=== PATIENT | male | born 1935 | race Caucasian/White ===

== ENCOUNTER 2016-08-24 17:07 | Inpatient (IN) | payer MEDICARE ==
[2016-08-24] MEDS ORDERED: ASPIRIN 81 MG CHEW PO STA (17:14)
[2016-08-24] MEDS ORDERED: DILTIAZEM 5 MG/ML 5 ML VIAL IVP STA (17:18)
[2016-08-24] MEDS ORDERED: RX INFO: IV CONTRAST WAS GIVEN 1 EACH MISC MISCELLANE PRN (17:20)
--- NOTE | 2016-08-24 17:23 | ED ---
General Adult HPI - General Chief complaint: Chest Pain Stated complaint: Chest Pain Time Seen by Provider: 08/24/16 17:10 Source: EMS, RN notes reviewed Mode of arrival: EMS Limitations: no limitations - History of Present Illness Initial comments: This is a 80-year-old male who presents to the emergency department complaining of some chest discomfort starting at 9:00 last night per patient states she was just sitting around when all of a sudden his heart started to go fast and he had discomfort. Patient states is gotten worse at times and then improved at times but is never completely gone away per patient state he is mildly short of breath with it but nothing significant. Patient states he continues felt the day today so decided to come to the emergency department. Patient states she does have a thoracic aortic aneurysm that he supposed to have CAT scan tomorrow. Patient denies any diaphoresis with these episodes patient denies any nausea with these episodes. Patient denies any recent fever chills or cough. Patient denies any headache patient denies numbness weakness. Patient denies any lightheadedness dizziness or near syncopal episode. Patient denies any abdominal pain. Patient denies any back pain. - Related Data Home Medications Medication Instructions Recorded Confirmed Ezetimibe [Zetia] 10 mg PO HS 01/20/15 08/24/16 Levothyroxine Sodium [Synthroid] 137 mcg PO DAILY 01/20/15 08/24/16 Olmesartan [Benicar] 20 mg PO DAILY 01/20/15 08/24/16 amLODIPine BESYLATE [Norvasc] 10 mg PO DAILY 01/20/15 08/24/16 Metoprolol Tartrate [Lopressor] 25 mg PO BID 08/24/16 08/24/16 Allergies Allergy/AdvReac Type Severity Reaction Status Date / Time No Known Allergies Allergy Verified 08/24/16 17:32 Review of Systems ROS Statement: Those systems with pertinent positive or pertinent negative responses have been documented in the HPI. ROS Other: All systems not noted in ROS Statement are negative. Past Medical History Past Medical History: CVA/TIA, Hyperlipidemia, Hypertension, Pneumonia, Thyroid Disorder Additional Past Medical History / Comment(s): AAA History of Any Multi-Drug Resistant Organisms: None Reported Past Surgical History: Appendectomy, Cholecystectomy, Joint Replacement, Orthopedic Surgery Additional Past Surgical History / Comment(s): bilateral shoulder and hips replaced Past Psychological History: No Psychological Hx Reported Smoking Status: Former smoker Past Alcohol Use History: Occasional Past Drug Use History: None Reported General Exam - General Exam Comments Initial Comments: GENERAL: Patient is well-developed and well-nourished. Patient is nontoxic and well- hydrated and is in mild distress. ENT: Neck is soft and supple. No significant lymphadenopathy is noted. Oropharynx is clear. Moist mucous membranes. Neck has full range of motion without eliciting any pain. EYES: The sclera were anicteric and conjunctiva were pink and moist. Extraocular movements were intact and pupils were equal round and reactive to light. Eyelids were unremarkable. PULMONARY: Unlabored respirations. Good breath sounds bilaterally. No audible rales rhonchi or wheezing was noted. CARDIOVASCULAR: Patient is tachycardic at about 150 beats a minute ABDOMEN: Soft and nontender with normal bowel sounds. No palpable organomegaly was noted. There is no palpable pulsatile mass. SKIN: Skin is clear with no lesions or rashes and otherwise unremarkable. NEUROLOGIC: Patient is alert and oriented x3. Cranial nerves II through XII are grossly intact. Motor and sensory are also intact. Normal speech, volume and content. Symmetrical smile. MUSCULOSKELETAL: Normal extremities with adequate strength and full range of motion. No lower extremity swelling or edema. No calf tenderness. LYMPHATICS: No significant lymphadenopathy is noted PSYCHIATRIC: Normal psychiatric evaluation. Normal interpersonal interactions appears functionally intact in deals appropriately with others. No signs of depression. No signs of anxiety. Limitations: no limitations Course Vital Signs 08/24/16 08/24/16 17:09 18:15 Temperature 99.2 F Pulse Rate 144 H 146 H Respiratory 20 20 Rate Blood Pressure 153/89 126/80 O2 Sat by Pulse 96 97 Oximetry Medical Decision Making - Medical Decision Making EKG shows atrial flutter with a 2-1 AV block at a rate of 150 beats a minute QRS is 84 Q-T intervals 312 QTC is 489 Chest x-ray showed no acute abnormality. Started the patient on Cardizem to slow the heart rate down. Patient was given a bolus and put on a drip - Lab Data Result diagrams: 08/24/16 17:10 08/24/16 17:10 Lab Results 08/24/16 08/24/16 08/24/16 Range/Units 17:10 17:10 17:10 WBC 11.9 H (3.8-10.6) k/uL RBC 4.64 (4.30-5.90) m/uL Hgb 13.9 (13.0-17.5) gm/dL Hct 41.9 (39.0-53.0) % MCV 90.3 (80.0-100.0) fL MCH 29.9 (25.0-35.0) pg MCHC 33.1 (31.0-37.0) g/dL RDW 13.6 (11.5-15.5) % Plt Count 253 (150-450) k/uL Neutrophils % 78 % Lymphocytes % 12 % Monocytes % 7 % Eosinophils % 1 % Basophils % 1 % Neutrophils # 9.3 H (1.3-7.7) k/uL Lymphocytes # 1.4 (1.0-4.8) k/uL Monocytes # 0.8 (0-1.0) k/uL Eosinophils # 0.1 (0-0.7) k/uL Basophils # 0.1 (0-0.2) k/uL PT (9.0-12.0) sec INR (<1.1) APTT (22.0-30.0) sec Sodium 142 (137-145) mmol/L Potassium 4.6 (3.5-5.1) mmol/L Chloride 107 (98-107) mmol/L Carbon Dioxide 21 L (22-30) mmol/L Anion Gap 14 mmol/L BUN 15 (9-20) mg/dL Creatinine 0.94 (0.66-1.25) mg/dL Est GFR (MDRD) Af Amer >60 (>60 ml/min/1.73 sqM) Est GFR (MDRD) Non-Af >60 (>60 ml/min/1.73 sqM) Glucose 108 H (74-99) mg/dL Calcium 9.4 (8.4-10.2) mg/dL Magnesium 1.7 (1.6-2.3) mg/dL Total Bilirubin 1.8 H (0.2-1.3) mg/dL AST 31 (17-59) U/L ALT 29 (21-72) U/L Alkaline Phosphatase 76 (38-126) U/L Total Creatine Kinase 218 H (55-170) U/L NT-Pro-B Natriuret Pep pg/mL Total Protein 7.4 (6.3-8.2) g/dL Albumin 4.3 (3.5-5.0) g/dL 08/24/16 08/24/16 Range/Units 17:10 17:10 WBC (3.8-10.6) k/uL RBC (4.30-5.90) m/uL Hgb (13.0-17.5) gm/dL Hct (39.0-53.0) % MCV (80.0-100.0) fL MCH (25.0-35.0) pg MCHC (31.0-37.0) g/dL RDW (11.5-15.5) % Plt Count (150-450) k/uL Neutrophils % % Lymphocytes % % Monocytes % % Eosinophils % % Basophils % % Neutrophils # (1.3-7.7) k/uL Lymphocytes # (1.0-4.8) k/uL Monocytes # (0-1.0) k/uL Eosinophils # (0-0.7) k/uL Basophils # (0-0.2) k/uL PT 11.0 (9.0-12.0) sec INR 1.1 (<1.1) APTT 23.8 (22.0-30.0) sec Sodium (137-145) mmol/L Potassium (3.5-5.1) mmol/L Chloride (98-107) mmol/L Carbon Dioxide (22-30) mmol/L Anion Gap mmol/L BUN (9-20) mg/dL Creatinine (0.66-1.25) mg/dL Est GFR (MDRD) Af Amer (>60 ml/min/1.73 sqM) Est GFR (MDRD) Non-Af (>60 ml/min/1.73 sqM) Glucose (74-99) mg/dL Calcium (8.4-10.2) mg/dL Magnesium (1.6-2.3) mg/dL Total Bilirubin (0.2-1.3) mg/dL AST (17-59) U/L ALT (21-72) U/L Alkaline Phosphatase (38-126) U/L Total Creatine Kinase (55-170) U/L NT-Pro-B Natriuret Pep 2220 pg/mL Total Protein (6.3-8.2) g/dL Albumin (3.5-5.0) g/dL Disposition Clinical Impression: Atrial flutter with rapid ventricular response Disposition: ADMITTED IP TO THIS HOSP Time of Disposition: 18:46
[2016-08-24 17:32] LABS: Basophils # (A) 0.1 k/uL (0-0.2); Basophils % (A) 1 %; CH 30.4; CHCM 33.8; Eosinophils # (A) 0.1 k/uL (0-0.7); Eosinophils % (A) 1 %; HCT 41.9 % (39.0-53.0); HDW 2.82; HGB 13.9 gm/dL (13.0-17.5); Luc # (Auto) 0.22; Luc % (Auto) 2; Lymphocytes # (A) 1.4 k/uL (1.0-4.8); Lymphocytes % (A) 12 %; MCH 29.9 pg (25.0-35.0); MCHC 33.1 g/dL (31.0-37.0); MCV 90.3 fL (80.0-100.0); Mean Platelet Volume 7.9; Monocytes # (A) 0.8 k/uL (0-1.0); Monocytes % (A) 7 %; Neutrophils # (A) 9.3 k/uL (1.3-7.7); Neutrophils % (A) 78 %; RBC 4.64 m/uL (4.30-5.90); RDW 13.6 % (11.5-15.5); WBC 11.9 k/uL (3.8-10.6); WBC (Perox) 12.06
[2016-08-24 17:43] LABS: INR 1.1 (<1.1); Partial Thromboplastin Time 23.8 sec (22.0-30.0)
[2016-08-24 17:44] LABS: ALT 29 U/L (21-72); AST 31 U/L (17-59); Alkaline Phosphatase 76 U/L (38-126); Anion Gap 14 mmol/L; Blood Urea Nitrogen 15 mg/dL (9-20); Calcium 9.4 mg/dL (8.4-10.2); Carbon Dioxide 21 mmol/L (22-30); Chloride 107 mmol/L (98-107); Glucose 108 mg/dL (74-99); Magnesium 1.7 mg/dL (1.6-2.3); Non-African American GFR(MDRD) >60 (>60 ml/min/1.73 sqM); Potassium 4.6 mmol/L (3.5-5.1); Sodium 142 mmol/L (137-145); Total Bilirubin 1.8 mg/dL (0.2-1.3); Total Protein 7.4 g/dL (6.3-8.2)
--- NOTE | 2016-08-24 18:13 | XR ---
EXAMINATION TYPE: XR chest 2V DATE OF EXAM: 08/24/2016 5:44 PM HISTORY: Chest pain TECHNIQUE: Frontal and lateral views of the chest are obtained. FINDINGS: The thoracic aorta is prominently tortuous. There is no focal air space opacity, pleural effusion, or pneumothorax seen. The cardiac silhouette size is within normal limits. The osseous structures are intact. IMPRESSION: No acute pleural-parenchymal process.
[2016-08-24 18:17] LABS: Troponin I 0.023 ng/mL (0.000-0.034)
[2016-08-24] MEDS: DILTIAZEM 125 MG in SODIUM CHLORIDE 0.9% 100 ML IV SCH (18:21)
[2016-08-24 18:50] LABS: Creatine Kinase MB 4.4 ng/mL (0.0-2.4)
[2016-08-24] MEDS ORDERED: HEPARIN SODIUM,PORCINE 5,000 UNIT/ML 1 ML VIAL IV ONE (18:55)
--- NOTE | 2016-08-24 18:56 | CT ---
EXAMINATION TYPE: CT angio thoracic/abd aorta DATE OF EXAM: 08/24/2016 6:26 PM COMPARISON: CTA chest 03/24/[address] abdomen pelvis January 09, 2013 HISTORY: Pt states of chest pain and pressure. Hx of AAA. CT DLP: 798.2 mGycm. Automated exposure control for dose reduction was used. TECHNIQUE: Performed with IV Contrast, patient injected with 100 mL of Omnipaque 350. THORACIC FINDINGS: Imaging was obtained from the thoracic inlet contiguously through the level of the sacroiliac joints. The thoracic aorta is markedly ectatic and it is aneurysmal, with the ascending aorta measuring 5 cm caliber (top normal is 4 cm caliber), and the descending thoracic aorta at the same axial level is 4c m caliber. However, the thoracic aortic caliber and overall CT appearance (on both the noncontrast an d contrast sequences) is unaltered when compared to the prior CTA of March 2016. The mediastinal fat has normal appearance. There is no aortic dissection. The great arterial vessels have unremarkabl e appearance. There are prominent air-filled bowel plane calcifications and prominent coronary calcifications. No c ardiomegaly. Pericardial spaces negative. The pulmonary arteries are negative for embolism. The pulmonary arterial anatomy is mild moderately d ilated, suggesting chronic pulmonary hypertension if clinically supported. This too is unchanged. The lungs are clear. The pleural spaces are negative. No focal skeletal findings. ABDOMINAL FINDINGS: Generalized nonaneurysmal atherosclerotic calcifications are noted throughout th e arterial anatomy. The aortoiliac inflow is widely patent. There is no dissection. Solid and hollow viscera of the abdomen are unremarkable. No focal skeletal findings. IMPRESSION: NO ACUTE PROCESS; STABLE APPEARANCE WHEN COMPARED TO THE PRIOR CTA OF 2015.
[2016-08-24] MEDS ORDERED: NITROGLYCERIN SL TABS 0.4 MG TAB SUBLINGUAL PRN (18:58)
[2016-08-24] MEDS ORDERED: HEPARIN SODIUM,PORCINE/D5W PMX 25,000 UNIT in DEXTROSE/WATER 1 500ML.BAG IV SCH (19:00)
[2016-08-24] MEDS ORDERED: ACETAMINOPHEN TAB 325 MG TAB PO STA (19:15)
[2016-08-24 19:25] LABS: Appearance,Urine Clear (Clear); Bilirubin,Urine Negative (Negative); Glucose,Urine (UA) Negative (Negative); Ketones,Urine Negative (Negative); Leukocyte Esterase,Urine Negative (Negative); Nitrite,Urine Negative (Negative); Protein,Urine Negative (Negative); Specific Gravity,Urine 1.023 (1.001-1.035); UA Billing (MACRO vs. MICRO) CHEM; Urobilinogen,Urine <2.0 mg/dL (<2.0)
[2016-08-24 21:22] LABS: Glucose,Whole Blood 113 mg/dL (75-99)
[2016-08-24 21:34] VITALS: BMI 26.6
[2016-08-25] MEDS ORDERED: NITROGLYCERIN OINT 1 INCH/GM PACKET TOPICAL SCH (00:15)
[2016-08-25] MEDS: EZETIMIBE 10 MG TAB PO SCH ×2 (00:24→21:03)
[2016-08-25 00:39] LABS: Creatine Kinase MB 2.5 ng/mL (0.0-2.4); Troponin I 0.044 ng/mL (0.000-0.034)
[2016-08-25] MEDS: NITROGLYCERIN OINT 1 INCH/GM PACKET TOPICAL SCH ×3 (00:43→15:56)
[2016-08-25] MEDS: ACETAMINOPHEN TAB 325 MG TAB PO PRN (04:14)
[2016-08-25] MEDS: DILTIAZEM 125 MG in SODIUM CHLORIDE 0.9% 100 ML IV SCH (04:52)
[2016-08-25] MEDS: LEVOTHYROXINE 137 MCG TAB PO SCH (06:14)
[2016-08-25 06:17] LABS: Cholesterol 168 mg/dL (<200); HDL Cholesterol 48 mg/dL (40-60); Triglycerides 74 mg/dL (<150)
[2016-08-25 06:43] LABS: Creatine Kinase MB 1.5 ng/mL (0.0-2.4)
[2016-08-25 06:44] LABS: Troponin I 0.042 ng/mL (0.000-0.034)
[2016-08-25] MEDS: ASPIRIN 325 MG TAB PO SCH (08:17)
--- NOTE | 2016-08-25 11:51 | CONS ---
DATE OF CONSULTATION: CHIEF COMPLAINT: Atrial flutter. This is an 80-year-old gentleman with history of shortness of breath, moderate aortic stenosis, nonobstructive CAD, who sees my associate, Dr. Odom on a regular basis, presented to the hospital complaining of palpitations and shortness of breath. He was found to be in atrial flutter. He also had some chest discomfort. He was found to be in atrial flutter with rapid ventricular rate. He is treated with intravenous Cardizem with significant improvement in his heart rate. He is also on IV heparin. The patient has history of aortic aneurysm and was to undergo a CAT scan tomorrow, but it was done on this admission. CAT showed stable ascending aortic aneurysm compared to April 2016. At the time of my evaluation, patient is comfortable at rest and is free of symptoms. Past medical history is significant for aortic stenosis, mild nonobstructive coronary artery disease, hypertension. Current medications include Lopressor 25 b.i.d., Norvasc 10 q. daily, Benicar 20 q. daily, levothyroxine and Zetia. ALLERGIES: There are no known drug allergies. Family history is negative for premature coronary artery disease. Social history is negative for current smoking, EtOH abuse, or drug abuse. REVIEW OF SYSTEMS: HEENT: Unremarkable. CARDIAC: As described above. RESPIRATORY: Negative. GI: Negative. GENITOURINARY: Negative. ALLERGY/IMMUNOLOGY: Negative. MUSCULOSKELETAL: Significant for arthritis. PSYCHOSOCIAL: Negative. DERMATOLOGICAL; Negative. CONSTITUTIONAL: Negative. The rest of the system review is not relevant. On exam, comfortable at rest. Vital signs are stable. There is no jugular venous distention. Carotid upstroke is normal. There is no bruit. Chest exam reveals diminished air entry at the bases. Heart exam reveals first and second heart sounds and ejection systolic murmur in the aortic area. Abdomen is soft. Exam of extremities did not reveal edema. Peripheral pulses are felt. Labs show that the troponin is elevated at 0.04. LDL cholesterol is 105. Hemoglobin is 13.9. ASSESSMENT: 1. Atrial flutter with poorly controlled ventricular rate, new onset, typical. 2. Mild nonobstructive coronary artery disease. 3. Moderate aortic stenosis. 4. Elevated troponin probably related to supply demand mismatch. PLAN: I am going to stop the intravenous Cardizem, start him on amiodarone and Eliquis. If he converts to sinus rhythm well and good. If not, he will need cardioversion once adequately anticoagulated.
[2016-08-25] MEDS: ATENOLOL 25 MG TAB PO SCH (12:30)
[2016-08-25] MEDS: APIXABAN 2.5 MG TABLET PO SCH ×2 (12:30→21:03)
--- NOTE | 2016-08-25 14:46 | P.CNPUL ---
History of Present Illness Consult date: 08/25/16 Reason for consult: chest pain Chief complaint: Chest pain History of present illness: This is an 80-year-old male who presented to the emergency department complaining of some chest discomfort. The patient states in addition to chest pain, he also had a rapid heartbeat. Palpitations and fluttering. The patient also some mild shortness of breath. His primary doctor is my partner. He came to the emergency department because his heart rate was not still slowly down nor was his chest pressure getting any better. No sweating. No nausea. No vomiting. No fever no chills. No phlegm production. No back pain. The patient was essentially admitted for some hypertension and atrial fibrillation with RVR. He has a history of hyperlipidemia hypothyroidism hypertension. Has no history of chronic lung disease per se. Review of Systems A 12 point review of system is positive for chest pain rapid heartbeat palpitations and mild shortness of breath. The rest of the 12 point review of system is unremarkable. Past Medical History Past Medical History: CVA/TIA, Hyperlipidemia, Hypertension, Pneumonia, Thyroid Disorder Additional Past Medical History / Comment(s): AAA History of Any Multi-Drug Resistant Organisms: None Reported Past Surgical History: Appendectomy, Cholecystectomy, Heart Catheterization, Joint Replacement, Orthopedic Surgery Additional Past Surgical History / Comment(s): bilateral shoulder and hips replaced Past Anesthesia/Blood Transfusion Reactions: No Reported Reaction Past Psychological History: No Psychological Hx Reported Smoking Status: Former smoker Past Alcohol Use History: Occasional Additional Past Alcohol Use History / Comment(s): Pt states he quit in the Past Drug Use History: None Reported - Past Family History Mother Family Medical History: CVA/TIA Medications and Allergies Home Medications Medication Instructions Recorded Confirmed Type Ezetimibe [Zetia] 10 mg PO HS 01/20/15 08/24/16 History Levothyroxine Sodium [Synthroid] 137 mcg PO DAILY 01/20/15 08/24/16 History Olmesartan [Benicar] 20 mg PO DAILY 01/20/15 08/24/16 History amLODIPine BESYLATE [Norvasc] 10 mg PO DAILY 01/20/15 08/24/16 History Metoprolol Tartrate [Lopressor] 25 mg PO BID 08/24/16 08/24/16 History Allergies Allergy/AdvReac Type Severity Reaction Status Date / Time No Known Allergies Allergy Verified 08/24/16 17:32 Physical Exam Osteopathic Statement: *. No significant issues noted on an osteopathic structural exam other than those noted in the History and Physical/Consult. Vitals: Vital Signs Temp Pulse Pulse Resp BP BP Pulse Ox 08/25/16 12:00 96.5 F L 83 18 123/62 97 08/25/16 08:00 96.4 F L 84 18 126/66 94 L 08/25/16 04:00 101 F H 82 18 114/56 96 08/25/16 00:00 90 18 127/60 96 08/24/16 21:00 98.1 F 121 H 18 108/68 95 08/24/16 20:34 99.9 F H 150 H 16 106/59 97 08/24/16 20:13 155 H 16 98/58 08/24/16 20:00 101.0 F H 152 H 16 113/74 08/24/16 19:10 100.5 F H 150 H 20 112/67 96 Intake and Output 08/24/16 08/25/16 08/25/16 22:59 06:59 14:59 Intake Total 10.333 186.695 755.067 Output Total 400 Balance 10.333 -213.305 755.067 Intake: IV 20 .9 20 Intake, IV Titration 10.333 186.695 155.067 Amount Diltiazem 125 mg In 10.333 84.5 Sodium Chloride 0.9% 100 ml @ 5 MG/HR 5 mls/hr IV .Q24H [facility] Rx#:[id number] Heparin Sodium,Porcine/ 102.195 155.067 D5w Pmx 25,000 unit In Dextrose/Water 1 500ml. bag @ 12 UNITS/KG/HR 19. 59 mls/hr IV .Q24H [facility] Rx #:[id number] Oral 580 Output: Urine 400 Other: # Voids 1 1 # Bowel Movements 1 Weight 81.647 kg 78.1 kg No acute distress, oriented 3. Sitting beside the bed. No respiratory difficulty. HEENT examination is grossly unremarkable. Mucous membranes are moist. No oral lesions. Neck supple. Full range of motion. No adenopathy. Cardiovascular examination reveals regular rhythm rate. S1-S2 normal. He is not tachycardic. No murmur. No S3-S4. Lungs are clear breath sounds are equal. No wheezes rhonchi or crackles. Abdomen soft bowel sounds are heard. No masses or tenderness. Extremities are intact. His no edema. Pulses are intact. Results - Laboratory Findings CBC and BMP: 08/24/16 17:10 08/24/16 17:10 PT/INR, D-dimer PT 11.0 sec (9.0-12.0) 08/24/16 17:10 INR 1.1 (<1.1) 08/24/16 17:10 Abnormal lab findings: Abnormal Labs 08/24/16 08/24/16 08/24/16 21:20 23:39 23:39 APTT 41.4 H POC Glucose (mg/dL) 113 H Total Creatine Kinase 190 H CK-MB (CK-2) 2.5 H* Troponin I 0.044 H* LDL Cholesterol, Calc 08/25/16 08/25/16 08/25/16 05:17 05:17 05:17 APTT 43.9 H POC Glucose (mg/dL) Total Creatine Kinase 221 H CK-MB (CK-2) Troponin I 0.042 H* LDL Cholesterol, Calc 105 H - Diagnostic Findings Chest x-ray: image reviewed CT scan - chest: image reviewed (X-rays labs and medications are all reviewed.) Assessment and Plan (1) Hypertensive urgency Status: Acute (2) Atrial flutter with rapid ventricular response Status: Acute Plan: Plan dated 08/25/2016 The patient's medications labs and x-rays are all reviewed. We spent time at the bedside with the patient. He has no history of any lung issues. We'll continue to follow along. Cardiology is taken a main goal in the care of this patient given his heart history. Additional recommendations and suggestions are forthcoming. Time with Patient: Greater than 30
--- NOTE | 2016-08-25 16:09 | HP ---
DATE OF ADMISSION: 08/24/2016 PRESENTING COMPLAINT: Heart racing. HISTORY OF PRESENTING COMPLAINT: This is a pleasant 80-year-old patient of Dr. Pimentel whose chronic stable medical conditions include hypertension, hyperlipidemia and hypothyroid. Patient has abdominal aortic aneurysm. The patient was watching television and suddenly his heart started beating rapidly. It went all through all night. There is some chest discomfort, down to the shoulder. No shortness of breath. No dizziness. No perspiration. The patient came in and was found to be in atrial flutter with a rapid ventricular rate. Patient is put on IV Cardizem and IV heparin. Admitted for the same. Denies any prior cardiac history. REVIEW OF SYSTEMS: CONSTITUTIONAL: Tired. HEENT: None. RESPIRATORY: As above. CARDIOVASCULAR: As above. GASTROINTESTINAL: None. GENITOURINARY: None. MUSCULOSKELETAL: None. DERMATOLOGICAL: None. HEMATOLOGICAL: None. LYMPHATICS: None. PSYCHIATRY: None. NEUROLOGICAL: None. 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 PAST SURGICAL HISTORY: Appendectomy, cholecystectomy, cardiac catheterization, bilateral shoulder and hips replaced. SOCIAL HISTORY: The patient stopped smoking in the 70s. Lives by himself, retired. FAMILY HISTORY: Stroke. HOME MEDICATIONS: 1. Lopressor 25 b.i.d. 2. Norvasc 10 mg p.o. daily. 3. Benicar 20 mg p.o. daily. 4. Synthroid 137 mcg p.o. daily. 5. Zetia 10 mg p.o. q.h.s. ALLERGIES: None. On examination vital signs on presentation: Temperature 101, pulse 152, respirations 16, blood pressure 103/74, pulse ox 96% on 2 liters. GENERAL APPEARANCE: Average built, sitting up, tired -appearing. EYES: Pupils equal. Conjunctivae normal. HEENT: Oral cavity normal. NECK: JVD not raised. Mass not palpable. RESPIRATORY: Effort normal. LUNGS: Slightly decreased breath sounds. CARDIOVASCULAR: Heart sounds irregular. No edema. ABDOMEN: Soft, nontender. Liver and spleen not palpable. LYMPHATIC: No lymph nodes palpable in neck or axillae. PSYCHIATRY: Alert and oriented x3. Mood and affect normal. NEUROLOGICAL: Pupils equal. Cranial nerves grossly intact. Power and sensation grossly intact. MUSCULOSKELETAL: Evidence of osteoarthritis especially in the hands. INVESTIGATIONS: White count 11.9, hemoglobin 13.9. Potassium 4.6. Troponin 0.023, 0.044, 0.042. UA negative. Chest x-ray nil acute. CT scan of the chest was unremarkable. EKG shows atrial flutter with 2:1 conduction ASSESSMENT: 1. New onset of atrial flutter with a rapid ventricular rate, present on admission. 2. Troponin leak, probably rate related. We need to rule out underlying coronary ischemia in this elderly gentleman who has multiple coronary risk factors. 3. Hyperlipidemia. 4. Essential hypertension. 5. Hypothyroidism. PLAN: Patient did have a sepsis-like picture on the presentation, though no source is present. Patient has no respiratory symptoms and no urinary symptoms at this point. We will hold off any antibiotics. The patient actually feels better since he has come in. Follow closely. Will send down a set of blood cultures also. Care was discussed with patent in detail.
[2016-08-25] MEDS: AMIODARONE 200 MG TAB PO SCH (21:03)
[2016-08-26] MEDS: NITROGLYCERIN OINT 1 INCH/GM PACKET TOPICAL SCH ×3 (00:14→16:36)
[2016-08-26] MEDS: ACETAMINOPHEN TAB 325 MG TAB PO PRN (00:19)
[2016-08-26] MEDS: LEVOTHYROXINE 137 MCG TAB PO SCH (06:42)
[2016-08-26 07:00] LABS: Anion Gap 10 mmol/L; Basophils # (A) 0.1 k/uL (0-0.2); Basophils % (A) 1 %; Blood Urea Nitrogen 16 mg/dL (9-20); CH 29.6; Calcium 8.8 mg/dL (8.4-10.2); Carbon Dioxide 23 mmol/L (22-30); Chloride 107 mmol/L (98-107); Eosinophils # (A) 0.1 k/uL (0-0.7); Eosinophils % (A) 1 %; Glucose 93 mg/dL (74-99); HCT 41.2 % (39.0-53.0); HDW 2.71; HGB 13.3 gm/dL (13.0-17.5); Luc # (Auto) 0.26; Luc % (Auto) 4; Lymphocytes # (A) 2.1 k/uL (1.0-4.8); Lymphocytes % (A) 33 %; MCH 29.1 pg (25.0-35.0); MCHC 32.2 g/dL (31.0-37.0); MCV 90.3 fL (80.0-100.0); Mean Platelet Volume 7.2; Monocytes # (A) 0.9 k/uL (0-1.0); Monocytes % (A) 14 %; Neutrophils # (A) 2.9 k/uL (1.3-7.7); Neutrophils % (A) 47 %; Non-African American GFR(MDRD) >60 (>60 ml/min/1.73 sqM); Potassium 4.4 mmol/L (3.5-5.1); RBC 4.56 m/uL (4.30-5.90); RDW 13.4 % (11.5-15.5); Sodium 140 mmol/L (137-145); WBC 6.2 k/uL (3.8-10.6); WBC (Perox) 6.19
[2016-08-26] MEDS: ASPIRIN 325 MG TAB PO SCH (09:18)
[2016-08-26] MEDS: ATENOLOL 25 MG TAB PO SCH (09:18)
[2016-08-26] MEDS: AMIODARONE 200 MG TAB PO SCH ×2 (09:19→20:34)
[2016-08-26] MEDS: APIXABAN 2.5 MG TABLET PO SCH ×2 (09:19→20:34)
--- NOTE | 2016-08-26 10:32 | ECHOF ---
Referral Reason:aflutter MEASUREMENTS -------- HEIGHT: 175.3 cm WEIGHT: 78.0 kg BP: 126/66 RVIDd: 3.8 cm (< 3.3) IVSd: 0.8 cm (0.6 - 1.1) LVIDd: 4.5 cm (3.9 - 5.3) LVPWd: 0.8 cm (0.6 - 1.1) IVSs: 1.5 cm LVIDs: 3.0 cm LVPWs: 1.4 cm LA Diam: 2.8 cm (2.7 - 3.8) LAESV Index (A-L): 32.01 ml/m Ao Diam: 3.2 cm (2.0 - 3.7) AV Cusp: 1.6 cm (1.5 - 2.6) LA Diam: 3.0 cm (2.7 - 3.8) MV EXCURSION: 15.965 mm (> 18.000) MV EF SLOPE: 116 mm/s (70 - 150) EPSS: 0.6 cm MV E Piter: 1.32 m/s MV DecT: 172 ms MV A Piter: 0.59 m/s MV E/A Ratio: 2.24 AV maxP.02 mmHg AV meanP.19 mmHg AR PHT: 540 ms FINDINGS -------- Sinus rhythm. This was a technically good study. Left ventricular wall thickness is normal. Overall left ventricular systolic function is normal with, an EF between 55 - 60 %. The right ventricle is mildly enlarged. LA is midly dilated 29-33ml/m2. The right atrium is normal in size. There is mild aortic regurgitation. There is mild aortic stenosis present. Peak/mean gradient across the Aortic Valve is 27.02mmHg / 16.19mmHg. The mitral valve leaflets are mildly thickened. Mild mitral annular calcification present. Mild mitral regurgitation is present. Mild tricuspid regurgitation present. Right ventricular systolic pressure is normal at < 35 mmHg. Pulmonic valve appears structurally normal. The aortic root size is normal. Normal inferior vena cava with normal inspiratory collapse consistent with estimated right atrial pressure of 5 mmHg. There is no pericardial effusion. CONCLUSIONS -------- 1. Sinus rhythm. 2. Peak/mean gradient across the Aortic Valve is 27.02mmHg / 16.19mmHg. 3. The mitral valve leaflets are mildly thickened. 4. Mild mitral annular calcification present. 5. Mild mitral regurgitation is present. 6. Mild tricuspid regurgitation present. 7. Right ventricular systolic pressure is normal at < 35 mmHg. 8. Pulmonic valve appears structurally normal. 9. The aortic root size is normal. 10. There is no pericardial effusion. 11. This was a technically good study. 12. Left ventricular wall thickness is normal. 13. Overall left ventricular systolic function is normal with, an EF between 55 - 60 %. 14. The right ventricle is mildly enlarged. 15. LA is midly dilated 29-33ml/m2. 16. The right atrium is normal in size. 17. There is mild aortic regurgitation. 18. There is mild aortic stenosis present. ENVIRONMENTAL [employer] PLANNER: Juan R Grover RDCS
[2016-08-26] MEDS: METOPROLOL TARTRATE 50 MG TAB PO SCH ×3 (12:21→20:35)
--- NOTE | 2016-08-26 13:15 | P.PN ---
Subjective This is an 80-year-old male who presented to the emergency department complaining of some chest discomfort. The patient states in addition to chest pain, he also had a rapid heartbeat. Palpitations and fluttering. The patient also some mild shortness of breath. His primary doctor is my partner. He came to the emergency department because his heart rate was not still slowly down nor was his chest pressure getting any better. No sweating. No nausea. No vomiting. No fever no chills. No phlegm production. No back pain. The patient was essentially admitted for some hypertension and atrial fibrillation with RVR. He is seen again today 08/26/2016 in follow-up on the selective care unit. He is awake and alert in no acute distress. He states his breathing is easier today as compared to yesterday. He has increased activity with less dyspnea on exertion. He is maintaining O2 saturations in the mid 90s on room air. His heart rate is better controlled currently in the 70s. He's been initiated on amiodarone 400 mg twice a day. He is also on Lopressor 50 mg 3 times a day. Anticoagulated with Eliquis. He denies any chest pain, palpitations, lightheadedness or dizziness. Objective - Vital Signs Vital signs: Vital Signs Temp 98.7 F 08/26/16 12:00 Pulse 75 08/26/16 12:00 Resp 18 08/26/16 12:00 BP 146/82 08/26/16 12:00 Pulse Ox 94 L 08/26/16 12:00 Intake & Output 08/25/16 08/26/16 08/26/16 18:59 06:59 18:59 Intake Total 935.067 480 Output Total 1500 1000 Balance 935.067 -1020 -1000 Weight 77.9 kg 77.9 kg Intake: IV 20 .9 20 Intake, IV Titration 155.067 Amount Heparin Sodium,Porcine/ 155.067 D5w Pmx 25,000 unit In Dextrose/Water 1 500ml. bag @ 12 UNITS/KG/HR 19. 59 mls/hr IV .Q24H KATARINA Rx #:[id number] Oral 760 480 Output: Urine 1500 1000 Other: Voiding Method Toilet # Voids 1 1 1 # Bowel Movements 1 1 - Exam GENERAL EXAM: Alert, active, comfortable in no apparent distress. HEAD: Normocephalic. EYES: Normal reaction of pupils, equal size. NOSE: Clear with pink turbinates. THROAT: No erythema or exudates. NECK: No masses, no JVD. CHEST: No chest wall deformity. LUNGS: Equal air entry with no crackles, wheeze, rhonchi or dullness. CVS: S1 and S2 normal with no audible mumurs, irregular rhythm. ABDOMEN: No hepatosplenomegaly, normal bowel sounds, no guarding or rigidity. SPINE: No scoliosis or deformity SKIN: No rashes CENTRAL NERVOUS SYSTEM: No focal deficits, tone is normal in all 4 extremities. Extremities: There is no significant peripheral edema. No clubbing, no cyanosis. Peripheral pulses are intact. - Labs CBC & Chem 7: 08/26/16 05:37 08/26/16 05:37 Assessment and Plan Plan: Impression: #1 Chest pain with palpitations found to be in atrial fibrillation with a rapid ventricular response. Better controlled today on amiodarone and beta blockers. Anticoagulated with Eliquis. #2 Hypertension. #3 Hyperlipidemia. #4 Hypothyroidism. Plan: The patient was seen and evaluated by Dr. Cooper. His heart rate is better controlled today. He denies any chest pain, palpitations lightheadedness or dizziness. No pulmonary complaints. We'll continue with his current medications. He remains anticoagulated. We will increase his activity as tolerated. We'll continue to follow make further recommendations based on his clinical status.
--- NOTE | 2016-08-26 13:55 | PN ---
Mr. Ware is comfortable, resting. He is in atrial flutter, rate is well controlled at rest but with activity his rates seems to go up. His vital signs are stable. I am recommending that we continue the amiodarone for now, we will increase the metoprolol to 50 mg t.i.d. and will continue apixaban 2.5 mg b.i.d. and based on clinical course, will make further recommendation. Hopefully his rate control will be optimized with increased dose of beta saud, and if so he can possibly be discharged tomorrow. Physical exam revealed blood pressure of 140/80, pulse rate is about 80 per minute, irregular. No JVD. S1 and S2 heard normally. Short systolic murmur is audible. Lungs are clear. Abdomen and lower extremity exam is unchanged.
[2016-08-26] MEDS: ISOSORBIDE MONONITRATE ER 30 MG TAB.ER.24H PO SCH (18:20)
[2016-08-26] MEDS: EZETIMIBE 10 MG TAB PO SCH (20:34)
--- NOTE | 2016-08-26 22:08 | PN ---
DATE OF SERVICE: 08/26/2016 PRESENTING COMPLAINT: Heart racing. INTERVAL HISTORY: This is a patient who presented with atrial fibrillation with rapid ventricular rate, did have a couple of episodes of heart racing up to 150s. A beta saud was earlier increased by Cardiology. Overall the patient feeling better, but a bit tired. Review of systems done for constitutional, cardiovascular, GI, pulmonary; relevant findings as above. Current medications are reviewed that include: 1. Amiodarone and 2. Lopressor 50 mg t.i.d. On examination, temperature 98.7, pulse 75 with a heart rate up to 150, respirations 18, blood pressure 142/82, pulse ox 94% on room air. GENERAL APPEARANCE: Sitting up, not in distress. EYES: Pupils equal. Conjunctivae normal. NECK: JVD not raised. Mass not palpable. RESPIRATORY: Effort normal. LUNGS: Slight decreased breath sounds. CARDIOVASCULAR: First and second sounds normal. No edema. ABDOMEN: Soft, nontender. Liver and spleen not palpable. PSYCHIATRY: Alert and oriented x3. Mood and affect were normal. INVESTIGATIONS: White count 6.2. Potassium 4.4. ASSESSMENT: 1. Atrial flutter with rapid ventricular rate on presentation. Rate getting better controlled. 2. Troponin leak, likely related. Patient will need ischemic workup later because of multiple coronary risk factors. 3. Hyperlipidemia. 4. Essential hypertension. 5. Hypothyroidism. PLAN: Patient overall doing better. He interestingly has had no further fevers, even though did not receive any antibiotics, antipyretics. Will change the nitro paste to Imdur.
[2016-08-27] MEDS: LEVOTHYROXINE 137 MCG TAB PO SCH (06:27)
[2016-08-27 07:54] VITALS: RESP 18; TEMP 97.6
[2016-08-27] MEDS: APIXABAN 2.5 MG TABLET PO SCH (08:47)
[2016-08-27] MEDS: AMIODARONE 200 MG TAB PO SCH (08:47)
[2016-08-27] MEDS: METOPROLOL TARTRATE 50 MG TAB PO SCH ×2 (08:47→14:29)
[2016-08-27] MEDS: ISOSORBIDE MONONITRATE ER 30 MG TAB.ER.24H PO SCH (08:47)
--- NOTE | 2016-08-27 12:23 | P.PN ---
Subjective Progress note dated 08/27/2016 This is an 80-year-old gentleman who sees one of my partners as his primary doctor. Was admitted with a diagnosis of atrial fibrillation with RVR. They much better now. Much less short of breath. In fact he said feeling that he is ready to go home. He is on a blood thinner currently. He was started on Cordarone 400 mg twice a day. Also on Lopressor 50 mg 3 times a day. No chest pain or chest discomfort. Shortness of breath is dramatically improved. No wheezes. No fever no chills. No nausea vomiting or diarrhea. Objective - Vital Signs Vital signs: Vital Signs Temp 97.6 F 08/27/16 07:53 Pulse 69 08/27/16 08:00 Resp 18 08/27/16 08:00 BP 123/70 08/27/16 07:53 Pulse Ox 97 08/27/16 07:53 Intake & Output 08/26/16 08/27/16 08/27/16 18:59 06:59 18:59 Intake Total 480 1080 Output Total 1500 860 500 Balance -1020 220 -500 Weight 77.9 kg 77.1 kg 77.1 kg Intake: Oral 480 1080 Output: Urine 1500 860 500 Other: Voiding Method Toilet Toilet Toilet # Voids 1 2 2 # Bowel Movements 1 - Labs CBC & Chem 7: 08/26/16 05:37 08/26/16 05:37 Labs: Microbiology - Last 24 Hours (Table) 08/25/16 14:04 Blood Culture - Preliminary Blood No Growth after 24 hours Assessment and Plan (1) Hypertensive urgency Status: Acute (2) Atrial flutter with rapid ventricular response Status: Acute Plan: Plan dated 08/25/2016 The patient's medications labs and x-rays are all reviewed. We spent time at the bedside with the patient. He has no history of any lung issues. We'll continue to follow along. Cardiology is taken a main goal in the care of this patient given his heart history. Additional recommendations and suggestions are forthcoming. Plan dated 08/27/2016 The patient's medications x-rays labs are all reviewed. He is improved. Hopefully we'll be ready for discharge soon. No additional recommendations are made. Pulmonary status is stable. On room air saturations between 95 and 99%. Time with Patient: Less than 30
[2016-08-27 14:12] VITALS: BP 115/67; PULSE 72
--- NOTE | 2016-08-27 16:15 | PN ---
Mr. Ware is comfortable, resting. He sees Dr. Odom in the outpatient setting. He remains in atrial flutter, but the rate control has improved at rest. The rate is in the mid 70s. Yesterday I increased his beta saud and added apixaban. He seems to be doing better but the activity rate is in the low 100s. I am recommending that he can be discharged on amiodarone, apixaban and metoprolol 50 mg b.i.d. and see Dr. Odom in one week. This gentleman has mild aortic stenosis, nonobstructive CAD and has now developed atrial flutter. The rate is better controlled and will be discharged on current medications. Vital signs are stable. S1, S2 heard normally, short systolic murmur at the base with preserved second heart sound is audible. Heart rate is not fast. Lungs are clear. Abdomen is soft, nontender. Lower extremities reveal diminished pulses. Central nervous system is grossly within normal limits. Plan is to discharge patient on current medical regimen.
--- NOTE | 2016-08-28 22:37 | DS ---
DATE OF ADMISSION: 08/24/2016 DATE OF DISCHARGE: 08/27/2016 FINAL DIAGNOSES: 1. Atrial flutter with rapid ventricular rate on presentation. Rate controlled later on. 2. Troponin leak. Will probably need an ischemic workup as an outpatient because of multiple coronary risk factors. 3. Hyperlipidemia. 4. Essential hypertension. 5. Hypothyroidism. CONSULTATIONS: 1. Dr. Lee Ann Watt, Cardiology. 2. Dr. Cooper, Pulmonary. HOSPITAL COURSE: This patient presented with atrial flutter with rapid ventricular rate and some chest pressure, some troponin leak. Two-D echocardiogram showed EF of 55% to 60%. Patient's rate was controlled by the time of discharge. Care was discussed with the patient. DISCHARGE MEDICATIONS: 1. Zetia 10 mg at bedtime. 2. Synthroid 137 mcg a day. 3. Cordarone 400 mg p.o. b.i.d. 4. Eliquis 2.5 mg p.o. b.i.d. 5. Imdur ER 30 mg p.o. daily. 6. Lopressor 50 mg p.o. t.i.d. Follow up with Dr. Odom in one week. Follow up with Dr. Pimentel in one week. ADDITIONAL NOTE: Cardiology may consider changing the Cordarone to some other medication in view of patient being on Synthroid. Patient to have his TSH checked on followup.
== END 2016-08-27 15:26 | disposition home or self-care (01) | DRG 310 ==
LOC: EC 17:07 → 6SEL 18:58
PROVIDERS: ADMIT Hospitalist; ATTEND Hospitalist
DX: I48.92 Unspecified atrial flutter (principal); I71.2 Thoracic aortic aneurysm, without rupture; I35.0 Nonrheumatic aortic (valve) stenosis; I16.0 Hypertensive urgency; E78.5 Hyperlipidemia, unspecified; I10 Essential (primary) hypertension; R74.8 Abnormal levels of other serum enzymes; E03.9 Hypothyroidism, unspecified; I25.10 Atherosclerotic heart disease of native coronary artery without angina pectoris; M19.041 Primary osteoarthritis, right hand; M19.042 Primary osteoarthritis, left hand; R07.9 Chest pain, unspecified; R06.02 Shortness of breath; H54.7 Unspecified visual loss; Z87.891 Personal history of nicotine dependence; Z90.49 Acquired absence of other specified parts of digestive tract; Z96.643 Presence of artificial hip joint, bilateral; Z79.899 Other long term (current) drug therapy; Z82.3 Family history of stroke; Z96.612 Presence of left artificial shoulder joint; Z96.611 Presence of right artificial shoulder joint; Z87.01 Personal history of pneumonia (recurrent); Z86.73 Personal history of transient ischemic attack (TIA), and cerebral infarction without residual deficits
CPT/HCPCS: 36415; 71020; 71275; 75635; 80048; 80053; 80061; 81003; 82550; 82553; 83735; 83880; 84484; 85025; 85610; 85730; 87040; 93005; 93306; 96365; 96366; 96368; 96376; 99285

== ENCOUNTER 2016-11-09 20:45 | Emergency (ER) | payer MEDICARE ==
[~2016-11-09 20:45] MED LIST: LIDOCAINE/EPINEPHR/TETRACAINE 5 ML BOTTLE TOPICAL ONE
[2016-11-09 21:00] VITALS: BP 168/74; PULSE 102; RESP 16; TEMP 97.9
--- NOTE | 2016-11-09 21:16 | ED ---
Wound/Laceration HPI - General Chief Complaint: Wound/Laceration Stated Complaint: Fell down/Head Lac Time Seen by Provider: 11/09/16 21:03 Source: patient, RN notes reviewed Mode of arrival: wheelchair Limitations: no limitations - History of Present Illness Initial Comments: Patient is a 81-year-old male presents to the emergency room for evaluation of head trauma. Patient states around 3 PM this afternoon he was bringing in this groceries in to his house and tripped and fell landing on his face. Patient denies loss of consciousness. Patient states he sustained a laceration above his right eyebrow. Patient states the area began to bleed. Patient states he tried to get the bleeding to stop Band-Aid and was unsuccessful. Patient denies headache or dizziness. Patient does state that he has been on blood thinners. Patient denies neck pain, numbness or tingling in extremities. Patient denies dizziness. Patient denies any other injuries during incident. Patient just states he needs someone to help him stop the bleeding. Patient states he is not up-to-date on his tetanus vaccine. - Related Data Home Medications Medication Instructions Recorded Confirmed Ezetimibe [Zetia] 10 mg PO HS 01/20/15 08/24/16 Levothyroxine Sodium [Synthroid] 137 mcg PO DAILY 01/20/15 08/24/16 Previous Rx's Medication Instructions Recorded Amiodarone [Cordarone] 400 mg PO BID #30 tab 08/27/16 Apixaban [Eliquis] 2.5 mg PO BID #60 tablet 08/27/16 Isosorbide Mononitrate ER [Imdur] 30 mg PO DAILY #30 tab.er.24h 08/27/16 Metoprolol Tartrate [Lopressor] 50 mg PO TID #90 tab 08/27/16 Allergies Allergy/AdvReac Type Severity Reaction Status Date / Time No Known Allergies Allergy Verified 08/24/16 17:32 Review of Systems ROS Statement: Those systems with pertinent positive or pertinent negative responses have been documented in the HPI. ROS Other: All systems not noted in ROS Statement are negative. Past Medical History Past Medical History: CVA/TIA, Hyperlipidemia, Hypertension, Pneumonia, Thyroid Disorder Additional Past Medical History / Comment(s): AAA History of Any Multi-Drug Resistant Organisms: None Reported Past Surgical History: Appendectomy, Cholecystectomy, Heart Catheterization, Joint Replacement, Orthopedic Surgery Additional Past Surgical History / Comment(s): bilateral shoulder and hips replaced Past Anesthesia/Blood Transfusion Reactions: No Reported Reaction Past Psychological History: No Psychological Hx Reported Smoking Status: Former smoker Past Alcohol Use History: Occasional Additional Past Alcohol Use History / Comment(s): Pt states he quit in the 1969' Past Drug Use History: None Reported - Past Family History Mother Family Medical History: CVA/TIA General Exam - General Exam Comments Initial Comments: Sitting in exam room, no acute distress. Limitations: no limitations General appearance: alert, in no apparent distress Expanded Head exam: Present: laceration (1 cm laceration over the medial right eyebrow) 1 - 1cm laceration Eye exam: Present: normal appearance, PERRL, EOMI Pupils: Present: normal accommodation ENT exam: Present: normal exam Neck exam: Present: normal inspection Respiratory exam: Present: normal lung sounds bilaterally. Absent: respiratory distress Cardiovascular Exam: Present: regular rate, normal rhythm, normal heart sounds Extremities exam: Present: normal inspection Back exam: Present: normal inspection Neurological exam: Present: alert, oriented X3, CN II-XII intact, normal gait Expanded Patient oriented to: Present: person, place, time Speech: Present: fluid speech Cranial nerves: EOM's Intact: Normal, Facial Sensation: Normal Sensory exam: Upper Extremity Light Touch: Normal, Lower Extremity Light Touch: Normal Motor strength exam: RUE: 5, LUE: 5, RLE: 5, LLE: 5 Eye Response: (4) open spontaneously Motor Response: (6) obeys commands Verbal Response: (5) oriented Psychiatric exam: Present: normal affect, normal mood Skin exam: Present: warm, dry. Absent: rash Course Vital Signs 11/09/16 20:55 Temperature 97.9 F Pulse Rate 102 H Respiratory 16 Rate Blood Pressure 168/74 O2 Sat by Pulse 98 Oximetry Procedures - Laceration Laceration #1 Consent Obtained: verbal consent Indication: laceration Site: other (above right eyebrow) Size (cm): 1 Description: linear Depth: simple, single layer Anesthetic Used: lidocaine 1% Anesthesia Technique: local infiltration Pre-repair: wound explored Type of Sutures: nylon Size of Sutures: 6-0 Number of Sutures: 2 Technique: simple, interrupted Patient Tolerated Procedure: well, no complications Medical Decision Making - Medical Decision Making Patient is 81-year-old male presents emergency room for evaluation of fall injury. Patient has a small laceration over right eyebrow. Laceration repaired with sutures. Patient was updated on his tetanus vaccine. Brain and C -spine CT shows no acute findings. Results discussed with patient. Patient states he understands everything that was discussed with him. Return parameters discussed. Case discussed with Dr. Arreola. - Radiology Data Radiology results: report reviewed, image reviewed Disposition Clinical Impression: Fall, Facial laceration Disposition: HOME SELF-CARE Condition: Good Instructions: Facial Laceration (ED), Fall Prevention for Older Adults (ED), Head Injury (ED) Additional Instructions: Please follow up with primary care provider in 1-2 days. Please return in 3-5 days for suture removal. If any new symptom arises or symptoms worsen, return to ER as soon as possible. Referrals: Virginia Pimentel MD [Primary Care Provider] - 1-2 days Time of Disposition: 22:14
[2016-11-09] MEDS ORDERED: LIDOCAINE/EPINEPHR/TETRACAINE 5 ML BOTTLE TOPICAL ONE (21:25)
[2016-11-09] MEDS ORDERED: DIPH,PERTUS(ACELL)TETVAC-LF 0.5 ML VIAL IM ONE (21:32)
--- NOTE | 2016-11-09 21:38 | CT ---
EXAMINATION TYPE: CT brain isidro wo con DATE OF EXAM: 11/09/2016 9:32 PM COMPARISON: 05/24/2009 HISTORY: Fall injury today. Laceration to right superior obrital area. CT DLP: 1340.[address] of the brain was performed. The ventricles, basal cisterns and sulci overlying the cerebral convexities demonstrate enlargement. There is no evidence for intracranial hemorrhage or sulcal effacement. There is decreased attenuatio n about the periventricular white matter and deep white matter of both cerebral hemispheres, compatib le with chronic small vessel ischemia. No mass effects are seen. If symptoms persist consider MRI. Osseous calvarium is intact. Right frontal scalp hematoma. Incidental scleral buckle procedure bilate rally. IMPRESSION: 1. Age related atrophic and chronic small vessel ischemic change without acute intracranial process seen at this time. CT Cervical Spine: Unenhanced CT of the cervical spine was performed with bone and soft tissue window settings submitted . Coronal and sagittal reconstruction is obtained. There is normal alignment and prevertebral soft tissues. No evidence for acute cervical fracture . Scattered degenerative disc disease and spondylosis. Biapical scarring. IMPRESSION: 1. No evidence for acute fracture or subluxation of the cervical spine.
== END 2016-11-09 22:26 | disposition home or self-care (01) ==
LOC: EC 20:45
DX: S01.111A Laceration without foreign body of right eyelid and periocular area, initial encounter (principal); E78.5 Hyperlipidemia, unspecified; E07.9 Disorder of thyroid, unspecified; Z87.891 Personal history of nicotine dependence; Z79.899 Other long term (current) drug therapy; Z23 Encounter for immunization; W01.198A Fall on same level from slipping, tripping and stumbling with subsequent striking against other object, initial encounter; Y92.009 Unspecified place in unspecified non-institutional (private) residence as the place of occurrence of the external cause; Y93.89 Activity, other specified
CPT/HCPCS: 12011; 70450; 72125; 90471; 90715; 99283

== ENCOUNTER → 2017-08-10 | Outpatient (CLI) | payer MEDICARE ==
[2017-08-10 17:55] LABS: Basophils # (A) 0.1 k/uL (0-0.2); Basophils % (A) 1 %; Eosinophils # (A) 0.2 k/uL (0-0.7); Eosinophils % (A) 2 %; HCT 44.2 % (39.0-53.0); HGB 14.5 gm/dL (13.0-17.5); Lymphocytes # (A) 3.5 k/uL (1.0-4.8); Lymphocytes % (A) 35 %; MCH 29.1 pg (25.0-35.0); MCHC 32.8 g/dL (31.0-37.0); MCV 88.8 fL (80.0-100.0); Monocytes # (A) 0.8 k/uL (0-1.0); Monocytes % (A) 8 %; Neutrophils # (A) 5.2 k/uL (1.3-7.7); Neutrophils % (A) 52 %; Platelet Count 387 k/uL (150-450); RBC 4.98 m/uL (4.30-5.90); RDW 14.9 % (11.5-15.5)
[2017-08-10 18:08] LABS: ALT 28 U/L (21-72); AST 34 U/L (17-59); Albumin 5.3 g/dL (3.5-5.0); Alkaline Phosphatase 74 U/L (38-126); Anion Gap 16 mmol/L; Blood Urea Nitrogen 22 mg/dL (9-20); Calcium 10.3 mg/dL (8.4-10.2); Carbon Dioxide 25 mmol/L (22-30); Chloride 99 mmol/L (98-107); Cholesterol 222 mg/dL (<200); Glucose 107 mg/dL (74-99); HDL Cholesterol 73 mg/dL (40-60); LDL Cholesterol,Calculated 101 mg/dL (0-99); Potassium 4.8 mmol/L (3.5-5.1); Sodium 140 mmol/L (137-145); Total Bilirubin 0.9 mg/dL (0.2-1.3); Total Protein 8.6 g/dL (6.3-8.2); Triglycerides 238 mg/dL (<150)
--- NOTE | 2017-08-11 00:58 | CT ---
EXAMINATION TYPE: CT angio chest DATE OF EXAM: 08/10/2017 7:06 PM COMPARISON: 08/24/2016 HISTORY: Follow up Aortic Aneurysm CT DLP: 376.9 mGycm Automated exposure control for dose reduction was used. CONTRAST: CTA scan of the thorax is performed with IV Contrast, patient injected with 80 mL of Visipaque 320, p ulmonary embolism protocol. There are 3-D post processed images.. FINDINGS: The lungs are clear of consolidation. There is no evidence of a pulmonary mass. There is no pleural e ffusion. There is aneurysmal change and tortuous thoracic aorta. The descending proximal aorta measures up to 4.3 cm in diameter. This appears unchanged compared to old exam. There is no evidence of dissection. There is atherosclerotic calcification in the thoracic aorta. There is normal branching pattern of th e great vessels on the aortic arch. I see no filling defects in the pulmonary arteries. The ascending aorta measures up to 5.1 cm. There is no pleural effusion. There are no hilar masses. There is no mediastinal adenopathy. 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 NO DISSECTION. 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
== END | disposition home or self-care (01) ==
LOC: RADCTMAIN 17:24
PROVIDERS: ATTEND Internal Medicine Interventional Cardiology
DX: I71.2 Thoracic aortic aneurysm, without rupture (principal); E78.5 Hyperlipidemia, unspecified; I10 Essential (primary) hypertension
CPT/HCPCS: 80061; 80053; 84436; 84443; 85025; 71275; 36415; Q9967

== ENCOUNTER → 2017-09-26 | Outpatient (CLI) | payer MEDICARE ==
[2017-09-26 13:00] LABS: T4, Free (Free Thyroxine) 2.25 ng/dL (0.78-2.19)
== END | disposition home or self-care (01) ==
LOC: LABWHC1 11:01
PROVIDERS: ATTEND Internal Medicine
DX: E03.9 Hypothyroidism, unspecified (principal); R68.89 Other general symptoms and signs
CPT/HCPCS: 36415; 84439; 84443

== ENCOUNTER 2018-06-29 12:22 | Observation (INO) | payer MEDICARE ==
[2018-06-29] MEDS ORDERED: MECLIZINE 25 MG TAB PO STA (12:35)
[2018-06-29] MEDS ORDERED: DIAZEPAM 5 MG/ML 2 ML INJ IVP STA (12:36)
--- NOTE | 2018-06-29 12:39 | ED ---
General Adult HPI - General Chief complaint: Dizziness Stated complaint: DIZZINESS Time Seen by Provider: 06/29/18 12:25 Source: patient, EMS, RN notes reviewed Mode of arrival: EMS Limitations: no limitations - History of Present Illness Initial comments: This is an 82-year-old male with past medical history significant for atrial flutter. Patient is on Xarelto for this as well. Patient presents today complaining of dizziness. Patient states yesterday when he rolled out of bed the whole room was spinning and it has continued to spend all day yesterday and again today. Patient states anytime he moves his head the spinning is worse per patient felt uncomfortable driving here so he called an ambulance patient denies any chest pain. Patient denies any palpitations. Patient states his heart rate is normally in the 40s so I mention to him that it was 50 stated that was slightly harder than it normally was. Patient denies any lightheadedness or near syncopal episode. Patient denies any recent fever chills. Patient denies any abdominal pain patient denies nausea vomiting diarrhea. Patient denies any back pain. Patient denies any leg swelling or calf tenderness. - Related Data Home Medications Medication Instructions Recorded Confirmed Ezetimibe [Zetia] 10 mg PO HS 01/20/15 06/29/18 Levothyroxine Sodium [Synthroid] 137 mcg PO DAILY 01/20/15 06/29/18 Hydrochlorothiazide [Hydrodiuril] 25 mg PO DAILY 06/29/18 06/29/18 Losartan Potassium [Cozaar] 100 mg PO DAILY 06/29/18 06/29/18 Metoprolol Tartrate [Lopressor] 25 mg PO DAILY 06/29/18 06/29/18 Rivaroxaban [Xarelto] 15 mg PO DAILY 06/29/18 06/29/18 hydrALAZINE HCL 25 mg PO BID 06/29/18 06/29/18 Previous Rx's Medication Instructions Recorded Isosorbide Mononitrate ER [Imdur] 30 mg PO DAILY #30 tab.er.24h 08/27/16 Allergies Allergy/AdvReac Type Severity Reaction Status Date / Time No Known Allergies Allergy Verified 06/29/18 13:40 Review of Systems ROS Statement: Those systems with pertinent positive or pertinent negative responses have been documented in the HPI. ROS Other: All systems not noted in ROS Statement are negative. Past Medical History Past Medical History: CVA/TIA, Hyperlipidemia, Hypertension, Pneumonia, Thyroid Disorder Additional Past Medical History / Comment(s): AAA History of Any Multi-Drug Resistant Organisms: None Reported Past Surgical History: Appendectomy, Cholecystectomy, Heart Catheterization, Joint Replacement, Orthopedic Surgery Additional Past Surgical History / Comment(s): bilateral shoulder and hips replaced Past Anesthesia/Blood Transfusion Reactions: No Reported Reaction Past Psychological History: No Psychological Hx Reported Smoking Status: Former smoker Past Alcohol Use History: Occasional Past Drug Use History: None Reported - Past Family History Mother Family Medical History: CVA/TIA General Exam - General Exam Comments Initial Comments: GENERAL: Patient is well-developed and well-nourished. Patient is nontoxic and well- hydrated and is in mild distress. ENT: Neck is soft and supple. No significant lymphadenopathy is noted. Oropharynx is clear. Moist mucous membranes. Neck has full range of motion without eliciting any pain. EYES: The sclera were anicteric and conjunctiva were pink and moist. Extraocular movements were intact and pupils were equal round and reactive to light. Eyelids were unremarkable. PULMONARY: Unlabored respirations. Good breath sounds bilaterally. No audible rales rhonchi or wheezing was noted. CARDIOVASCULAR: Patient is bradycardic with an occasional extrasystole. Rate is 50 ABDOMEN: Soft and nontender with normal bowel sounds. No palpable organomegaly was noted. There is no palpable pulsatile mass. SKIN: Skin is clear with no lesions or rashes and otherwise unremarkable. NEUROLOGIC: Patient is alert and oriented x3. Cranial nerves II through XII are grossly intact. Motor and sensory are also intact. Normal speech, volume and content. Symmetrical smile. MUSCULOSKELETAL: Normal extremities with adequate strength and full range of motion. No lower extremity swelling or edema. No calf tenderness. LYMPHATICS: No significant lymphadenopathy is noted PSYCHIATRIC: Normal psychiatric evaluation. Normal interpersonal interactions appears functionally intact in deals appropriately with others. No signs of depression. No signs of anxiety. Limitations: no limitations Course Vital Signs 06/29/18 06/29/18 06/29/18 12:24 12:26 12:30 Temperature 97.6 F Pulse Rate 49 L 42 L Respiratory 20 18 16 Rate Blood Pressure 179/79 145/71 O2 Sat by Pulse 97 98 97 Oximetry 12/22/18 12/22/18 12/22/18 12:40 12:50 13:00 Temperature Pulse Rate 43 L 44 L Respiratory 20 20 Rate Blood Pressure 164/80 164/80 164/80 O2 Sat by Pulse 97 97 Oximetry 06/29/18 06/29/18 06/29/18 13:10 13:20 13:30 Temperature Pulse Rate 42 L 49 L 44 L Respiratory 16 17 15 Rate Blood Pressure 145/71 145/71 145/71 O2 Sat by Pulse 96 98 96 Oximetry 06/29/18 06/29/18 13:40 13:50 Temperature Pulse Rate 42 L 45 L Respiratory 14 15 Rate Blood Pressure 107/62 107/62 O2 Sat by Pulse 98 97 Oximetry Medical Decision Making - Medical Decision Making EKG shows sinus bradycardia with an occasional PAC at 50 bpm QRS is 110 QT interval is 472 QTC is 4:30. Patient's EKG shows no ST segment elevation or depression. 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 Patient indicated to me later that he did fall twice at home. Patient had a CT here showed no acute normalities. Patient's chest x-ray showed no acute normalities. Patient was unable to ambulate without almost falling over in the emergency department. I spoke with adequate as a he agreed to admit the patient admitted the patient I wrote admitting orders. - Lab Data Result diagrams: 06/29/18 12:27 06/29/18 12:27 Lab Results 06/29/18 06/29/18 06/29/18 Range/Units 12:27 12:27 12:27 WBC 9.2 (3.8-10.6) k/uL RBC 4.55 (4.30-5.90) m/uL Hgb 13.1 (13.0-17.5) gm/dL Hct 39.8 (39.0-53.0) % MCV 87.4 (80.0-100.0) fL MCH 28.7 (25.0-35.0) pg MCHC 32.9 (31.0-37.0) g/dL RDW 13.8 (11.5-15.5) % Plt Count 321 (150-450) k/uL Neutrophils % 68 % Lymphocytes % 22 % Monocytes % 7 % Eosinophils % 1 % Basophils % 1 % Neutrophils # 6.3 (1.3-7.7) k/uL Lymphocytes # 2.0 (1.0-4.8) k/uL Monocytes # 0.7 (0-1.0) k/uL Eosinophils # 0.1 (0-0.7) k/uL Basophils # 0.0 (0-0.2) k/uL PT (9.0-12.0) sec INR (<1.2) APTT (22.0-30.0) sec Sodium 134 L (137-145) mmol/L Potassium 4.4 (3.5-5.1) mmol/L Chloride 100 (98-107) mmol/L Carbon Dioxide 23 (22-30) mmol/L Anion Gap 11 mmol/L BUN 15 (9-20) mg/dL Creatinine 1.00 (0.66-1.25) mg/dL Est GFR (CKD-EPI)AfAm 81 (>60 ml/min/1.73 sqM) Est GFR (CKD-EPI)NonAf 70 (>60 ml/min/1.73 sqM) Glucose 115 H (74-99) mg/dL Calcium 9.6 (8.4-10.2) mg/dL Magnesium 2.0 (1.6-2.3) mg/dL Total Bilirubin 1.4 H (0.2-1.3) mg/dL AST 33 (17-59) U/L ALT 23 (21-72) U/L Alkaline Phosphatase 51 (38-126) U/L Total Creatine Kinase 230 H (55-170) U/L CK-MB (CK-2) 4.4 H (0.0-2.4) ng/mL CK-MB (CK-2) Rel Index 1.9 Troponin I <0.012 (0.000-0.034) ng/mL Total Protein 7.3 (6.3-8.2) g/dL Albumin 4.5 (3.5-5.0) g/dL 06/29/18 Range/Units 12:27 WBC (3.8-10.6) k/uL RBC (4.30-5.90) m/uL Hgb (13.0-17.5) gm/dL Hct (39.0-53.0) % MCV (80.0-100.0) fL MCH (25.0-35.0) pg MCHC (31.0-37.0) g/dL RDW (11.5-15.5) % Plt Count (150-450) k/uL Neutrophils % % Lymphocytes % % Monocytes % % Eosinophils % % Basophils % % Neutrophils # (1.3-7.7) k/uL Lymphocytes # (1.0-4.8) k/uL Monocytes # (0-1.0) k/uL Eosinophils # (0-0.7) k/uL Basophils # (0-0.2) k/uL PT 13.4 H (9.0-12.0) sec INR 1.3 H (<1.2) APTT 32.9 H (22.0-30.0) sec Sodium (137-145) mmol/L Potassium (3.5-5.1) mmol/L Chloride (98-107) mmol/L Carbon Dioxide (22-30) mmol/L Anion Gap mmol/L BUN (9-20) mg/dL Creatinine (0.66-1.25) mg/dL Est GFR (CKD-EPI)AfAm (>60 ml/min/1.73 sqM) Est GFR (CKD-EPI)NonAf (>60 ml/min/1.73 sqM) Glucose (74-99) mg/dL Calcium (8.4-10.2) mg/dL Magnesium (1.6-2.3) mg/dL Total Bilirubin (0.2-1.3) mg/dL AST (17-59) U/L ALT (21-72) U/L Alkaline Phosphatase (38-126) U/L Total Creatine Kinase (55-170) U/L CK-MB (CK-2) (0.0-2.4) ng/mL CK-MB (CK-2) Rel Index Troponin I (0.000-0.034) ng/mL Total Protein (6.3-8.2) g/dL Albumin (3.5-5.0) g/dL Disposition Clinical Impression: Vertigo, Ataxia Disposition: ADMITTED IP TO THIS [facility] Referrals: Virginia Pimentel MD [Primary Care Provider] - 1-2 days Time of Disposition: 15:26
[2018-06-29 12:59] LABS: Basophils % (A) 1 %; Eosinophils # (A) 0.1 k/uL (0-0.7); Eosinophils % (A) 1 %; HCT 39.8 % (39.0-53.0); HGB 13.1 gm/dL (13.0-17.5); Lymphocytes % (A) 22 %; MCH 28.7 pg (25.0-35.0); MCHC 32.9 g/dL (31.0-37.0); MCV 87.4 fL (80.0-100.0); Mean Platelet Volume 7.2; Monocytes # (A) 0.7 k/uL (0-1.0); Monocytes % (A) 7 %; Neutrophils # (A) 6.3 k/uL (1.3-7.7); Neutrophils % (A) 68 %; Platelet Count 321 k/uL (150-450); RBC 4.55 m/uL (4.30-5.90); RDW 13.8 % (11.5-15.5); WBC 9.2 k/uL (3.8-10.6)
[2018-06-29 13:10] LABS: Albumin 4.5 g/dL (3.5-5.0); Calcium 9.6 mg/dL (8.4-10.2); Potassium 4.4 mmol/L (3.5-5.1); Total Bilirubin 1.4 mg/dL (0.2-1.3); Total Protein 7.3 g/dL (6.3-8.2)
[2018-06-29 13:12] LABS: INR 1.3 (<1.2); Partial Thromboplastin Time 32.9 sec (22.0-30.0); Prothrombin Time 13.4 sec (9.0-12.0)
[2018-06-29 13:23] LABS: Creatine Kinase 230 U/L (55-170)
--- NOTE | 2018-06-29 13:36 | CT ---
EXAMINATION TYPE: CT brain wo con DATE OF EXAM: 06/29/2018 COMPARISON: 11/09/2016 HISTORY: 82-year-old male Dizziness TECHNIQUE: Examination was done in axial plane without intravenous contrast. Coronal and sagittal r econstructions performed. CT DLP: 1169.4 mGycm Automated exposure control for dose reduction was used. FINDINGS: There is no evidence of acute intracranial hemorrhage, acute ischemic changes, mass, mass-effect, or extra-axial fluid collection. There is no effacement of cerebral sulci or basal subarachnoid cister ns. There is no hydrocephalus. There is no midline shift. Scott-white matter distinction is preserv ed. Mild patchy white matter hypodensities in both cerebral hemispheres. Paranasal sinuses and mastoid air cells are well pneumatized. Orbits and globes are intact. IMPRESSION: Mild patchy changes of chronic small vessel ischemic disease. No acute intracranial abnormality seen.
[2018-06-29 13:37] LABS: Creatine Kinase MB 4.4 ng/mL (0.0-2.4); Troponin I <0.012 ng/mL (0.000-0.034)
--- NOTE | 2018-06-29 13:43 | XR ---
EXAMINATION TYPE: XR chest 2V DATE OF EXAM: 06/29/2018 COMPARISON: 08/24/2016 HISTORY: 82-year-old male with chest pain TECHNIQUE: AP and lateral views FINDINGS: Heart mildly enlarged. Elongation/ectasia of the thoracic aorta and mild interstitial prominence appe ars largely chronic. Mild hyperinflation. Possible underlying emphysema. No consolidation or pleural effusion seen. Reversed left shoulder plasty and conventional right shoulder arthroplasty. IMPRESSION: Cardiomegaly and similar elongation/ectasia of the thoracic aorta. There are chronic changes without acute process seen.
[2018-06-29] MEDS ORDERED: SODIUM CHLORIDE 0.9% 1,000 ML IV ONE (15:26)
[2018-06-29] MEDS ORDERED: MECLIZINE 25 MG TAB PO PRN (15:27)
--- NOTE | 2018-06-29 16:06 | P.HPIM ---
History of Present Illness 80-year-old pleasant gentleman came in with complaints of vertigo. Patient will also comparing of lightheadedness along with vertigo. Patient vertigo started up yesterday constant worsens with head movement denied any hearing problems denied any fullness in the ears. Denied any URI like symptoms. Patient did complain of hearing his own heartbeat and ringing in ears. Patient is quite a bit unstable and did fall twice today. I did perform [place] Haspike maneuver which she is positive and patient had horizontal nystagmus with the and over and partial resolution of symptoms. She had a CAT scan of the head which did not show any significant abnormality. Patient does have first-degree AV block I'll obtain a TSH patient has hypothyroidism history. Patient also has chronic atrial fibrillation for which patient is on anti-correlation metoprolol cut down the dose of metoprolol. Denied any fever chills dysuria cough Review of Systems REVIEW OF SYSTEMS: CONSTITUTIONAL: No fever, no malaise, no fatigue. HEENT: No recent visual problems or hearing problems. Denied any sore throat. CARDIOVASCULAR: No chest pain, orthopnea, PND, no palpitations, no syncope. PULMONARY: No shortness of breath, no cough, no hemoptysis. GASTROINTESTINAL: No diarrhea, no nausea, no vomiting, no abdominal pain. NEUROLOGICAL: No headaches, no weakness, no numbness. HEMATOLOGICAL: Denies any bleeding or petechiae. GENITOURINARY: Denies any burning micturition, frequency, or urgency. MUSCULOSKELETAL/RHEUMATOLOGICAL: Denies any joint pain, swelling, or any muscle pain. ENDOCRINE: Denies any polyuria or polydipsia. The rest of the 14-point review of systems is negative. Past Medical History Past Medical History: CVA/TIA, Hyperlipidemia, Hypertension, Pneumonia, Thyroid Disorder Additional Past Medical History / Comment(s): AAA History of Any Multi-Drug Resistant Organisms: None Reported Past Surgical History: Appendectomy, Cholecystectomy, Heart Catheterization, Joint Replacement, Orthopedic Surgery Additional Past Surgical History / Comment(s): bilateral shoulder and hips replaced Past Anesthesia/Blood Transfusion Reactions: No Reported Reaction Past Psychological History: No Psychological Hx Reported Smoking Status: Former smoker Past Alcohol Use History: Occasional Past Drug Use History: None Reported - Past Family History Mother Family Medical History: CVA/TIA Medications and Allergies Home Medications Medication Instructions Recorded Confirmed Type Ezetimibe [Zetia] 10 mg PO HS 01/20/15 06/29/18 History Levothyroxine Sodium [Synthroid] 137 mcg PO DAILY 01/20/15 06/29/18 History Isosorbide Mononitrate ER [Imdur] 30 mg PO DAILY #30 tab.er.24h 08/27/16 Rx Hydrochlorothiazide [Hydrodiuril] 25 mg PO DAILY 06/29/18 06/29/18 History Losartan Potassium [Cozaar] 100 mg PO DAILY 06/29/18 06/29/18 History Metoprolol Tartrate [Lopressor] 25 mg PO DAILY 06/29/18 06/29/18 History Rivaroxaban [Xarelto] 15 mg PO DAILY 06/29/18 06/29/18 History hydrALAZINE HCL 25 mg PO BID 06/29/18 06/29/18 History Allergies Allergy/AdvReac Type Severity Reaction Status Date / Time No Known Allergies Allergy Verified 06/29/18 13:40 Physical Exam Vitals: Vital Signs Temp Pulse Resp BP Pulse Ox 06/29/18 13:50 45 L 15 107/62 97 06/29/18 13:40 42 L 14 107/62 98 06/29/18 13:30 44 L 15 145/71 96 06/29/18 13:20 49 L 17 145/71 98 06/29/18 13:10 42 L 16 145/71 96 06/29/18 13:00 44 L 20 164/80 97 06/29/18 12:50 164/80 06/29/18 12:40 43 L 20 164/80 97 06/29/18 12:30 16 97 06/29/18 12:26 42 L 18 145/71 98 06/29/18 12:24 97.6 F 49 L 20 179/79 97 Intake and Output 06/29/18 06/29/18 06/29/18 06:59 14:59 22:59 Other: Weight 79.379 kg PHYSICAL EXAMINATION: GENERAL: The patient is alert and oriented x3, not in any acute distress. Well developed, well nourished. HEENT: Pupils are round and equally reacting to light. EOMI. No scleral icterus. No conjunctival pallor. Normocephalic, atraumatic. No pharyngeal erythema. No thyromegaly. CARDIOVASCULAR: S1 and S2 present. No murmurs, rubs, or gallops. PULMONARY: Chest is clear to auscultation, no wheezing or crackles. ABDOMEN: Soft, nontender, nondistended, normoactive bowel sounds. No palpable organomegaly. MUSCULOSKELETAL: No joint swelling or deformity. EXTREMITIES: No cyanosis, clubbing, or pedal edema. NEUROLOGICAL: Gross neurological examination did not reveal any focal deficits. Gait is quite unstable doesn't have any truncal ataxia unable to perform Romberg sign as patient is unstable SKIN: No rashes. Results CBC & Chem 7: 06/29/18 12:06/29/18 12: Labs: Abnormal Lab Results - Last 24 Hours (Table) 06/29/18 06/29/18 06/29/18 Range/Units 12: 12: 12: PT 13.4 H (9.0-12.0) sec INR 1.3 H (<1.2) APTT 32.9 H (22.0-30.0) sec Sodium 134 L (137-145) mmol/L Glucose 115 H (74-99) mg/dL Total Bilirubin 1.4 H (0.2-1.3) mg/dL Total Creatine Kinase 230 H (55-170) U/L CK-MB (CK-2) 4.4 H (0.0-2.4) ng/mL Assessment and Plan Plan: -Vertigo appears to be peripheral vertigo from benign positional vertigo. Patient will be continued on meclizine hopefully with the maneuver that was performed earlier his symptoms as a little resolved patient probably can be discharged tomorrow. -First-degree AV block from metoprolol will cut down the dose of metoprolol patient does have history of atrial fibrillation patient heart rate is an FOBT is probably contributing to his lightheadedness -Atrial fibrillation chronic A. fib with bradycardia continue with anticoagulation and management of rate control medications as mentioned above -Hypothyroidism will obtain TSH testing his bradycardia -Hypertension -Hyperlipidemia
[2018-06-29 17:21] VITALS: BMI 25.1
[2018-06-29] MEDS ORDERED: EZETIMIBE 10 MG TAB PO SCH (21:00)
[2018-06-30 00:42] VITALS: RESP 16; TEMP 98.4
[2018-06-30] MEDS ORDERED: LEVOTHYROXINE 137 MCG TAB PO SCH (06:30)
[2018-06-30 07:54] VITALS: BP 166/65; PULSE 60
[2018-06-30] MEDS ORDERED: METOPROLOL TARTRATE 12.5 MG TAB PO SCH (09:00)
[2018-06-30] MEDS ORDERED: ISOSORBIDE MONONITRATE ER 30 MG TAB.ER.24H PO SCH (09:00)
[2018-06-30] MEDS ORDERED: LOSARTAN 50 MG TAB PO SCH (09:00)
[2018-06-30] MEDS ORDERED: RIVAROXABAN 15 MG TAB PO SCH (09:00)
--- NOTE | 2018-06-30 13:22 | P.DS ---
Providers Date of admission: 06/29/18 15:26 Attending physician: Christiano Burnett Primary care physician: Virginia [facility] Hospital Course: 80-year-old pleasant gentleman came in with complaints of vertigo. Patient will also comparing of lightheadedness along with vertigo. Patient vertigo started up yesterday constant worsens with head movement denied any hearing problems denied any fullness in the ears. Denied any URI like symptoms. Patient did complain of hearing his own heartbeat and ringing in ears. Patient is quite a bit unstable and did fall twice today. I did perform [place] Haspike maneuver which she is positive and patient had horizontal nystagmus with the and over and partial resolution of symptoms. She had a CAT scan of the head which did not show any significant abnormality. Patient does have first-degree AV block I'll obtain a TSH patient has hypothyroidism history. Patient also has chronic atrial fibrillation for which patient is on anti-dilation, metoprolol cut down the dose of metoprolol. Denied any fever chills dysuria cough 06/30/2018 Patient's symptoms of vertigo significantly improved although not completely resolved still bit dizzy whenever hehad all of a sudden. We'll ambulate him in the hallway patient is stable enough , patient will be discharged today and as needed meclizine will keep him information regarding was tubular exercises. PHYSICAL EXAMINATION: GENERAL: The patient is alert and oriented x3, not in any acute distress. Well developed, well nourished. HEENT: Pupils are round and equally reacting to light. EOMI. No scleral icterus. No conjunctival pallor. Normocephalic, atraumatic. No pharyngeal erythema. No thyromegaly. CARDIOVASCULAR: S1 and S2 present. No murmurs, rubs, or gallops. PULMONARY: Chest is clear to auscultation, no wheezing or crackles. ABDOMEN: Soft, nontender, nondistended, normoactive bowel sounds. No palpable organomegaly. MUSCULOSKELETAL: No joint swelling or deformity. EXTREMITIES: No cyanosis, clubbing, or pedal edema. NEUROLOGICAL: Gross neurological examination did not reveal any focal deficits. SKIN: No rashes. Assessment and Plan Plan: -Vertigo appears to be peripheral vertigo from benign positional vertigo. Significantly improved and will be discharged on meclizine -First-degree AV block from metoprolol, better after decreasing metoprolol dose -Atrial fibrillation chronic A. fib with bradycardia, bradycardia improved -Hypothyroidism her TSH within normal limits -Hypertension -Hyperlipidemia Plan - Discharge Summary Discharge Rx Participant: Yes New Discharge Prescriptions: New Meclizine [Antivert] 25 mg PO TID PRN #20 tab PRN Reason: Vertigo Metoprolol Tartrate [Lopressor] 12.5 mg PO DAILY tab Continue Levothyroxine Sodium [Synthroid] 137 mcg PO DAILY Ezetimibe [Zetia] 10 mg PO HS Isosorbide Mononitrate ER [Imdur] 30 mg PO DAILY #30 tab.er.24h hydrALAZINE HCL 25 mg PO BID Rivaroxaban [Xarelto] 15 mg PO DAILY Losartan Potassium [Cozaar] 100 mg PO DAILY Hydrochlorothiazide [Hydrodiuril] 25 mg PO DAILY Discontinued Metoprolol Tartrate [Lopressor] 25 mg PO DAILY Discharge Medication List Ezetimibe [Zetia] 10 mg PO HS 01/20/15 [History] Levothyroxine Sodium [Synthroid] 137 mcg PO DAILY 01/20/15 [History] Isosorbide Mononitrate ER [Imdur] 30 mg PO DAILY #30 tab.er.24h 08/27/16 [Rx] Hydrochlorothiazide [Hydrodiuril] 25 mg PO DAILY 06/29/18 [History] Losartan Potassium [Cozaar] 100 mg PO DAILY 06/29/18 [History] Rivaroxaban [Xarelto] 15 mg PO DAILY 06/29/18 [History] hydrALAZINE HCL 25 mg PO BID 06/29/18 [History] Meclizine [Antivert] 25 mg PO TID PRN #20 tab 06/30/18 [Rx] Metoprolol Tartrate [Lopressor] 12.5 mg PO DAILY tab 06/30/18 [Rx] Follow up Appointment(s)/Referral(s): Virginia Pimentel MD [Primary Care Provider] - 3 Days Discharge Disposition: HOME SELF-CARE
== END 2018-06-30 16:10 | disposition home or self-care (01) ==
LOC: EC 12:22 → 4SSUR 15:26
PROVIDERS: ADMIT Internal Medicine; ATTEND Internal Medicine
DX: R42 Dizziness and giddiness (principal); I48.2 Chronic atrial fibrillation; I44.0 Atrioventricular block, first degree; I10 Essential (primary) hypertension; E78.5 Hyperlipidemia, unspecified; R27.0 Ataxia, unspecified; I71.4 Abdominal aortic aneurysm, without rupture; E03.9 Hypothyroidism, unspecified; H93.19 Tinnitus, unspecified ear; H55.09 Other forms of nystagmus; R00.1 Bradycardia, unspecified; Z91.81 History of falling; Z79.890 Hormone replacement therapy; Z79.01 Long term (current) use of anticoagulants; Z79.899 Other long term (current) drug therapy; Z86.73 Personal history of transient ischemic attack (TIA), and cerebral infarction without residual deficits; Z87.01 Personal history of pneumonia (recurrent); Z90.49 Acquired absence of other specified parts of digestive tract; Z96.612 Presence of left artificial shoulder joint; Z96.611 Presence of right artificial shoulder joint; Z96.643 Presence of artificial hip joint, bilateral; Z87.891 Personal history of nicotine dependence; Z82.3 Family history of stroke
CPT/HCPCS: 96374; 99285; 36415; 93005; 80053; 84443; 82550; 82553; 83735; 84484; 85025; 85610; 85730; 71046; 70450; G0378 ×2; J3360

== ENCOUNTER 2019-07-19 21:15 | Inpatient (IN) | payer MEDICARE ==
--- NOTE | 2019-07-19 21:34 | ED ---
Chest Pain HPI - General Stated Complaint: Chest Pain Time Seen by Provider: 07/19/19 21:17 - History of Present Illness Initial Comments: Jatinder a pleasant 83-year-old gentleman who presents the ER today via ambulance for evaluation of chest pain. Patient reports that on he had approximately 5 minute episode of severe stabbing left-sided chest pain some of the worst pain in his life but it resolved within 5 minutes we didn't seek any care. Patient reports that he does have intermittent chest pain that he believes to be musculoskeletal because he does still perform a lot of physical activity. Patient states that this evening he was resting a began having pain in his left chest, after the episode of severe pain he had experienced on he became somewhat concerned about this and decided to come to the emergency department. EMS reported that patient was hypertensive upon initial evaluation, history with aspirin and nitro in route with complete resolution of his pain and improvement in his blood pressure. - Related Data Home Medications Medication Instructions Recorded Confirmed Ezetimibe [Zetia] 10 mg PO HS 01/20/15 06/29/18 Levothyroxine Sodium [Synthroid] 137 mcg PO DAILY 01/20/15 06/29/18 Hydrochlorothiazide [Hydrodiuril] 25 mg PO DAILY 06/29/18 06/29/18 Losartan Potassium [Cozaar] 100 mg PO DAILY 06/29/18 06/29/18 Rivaroxaban [Xarelto] 15 mg PO DAILY 06/29/18 06/29/18 hydrALAZINE HCL 25 mg PO BID 06/29/18 06/29/18 Previous Rx's Medication Instructions Recorded Isosorbide Mononitrate ER [Imdur] 30 mg PO DAILY #30 tab.er.24h 08/27/16 Meclizine [Antivert] 25 mg PO TID PRN #20 tab 06/30/18 Metoprolol Tartrate [Lopressor] 12.5 mg PO DAILY tab 06/30/18 Allergies Allergy/AdvReac Type Severity Reaction Status Date / Time No Known Allergies Allergy Verified 07/19/19 21:36 Review of Systems ROS Statement: Those systems with pertinent positive or pertinent negative responses have been documented in the HPI. ROS Other: All systems not noted in ROS Statement are negative. EKG Findings - EKG Comments: EKG Findings:: EKG was obtained due to complaining of chest pain EKG was obtained at 2128, rate is 54 rhythm is sinus bradycardia there is normal axis, first degree heart block WA 220, QRS 22, QTc 105. No acute ST elevations or depressions no evidence of acute ischemia or infarction. Past Medical History Past Medical History: Atrial Fibrillation, CVA/TIA, Hyperlipidemia, Hypertension, Pneumonia, Thyroid Disorder Additional Past Medical History / Comment(s): AAA History of Any Multi-Drug Resistant Organisms: None Reported Past Surgical History: Appendectomy, Cholecystectomy, Heart Catheterization, Joint Replacement, Orthopedic Surgery Additional Past Surgical History / Comment(s): bilateral shoulder and hips replaced Past Anesthesia/Blood Transfusion Reactions: No Reported Reaction Past Psychological History: No Psychological Hx Reported Smoking Status: Former smoker Past Alcohol Use History: Occasional Additional Past Alcohol Use History / Comment(s): Pt states he quit in the Past Drug Use History: None Reported - Past Family History Mother Family Medical History: CVA/TIA General Exam - General Exam Comments Initial Comments: Physical Exam GENERAL: Patient is well-developed and well-nourished. Patient is nontoxic and well- hydrated and is in no distress. HENT: Normocephalic, Atraumatic. EYES: PERRL, EOMI PULMONARY: Unlabored respirations. No audible rales rhonchi or wheezing was noted. CARDIOVASCULAR: There is a regular rate and rhythm Systolic murmur ABDOMEN: Soft and nontender with normal bowel sounds. SKIN: Skin is clear with no lesions or rashes and otherwise unremarkable. : Deferred NEUROLOGIC: Patient is alert and oriented x3. Moving all extremities spontaneously MUSCULOSKELETAL: Normal extremities with adequate strength and full range of motion. No lower extremity swelling or edema. No calf tenderness. PSYCHIATRIC: Normal psychiatric evaluation. Course Vital Signs 07/19/19 21:34 Temperature 98.2 F Pulse Rate 58 L Respiratory 18 Rate Blood Pressure 186/79 O2 Sat by Pulse 97 Oximetry Chest Pain MDM - MDM The patient was seen and evaluated history is obtained from the patient this is a 83-year-old gentleman with history of hypertension, hyperlipidemia and former cigarette smoker though no cardiac history or stents in the past. Patient presents for evaluation of sharp left-sided chest pain resolved with nitro prior to arrival. Patient asymptomatic upon evaluation. Cardiac workup was initiated EKG was nonischemic chest x-ray was unremarkable patient was treated with Nitropaste and remained chest pain-free. Patient is on Zarontin. Patient will be admitted to the hospital for serial troponins and evaluation by cardiology. Disposition Clinical Impression: Chest pain, Hypertensive urgency Disposition: ADMITTED IP TO THIS HOSP Condition: Stable Referrals: Virginia Pimentel MD [Primary Care Provider] - 1-2 days
[2019-07-19] MEDS ORDERED: NITROGLYCERIN OINT 1 INCH/GM PACKET TOPICAL STA (21:41)
[2019-07-19 21:50] LABS: Basophils # (A) 0.1 k/uL (0-0.2); Basophils % (A) 1 %; Eosinophils # (A) 0.2 k/uL (0-0.7); Eosinophils % (A) 2 %; HCT 39.3 % (39.0-53.0); HGB 12.8 gm/dL (13.0-17.5); Lymphocytes # (A) 3.5 k/uL (1.0-4.8); Lymphocytes % (A) 38 %; MCH 27.8 pg (25.0-35.0); MCHC 32.7 g/dL (31.0-37.0); MCV 85.1 fL (80.0-100.0); Mean Platelet Volume 7.2; Monocytes # (A) 0.8 k/uL (0-1.0); Monocytes % (A) 8 %; Neutrophils # (A) 4.5 k/uL (1.3-7.7); Neutrophils % (A) 48 %; Platelet Count 348 k/uL (150-450); RBC 4.62 m/uL (4.30-5.90); RDW 13.4 % (11.5-15.5); WBC 9.4 k/uL (3.8-10.6)
[2019-07-19 21:59] LABS: Albumin 4.7 g/dL (3.5-5.0); Calcium 9.6 mg/dL (8.4-10.2); Magnesium 2.1 mg/dL (1.6-2.3); Potassium 4.5 mmol/L (3.5-5.1); Total Bilirubin 1.1 mg/dL (0.2-1.3); Total Protein 7.9 g/dL (6.3-8.2)
--- NOTE | 2019-07-19 22:04 | XR ---
EXAMINATION TYPE: XR chest 2V DATE OF EXAM: 07/19/2019 COMPARISON: 06/29/2018 HISTORY: Dizziness. Chest pain TECHNIQUE: FINDINGS: There is no heart failure nor confluent pneumonic infiltrate. Costophrenic angles are clear . There is bilateral shoulder prosthesis. Thoracic aorta is atheromatous. There are chest leads. Bony thorax is intact. IMPRESSION: Atheromatous aorta. No active cardiopulmonary disease. Normal heart. No change.
[2019-07-19 22:13] LABS: Partial Thromboplastin Time 26.8 sec (22.0-30.0); Prothrombin Time 10.5 sec (9.0-12.0)
[2019-07-20] MEDS ORDERED: NITROGLYCERIN SL TABS 0.4 MG TAB SUBLINGUAL PRN (00:03)
[2019-07-20] MEDS: hydrALAZINE HCL 25 MG TAB PO SCH ×3 (01:08→20:20)
[2019-07-20] MEDS: EZETIMIBE 10 MG TAB PO SCH ×2 (01:08→20:19)
[2019-07-20] MEDS: NITROGLYCERIN OINT 1 INCH/GM PACKET TOPICAL SCH ×4 (05:17→23:29)
[2019-07-20] MEDS: LEVOTHYROXINE 137 MCG TAB PO SCH (05:17)
[2019-07-20] MEDS ORDERED: MECLIZINE 25 MG TAB PO PRN (08:15)
[2019-07-20] MEDS ORDERED: SODIUM CHLORIDE 0.9% 1,000 ML IV SCH ×2 (08:30→15:45)
[2019-07-20] MEDS: LOSARTAN 50 MG TAB PO SCH (08:52)
[2019-07-20] MEDS: METOPROLOL TARTRATE 12.5 MG TAB PO SCH (08:52)
[2019-07-20] MEDS: HYDROCHLOROTHIAZIDE 25 MG TAB PO SCH (08:52)
[2019-07-20] MEDS: ISOSORBIDE MONONITRATE ER 30 MG TAB.ER.24H PO SCH (08:52)
[2019-07-20] MEDS ORDERED: RIVAROXABAN 15 MG TAB PO SCH (09:00)
--- NOTE | 2019-07-20 10:31 | CONS ---
CONSULTATION This is an 83-year-old gentleman with a diagnosis of moderate aortic stenosis. No obstructive CAD by catheterization in 2015, and ectatic aorta with ascending aorta that measures about 5 cm. This gentleman came into the hospital with complaints of having some discomfort in the chest. The quality of pain seems atypical. He is apparently scheduled to have a cardiac cath and transesophageal echo by Dr. Odom sometime in late July, but he is having difficulty with transportation and because he had chest pain, he called 911 and came into the hospital. He is resting comfortably at the time of my evaluation. His 2 sets of troponins are normal. He has no discomfort in the chest. He is resting comfortably without symptoms. PAST MEDICAL HISTORY: Remarkable for: 1. Ascending aortic dilatation of nearly 5 cm. 2. Hypertension. 3. Hypercholesterolemia. 4. Probable paroxysmal atrial fibrillation, although this is not substantiated. He is on Xarelto. He also has hypothyroidism on replacement therapy. He has moderate aortic stenosis. No obstructive CAD by catheterization in 2015. MEDICATIONS: At home include: Losartan 100 mg daily, metoprolol tartrate 12.5 mg daily, Imdur 30 mg daily, hydrochlorothiazide 25 mg daily. Zetia 10 mg daily, hydralazine 25 mg b.i.d., Xarelto 15 mg daily, levothyroxine 137 mcg daily. ALLERGIES: None. REVIEW OF SYSTEMS: Unremarkable other than above-mentioned facts. PHYSICAL EXAMINATION: Blood pressure is 150/70, pulse rate is about 60 per minute. HEENT unremarkable. Fundus was not examined by me. Neck is supple. There is a soft bruit in the left carotid. There is no JVD. Heart exam reveals S1, S2 with ejection systolic murmur at the base of the heart. Second heart sound is preserved. Lungs revealed decent air entry. Abdomen is soft, nontender. Lower extremities reveal diminished pulses. Central nervous system is grossly within normal limits. EKG revealed a sinus mechanism with LVH by voltage criteria and IVCD. IMPRESSION: 1. Chest pain syndrome seems atypical with negative troponins in a patient with no obstructive CAD of significance by cath in 2015. 2. Moderate aortic stenosis. 3. History of ascending aortic dilatation. 4. Hypertension. 5. Hyperlipidemia. 6. Probable paroxysmal atrial fibrillation. Patient is on the Xarelto. However, he is in sinus rhythm at this time. He has had previous episodes of atrial flutter or fibrillation on reviewing the chart. RECOMMENDATIONS: I explained to the patient that given his difficulty with transportation, I will speak to Dr. Odom to see if he can do a transesophageal echo and cardiac cath tomorrow. In the meantime, I will start him on 0.9 saline 50 mL/hour. Discontinue aspirin. Hold Xarelto in preparation for cardiac cath. The rationale, risks, benefits, options related to cardiac cath were explained to the patient. He understands all details and wishes to proceed. I will speak to Dr. Odom. MMMASONL / IJN: [id number] /
--- NOTE | 2019-07-20 13:39 | CT ---
EXAMINATION TYPE: CT angio chest DATE OF EXAM: 07/20/2019 1:23 PM COMPARISON: Previous study dated 08/10/2017. HISTORY: Dissection CT DLP: 1027.1 mGycm Automated exposure control for dose reduction was used. CONTRAST: CTA scan of the thorax is performed without and with IV Contrast, patient injected with 100 mL of Iso corbin 370, pulmonary embolism protocol. . FINDINGS:There is minimal dependent atelectasis in the dependent portions of the lungs. Lungs are oth erwise clear. There is some shotty adenopathy in the aortopulmonary window. There is no evidence of pulmonary embolus. The aortic root is dilated measuring 5.5 cm. The arch is tortuous. The proximal arch measures 4 cm. T he distal arch measures 3.3 cm. In the mid descending thoracic aorta the aorta measures 4.8 cm. At th e level of the aortic hiatus, the aorta measures 3.8 cm. Visualized portions of the abdominal aorta a re normal in caliber. There is no evidence of dissection. There is no pleural or pericardial fluid. Heart size upper limits of normal. Visualized upper abdominal structures are unremarkable. There is minor hypertrophic spondylosis within the spine. IMPRESSION: 1. 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 THERE IS INCREASED SLIGHTLY IN SIZE FROM THE PREVI OUS EXAMINATION. 2. NO EVIDENCE OF PULMONARY EMBOLUS.
--- NOTE | 2019-07-20 14:27 | P.HPIM ---
History of Present Illness H&P Date: 07/20/19 83-year-old gentleman who presents the ER today via ambulance for evaluation of chest pain. Patient reports that on he had approximately 5 minute episode of severe stabbing left-sided chest pain some of the worst pain in his life but it resolved within 5 minutes we didn't seek any care. Patient reports that he does have intermittent chest pain that he believes to be musculoskeletal because he does still perform a lot of physical activity. Patient states that this evening he was resting a began having pain in his left chest, after the episode of severe pain he had experienced on he became somewhat concerned about this and decided to come to the emergency department. EMS r eported that patient was hypertensive upon initial evaluation, history with aspirin and nitro in route with complete resolution of his pain and improvement in his blood pressure. workup in ED including an EKG showed sinus bradycardia with normal axis and first-degree heart block; no acute ST or T-wave changes;blood work was unremarkable; chest x-ray. Negative for any acute changes; she was started on Nitropaste and is admitted to the hospital for cardiology evaluation Review of Systems REVIEW OF SYSTEMS: CONSTITUTIONAL: No fever, no malaise, no fatigue. HEENT: No recent visual problems or hearing problems. Denied any sore throat. CARDIOVASCULAR: chest pain. PULMONARY: No shortness of breath, no cough, no hemoptysis. GASTROINTESTINAL: No diarrhea, no nausea, no vomiting, no abdominal pain. NEUROLOGICAL: No headaches, no weakness, no numbness. HEMATOLOGICAL: Denies any bleeding or petechiae. GENITOURINARY: Denies any burning micturition, frequency, or urgency. MUSCULOSKELETAL/RHEUMATOLOGICAL: Denies any joint pain, swelling, or any muscle pain. ENDOCRINE: Denies any polyuria or polydipsia. The rest of the 14-point review of systems is negative. Past Medical History Past Medical History: Atrial Fibrillation, CVA/TIA, Hyperlipidemia, Hypertension, Thyroid Disorder Additional Past Medical History / Comment(s): AAA History of Any Multi-Drug Resistant Organisms: None Reported Past Surgical History: Appendectomy, Cholecystectomy, Heart Catheterization, Joint Replacement, Orthopedic Surgery Additional Past Surgical History / Comment(s): bilateral shoulder and hips rep laced Past Anesthesia/Blood Transfusion Reactions: No Reported Reaction Past Psychological History: No Psychological Hx Reported Smoking Status: Former smoker Past Alcohol Use History: Occasional Additional Past Alcohol Use History / Comment(s): Pt states he quit in the 1969 Past Drug Use History: None Reported - Past Family History Mother Family Medical History: CVA/TIA Medications and Allergies Home Medications Medication Instructions Recorded Confirmed Type Ezetimibe [Zetia] 10 mg PO HS 01/20/15 07/20/19 History Levothyroxine Sodium [Synthroid] 137 mcg PO DAILY 01/20/15 07/20/19 History Isosorbide Mononitrate ER [Imdur] 30 mg PO DAILY #30 tab.er.24h 08/27/16 07/20/19 Rx Hydrochlorothiazide [Hydrodiuril] 25 mg PO DAILY 06/29/18 07/20/19 History Losartan Potassium [Cozaar] 100 mg PO DAILY 06/29/18 07/20/19 History Rivaroxaban [Xarelto] 15 mg PO DAILY 06/29/18 07/20/19 History hydrALAZINE HCL 25 mg PO BID 06/29/18 07/20/19 History Meclizine [Antivert] 25 mg PO TID PRN #20 tab 06/30/18 07/20/19 Rx Metoprolol Tartrate [Lopressor] 12.5 mg PO DAILY tab 06/30/18 07/20/19 Rx Allergies Allergy/AdvReac Type Severity Reaction Status Date / Time No Known Allergies Allergy Verified 07/20/19 08:57 Physical Exam Vitals: Vital Signs Temp Pulse Pulse Resp BP BP BP 07/20/19 12:00 98.2 F 54 L 18 127/44 07/20/19 08:00 18 07/20/19 07:50 97.8 F 59 L 18 166/69 07/20/19 04:00 98.1 F 54 L 18 142/59 07/20/19 00:45 97.4 F L 59 L 18 198/82 07/20/19 00:17 74 18 189/77 07/19/19 21:34 98.2 F 58 L 18 186/79 Pulse Ox 07/20/19 12:00 97 07/20/19 08:00 07/20/19 07:50 98 07/20/19 04:00 96 07/20/19 00:45 96 07/20/19 00:17 98 07/19/19 21:34 97 Intake and Output 07/19/19 07/20/19 07/20/19 22:59 06:59 14:59 Other: Voiding Method Toilet # Voids 1 Weight 77.111 kg 77.111 kg - Constitutional General appearance: Present: average body habitus, cooperative, no acute distress - EENT Eyes: Present: anicteric sclerae, EOMI, PERRLA, normal appearance ENT: Present: hearing grossly normal, normal oropharynx Ears: bilateral: normal - Neck Neck: Present: normal ROM. Absent: lymphadenopathy, rigidity, thyromegaly Carotids: negative: bruit present Thyroid: bilateral: normal size, negative: enlarged, nodule - Respiratory Respiratory: bilateral: CTA, negative: rales, rhonchi, wheezing - Cardiovascular Rhythm: regular Heart sounds: normal: S1, S2 Abnormal Heart Sounds: Absent: systolic murmur, diastolic murmur - Gastrointestinal General gastrointestinal: Present: normal bowel sounds, soft. Absent: distended, organomegaly, tenderness - Genitourinary Genitourinary Comment(s): deferred - Integumentary Integumentary: Present: normal turgor. Absent: jaundiced, rash, ulcer - Neurologic Neurologic: Present: CNII-XII intact. Absent: focal deficits - Musculoskeletal Musculoskeletal: Present: gait normal, strength equal bilaterally - Psychiatric Psychiatric: Present: A&O x's 3, appropriate affect, intact judgment & insight Results CBC & Chem 7: 07/19/19 21:27 07/19/19 21:27 Labs: Abnormal Lab Results - Last 24 Hours (Table) 07/19/19 07/19/19 Range/Units 21:27 21:27 Hgb 12.8 L (13.0-17.5) gm/dL Glucose 106 H (74-99) mg/dL Thrombosis Risk Factor Assmnt - Choose All That Apply Each Risk Factor Represents 3 Points: Age 75 years or older Thrombosis Risk Factor Assessment Total Risk Factor Score: 3 Thrombosis Risk Factor Assessment Level: Moderate Risk Assessment and Plan Assessment: 1. Chest pain rule out acute coronary syndrome; patient has been evaluated by cardiology and is restarted on Imdur 30 mg daily along with beta blockers; aspirin and Xarelto is put on hold for possible cardiac catheterization tomorrow 2. Hypertensive urgency; Patient is restarted on home medications including losartan 100 mg daily, metoprolol 12.5 mg daily, hydrochlorothiazide 25 milligrams daily along with Imdur 30 mg daily; patient is restarted on all home medications; monitor blood pressure closely and make adjustments as needed 3. Thoracic aortic aneurysm; Seems to have increased in size compared to last imaging study; blood pressure remained stable at this time; vascular surgery consult for further evaluation 4. Hyperlipidemia; Continue with some idea 10 mg daily 5. Hypothyroidism; levothyroxine 137 MCG daily 6. Paroxysmal atrial fibrillation; Remains rate controlled on metoprolol 12.5 mg daily with Xarelto 15 mg daily for anti-coagulation; Aspirin and Xarelto is held for possible cardiac catheterization/ALVIN tomorrow DVT prophylaxis CODE STATUS; full code Time with Patient: Greater than 30
[2019-07-20] MEDS ORDERED: MORPHINE SULFATE 2 MG/ML SYRINGE IVP PRN (14:29)
[2019-07-20] MEDS: SODIUM CHLORIDE 0.9% 1,000 ML IV SCH (20:21)
[2019-07-21] MEDS: NITROGLYCERIN OINT 1 INCH/GM PACKET TOPICAL SCH ×3 (05:19→18:12)
[2019-07-21] MEDS: LEVOTHYROXINE 137 MCG TAB PO SCH (05:26)
[2019-07-21 05:40] LABS: Basophils # (A) 0.1 k/uL (0-0.2); Basophils % (A) 1 %; Eosinophils # (A) 0.2 k/uL (0-0.7); Eosinophils % (A) 2 %; HCT 35.2 % (39.0-53.0); HGB 11.3 gm/dL (13.0-17.5); Lymphocytes # (A) 4.4 k/uL (1.0-4.8); Lymphocytes % (A) 45 %; MCH 27.7 pg (25.0-35.0); MCHC 32.2 g/dL (31.0-37.0); Mean Platelet Volume 7.3; Monocytes # (A) 0.7 k/uL (0-1.0); Monocytes % (A) 7 %; Neutrophils # (A) 4.2 k/uL (1.3-7.7); Neutrophils % (A) 42 %; Platelet Count 258 k/uL (150-450); RDW 13.8 % (11.5-15.5); WBC 9.8 k/uL (3.8-10.6)
[2019-07-21 06:03] LABS: African American GFR (CKD) >90 (>60 ml/min/1.73 sqM); Anion Gap 4 mmol/L; Blood Urea Nitrogen 12 mg/dL (9-20); Calcium 8.7 mg/dL (8.4-10.2); Carbon Dioxide 25 mmol/L (22-30); Chloride 106 mmol/L (98-107); Cholesterol 156 mg/dL (<200); Glucose 101 mg/dL (74-99); HDL Cholesterol 46 mg/dL (40-60); LDL Cholesterol,Calculated 83 mg/dL (0-99); Non-African American GFR(CKD) 81 (>60 ml/min/1.73 sqM); Potassium 4.3 mmol/L (3.5-5.1); Sodium 135 mmol/L (137-145); Triglycerides 133 mg/dL (<150)
[2019-07-21 07:21] VITALS: RESP 18
[2019-07-21] MEDS: ISOSORBIDE MONONITRATE ER 30 MG TAB.ER.24H PO SCH (07:26)
[2019-07-21] MEDS: hydrALAZINE HCL 25 MG TAB PO SCH ×2 (07:26→20:14)
[2019-07-21] MEDS: LOSARTAN 50 MG TAB PO SCH (07:26)
[2019-07-21] MEDS: HYDROCHLOROTHIAZIDE 25 MG TAB PO SCH (07:27)
[2019-07-21] MEDS: METOPROLOL TARTRATE 12.5 MG TAB PO SCH (07:27)
[2019-07-21] MEDS ORDERED: SODIUM CHLORIDE 0.9% 1,000 ML in EMPTY BAG 1 BAG IV ONE (08:03)
[2019-07-21] MEDS ORDERED: ASPIRIN 325 MG TAB PO STA (08:03)
[2019-07-21] MEDS ORDERED: ALPRAZolam 0.5 MG TAB PO PRN (08:03)
[2019-07-21] MEDS ORDERED: ALPRAZolam 0.25 MG TAB PO PRN (08:03)
[2019-07-21] MEDS ORDERED: fentaNYL (PF) 50 MCG/ML 2 ML AMP ONE (08:49)
[2019-07-21] MEDS ORDERED: IV FLUID CONTINUATION 1,000 ML IV ONE (08:53)
[2019-07-21] MEDS ORDERED: ASPIRIN 325 MG TAB PO SCH (09:00)
[2019-07-21] MEDS: fentaNYL (PF) 50 MCG/ML 2 ML AMP IV ONE ×2 (09:03→09:43)
[2019-07-21] MEDS: BENZOCAINE SPRAY 1 CAN TOPICAL ONE ×2 (09:03→09:05)
[2019-07-21] MEDS ORDERED: MIDAZOLAM 2 MG/2 ML VIAL IV ONE (09:07)
[2019-07-21] MEDS: MIDAZOLAM 2 MG/2 ML VIAL IV ONE ×2 (09:11→09:43)
[2019-07-21] MEDS ORDERED: VERAPAMIL 2.5 MG/ML 2 ML AMP ONE (09:31)
[2019-07-21] MEDS ORDERED: HEPARIN SODIUM 1,000 UN/ML (10ML VL) ONE (09:31)
[2019-07-21] MEDS ORDERED: IV FLUID CONTINUATION 900 ML IV ONE (09:42)
[2019-07-21] MEDS ORDERED: LIDOCAINE 1% INJ 10MG/ML (20 ML MDV) SQ ONE (09:43)
[2019-07-21] MEDS ORDERED: RX INFO: IV CONTRAST WAS GIVEN 1 EACH MISC MISCELLANE PRN (09:58)
[2019-07-21] MEDS ORDERED: IOPAMIDOL-370 125ML BTL INJ ONE (10:00)
[2019-07-21] MEDS ORDERED: SODIUM CHLORIDE 0.9% 1,000 ML IV SCH (10:00)
[2019-07-21] MEDS: SODIUM CHLORIDE 0.9% 1,000 ML IV SCH (10:33)
--- NOTE | 2019-07-21 10:41 | ECHOT ---
TRANSESOPHAGEAL ECHOCARDIOGRAM DATE OF SERVICE: 07/21/2019 PERFORMING PHYSICIAN: Waqas Odom MD. PROCEDURE PERFORMED: Transesophageal echocardiogram. INDICATION: This is an 83-year-old gentleman with history of aortic stenosis who presented to the hospital with chest discomfort and shortness of breath. He is known to have moderate to severe aortic stenosis. The symptoms of shortness of breath have gotten worse and because of that, a ALVIN was advised. COMPLICATION: None. LEVEL OF SEDATION: Moderate with sedation length of 15 minutes. PROCEDURE DESCRIPTION: After obtaining an informed consent, the patient was brought to the transesophageal echocardiogram suite. A pulse oximetry and heart rate monitors were attached to the patient. The patient's throat was sprayed using lidocaine. Subsequently, the patient was turned into left lateral position. Conscious sedation was performed using a total of 2 mg of Versed and 25 of fentanyl in divided doses. Subsequently, the transesophageal echocardiogram was advanced through the bite guard into the mid esophagus where a 2D echocardiogram images, color Doppler images, continuous-wave Doppler images, were obtained from multiple windows. The procedure was completed without any complication. FINDINGS: The left ventricular dimension and systolic function appeared to be normal. The ejection fraction appeared to be in the range of 55% to 60%. The right ventricle appeared to be dilated with normal function. The left atrium and right atrium are dilated. The left atrial appendage appeared to be free from any thrombus. The interatrial septum appeared to be intact by color-flow Doppler. The aortic valve is trileaflet valve with evidence of moderate to severe aortic stenosis with a peak gradient of 80 and mean of 38 mmHg. The mitral valve seems to be thickened with moderate MR. There was moderate tricuspid regurgitation and mild pulmonic insufficiency. The aortic root appeared to be dilated. CONCLUSION: 1. Normal left ventricular dimension and systolic function. 2. Normal dilated right ventricle with normal function. 3. Severe biatrial enlargement. 4. Intact interatrial septum. 5. Normal left atrial appendage. 6. Trileaflet aortic valve with evidence of moderate to severe aortic stenosis and mild aortic insufficiency. The aortic valve peak gradient was 18 mmHg and mean of 38 mmHg. 7. Thickened mitral valve leaflets with moderate mitral regurgitation. 8. Thickened tricuspid valve leaflets with moderate tricuspid regurgitation. 9. Dilated aortic root. 10.No evidence of pericardial effusion. MMODL / IJN: [id number] /
--- NOTE | 2019-07-21 11:43 | CC ---
CARDIAC CATHETERIZATION REPORT DATE OF SERVICE: 07/21/2019 PERFORMING PHYSICIAN: Waqas Odom MD. PROCEDURE PERFORMED: Selective right and left coronary angiogram. INDICATION: This is an 83-year-old gentleman with known history of moderate aortic stenosis, who presented to the hospital with chest discomfort concerning for coronary artery disease. He was seen by Dr. Watt who recommended proceeding with coronary angiogram. APPROACH: Right common femoral artery. COMPLICATION: None. LEVEL OF SEDATION: Moderate with sedation length of 17 minutes. PROCEDURE DESCRIPTION: After obtaining an informed consent, the patient was brought to the cardiac bottle label inspector. The right common femoral artery was cannulated using micropuncture technique, the micropuncture wire passed easily then I placed a 6-[place] sheath. After that I did selective right and left coronary angiogram using JR4 3 JR4 and JL3.5 JR4 and JL 4.5. The procedure was completed without any complication. The coronary angiogram. 1. The right coronary artery is a moderate caliber vessel and it is a nondominant vessel and appeared to be angiographically normal. 2. The left main is angiographically normal, it bifurcates into LCX and LAD. 3. The LCX is a large caliber vessel, it is a dominant vessel. The proximal circumflex is normal and gives rise into OM1 which appeared to be normal. The mid circumflex is normal as well and the circumflex distally appeared to be normal and bifurcates into PDA and PLV branches. The PDA branch appeared to have mild disease only and the PLV branch appeared to be normal. 4. The LAD, the proximal LAD appeared to be normal. It gives rise into first diagonal branch which seems to be normal. The mid LAD and distal LAD are normal as well. The LAD distally gives rise into second diagonal branch which seems to be normal as well. HEMODYNAMICS: The aortic valve was not crossed. CONCLUSION: 1. 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 2. Dominant left circumflex coronary system. 3. Dilated aortic root. 4. Postprocedure management #1 medical treatment. 5. Evaluate for aortic valve replacement. MMODL / IJN: [id number] /
--- NOTE | 2019-07-21 15:53 | P.GSCN ---
History of Present Illness Consult date: 07/21/19 Reason for Consult: Aortic root dilatation with aortic valve stenosis Requesting physician: Reinaldo Guerrero History of present illness: This is a 89-year-old gentleman who follows in an outpatient basis with Dr. Donato govea. He has a previous medical history of known aortic stenosis and dilated ascending aorta, hypertension, hyperlipidemia, paroxysmal atrial fibrillation currently on Xarelto for anticoagulation, hypothyroidism, skin cancer with removal approximate one year ago, previous tobacco dependence, and family history of stroke. This patient has been followed by Dr. Odom from [facility] on an outpatient basis for quite some time for his known aortic stenosis and dilated ascending aorta. He reports that he has had intermittent chest discomfort with activity over the last 2 years which he attributed to musculoskeletal pain due to his level of activity. In addition he reports increasing shortness of breath with exertion and increased fatigue over the last few months. Last he had an episode of severe left-sided chest pain which abated without treatment after approximately 5-10 minutes. He does not remember having any other aggravating or alleviating symptoms at that time. On Sunday the chest pain began again and he reported to [facility] emergency room for evaluation and treatment. Chest x-ray was completed demonstrating no acute cardiopulmonary process. He had no elevation in his troponins and BNP was 108. EKG demonstrated sinus bradycardia with first-degree AV block and no ischemic changes. He was admitted for evaluation and treatment with consultation placed to cardiology. Chest CTA was completed yesterday demonstrating dilated aortic root measuring 5.5 cm, tortuous arch with no evidence of dissection. Initially consultation was placed for vascular surgeon, which was then changed to cardiothoracic surgery. Patient underwent heart catheterization today which demonstrated nonobstructive coronary artery disease in the left circumflex artery, and transesophageal echocardiogram was completed demonstrating normal left ventricular function, dilated aortic root, biatrial enlargement, dilated right ventricle, moderate to severe aortic stenosis with mild aortic insufficiency, peak/mean gradient 80/38 mmHg, moderate mitral regurgitation, and moderate tricuspid regurgitation. Review of Systems Review of systems was completed and was negative except as noted. - Constitutional Reports fatigue - Cardiovascular Reports as per HPI, Reports chest pain, Reports dyspnea on exertion, Reports shortness of breath Past Medical History Past Medical History: Atrial Fibrillation, Cancer, CVA/TIA, Hyperlipidemia, Hypertension, Pneumonia, Thyroid Disorder Additional Past Medical History / Comment(s): Skin cancer with removal; atrial fibrillation is paroxysmal, currently on Xarelto for anticoagulation History of Any Multi-Drug Resistant Organisms: None Reported Past Surgical History: Appendectomy, Cholecystectomy, Heart Catheterization, Joint Replacement, Orthopedic Surgery Additional Past Surgical History / Comment(s): bilateral shoulder and hips replaced Past Anesthesia/Blood Transfusion Reactions: No Reported Reaction Past Psychological History: No Psychological Hx Reported Smoking Status: Former smoker Past Alcohol Use History: Occasional Additional Past Alcohol Use History / Comment(s): Pt states he quit smoking in the s, prior to that smoked approximately a pack a day since in his 20s Past Drug Use History: None Reported - Past Family History Mother Family Medical History: CVA/TIA Medications and Allergies Home Medications Medication Instructions Recorded Confirmed Type Ezetimibe [Zetia] 10 mg PO HS 01/20/15 07/20/19 History Levothyroxine Sodium [Synthroid] 137 mcg PO DAILY 01/20/15 07/20/19 History Isosorbide Mononitrate ER [Imdur] 30 mg PO DAILY #30 tab.er.24h 08/27/16 07/20/19 Rx Hydrochlorothiazide [Hydrodiuril] 25 mg PO DAILY 06/29/18 07/20/19 History Losartan Potassium [Cozaar] 100 mg PO DAILY 06/29/18 07/20/19 History Rivaroxaban [Xarelto] 15 mg PO DAILY 06/29/18 07/20/19 History hydrALAZINE HCL 25 mg PO BID 06/29/18 07/20/19 History Meclizine [Antivert] 25 mg PO TID PRN #20 tab 06/30/18 07/20/19 Rx Metoprolol Tartrate [Lopressor] 12.5 mg PO DAILY tab 06/30/18 07/20/19 Rx Allergies Allergy/AdvReac Type Severity Reaction Status Date / Time No Known Allergies Allergy Verified 07/20/19 08:57 Surgical - Exam Vital Signs Temp Pulse Resp BP Pulse Ox 98.2 F 58 L 18 186/79 97 07/19/19 21:34 07/19/19 21:34 07/19/19 21:34 07/19/19 21:34 07/19/19 21:34 - General well developed, well nourished, no distress, no pain - Eyes PERRL, normal ocular movement - ENT no hearing loss - Neck no masses, no bruits, trachea midline - Respiratory Lungs sounds clear bilaterally. Respirations even, nonlabored. Currently on room air with oxygen saturation 96%. No chest wall deformities. No clubbing or cyanosis present. - Cardiovascular S1 present, S2 present but diminished. Loud systolic murmur present. Regular rate and rhythm, sinus rhythm on telemetry with frequent PACs, heart rate 64 bpm. Palpable peripheral pulses bilaterally. No edema present. No calf pain or tenderness noted. No varicosities noted. - Abdomen Abdomen: soft, non tender, bowel sounds - Genitourinary Deferred - Rectum Deferred - Integumentary no rash, no growths - Neurologic normal coordination, normal sensation - Musculoskeletal normal gait, normal posture - Psychiatric oriented to time, oriented to person, oriented to place, speech is normal, memory intact Results - Labs 07/21/19 05:17 07/21/19 05:17 Abnormal Lab Results - Last 24 Hours (Table) 07/21/19 07/21/19 Range/Units 05:17 05:17 RBC 4.10 L (4.30-5.90) m/uL Hgb 11.3 L (13.0-17.5) gm/dL Hct 35.2 L (39.0-53.0) % Sodium 135 L (137-145) mmol/L Glucose 101 H (74-99) mg/dL Diabetes panel 07/21/19 Range/Units 05:17 Sodium 135 L (137-145) mmol/L Potassium 4.3 (3.5-5.1) mmol/L Chloride 106 (98-107) mmol/L Carbon Dioxide 25 (22-30) mmol/L BUN 12 (9-20) mg/dL Creatinine 0.85 (0.66-1.25) mg/dL Glucose 101 H (74-99) mg/dL Calcium 8.7 (8.4-10.2) mg/dL Triglycerides 133 (<150) mg/dL HDL Cholesterol 46 (40-60) mg/dL Calcium panel 07/21/19 Range/Units 05:17 Calcium 8.7 (8.4-10.2) mg/dL Pituitary panel 07/21/19 Range/Units 05:17 Sodium 135 L (137-145) mmol/L Potassium 4.3 (3.5-5.1) mmol/L Chloride 106 (98-107) mmol/L Carbon Dioxide 25 (22-30) mmol/L BUN 12 (9-20) mg/dL Creatinine 0.85 (0.66-1.25) mg/dL Glucose 101 H (74-99) mg/dL Calcium 8.7 (8.4-10.2) mg/dL Adrenal panel 07/21/19 Range/Units 05:17 Sodium 135 L (137-145) mmol/L Potassium 4.3 (3.5-5.1) mmol/L Chloride 106 (98-107) mmol/L Carbon Dioxide 25 (22-30) mmol/L BUN 12 (9-20) mg/dL Creatinine 0.85 (0.66-1.25) mg/dL Glucose 101 H (74-99) mg/dL Calcium 8.7 (8.4-10.2) mg/dL - Imaging Chest x-ray: report reviewed, image reviewed CT scan - chest: report reviewed, image reviewed EKG: image reviewed Additional studies: Results of heart catheterization and echocardiogram reviewed Assessment and Plan Assessment: 1. Aortic root dilatation with known history of dilated ascending aorta 2. Known aortic stenosis, peak/mean gradient on transesophageal echocardiogram 80/38 mmHg 3. Moderate mitral regurgitation 4. Moderate tricuspid regurgitation 5. Hypertension 6. Hyperlipidemia 7. Paroxysmal atrial fibrillation currently on Xarelto for anticoagulation, last dosed 07/19/2019 8. Hypothyroidism 9. History of skin cancer with removal approximately a echo 10. Previous tobacco dependence 11. Family history of stroke Plan: The patient was seen and examined at the bedside in the extended stay unit. Chart/diagnostics were reviewed, including previous CT scans and echocardiograms. The case was discussed in detail with Dr. Ramirez. At this time the patient is in no acute distress, denies any pain or shortness of breath. We recommend good blood pressure control. If the patient wishes to be discharged to home and primary care and cardiology are okay with discharge, the patient may follow-up with Dr. Ramirez in the office to discuss surgical versus transcatheter options. Otherwise, the patient may stay overnight and once the patient's films have been reviewed by one of our surgeons tomorrow, further surgical recommendations will be made. There is no urgency to surgery versus transcatheter approaches. Continue medical management of other comorbidities per primary care service. Thank you for this consult. We look forward to working with you in the care of your patient Time with Patient: Greater than 30
--- NOTE | 2019-07-21 17:29 | P.PN ---
Subjective 83-year-old gentleman who presents the ER today via ambulance for evaluation of chest pain. Patient reports that on he had approximately 5 minute episode of severe stabbing left-sided chest pain some of the worst pain in his life but it resolved within 5 minutes we didn't seek any care. Patient reports that he does have intermittent chest pain that he believes to be musculoskeletal because he does still perform a lot of physical activity. Patient states that this evening he was resting a began having pain in his left chest, after the episode of severe pain he had experienced on he became somewhat concerned about this and decided to come to the emergency department. EMS reported that patient was hypertensive upon initial evaluation, history with aspirin and nitro in route with complete resolution of his pain and improvement in his blood pressure. workup in ED including an EKG showed sinus bradycardia with normal axis and first-degree heart block; no acute ST or T-wave changes;blood work was unremarkable; chest x-ray. Negative for any acute changes; she was started on Nitropaste and is admitted to the hospital for cardiology evaluation 07/21/19 pt today feel better , he has negative cardiac cath and he is been cleared for discharge to day , however pt wants till he speaks with the surgeon tomorrow as he is frustrated about his aortic aneurysm. Objective - Vital Signs Vital signs: Vital Signs Temp 97.6 F 07/21/19 15:29 Pulse 59 L 07/21/19 15:29 Resp 18 07/21/19 10:25 BP 136/63 07/21/19 15:29 Pulse Ox 96 07/21/19 15:29 Intake & Output 07/20/19 07/21/19 07/21/19 18:59 06:59 18:59 Intake Total 480 540 Output Total 300 Balance 180 540 Intake: IV 100 Oral 480 240 Other 200 Output: Urine 300 Other: Voiding Method Toilet Toilet Toilet # Voids 1 1 - Exam GENERAL: The patient is alert and oriented x3, not in any acute distress. Well developed, well nourished. HEENT: Pupils are round and equally reacting to light. EOMI. No scleral icterus. No conjunctival pallor. Normocephalic, atraumatic. No pharyngeal erythema. No thyromegaly. CARDIOVASCULAR: S1 and S2 present. No murmurs, rubs, or gallops. PULMONARY: Chest is clear to auscultation, no wheezing or crackles. ABDOMEN: Soft, nontender, nondistended, normoactive bowel sounds. No palpable organomegaly. MUSCULOSKELETAL: No joint swelling or deformity. EXTREMITIES: No cyanosis, clubbing, or pedal edema. NEUROLOGICAL: Gross neurological examination did not reveal any focal deficits. SKIN: No rashes. - Labs CBC & Chem 7: 07/21/19 05:17 07/21/19 05:17 Labs: Abnormal Lab Results - Last 24 Hours (Table) 07/21/19 07/21/19 Range/Units 05:17 05:17 RBC 4.10 L (4.30-5.90) m/uL Hgb 11.3 L (13.0-17.5) gm/dL Hct 35.2 L (39.0-53.0) % Sodium 135 L (137-145) mmol/L Glucose 101 H (74-99) mg/dL Assessment and Plan Assessment: 1. Chest pain rule out acute coronary syndrome; patient has been evaluated by cardiology and is restarted on Imdur 30 mg daily along with beta blockers; cardiac cath was unremarkable and pt is cleared for discharge 2. Hypertensive urgency; Patient is restarted on home medications including losartan 100 mg daily, metoprolol 12.5 mg daily, hydrochlorothiazide 25 milligrams daily along with Imdur 30 mg daily; patient is restarted on all home medications; monitor blood pressure closely and make adjustments as needed 3. Thoracic aortic aneurysm; Seems to have increased in size compared to last imaging study; blood pressure remained stable at this time; vascular surgery con sult for further evaluation is pending final recommendation and pt wants to talk to the surgeon 4. Hyperlipidemia; Continue with some idea 10 mg daily 5. Hypothyroidism; levothyroxine 137 MCG daily 6. Paroxysmal atrial fibrillation; Remains rate controlled on metoprolol 12.5 mg daily with Xarelto 15 mg daily for anti-coagulation; resume Aspirin and Xarelto
[2019-07-21] MEDS: EZETIMIBE 10 MG TAB PO SCH (20:14)
[2019-07-22] MEDS: NITROGLYCERIN OINT 1 INCH/GM PACKET TOPICAL SCH ×2 (00:56→05:30)
[2019-07-22] MEDS: LEVOTHYROXINE 137 MCG TAB PO SCH (05:56)
[2019-07-22 07:42] VITALS: PULSE 61
[2019-07-22] MEDS: hydrALAZINE HCL 25 MG TAB PO SCH (07:58)
[2019-07-22] MEDS: ISOSORBIDE MONONITRATE ER 30 MG TAB.ER.24H PO SCH (07:58)
[2019-07-22] MEDS: HYDROCHLOROTHIAZIDE 25 MG TAB PO SCH (07:58)
[2019-07-22] MEDS: LOSARTAN 50 MG TAB PO SCH (07:58)
[2019-07-22] MEDS: METOPROLOL TARTRATE 12.5 MG TAB PO SCH (07:58)
[2019-07-22] MEDS ORDERED: RIVAROXABAN 15 MG TAB PO SCH (09:00)
[2019-07-22] MEDS ORDERED: amLODIPine 5 MG TAB PO SCH ×2 (09:45→21:00)
[2019-07-22] MEDS ORDERED: ASPIRIN 81 MG PO SCH (10:30)
--- NOTE | 2019-07-22 10:31 | P.PN ---
Subjective This is a pleasant 83-year-old male past medical history significant for aortic stenosis, thoracic aortic aneurysm, paroxysmal atrial fibrillation on ocean transportation intermediary anti-coagulation, hypertension, dyslipidemia and TIA in the past. He follows in the office with Dr. Odom. He underwent cardiac catheterization and ALVIN yesterday revealing RCA no disease, left main no disease, circumflex no disease, PDA with mild non-obstructive disease, LAD no disease, dilated aortic root, normal LV function, dilated right ventricle, severe biatrial enlargement, trileaflet aortic valve with moderate to severe aortic stenosis and mild aortic insufficiency with a mean gradient of 38 mmHg, thickened mitral valve with moderate MR and thickened tricuspid valve with moderate TR. He also underwent CTA of the chest revealing a tortuous aneurysm of the entire thoracic aorta increased in size from previous exam. The aortic root is dilated at 5.5 cm the arch is tortuous, the proximal arch measures 4 cm, the distal arch measures 3.3 cm, the mid descending thoracic aorta measures 4.8 cm. Blood pressure this morning 177/73 heart rate 61 afebrile maintaining oxygen saturation on room air. He was seen and evaluation by cardiovascular surgery yesterday and recommended outpatient evaluation of possible TAVR repair. He denies chest pain, dizziness, palpitations or shortness of breath. Currently maintained on hydralazine 25 mg BID, zetia 10 mg daily, hydrochlorothiazide 25 mg daily, imdur 30 mg daily, losartan 100 mg daily , lopressor 12.5 mg daily and xarelto 15 mg daily. GENERAL: Well-appearing, well-nourished and in no acute distress. NECK: Supple without JVD or thyromegaly. LUNGS: Breath sounds clear to auscultation bilaterally. Respiration equal and unlabored. No wheezes, rales or rhonchi. HEART: Regular rate and rhythm with systolic ejection murmur at the base, no rubs or gallops. S1 and S2 heard. EXTREMITIES: Normal range of motion, no edema. No clubbing or cyanosis. Peripheral pulses intact. ASSESSMENT Chest pain, atypical. An acute coronary event has been ruled out. Cardiac catheterization reveals no significant obstructive disease Aortic stenosis, moderate Thoracic aortic aneurysm Paroxysmal atrial fibrillation on long-term anticoagulation Hypertension Dyslipidemia PLAN Initiate aspirin 81 mg daily and amlodipine 5 mg BID for optimal blood pressure control. Discontinue imdur. Stable for discharge from a cardiac perspective. Follow up with Dr. Ramirez and Dr. Odom upon discharge. Nurse Practitioner note has been reviewed, I agree with a documented findings and plan of care. Patient was seen and examined. Objective - Vital Signs Vital signs: Vital Signs Temp 98.6 F 07/22/19 07:41 Pulse 61 07/22/19 07:41 Resp 18 07/22/19 07:41 BP 177/73 07/22/19 07:41 Pulse Ox 95 07/22/19 07:41 Intake & Output 07/21/19 07/22/19 07/22/19 18:59 06:59 18:59 Intake Total 540 480 Balance 540 480 Intake: IV 100 Oral 240 480 Other 200 Other: Voiding Method Toilet Toilet Toilet # Voids 1 - Labs CBC & Chem 7: 07/21/19 05:17 07/21/19 05:17
[2019-07-22 11:32] VITALS: BP 159/79; TEMP 98.2
--- NOTE | 2019-07-22 12:01 | ECHOF ---
Referral Reason:cp MEASUREMENTS -------- HEIGHT: 182.9 cm WEIGHT: 77.1 kg BP: RVIDd: 3.1 cm (< 3.3) IVSd: 1.2 cm (0.6 - 1.1) LVIDd: 4.3 cm (3.9 - 5.3) LVPWd: 1.4 cm (0.6 - 1.1) IVSs: 2.0 cm LVIDs: 1.7 cm LVPWs: 1.8 cm Ao Diam: 3.8 cm (2.0 - 3.7) AV Cusp: 1.1 cm (1.5 - 2.6) LA Diam: 3.0 cm (2.7 - 3.8) MV E Piter: 0.95 m/s MV DecT: 231 ms MV A Piter: 1.06 m/s MV E/A Ratio: 0.90 AV maxP.33 mmHg AV meanP.52 mmHg AR PHT: 509 ms RAP: 5.00 mmHg RVSP: 43.33 mmHg FINDINGS -------- Sinus rhythm with extra systolic beats. This was a technically difficult study with suboptimal views. Lying flat post cath. The left ventricular size is normal. There is mild concentric left ventricular hypertrophy. Overa ll left ventricular systolic function is normal with, an EF between 55 - 60 %. The right ventricle is normal in size. The left atrial size is normal. The right atrial size is normal. Aortic valve is trileaflet and is moderately thickened. There is mild aortic regurgitation. There is pebvojso-[id number] aortic stenosis present. Peak/mean gradient across the Aortic Valve is 56.33 mmHg / 40.52mmHg. The mitral valve is normal. The mitral valve leaflets are mildly thickened. Mild mitral annular c alcification present. Mild mitral regurgitation is present. The tricuspid valve appears structurally normal. Mild tricuspid regurgitation present. There is m ild pulmonary hypertension. The right ventricular systolic pressure, as measured by Doppler, is 43. 33mmHg. There is no pulmonic regurgitation present. The aortic root size is normal. IVC Not well visulized. There is no pericardial effusion. CONCLUSIONS -------- 1. Sinus rhythm with extra systolic beats. 2. This was a technically difficult study with suboptimal views. 3. Lying flat post cath. 4. The left ventricular size is normal. 5. There is mild concentric left ventricular hypertrophy. 6. Overall left ventricular systolic function is normal with, an EF between 55 - 60 %. 7. The right ventricle is normal in size. 8. The left atrial size is normal. 9. The right atrial size is normal. 10. Aortic valve is trileaflet and is moderately thickened. 11. There is mild aortic regurgitation. 12. There is [id number] aortic stenosis present. 13. Peak/mean gradient across the Aortic Valve is 56.33mmHg / 40.52mmHg. 14. The mitral valve is normal. 15. The mitral valve leaflets are mildly thickened. 16. Mild mitral annular calcification present. 17. Mild mitral regurgitation is present. 18. The tricuspid valve appears structurally normal. 19. Mild tricuspid regurgitation present. 20. There is mild pulmonary hypertension. 21. The right ventricular systolic pressure, as measured by Doppler, is 43.33mmHg. 22. There is no pulmonic regurgitation present. 23. The aortic root size is normal. 24. IVC Not well visulized. 25. There is no pericardial effusion. IMPREGNATOR AND DRIER: Citlalli Lomeli RDCS
--- NOTE | 2019-07-22 21:54 | P.DS ---
Providers Date of admission: 07/21/19 14:21 Attending physician: Harsh Pena Consults: 07/20/19 00:03 Consult Physician Urgent Consulting Provider: [facility] Consult Reason/Comments: chest pain Do you want consulting provider notified?: Yes, Notify in am 07/21/19 13:48 Consult Physician Urgent Consulting Provider: Reinaldo Ramirez Consult Reason/Comments: Aortic root dilation, valve disease Do you want consulting provider notified?: Yes [facility] Course: Diagnoses: Left-sided chest pain, status post cardiac cath on 07/21/2019 with no concerning lesion Heart valvular disease, Moderate to severe aortic stenosis with moderate MR and TR Hypertensive urgency Thoracic aortic aneurysm Hyperlipidemia Hypothyroidism Paroxysmal atrial fibrillation on [facility] course: This is a pleasant 83 years old male with past medical history of hypertension, hyperlipidemia, hypothyroidism, aortic aneurysm and atrial fibrillation with history of CVA/TIA. Presents with left-sided chest pain which is improved now. Patient underwent cardiac cath on 07/21/2019 and ALVIN showing ejection fraction of 55-60%, with moderate to severe aortic stenosis and moderate MR, moderate TR Patient feels better. Patient symptoms feels better and improved with no chest pain. No dyspnea. No abdominal pain. No change in urine or bowel habits. No fever. Patient was cleared for discharge by cardiology and vascular surgery Problems and management plan were discussed with the patient and he verbalized understanding and acceptance Patient was found stable and can be discharged home however he needs follow-up as an outpatient. Patient was instructed to follow up with PCP within one week and patient agrees. Patient was instructed to follow up with [facility] [employer] and cardiothoracic surgeon and he agrees. Patient agrees with the appointments made for him with pulmonary/PCP, [facility] [employer] and vascular surgeon Gen: patient is a AAOx3, no distress CVS: S1-S2, RRR, no murmur Lungs: B/L CTA, no wheezing Abdomen: soft, no distention, no tenderness, positive bowel sounds Extremity: no leg edema or induration Time spent more than 35 minutes Patient Condition at Discharge: Stable Plan - Discharge Summary New Discharge Prescriptions: New amLODIPine [Norvasc] 5 mg PO DAILY #30 tab Aspirin 81 mg PO DAILY #30 chew Continue Levothyroxine Sodium [Synthroid] 137 mcg PO DAILY Ezetimibe [Zetia] 10 mg PO HS Isosorbide Mononitrate ER [Imdur] 30 mg PO DAILY #30 tab.er.24h hydrALAZINE HCL 25 mg PO BID Rivaroxaban [Xarelto] 15 mg PO DAILY Losartan Potassium [Cozaar] 100 mg PO DAILY Hydrochlorothiazide [Hydrodiuril] 25 mg PO DAILY Meclizine [Antivert] 25 mg PO TID PRN #20 tab PRN Reason: Vertigo Metoprolol Tartrate [Lopressor] 12.5 mg PO DAILY tab Discharge Medication List Ezetimibe [Zetia] 10 mg PO HS 01/20/15 [History] Levothyroxine Sodium [Synthroid] 137 mcg PO DAILY 01/20/15 [History] Isosorbide Mononitrate ER [Imdur] 30 mg PO DAILY #30 tab.er.24h 08/27/16 [Rx] Hydrochlorothiazide [Hydrodiuril] 25 mg PO DAILY 06/29/18 [History] Losartan Potassium [Cozaar] 100 mg PO DAILY 06/29/18 [History] Rivaroxaban [Xarelto] 15 mg PO DAILY 06/29/18 [History] hydrALAZINE HCL 25 mg PO BID 06/29/18 [History] Meclizine [Antivert] 25 mg PO TID PRN #20 tab 06/30/18 [Rx] Metoprolol Tartrate [Lopressor] 12.5 mg PO DAILY tab 06/30/18 [Rx] Aspirin 81 mg PO DAILY #30 chew 07/22/19 [Rx] amLODIPine [Norvasc] 5 mg PO DAILY #30 tab 07/22/19 [Rx] Follow up Appointment(s)/Referral(s): Virginia Pimentel MD [Primary Care Provider] - 07/31/19 10:15 am Waqas Odom MD [STAFF PHYSICIAN] - 07/29/19 4:00 pm ([facility] Appointment will be with Sylwia) Reinaldo Ramirez MD [STAFF PHYSICIAN] - 07/31/19 2:00 pm Patient Instructions/Handouts: Chest Pain (DC) Activity/Diet/Wound Care/Special Instructions: Cardiac diet Activity is limited till you see your doctor Discharge Disposition: HOME SELF-CARE
== END 2019-07-22 15:23 | disposition home or self-care (01) | DRG 287 ==
LOC: EC 21:15 → 1SOBS 07-20 00:03 → OBSVTOIN 07-21 14:21
PROVIDERS: ADMIT Hospitalist; ATTEND Hospitalist
PROC: B2111ZZ Fluoroscopy of Multiple Coronary Arteries using Low Osmolar Contrast (ICD-10-PCS; 2019-07-21)
PROC: B246ZZ4 Ultrasonography of Right and Left Heart, Transesophageal (ICD-10-PCS; 2019-07-21)
PROC: 4A023N7 Measurement of Cardiac Sampling and Pressure, Left Heart, Percutaneous Approach (ICD-10-PCS; principal; 2019-07-21 09:30)
DX: I25.10 Atherosclerotic heart disease of native coronary artery without angina pectoris (principal); I08.3 Combined rheumatic disorders of mitral, aortic and tricuspid valves; E03.9 Hypothyroidism, unspecified; E78.00 Pure hypercholesterolemia, unspecified; E78.5 Hyperlipidemia, unspecified; I10 Essential (primary) hypertension; I16.0 Hypertensive urgency; I44.0 Atrioventricular block, first degree; I48.0 Paroxysmal atrial fibrillation; I71.2 Thoracic aortic aneurysm, without rupture; Z79.01 Long term (current) use of anticoagulants; Z79.890 Hormone replacement therapy; Z79.899 Other long term (current) drug therapy; Z82.3 Family history of stroke; Z85.828 Personal history of other malignant neoplasm of skin; Z86.73 Personal history of transient ischemic attack (TIA), and cerebral infarction without residual deficits; Z87.891 Personal history of nicotine dependence; Z96.612 Presence of left artificial shoulder joint; Z96.611 Presence of right artificial shoulder joint; Z96.643 Presence of artificial hip joint, bilateral
CPT/HCPCS: 36415; 71046; 71275; 80048; 80053; 80061; 83735; 83880; 84484; 85025; 85610; 85730; 93005; 93306; 93312; 93320; 93325; 93454; 99285

== ENCOUNTER 2020-09-21 15:42 | Observation (INO) | payer MEDICARE ==
[2020-09-21] MEDS ORDERED: SODIUM CHLORIDE 0.9% 500 ML 500 ML IV STA (16:04)
--- NOTE | 2020-09-21 16:10 | ED ---
General Adult HPI - General Chief complaint: Dizziness Stated complaint: hypertension Time Seen by Provider: 09/21/20 15:49 Source: patient, EMS, RN notes reviewed, old records reviewed Mode of arrival: EMS Limitations: no limitations - History of Present Illness Initial comments: 85-year-old male presenting for evaluation of lightheadedness, dizziness, and left arm pain. Patient states his symptoms began as a left arm pain which progressed to the body shaking. This began several hours prior to arrival. He denied headache. Denied focal numbness or weakness. He states he did feel somewhat lightheaded and unwell. No fever. No URI symptoms. No chest pain no abdominal pain. No nausea vomiting - Related Data Home Medications Medication Instructions Recorded Confirmed Ezetimibe [Zetia] 10 mg PO HS 01/20/15 09/21/20 Levothyroxine Sodium [Synthroid] 137 mcg PO DAILY 01/20/15 09/21/20 Rivaroxaban [Xarelto] 15 mg PO DAILY 06/29/18 09/21/20 hydrALAZINE HCL 25 mg PO TID 06/29/18 09/21/20 hydroCHLOROthiazide [Hydrodiuril] 25 mg PO DAILY 06/29/18 09/21/20 Carvedilol [Coreg] 3.125 mg PO BID 09/21/20 09/21/20 Clopidogrel [Plavix] 75 mg PO DAILY 09/21/20 09/21/20 Diltiazem HCl [Cardizem LA] 240 mg PO DAILY 09/21/20 09/21/20 Metoprolol Tartrate [Lopressor] 12.5 mg PO BID 09/21/20 09/21/20 Allergies Allergy/AdvReac Type Severity Reaction Status Date / Time No Known Allergies Allergy Verified 09/21/20 16:54 Review of Systems ROS Statement: Those systems with pertinent positive or pertinent negative responses have been documented in the HPI. ROS Other: All systems not noted in ROS Statement are negative. Past Medical History Past Medical History: Atrial Fibrillation, Cancer, CVA/TIA, Hyperlipidemia, Hypertension, Pneumonia, Thyroid Disorder Additional Past Medical History / Comment(s): Skin cancer with removal; atrial fibrillation is paroxysmal, currently on Xarelto for anticoagulation History of Any Multi-Drug Resistant Organisms: None Reported Past Surgical History: Appendectomy, Cholecystectomy, Heart Catheterization, Joint Replacement, Orthopedic Surgery Additional Past Surgical History / Comment(s): bilateral shoulder and hips replaced; aortic valve replacement 2019 Past Anesthesia/Blood Transfusion Reactions: No Reported Reaction Past Psychological History: No Psychological Hx Reported Smoking Status: Never smoker Past Alcohol Use History: None Reported Past Drug Use History: None Reported - Past Family History Mother Family Medical History: CVA/TIA General Exam Limitations: no limitations General appearance: alert, in no apparent distress Head exam: Present: atraumatic, normocephalic Eye exam: Present: normal appearance, PERRL ENT exam: Present: mucous membranes moist Neck exam: Present: normal inspection. Absent: tenderness, meningismus Respiratory exam: Present: normal lung sounds bilaterally. Absent: respiratory distress, wheezes Cardiovascular Exam: Present: regular rate, irregular rhythm GI/Abdominal exam: Present: soft. Absent: distended, tenderness, guarding, rebound Extremities exam: Present: normal inspection, normal capillary refill Neurological exam: Present: alert, oriented X3, CN II-XII intact, other (No ataxia, normal finger to nose). Absent: motor sensory deficit Psychiatric exam: Present: normal affect, normal mood Skin exam: Present: warm, dry, intact. Absent: cyanosis, diaphoretic Course Vital Signs 09/21/20 09/21/20 09/21/20 15:49 16:55 18:02 Temperature 97.9 F Pulse Rate 65 73 74 Respiratory 18 16 16 Rate Blood Pressure 189/81 172/80 181/96 O2 Sat by Pulse 96 98 97 Oximetry EKG Findings - EKG Comments: EKG Findings:: EKG: Narrow complex rhythm with PVC, questionable atrial activity irregular. This does appear to be sinus with first-degree AV block, rate of 69, IL interval 228, QRS duration 106, QTC 443 Medical Decision Making - Medical Decision Making 84-year-old male presenting with lightheadedness, tremor, left arm pain. No central chest pain. Head CT unremarkable, no acute findings. Chest x-ray negative for acute cardiopulmonary disease. Patient has normal CBC, normal CMP, negative initial troponin. Given the acuity of this patient's onset of symptoms I will keep in observation for telemetry, cardiology consultation as well as neurology consultation. Case discussed with Dr. Dao who will admit. - Lab Data Result diagrams: 09/21/20 16:06 09/21/20 16:06 Lab Results 09/21/20 09/21/20 09/21/20 Range/Units 16:06 16:06 16:06 WBC 10.2 (3.8-10.6) k/uL RBC 4.81 (4.30-5.90) m/uL Hgb 13.5 (13.0-17.5) gm/dL Hct 40.0 (39.0-53.0) % MCV 83.2 (80.0-100.0) fL MCH 28.0 (25.0-35.0) pg MCHC 33.7 (31.0-37.0) g/dL RDW 14.1 (11.5-15.5) % Plt Count 332 (150-450) k/uL MPV 6.8 Neutrophils % 63 % Lymphocytes % 23 % Monocytes % 9 % Eosinophils % 3 % Basophils % 1 % Neutrophils # 6.4 (1.3-7.7) k/uL Lymphocytes # 2.3 (1.0-4.8) k/uL Monocytes # 0.9 (0-1.0) k/uL Eosinophils # 0.3 (0-0.7) k/uL Basophils # 0.1 (0-0.2) k/uL PT 11.4 (9.0-12.0) sec INR 1.1 (<1.2) APTT 27.7 (22.0-30.0) sec Sodium 131 L (137-145) mmol/L Potassium 4.4 (3.5-5.1) mmol/L Chloride 98 (98-107) mmol/L Carbon Dioxide 23 (22-30) mmol/L Anion Gap 10 mmol/L BUN 15 (9-20) mg/dL Creatinine 0.91 (0.66-1.25) mg/dL Est GFR (CKD-EPI)AfAm 89 (>60 ml/min/1.73 sqM) Est GFR (CKD-EPI)NonAf 77 (>60 ml/min/1.73 sqM) Glucose 133 H (74-99) mg/dL Plasma Lactic Acid Sudhakar (0.7-2.0) mmol/L Calcium 9.1 (8.4-10.2) mg/dL Magnesium 2.1 (1.6-2.3) mg/dL Total Bilirubin 0.9 (0.2-1.3) mg/dL AST 33 (17-59) U/L ALT 15 (4-49) U/L Alkaline Phosphatase 78 (38-126) U/L Troponin I (0.000-0.034) ng/mL Total Protein 7.5 (6.3-8.2) g/dL Albumin 4.5 (3.5-5.0) g/dL Urine Color Urine Appearance (Clear) Urine pH (5.0-8.0) Ur Specific [place] (1.001-1.035) Urine Protein (Negative) Urine Glucose (UA) (Negative) Urine Ketones (Negative) Urine Blood (Negative) Urine Nitrite (Negative) Urine Bilirubin (Negative) Urine Urobilinogen (<2.0) mg/dL Ur Leukocyte Esterase (Negative) 09/21/20 09/21/20 09/21/20 Range/Units 16:06 16:06 18:02 WBC (3.8-10.6) k/uL RBC (4.30-5.90) m/uL Hgb (13.0-17.5) gm/dL Hct (39.0-53.0) % MCV (80.0-100.0) fL MCH (25.0-35.0) pg MCHC (31.0-37.0) g/dL RDW (11.5-15.5) % Plt Count (150-450) k/uL MPV Neutrophils % % Lymphocytes % % Monocytes % % Eosinophils % % Basophils % % Neutrophils # (1.3-7.7) k/uL Lymphocytes # (1.0-4.8) k/uL Monocytes # (0-1.0) k/uL Eosinophils # (0-0.7) k/uL Basophils # (0-0.2) k/uL PT (9.0-12.0) sec INR (<1.2) APTT (22.0-30.0) sec Sodium (137-145) mmol/L Potassium (3.5-5.1) mmol/L Chloride (98-107) mmol/L Carbon Dioxide (22-30) mmol/L Anion Gap mmol/L BUN (9-20) mg/dL Creatinine (0.66-1.25) mg/dL Est GFR (CKD-EPI)AfAm (>60 ml/min/1.73 sqM) Est GFR (CKD-EPI)NonAf (>60 ml/min/1.73 sqM) Glucose (74-99) mg/dL Plasma Lactic Acid Sudhakar 1.8 (0.7-2.0) mmol/L Calcium (8.4-10.2) mg/dL Magnesium (1.6-2.3) mg/dL Total Bilirubin (0.2-1.3) mg/dL AST (17-59) U/L ALT (4-49) U/L Alkaline Phosphatase (38-126) U/L Troponin I <0.012 (0.000-0.034) ng/mL Total Protein (6.3-8.2) g/dL Albumin (3.5-5.0) g/dL Urine Color Yellow Urine Appearance Clear (Clear) Urine pH 6.5 (5.0-8.0) Ur Specific [place] 1.008 (1.001-1.035) Urine Protein Trace H (Negative) Urine Glucose (UA) Negative (Negative) Urine Ketones Negative (Negative) Urine Blood Negative (Negative) Urine Nitrite Negative (Negative) Urine Bilirubin Negative (Negative) Urine Urobilinogen <2.0 (<2.0) mg/dL Ur Leukocyte Esterase Negative (Negative) Disposition Clinical Impression: Chest pain, Tremor, Vertigo Disposition: ADMITTED IP TO THIS [facility] Condition: Stable Is patient prescribed a controlled substance at d/c from ED?: No Referrals: Virginia Pimentel MD [Primary Care Provider] - 1-2 days Decision to Admit Reason: Admit from EC Decision Date: 09/21/20 Decision Time: 18:22
[2020-09-21 16:13] LABS: Basophils # (A) 0.1 k/uL (0-0.2); Basophils % (A) 1 %; Eosinophils # (A) 0.3 k/uL (0-0.7); Eosinophils % (A) 3 %; HGB 13.5 gm/dL (13.0-17.5); Lymphocytes # (A) 2.3 k/uL (1.0-4.8); Lymphocytes % (A) 23 %; MCHC 33.7 g/dL (31.0-37.0); MCV 83.2 fL (80.0-100.0); Mean Platelet Volume 6.8; Monocytes # (A) 0.9 k/uL (0-1.0); Monocytes % (A) 9 %; Neutrophils # (A) 6.4 k/uL (1.3-7.7); Neutrophils % (A) 63 %; Platelet Count 332 k/uL (150-450); RBC 4.81 m/uL (4.30-5.90); RDW 14.1 % (11.5-15.5); WBC 10.2 k/uL (3.8-10.6)
[2020-09-21 16:20] LABS: INR 1.1 (<1.2); Partial Thromboplastin Time 27.7 sec (22.0-30.0); Prothrombin Time 11.4 sec (9.0-12.0)
[2020-09-21 16:23] LABS: Albumin 4.5 g/dL (3.5-5.0); Calcium 9.1 mg/dL (8.4-10.2); Magnesium 2.1 mg/dL (1.6-2.3); Potassium 4.4 mmol/L (3.5-5.1); Total Bilirubin 0.9 mg/dL (0.2-1.3); Total Protein 7.5 g/dL (6.3-8.2)
--- NOTE | 2020-09-21 16:51 | CT ---
EXAMINATION TYPE: CT brain wo con DATE OF EXAM: 09/21/2020 COMPARISON: 11/09/2016 HISTORY: Weakness. CT DLP: 1143.4 mGycm Automated exposure control for dose reduction was used. There is cerebral mild atrophy. There is no mass effect nor midline shift. There is no sign of intrac ranial hemorrhage. The calvarium is intact. There is no evidence of cerebral edema. Impression new mild atrophy. No acute intracranial abnormality.
--- NOTE | 2020-09-21 17:10 | XR ---
EXAMINATION TYPE: XR chest 2V DATE OF EXAM: 09/21/2020 COMPARISON: 07/19/2019 HISTORY: Chest pain TECHNIQUE: 2 views FINDINGS: There is no heart failure nor confluent pneumonic infiltrate. Costophrenic angles are clear . There is bilateral shoulder surgery. Thoracic aorta is atheromatous. There is no pleural effusion. IMPRESSION: No active cardiopulmonary disease. Normal heart. No change.
[2020-09-21 18:09] LABS: Appearance,Urine Clear (Clear); Bilirubin,Urine Negative (Negative); Blood,Urine Negative (Negative); Color,Urine Yellow; Glucose,Urine (UA) Negative (Negative); Ketones,Urine Negative (Negative); Leukocyte Esterase,Urine Negative (Negative); Nitrite,Urine Negative (Negative); PH, Urine 6.5 (5.0-8.0); Protein,Urine Trace (Negative); Specific Gravity,Urine 1.008 (1.001-1.035); Urobilinogen,Urine <2.0 mg/dL (<2.0)
[2020-09-21] MEDS ORDERED: ACETAMINOPHEN TAB 325 MG TAB PO PRN (18:18)
[2020-09-21] MEDS ORDERED: NALOXONE 0.4 MG/ML 1 ML VIAL IV PRN (18:18)
[2020-09-21] MEDS ORDERED: ASPIRIN 325 MG TAB PO STA (18:18)
[2020-09-21] MEDS: SODIUM CHLORIDE 0.9% 1,000 ML IV SCH (18:27)
[2020-09-21] MEDS: METOPROLOL TARTRATE 12.5 MG TAB PO SCH (21:44)
[2020-09-21] MEDS: hydrALAZINE HCL 25 MG TAB PO SCH (21:44)
[2020-09-22] MEDS: LEVOTHYROXINE 137 MCG TAB PO SCH (05:22)
[2020-09-22] MEDS: SODIUM CHLORIDE 0.9% 1,000 ML IV SCH ×2 (08:57→21:49)
[2020-09-22] MEDS ORDERED: FAMOTIDINE 20 MG/2 ML VIAL IV SCH (09:00)
[2020-09-22] MEDS: RIVAROXABAN 15 MG TAB PO SCH (09:03)
[2020-09-22] MEDS: hydrALAZINE HCL 25 MG TAB PO SCH ×3 (09:03→21:49)
[2020-09-22] MEDS: hydroCHLOROthiazide 25 MG TAB PO SCH (09:03)
[2020-09-22] MEDS: CLOPIDOGREL 75 MG TAB PO SCH (09:03)
[2020-09-22] MEDS: METOPROLOL TARTRATE 12.5 MG TAB PO SCH ×2 (09:04→21:48)
[2020-09-22] MEDS: DILTIAZEM CD 240 MG CAP.ER.24H PO SCH (09:04)
--- NOTE | 2020-09-22 11:26 | P.CNNES ---
History of Present Illness Consult date: 09/22/20 Requesting physician: Humberto Carver Reason for Consult: tremor History of Present Illness: This is an 85-year-old gentleman with medical history of atrial fibrillation on Xarelto, hyperlipidemia, hypertension, hypothyroidism that presented emergency department on 09/21/2020 for tremor of bilateral upper extremity. Patient stated that yesterday in the early afternoon he was having lunch and then he noticed his left arm starting the to feel 10 Hz/felt funny and then all of a sudden entire body felt funny and all of a sudden he started having the tremor of the bilateral upper hands and arms but he said he was able to suppress said but whenever you relax the tremors would come back. The episode lasted for at least 6 hours then resolved by 9 PM yesterday. He feels he is back to baseline. Also of note he denies losing consciousness with these episodes, urinary incontinence or bowel incontinence. He was aware during the entire episodes when he was having those the tremors. In the ED note mentioned the patient was having the dizzy and lightheaded upon asking him he said may be but he denies any feeling lightheadedness or dizziness at any longer and the he states that it's resolved he denies any focal weakness. Denies any focal numbness. Denies any difficulty getting his words out. Or denies any visual disturbance. He feels is back to his baseline. He said today he was walking with physical therapy and he had no issues. He does not have any history of seizures in the past and that he denies any family history of seizures. Regarding his history he doesn't recall. He resides by himself. Workup in the hospital consisted of: Initial vital signs blood pressure of 189/81, heart rate of 65, respiratory of 18, temperature of 97.9 Fahrenheit oral and pulse ox of [address] of the head is reported as new mild atrophy. No acute intracranial abnormality. I personally reviewed the CT of the head and there is no acute or subacute ischemia or there is no intraparenchymal hemorrhage. Regarding the atrophy of feel and it's the normal for the patient's age seems generalized. Also I felt bilateral frontal atrophy but not significant. EKG is reported as sinus rhythm with first-degree AV block with premature ventricular complex. Anterolateral infarct, age undetermined. Abnormal EKG. Initial serum glucose is 133. The calcium 9.1, magnesium is 2.1 which are normal. The sodium is mildly low which is 131. Review of Systems Review of system: The 12 point system was reviewed and apparent positive and negative per HPI. Past Medical History Past Medical History: Atrial Fibrillation, Cancer, CVA/TIA, Hyperlipidemia, Hypertension, Pneumonia, Thyroid Disorder Additional Past Medical History / Comment(s): Skin cancer with removal; atrial fibrillation is paroxysmal, currently on Xarelto for anticoagulation History of Any Multi-Drug Resistant Organisms: None Reported Past Surgical History: Appendectomy, Cholecystectomy, Heart Catheterization, Joint Replacement, Orthopedic Surgery Additional Past Surgical History / Comment(s): bilateral shoulder and hips replaced; aortic valve replacement 2019 Past Anesthesia/Blood Transfusion Reactions: No Reported Reaction Past Psychological History: No Psychological Hx Reported Smoking Status: Never smoker Past Alcohol Use History: None Reported Additional Past Alcohol Use History / Comment(s): Pt states he quit smoking in the s, prior to that smoked approximately a pack a day since in his 20s Past Drug Use History: None Reported - Past Family History Mother Family Medical History: CVA/TIA Medications and Allergies Home Medications Medication Instructions Recorded Confirmed Type Ezetimibe [Zetia] 10 mg PO HS 01/20/15 09/21/20 History Levothyroxine Sodium [Synthroid] 137 mcg PO DAILY 01/20/15 09/21/20 History Rivaroxaban [Xarelto] 15 mg PO DAILY 06/29/18 09/21/20 History hydrALAZINE HCL 25 mg PO TID 06/29/18 09/21/20 History hydroCHLOROthiazide [Hydrodiuril] 25 mg PO DAILY 06/29/18 09/21/20 History Carvedilol [Coreg] 3.125 mg PO BID 09/21/20 09/21/20 History Clopidogrel [Plavix] 75 mg PO DAILY 09/21/20 09/21/20 History Diltiazem HCl [Cardizem LA] 240 mg PO DAILY 09/21/20 09/21/20 History Metoprolol Tartrate [Lopressor] 12.5 mg PO BID 09/21/20 09/21/20 History Allergies Allergy/AdvReac Type Severity Reaction Status Date / Time No Known Allergies Allergy Verified 09/21/20 16:54 Physical Examination - Vital Signs Vital Signs: Vital Signs Temp Pulse Pulse Resp BP BP Pulse Ox 09/22/20 08:00 62 18 09/22/20 07:26 98.4 F 62 18 140/58 97 09/22/20 02:44 98.1 F 65 18 127/65 95 09/21/20 21:15 65 18 09/21/20 21:11 97.9 F 65 18 183/81 97 09/21/20 20:42 97.9 F 65 18 183/81 97 09/21/20 19:22 65 18 158/84 98 09/21/20 18:25 97.6 F 65 18 184/84 97 09/21/20 18:02 74 16 181/96 97 09/21/20 16:55 73 16 172/80 98 09/21/20 15:49 97.9 F 65 18 189/81 96 Intake and Output 09/21/20 09/22/20 09/22/20 22:59 06:59 14:59 Output Total 737 401 3108 Balance -800 -975 -1475 Output: Urine 250 722 2098 Other: Voiding Method Urinal Urinal Urinal # Voids 1 2 1 # Bowel Movements 0 1 Weight 76.657 kg GENERAL: The patient is lying in bed and is not in acute distress. CHEST: The heart rate is regular rate rhythm. No murmurs to auscultation. LUNG: Clear to auscultation bilaterally no wheezing noted throughout. Not labored breathing. ABDOMEN/GI: Bowel sounds present in all 4 quadrants. No tenderness to palpation throughout. NEUROLOGICAL: Higher mental function: The patient is awake, alert, oriented to self, place and time. Patient is following commands. No aphasia and no neglect. Cranial nerves: The pupils are round, equal and reactive to light and accommodation. Visual [place] are full to confrontation throughout. Extraocular movement is intact no nystagmus is noted. Facial sensation is normal to touch throughout. The facial strength is normal throughout. Hearing is normal bilaterally to hand rub. Tongue is midline and moved [id number] without any difficulty. No dysarthria is noted. Shoulder shrug is normal bilaterally. Motor: Gait is deferred. The strength is 5 over 5 throughout. Normal tone and bulk. Cerebellum: Normal finger to nose heel to [place] bilaterally. Sensation: Sensation is normal to touch throughout. Reflexes (right/left): 2+ throughout upper and 1+ in lowers Plantars are downgoing bilaterally. Results Lea virus PCR was not detected. Urinalysis is negative for urinary tract infection - Laboratory Findings CBC and BMP: 09/21/20 16:06 09/21/20 16:06 Abnormal Lab Findings: Abnormal Labs 09/21/20 09/21/20 16:06 18:02 Sodium 131 L Glucose 133 H Urine Protein Trace H Assessment and Plan Assessment: This is an 85-year-old gentleman that presented emergency department on 09/21/2020 for feeling lightheaded, dizzy and left arm pain. Transient episode of Tremor. Unsure exact etiology. Does not seem like seizure since patient was able to suppress those episodes. Uncontrolled hypertension Atrial fibrillation on Xarelto Hyperlipidemia Plan: CT of the head is reported as new mild atrophy. No acute intracranial abnormality. I personally reviewed the CT of the head and there is no acute or subacute ischemia or there is no intraparenchymal hemorrhage. Regarding the atrophy of feel and it's the normal for the patient's age seems generalized. Also I felt bilateral frontal atrophy but not significant. Patient is on Eliquis for the atrial fibrillation as well as Plavix (home medication). 2-D echo is ordered by the cardiology team and it's pending I ordered MRI of the brain. I ordered a routine EEG and will not start the patient on antiepileptic drug unless there is epileptiform discharges or seizure on the EEG. Ordered the every 4 neuro checks[address] Placed the patient on continuous cardiac monitoring. Physical therapy is consulted. I ordered a TSH level. Plan was discussed with the patient's nurse. Thank you for the consultation. Jone Cooper M.D. Neuro-hospitalist Time with Patient: Greater than 30
--- NOTE | 2020-09-22 12:27 | ECHOF ---
Referral Reason:chest pain MEASUREMENTS -------- HEIGHT: 180.3 cm WEIGHT: 76.7 kg BP: 140/58 IVSd: 1.0 cm (0.6 - 1.1) LVIDd: 3.6 cm (3.9 - 5.3) LVPWd: 1.0 cm (0.6 - 1.1) IVSs: 1.3 cm LVIDs: 1.9 cm LVPWs: 2.1 cm LAESV Index (A-L): 27.02 ml/m Ao Diam: 3.1 cm (2.0 - 3.7) AV Cusp: 1.6 cm (1.5 - 2.6) LA Diam: 3.1 cm (2.7 - 3.8) MV EXCURSION: 19.436 mm (> 18.000) MV EF SLOPE: 72 mm/s (70 - 150) EPSS: 1.1 cm MV E Piter: 1.14 m/s MV DecT: 230 ms MV A Piter: 1.02 m/s MV E/A Ratio: 1.12 AV maxP.12 mmHg AV meanP.01 mmHg RAP: 5.00 mmHg RVSP: 21.85 mmHg FINDINGS -------- This was a technically adequate study. The left ventricular size is normal. Left ventricular wall thickness is normal. Overall left vent ricular systolic function is normal with, an EF between 55 - 60 %. Normal LAP. Grade 1 Diastolic Dy sfunction. The right ventricle is normal in size. The left atrial size is normal. Normal LA size by volume 22+/-6 ml/m2. The right atrial size is normal. There is no evidence of aortic regurgitation. Peak/mean gradient across the Aortic Valve is 26.12mm Hg / 15.01mmHg. Normally functioning bioprosthetic valve. TAVR done The mitral valve is normal. There is trace mitral regurgitation. The tricuspid valve appears structurally normal. Trace tricuspid regurgitation present. Right kathi tricular systolic pressure is normal at < 35 mmHg. The pulmonic valve was not well visualized. The aortic root size is normal. IVC Not well visulized. There is no pericardial effusion. CONCLUSIONS -------- 1. The left ventricular size is normal. 2. Left ventricular wall thickness is normal. 3. Overall left ventricular systolic function is normal with, an EF between 55 - 60 %. 4. Normal LAP. Grade 1 Diastolic Dysfunction. 5. Peak/mean gradient across the Aortic Valve is 26.12mmHg / 15.01mmHg. 6. Normally functioning bioprosthetic valve. 7. TAVR done 8. There is trace mitral regurgitation. 9. Trace tricuspid regurgitation present. 10. There is no pericardial effusion. TOLL TEST WORKER: Citlalli Lomeli RDCS
--- NOTE | 2020-09-22 14:18 | P.CRDCN ---
History of Present Illness History of present illness: HISTORY OF PRESENTING ILLNESS This is a pleasant 85-year-old male past medical history significant for hypertension, hyperlipidemia, aortic stenosis status post TAVR in 09/2019, boyer ry artery disease, paroxysmal atrial fibrillation on Xarelto, thoracic aortic aneursym. . He follows in the office with Dr. Odom. We have been asked to see in consultation for chest pain. Patient is seen and examined at bedside, lying flat, no acute distress. 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 Patient told him that he had to get his vision checked., which he could not do because he didnt have an appointment. He went to his friends house for lunch and began to have some left sided arm pain that lasted less than a minute, then had "whole body shaking". He denies ever having this before. He stated it started in his bilateral hands and progressed to his entire body. He states the shaking did not stop, and called an ambulance. He denies ever having chest pain, shortness of breath, palpations, heart pounding/fluttering, lightheadedness, fatigue, syncope, or loss of consciousness. He saw Dr. Odom on 08/30/20 for a follow up, he was found to have continued elevated blood pressure and was started on hydralazine. Laboratory data reviewed, WBC 10.2, hemoglobin 13.5, platelets 332, sodium 131, potassium 4.4, creatinine 0.91, BUN 15, troponins negative 3, Covid-19 PCT negative Vital signs BP 184/84 on admission improved to 140/58 HR 60s, maintaining oxygen saturation on room air, afebrile. DIAGNOSTICS EKG reveals sinus rhythm with first degree AV block, PVCs Telemetry tracings indicate atrial fibrillation HR 60s-70s Chest xray no acute cardiopulmonary process. CT brain: new mild atrophy. No acute intracranial abnormality Echo 11/2019: EF 55%, no regional wall abnormalities, G3DD, mild to moderate MR, moderate TR Echo today: EF 55-60%, Peak/mean gradiate across the AV is 26.1mmHg/ 15.01mmHg, Normal function bioprosthetic valve, trace MR, trace TR Current cardiac medications include Xarelto 50 mg daily, Lopressor 12.5 mg twice daily, hydrochlorothiazide 25 mg daily, hydralazine 25 mg 3 times a day, Cardizem 240 mg daily, Coreg 3.125mg BID, Plavix 75mg daily . REVIEW OF SYSTEMS At the time of my exam: CONSTITUTIONAL: Denies fever or chills. CARDIOVASCULAR: Denies chest pain, shortness of breath, orthopnea, PND or palp itations. RESPIRATORY: Denies cough. GASTROINTESTINAL: Denies abdominal pain, diarrhea, constipation, nausea or vomiting. MUSCULOSKELETAL: Denies myalgias. NEUROLOGIC: +tremors Denies numbness, tingling, headacbe or weakness. ENDOCRINE: Denies fatigue, weight change, polydipsia or polyurina. GENITOURINARY: Denies burning, hematuria or urgency with micturation. HEMATOLOGIC: Denies history of anemia or bleeding. PHYSICAL EXAMINATION CONSTITUTIONAL: No apparent distress. HEENT: Head is normocephalic. Pupils are equal, round. Sclerae anicteric. Mucous membranes of the mouth are moist. No JVD. No carotid bruit. CHEST EXAMINATION: Lungs are clear to auscultation. No chest wall tenderness is noted on palpation or with deep breathing. HEART EXAMINATION: Irregular rate and rhythm. S1, S2 heard. Systolic murmur best heard at base. No gallops or rub. ABDOMEN: Soft, nontender. Positive bowel sounds. EXTREMITIES: 2+ peripheral pulses, no lower extremity edema and no calf tenderness. NEUROLOGIC EXAMINATION: Patient is awake, alert and oriented x3. ASSESSMENT -Tremors- unclear etiology -Coronary artery disease- last cardiac catheterization showed mild to moderate nonobstrucvive CAD involving the left cicumflex -Hypertension -Aortic stensosis s/p TAVR -Hyperlipidemia -Paroxysmal atrial fibrillation on Xarelto -Thoracic aortic aneurysm without rupture PLAN -Obtained 2D echo - no acute/significant change from prior Echo -No further cardiac workup at this time. Neurology has been consulted for continued workup of patient's tremor symptoms. -We will sign off at this time. Please reach out for further questions or concerns. -Patient will follow up with Dr. Odom. Nurse Practitioner note has been reviewed, I agree with a documented findings and plan of care. Patient was seen and examined. Past Medical History Past Medical History: Atrial Fibrillation, Cancer, CVA/TIA, Hyperlipidemia, Hypertension, Pneumonia, Thyroid Disorder Additional Past Medical History / Comment(s): Skin cancer with removal; atrial fibrillation is paroxysmal, currently on Xarelto for anticoagulation History of Any Multi-Drug Resistant Organisms: None Reported Past Surgical History: Appendectomy, Cholecystectomy, Heart Catheterization, Joint Replacement, Orthopedic Surgery Additional Past Surgical History / Comment(s): bilateral shoulder and hips replaced; aortic valve replacement 2019 Past Anesthesia/Blood Transfusion Reactions: No Reported Reaction Past Psychological History: No Psychological Hx Reported Smoking Status: Never smoker Past Alcohol Use History: None Reported Additional Past Alcohol Use History / Comment(s): Pt states he quit smoking in the s, prior to that smoked approximately a pack a day since in his 20s Past Drug Use History: None Reported - Past Family History Mother Family Medical History: CVA/TIA Medications and Allergies Home Medications Medication Instructions Recorded Confirmed Type Ezetimibe [Zetia] 10 mg PO HS 01/20/15 09/21/20 History Levothyroxine Sodium [Synthroid] 137 mcg PO DAILY 01/20/15 09/21/20 History Rivaroxaban [Xarelto] 15 mg PO DAILY 06/29/18 09/21/20 History hydrALAZINE HCL 25 mg PO TID 06/29/18 09/21/20 History hydroCHLOROthiazide [Hydrodiuril] 25 mg PO DAILY 06/29/18 09/21/20 History Carvedilol [Coreg] 3.125 mg PO BID 09/21/20 09/21/20 History Clopidogrel [Plavix] 75 mg PO DAILY 09/21/20 09/21/20 History Diltiazem HCl [Cardizem LA] 240 mg PO DAILY 09/21/20 09/21/20 History Metoprolol Tartrate [Lopressor] 12.5 mg PO BID 09/21/20 09/21/20 History Allergies Allergy/AdvReac Type Severity Reaction Status Date / Time No Known Allergies Allergy Verified 09/21/20 16:54 Physical Exam Vitals: Vital Signs Temp Pulse Pulse Resp BP BP Pulse Ox 09/22/20 07:26 98.4 F 62 18 140/58 97 09/22/20 02:44 98.1 F 65 18 127/65 95 09/21/20 21:15 65 18 09/21/20 21:11 97.9 F 65 18 183/81 97 09/21/20 20:42 97.9 F 65 18 183/81 97 09/21/20 19:22 65 18 158/84 98 09/21/20 18:25 97.6 F 65 18 184/84 97 09/21/20 18:02 74 16 181/96 97 09/21/20 16:55 73 16 172/80 98 09/21/20 15:49 97.9 F 65 18 189/81 96 Intake and Output 09/21/20 09/22/20 09/22/20 22:59 06:59 14:59 Output Total 800 975 Balance -800 -975 Output: Urine 800 975 Other: Voiding Method Urinal Urinal # Voids 1 2 # Bowel Movements 0 Weight 76.657 kg Results 09/21/20 16:06 09/21/20 16:06 Cardiac Enzymes 09/21/20 09/21/20 09/21/20 Range/Units 16:06 16:06 21:27 AST 33 (17-59) U/L Troponin I <0.012 <0.012 (0.000-0.034) ng/mL 09/22/20 Range/Units 00:05 AST (17-59) U/L Troponin I <0.012 (0.000-0.034) ng/mL Coagulation 09/21/20 Range/Units 16:06 PT 11.4 (9.0-12.0) sec APTT 27.7 (22.0-30.0) sec CBC 09/21/20 Range/Units 16:06 WBC 10.2 (3.8-10.6) k/uL RBC 4.81 (4.30-5.90) m/uL Hgb 13.5 (13.0-17.5) gm/dL Hct 40.0 (39.0-53.0) % Plt Count 332 (150-450) k/uL Comprehensive Metabolic Panel 09/21/20 Range/Units 16:06 Sodium 131 L (137-145) mmol/L Potassium 4.4 (3.5-5.1) mmol/L Chloride 98 (98-107) mmol/L Carbon Dioxide 23 (22-30) mmol/L BUN 15 (9-20) mg/dL Creatinine 0.91 (0.66-1.25) mg/dL Glucose 133 H (74-99) mg/dL Calcium 9.1 (8.4-10.2) mg/dL AST 33 (17-59) U/L ALT 15 (4-49) U/L Alkaline Phosphatase 78 (38-126) U/L Total Protein 7.5 (6.3-8.2) g/dL Albumin 4.5 (3.5-5.0) g/dL Current Medications Generic Name Dose Route Start Last Admin Trade Name Freq PRN Reason Stop Dose Admin Acetaminophen 650 mg 09/21/20 18:18 Acetaminophen Tab 325 Mg Tab PO Q6HR PRN Mild Pain or Fever > 100.5 Clopidogrel Bisulfate 75 mg 09/22/20 09:00 Clopidogrel 75 Mg Tab PO DAILY KATARINA Diltiazem HCl 240 mg 09/22/20 09:00 Diltiazem Cd 240 Mg Cap.Er.24h PO DAILY KATARINA Ezetimibe 10 mg 09/22/20 21:00 Ezetimibe 10 Mg Tab PO HS KATARINA Famotidine 20 mg 09/22/20 09:00 Famotidine 20 Mg/2 Ml Vial IV Q12HR KATARINA Hydralazine HCl 25 mg 09/21/20 22:00 09/21/20 21:44 Hydralazine Hcl 25 Mg Tab PO 25 mg TID KATARINA Administration Hydrochlorothiazide 25 mg 09/22/20 09:00 Hydrochlorothiazide 25 Mg Tab PO DAILY KATARINA Sodium Chloride 1,000 mls @ 75 mls/hr 09/21/20 18:30 09/21/20 18:27 Saline 0.9% IV 75 mls/hr .[id number] KATARINA Administration Levothyroxine Sodium 137 mcg 09/22/20 06:30 09/22/20 05:22 Levothyroxine 137 Mcg Tab PO 137 mcg DAILY@0630 KATARINA Administration Metoprolol Tartrate 12.5 mg 09/21/20 21:45 09/21/20 21:44 Metoprolol Tartrate 12.5 Mg Tab PO 12.5 mg BID KATARINA Administration Naloxone HCl 0.2 mg 09/21/20 18:18 Naloxone 0.4 Mg/Ml 1 Ml Vial IV Q2M PRN Opioid Reversal Rivaroxaban 15 mg 09/22/20 09:00 Rivaroxaban 15 Mg Tab PO DAILY KATARINA Intake and Output 09/21/20 09/22/20 09/22/20 22:59 06:59 14:59 Output Total 800 975 Balance -800 -975 Output: Urine 800 975 Other: Voiding Method Urinal Urinal # Voids 1 2 # Bowel Movements 0 Weight 76.657 kg 09/21/20 16:06 09/21/20 16:06
--- NOTE | 2020-09-22 15:29 | MR ---
EXAMINATION TYPE: MR brain wo con DATE OF EXAM: 09/22/2020 COMPARISON: CT brain from yesterday. HISTORY: Tremor. Concern for seizure. TECHNIQUE: Multiplanar, multisequence imaging of the brain and brainstem is performed without IV cont rast. FINDINGS: Diffusion weighted images demonstrate no evidence of a recent infarct or other diffusion abnormality. There is mild diffuse ventricular and sulcal prominence. There are more prominent focal confluent are as of T2 hyperintensity seen throughout the white matter greatest at deep and periventricular levels. T2 coronal weighted images show hippocampal gyri to appear symmetric and felt within normal limits. Midline structures demonstrate normal morphology. The craniocervical junction appears within normal limits. Normal vascular flow voids are present. The visualized sinuses are clear and the globes are i ntact. Nasal septum is slightly deviated to right of midline. IMPRESSION: There is mild diffuse cerebral atrophy and moderate to advanced chronic small vessel isch emic change. No MRI evidence for recent infarct. No suspicious masses identified on noncontrast imagi ng.
--- NOTE | 2020-09-22 16:31 | P.HPIM ---
History of Present Illness This is a pleasant 85 years old male with past medical history of moderate to severe aortic stenosis with moderate mitral regurgitation and tricuspid regurgitation, hypertension, hyperlipidemia, thoracic aortic aneurysm, hypothyroidism, paroxysmal atrial fibrillation on Xarelto. She was diagnosed previously with benign positional peripheral vertigo Presents because of shakiness in both upper extremity followed by whole body sha gabby without losing consciousness. Associated with some pain in his left arm. Her shakiness lasted for about 6 hours and ended 9 PM yesterday. Patient feels his back to his normal self including this morning Patient states that he has chronic dizziness and balance problem for many years and is not new for him Vitas looks stable. Labs are unremarkable including CBC, INR, BMP, liver enzymes. Except for low sodium of 131. Serial troponins are negative less than 0.0123. Lactic acid is normal 1.8. Magnesium 2.1. Urinalysis is suspicious for infection and boyer virus detected. EKG showing normal sinus rhythm with first-degree AV block and PVC, heart rate of 69 and QTC of [address]-T changes. CT o chest x-ray: No acute process CT of brain: No acute intracranial abnormality with mild atrophy. In the emergency room she received 1 dose of aspirin 325 mg, normal saline at 75 mL/h. Continue with Plavix and Xarelto Image team already evaluated the patient and signed off after echocardiogram Neurology input is appreciated and the recommended EEG and MRI of the brain Review of Systems CONSTITUTIONAL: No fever, no malaise, no fatigue. HEENT: No recent visual problems or hearing problems. Denied any sore throat. CARDIOVASCULAR: No orthopnea, PND, no palpitations, no syncope. PULMONARY: No shortness of breath, no cough, no hemoptysis. GASTROINTESTINAL: No diarrhea, no nausea, no vomiting, no abdominal pain. Normoactive bowel sounds. NEUROLOGICAL: No headaches, no weakness, no numbness. HEMATOLOGICAL: Denies any bleeding or petechiae. GENITOURINARY: Denies any burning micturition, frequency, or urgency. MUSCULOSKELETAL/RHEUMATOLOGICAL: Denies any joint pain, swelling, or any muscle pain. ENDOCRINE: Denies any polyuria or polydipsia. Past Medical History Past Medical History: Atrial Fibrillation, Cancer, CVA/TIA, Hyperlipidemia, Hypertension, Pneumonia, Thyroid Disorder Additional Past Medical History / Comment(s): Skin cancer with removal; atrial fibrillation is paroxysmal, currently on Xarelto for anticoagulation History of Any Multi-Drug Resistant Organisms: None Reported Past Surgical History: Appendectomy, Cholecystectomy, Heart Catheterization, Joint Replacement, Orthopedic Surgery Additional Past Surgical History / Comment(s): bilateral shoulder and hips repl aced; aortic valve replacement 2019 Past Anesthesia/Blood Transfusion Reactions: No Reported Reaction Past Psychological History: No Psychological Hx Reported Smoking Status: Never smoker Past Alcohol Use History: None Reported Additional Past Alcohol Use History / Comment(s): Pt states he quit smoking in the s, prior to that smoked approximately a pack a day since in his 20s Past Drug Use History: None Reported - Past Family History Mother Family Medical History: CVA/TIA Medications and Allergies Home Medications Medication Instructions Recorded Confirmed Type Ezetimibe [Zetia] 10 mg PO HS 01/20/15 09/21/20 History Levothyroxine Sodium [Synthroid] 137 mcg PO DAILY 01/20/15 09/21/20 History Rivaroxaban [Xarelto] 15 mg PO DAILY 06/29/18 09/21/20 History hydrALAZINE HCL 25 mg PO TID 06/29/18 09/21/20 History hydroCHLOROthiazide [Hydrodiuril] 25 mg PO DAILY 06/29/18 09/21/20 History Carvedilol [Coreg] 3.125 mg PO BID 09/21/20 09/21/20 History Clopidogrel [Plavix] 75 mg PO DAILY 09/21/20 09/21/20 History Diltiazem HCl [Cardizem LA] 240 mg PO DAILY 09/21/20 09/21/20 History Metoprolol Tartrate [Lopressor] 12.5 mg PO BID 09/21/20 09/21/20 History Allergies Allergy/AdvReac Type Severity Reaction Status Date / Time No Known Allergies Allergy Verified 09/21/20 16:54 Physical Exam Vitals: Vital Signs Temp Pulse Pulse Resp BP BP Pulse Ox 09/22/20 02:44 98.1 F 65 18 127/65 95 09/21/20 21:15 65 18 09/21/20 21:11 97.9 F 65 18 183/81 97 09/21/20 20:42 97.9 F 65 18 183/81 97 09/21/20 19:22 65 18 158/84 98 09/21/20 18:25 97.6 F 65 18 184/84 97 09/21/20 18:02 74 16 181/96 97 09/21/20 16:55 73 16 172/80 98 09/21/20 15:49 97.9 F 65 18 189/81 96 Intake and Output 09/21/20 09/22/20 09/22/20 22:59 06:59 14:59 Output Total 800 975 Balance -800 -975 Output: Urine 800 975 Other: Voiding Method Urinal Urinal # Voids 1 2 # Bowel Movements 0 Weight 76.657 kg GENERAL: The patient is alert and oriented x3, not in any acute distress. Well developed, well nourished. HEENT: Pupils are round and equally reacting to light. EOMI. No scleral icterus. No conjunctival pallor. Normocephalic, atraumatic. No pharyngeal erythema. No thyromegaly. CARDIOVASCULAR: S1 and S2 present. No murmurs, rubs, or gallops. PULMONARY: Chest is clear to auscultation, no wheezing or crackles. ABDOMEN: Soft, nontender, nondistended, normoactive bowel sounds. No palpable organomegaly. MUSCULOSKELETAL: No joint swelling or deformity. EXTREMITIES: No cyanosis, clubbing, or pedal edema. NEUROLOGICAL: Gross neurological examination did not reveal any focal deficits. SKIN: No rashes. No petechiae Results CBC & Chem 7: 09/21/20 16:06 09/21/20 16:06 Labs: Abnormal Lab Results - Last 24 Hours (Table) 09/21/20 09/21/20 Range/Units 16:06 18:02 Sodium 131 L (137-145) mmol/L Glucose 133 H (74-99) mg/dL Urine Protein Trace H (Negative) Thrombosis Risk Factor Assmnt - Choose All That Apply Each Risk Factor Represents 3 Points: Age 75 years or older Other congenital or acquired thrombophilia - If yes, enter type in comment: No Thrombosis Risk Factor Assessment Total Risk Factor Score: 3 Thrombosis Risk Factor Assessment Level: Moderate Risk Assessment and Plan Assessment: Bilateral upper extremity shakiness followed by whole body shakiness without losing consciousness. Rule out seizure Trazodone. Of left arm pain, rule out cardiac causes Heart valvular disease, status post replacement per patient about one year ago, currently on Xarelto Hypertension Thoracic aortic aneurysm Hyperlipidemia Hypothyroidism Paroxysmal atrial fibrillation on Xarelto History of benign positional peripheral vertigo Plan: This is a pleasant 85 years old male who presents with dizziness and arm pain. Continue the Plavix and Xarelto. Follow-up recommendation by cinder worker and neurologist., Follow-up EEG and MRI of the brain and echocardiogram Check orthostatic and blood pressure Labs and medication were reviewed.. Continue same treatment. Continue with symptomatic treatment. Resume home medication. Monitor lytes and vitals. DVT and GI prophylaxis. Further recommendations depends on the clinical course of the patient DVT prophylaxis: Xarelto GI Prophylaxis: Pepcid PT/OT: Pending Prognosis is guarded
[2020-09-22] MEDS ORDERED: EZETIMIBE 10 MG TAB PO SCH (21:00)
[2020-09-22] MEDS: FAMOTIDINE 20 MG TAB PO SCH (21:48)
[2020-09-23 04:17] VITALS: RESP 16
[2020-09-23] MEDS: LEVOTHYROXINE 137 MCG TAB PO SCH (07:10)
[2020-09-23] MEDS: METOPROLOL TARTRATE 12.5 MG TAB PO SCH (07:10)
[2020-09-23] MEDS: hydrALAZINE HCL 25 MG TAB PO SCH (07:10)
[2020-09-23] MEDS: DILTIAZEM CD 240 MG CAP.ER.24H PO SCH (07:10)
[2020-09-23] MEDS: FAMOTIDINE 20 MG TAB PO SCH (07:10)
[2020-09-23] MEDS: hydroCHLOROthiazide 25 MG TAB PO SCH (07:10)
[2020-09-23] MEDS: RIVAROXABAN 15 MG TAB PO SCH (07:10)
[2020-09-23] MEDS: CLOPIDOGREL 75 MG TAB PO SCH (07:11)
[2020-09-23 07:17] VITALS: BP 154/65; PULSE 66; TEMP 98
--- NOTE | 2020-09-23 09:51 | P.PN ---
Subjective Progress Note Date: 09/23/20 This was seen at bedside and he stated that he is doing much better today compared to his initial presentation. He denies of any further tremor. Denies of any urinary or bowel incontinence. Per the patient's nurse he has not had any further episode of loss of consciousness or and any tremor episode. MRI of the brain on 09/22/2020 inch reported as there is mild cerebral atrophy and moderate to advanced chronic small vessel ischemic changes. No MRI evidence of for recent infarct. No suspicion masses identified on noncontrast imaging. TSH level it's 2.610 which is normal. Objective - Vital Signs Vital signs: Vital Signs Temp 98 F 09/23/20 07:00 Pulse 66 09/23/20 07:00 Resp 16 09/23/20 07:00 BP 154/65 09/23/20 07:00 Pulse Ox 97 09/23/20 07:00 Intake & Output 09/22/20 09/23/20 09/23/20 18:59 06:59 18:59 Intake Total 240 Output Total 2150 Balance -1910 Intake: Oral 240 Output: Urine 2150 Other: Voiding Method Urinal Urinal Urinal # Voids 1 1 # Bowel Movements 1 1 - Exam GENERAL: The patient is lying in bed and is not in acute distress. NEUROLOGICAL: Higher mental function: The patient is awake, alert, oriented to self, place and time. Patient is following commands. No aphasia and no neglect. Cranial nerves: The pupils are round, equal and reactive to light and accommodation. Visual [place] are full to confrontation throughout. Extraocular movement is intact no nystagmus is noted. Facial sensation is normal to touch throughout. The facial strength is normal throughout. Hearing is normal bilaterally to hand rub. Tongue is midline and moved [id number] without any difficulty. No dysarthria is noted. Shoulder shrug is normal bilaterally. Motor: Gait is deferred. The strength is 5 over 5 throughout. Normal tone and bulk. Cerebellum: Normal finger to nose heel to [place] bilaterally. Sensation: Sensation is normal to touch throughout. Reflexes (right/left): 2+ throughout upper and 1+ in lowers Plantars are downgoing bilaterally. - Labs CBC & Chem 7: 09/21/20 16:06 09/21/20 16:06 Assessment and Plan Assessment: This is an 85-year-old gentleman that presented emergency department on 09/21/2020 for feeling lightheaded, dizzy and left arm pain. Transient episode of Tremor. Unsure exact etiology. Does not seem like seizure since patient was able to suppress those episodes. Uncontrolled hypertension Atrial fibrillation on Xarelto Hyperlipidemia Plan: CT of the head is reported as new mild atrophy. No acute intracranial abnormality. I personally reviewed the CT of the head and there is no acute or subacute ischemia or there is no intraparenchymal hemorrhage. Regarding the atrophy of feel and it's the normal for the patient's age seems generalized. Also I felt bilateral frontal atrophy but not significant. Patient is on Eliquis for the atrial fibrillation as well as Plavix (home medication). 2-D echo: Reported as left ventricle wall thickness is normal. Ejection fraction of 55-60%. Normal left atrial size. MRI of the brain on 09/22/2020 inch reported as there is mild cerebral atrophy and moderate to advanced chronic small vessel ischemic changes. No MRI evidence of for recent infarct. No suspicion masses identified on noncontrast imaging. TSH level it's 2.610 which is normal. I ordered a routine EEG and will not start the patient on antiepileptic drug unless there is epileptiform discharges or seizure on the EEG. It will be done today. Ordered the every 4 neuro checks. Placed the patient on continuous cardiac monitoring. Physical therapy is consulted. If the EEG does not show epileptiform discharges or seizure then the patient is clear from a neurological standpoint. Recommended the patient follows up with a neurologist within 2 weeks as an outpatient. Plan was discussed with the patient's nurse. Jone Cooper M.D. Neuro-hospitalist Time with Patient: Less than 30
[2020-09-23] MEDS: SODIUM CHLORIDE 0.9% 1,000 ML IV SCH (10:29)
--- NOTE | 2020-09-23 14:59 | EEG ---
ELECTROENCEPHALOGRAM REPORT DATE OF SERVICE: 09/23/2020 CLINICAL HISTORY: This is an 85-year-old gentleman with an episode of tremor. This video EEG is obtained to evaluate for seizure and epileptiform activity. RELEVANT MEDICATION: Patient is not on any antiepileptic drugs. EEG TYPE: A routine 21 channel EEG is performed with video using the 10/20 electrode placement system. DESCRIPTION: Wakefulness, drowsiness and stage II sleep was obtained. During wakefulness, there is a posterior rhythm of 8-9 hertz that is poorly modulated, poorly sustained of 8- 9 hertz activity. During drowsiness there is slowing and attenuation of the background activity. During stage II sleep, there is sleep spindles and K complexes. There is no focal slowing. Interictal and ictal are none. ACTIVATION PROCEDURE: Photic stimulation did not evoke a posterior driving response. There is no abnormality during photic drive. Hyperventilation is not performed. CLINICAL INTERPRETATION: This is a normal routine EEG. There are no focal slowing, epileptiform discharge or seizure on the EEG. Clinical correlation is recommended. MMGREG / JASN: [id number] / MTDD
--- NOTE | 2020-09-29 09:58 | P.DS ---
Providers Date of admission: 09/21/20 18:18 Attending physician: Los Dao MD Consults: 09/21/20 18:19 Consult Physician Routine Consulting Provider: Keo Watt Consult Reason/Comments: CP R/O Do you want consulting provider notified?: Yes Consult Physician Routine Consulting Provider: Jone Cooper Consult Reason/Comments: tremor Do you want consulting provider notified?: Yes Primary care physician: [facility] Course: Date of service 09/23/2020 Diagnoses: Bilateral upper extremity shakiness followed by whole body shakiness without losing consciousness. 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 Of left arm pain,cardiac causes ruled out and no more pain in his arm for more than 24 Heart valvular disease, status post replacement per patient about one year ago, currently on Xarelto Hypertension Thoracic aortic aneurysm Hyperlipidemia Hypothyroidism Paroxysmal atrial fibrillation on Xarelto History of benign positional peripheral vertigo Hospital course: This is a pleasant 85 years old male with past medical history of moderate to severe aortic stenosis with moderate mitral regurgitation and tricuspid regurgitation, hypertension, hyperlipidemia, thoracic aortic aneurysm, hypothyroidism, paroxysmal atrial fibrillation on Xarelto. She was diagnosed previously with benign positional peripheral vertigo Presents because of shakiness in both upper extremity followed by whole body shaking without losing consciousness. Associated with some pain in his left arm. Her shakiness lasted for about 6 hours and ended 9 PM yesterday. Patient feels his back to his normal self including this morning Patient states that he has chronic dizziness and balance problem for many years and is not new for him Vitas looks stable. Labs are unremarkable including CBC, INR, BMP, liver enzymes. Except for low sodium of 131. Serial troponins are negative less than 0.0123. Lactic acid is normal 1.8. Magnesium 2.1. Urinalysis is suspicious f or infection and boyer virus detected. EKG showing normal sinus rhythm with first-degree AV block and PVC, heart rate of 69 and QTC of [address]-T changes. CT o chest x-ray: No acute process CT of brain: No acute intracranial abnormality with mild atrophy. In the emergency room she received 1 dose of aspirin 325 mg, normal saline at 75 mL/h. Continued with Plavix and Xarelto Cardiology team already evaluated the patient and signed off after echocardiogram: 55-60% Neurology input is appreciated and the recommended EEG and MRI of the brain on both were unremarkable as per neurologist Patient was cleared for discharge by both neurology and cardiology service and patient is back to baseline. No more shakiness for more than 24 hours, no pain. No chest pain or pain. No dyspnea. No change in urine or bowel habits. No fever. Problems and management plan were discussed with the patient and he verbalized understanding and acceptance Patient was found stable and can be discharged home however he needs follow-up as an outpatient. Patient was instructed to follow up with PCP Dr. Ramirez within one week and patient agrees. Also patient was instructed to follow up with c ardiologist Dr. Ann neurologist Dr. Bee in 1-2 weeks and he agrees to: Make his own appointment Physical exam Gen: patient is a AAOx3, no distress CVS: S1-S2, RRR, no murmur Lungs: B/L CTA, no wheezing Abdomen: soft, no distention, no tenderness, positive bowel sounds Extremity: no leg edema or induration Time spent more than 35 minutes Patient Condition at Discharge: Stable Plan - Discharge Summary Discharge Rx Participant: No New Discharge Prescriptions: Continue Levothyroxine Sodium [Synthroid] 137 mcg PO DAILY Ezetimibe [Zetia] 10 mg PO HS hydrALAZINE HCL 25 mg PO TID Rivaroxaban [Xarelto] 15 mg PO DAILY hydroCHLOROthiazide [Hydrodiuril] 25 mg PO DAILY Metoprolol Tartrate [Lopressor] 12.5 mg PO BID Diltiazem HCl [Cardizem LA] 240 mg PO DAILY Clopidogrel [Plavix] 75 mg PO DAILY Discontinued Carvedilol [Coreg] 3.125 mg PO BID Discharge Medication List Ezetimibe [Zetia] 10 mg PO HS 01/20/15 [History] Levothyroxine Sodium [Synthroid] 137 mcg PO DAILY 01/20/15 [History] Rivaroxaban [Xarelto] 15 mg PO DAILY 06/29/18 [History] hydrALAZINE HCL 25 mg PO TID 06/29/18 [History] hydroCHLOROthiazide [Hydrodiuril] 25 mg PO DAILY 06/29/18 [History] Clopidogrel [Plavix] 75 mg PO DAILY 09/21/20 [History] Diltiazem HCl [Cardizem LA] 240 mg PO DAILY 09/21/20 [History] Metoprolol Tartrate [Lopressor] 12.5 mg PO BID 09/21/20 [History] Follow up Appointment(s)/Referral(s): Virginia Pimentel MD [Primary Care Provider] - 1-2 days Waqas Odom MD [STAFF PHYSICIAN] - [address] [facility], [NON-STAFF] - 1-2 Days Young Bee DO [STAFF PHYSICIAN] - 1 Week Patient Instructions/Handouts: Chest Pain (DC) Activity/Diet/Wound Care/Special Instructions: Heart healthy diet Activity is restricted until you see your doctor Discharge Disposition: HOME WITH HOME HEALTH SERVICES
== END 2020-09-23 15:13 | disposition home health service (06) ==
LOC: EC 15:42 → 6NMEDSUR 18:18
PROVIDERS: ADMIT Internal Medicine; ATTEND Internal Medicine
DX: H81.10 Benign paroxysmal vertigo, unspecified ear (principal); R25.1 Tremor, unspecified; R07.89 Other chest pain; M79.602 Pain in left arm; E78.5 Hyperlipidemia, unspecified; I10 Essential (primary) hypertension; I48.0 Paroxysmal atrial fibrillation; I08.3 Combined rheumatic disorders of mitral, aortic and tricuspid valves; I44.0 Atrioventricular block, first degree; I71.2 Thoracic aortic aneurysm, without rupture; E03.9 Hypothyroidism, unspecified; I25.10 Atherosclerotic heart disease of native coronary artery without angina pectoris; Z20.822 Contact with and (suspected) exposure to COVID-19; R94.31 Abnormal electrocardiogram [ECG] [EKG]; Z79.890 Hormone replacement therapy; Z79.01 Long term (current) use of anticoagulants; Z79.02 Long term (current) use of antithrombotics/antiplatelets; Z79.899 Other long term (current) drug therapy; Z86.73 Personal history of transient ischemic attack (TIA), and cerebral infarction without residual deficits; Z87.01 Personal history of pneumonia (recurrent); Z85.828 Personal history of other malignant neoplasm of skin; Z90.49 Acquired absence of other specified parts of digestive tract; Z95.2 Presence of prosthetic heart valve; Z96.612 Presence of left artificial shoulder joint; Z96.611 Presence of right artificial shoulder joint; Z96.643 Presence of artificial hip joint, bilateral; Z87.891 Personal history of nicotine dependence; Z82.3 Family history of stroke
CPT/HCPCS: 96361 ×4; 96374; 99285; 36415; 95816; 93005; 93306; 97162 ×2; 80053; 84443; 83605; 83735; 84484 ×2; 85025; 85610; 85730; 81003; 87635; 71046; 70450; 70551; G0378 ×3

== ENCOUNTER → 2022-02-07 | Outpatient (CLI) | payer MEDICARE ==
--- NOTE | 2022-02-07 18:48 | CT ---
EXAMINATION TYPE: CT angio chest CT DLP: 791.5 mGycm, Automated exposure control for dose reduction was used. DATE OF EXAM: 02/07/2022 4:36 PM COMPARISON: CT 07/20/2019 CLINICAL INDICATION:Male, 86 years old with history of I71.2 Thoracic aortic aneurysm, without ruptur e; thoracic aortic aneurysm TECHNIQUE/CONTRAST: CTA scan of the thorax is performed without and with IV Contrast, patient injected with 100mL mL of I sovue 370, aortic aneurysm protocol. 3D and MIP images are created and reviewed. FINDINGS: Lungs/Pleura: No evidence of focal consolidation, pleural effusion or pneumothorax. Airway: Large airways are patent. Heart: The heart is mildly enlarged for size. There is aortic valve replacement changes. Moderate cor onary artery atherosclerosis. Vasculature: There is performed aneurysmal dilation of the ascending thoracic aorta measuring up to 5 .3 cm, previously 5.0 cm in 2020. Additional proximal descending thoracic aorta dilation up to 4.4 cm , previously 4.3 cm in 2020. Distal descending thoracic aorta dilation up to 3.9 cm, previously 3.6 cm. There is increase in atherosclerosis of the arterial vasculature when comparing to prior. The aor ta has a tortuous path through the thorax. No evidence of central pulmonary embolism on this limited exam. Mediastinum: No gross evidence of adenopathy. Musculoskeletal: No acute osseous abnormalities, bilateral shoulder arthroplasty changes. Multilevel disc degeneration changes throughout the spine. Soft Tissues: Unremarkable. Lower neck: No significant findings. Upper Abdomen: Gallbladder surgically absent. IMPRESSION: 1. 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 2. Proximal ascending thoracic aorta dilation up 4.4 cm is not significantly changed from 2020. 3. Distal ascending thoracic aorta fusiform dilation up to 3.9 cm, mildly increased from prior in 202 0 at 3.6 cm. 4. Moderate atherosclerosis of the arterial vasculature. 5. Moderate coronary artery atherosclerosis. 6. Post aortic TAVR changes.
== END | disposition home or self-care (01) ==
LOC: RADCTMAIN 14:30
PROVIDERS: ATTEND Internal Medicine
DX: I71.2 Thoracic aortic aneurysm, without rupture (principal); I25.10 Atherosclerotic heart disease of native coronary artery without angina pectoris
CPT/HCPCS: 82565; 84520; 71275; 36415; Q9967

== ENCOUNTER 2022-04-24 11:30 | Emergency (ER) | payer MEDICARE ==
[2022-04-24 12:12] VITALS: BP 181/69; PULSE 55; RESP 20; TEMP 97.6
--- NOTE | 2022-04-24 12:57 | CT ---
EXAMINATION TYPE: CT brain wo con, CT facial bones wo con DATE OF EXAM: 04/24/2022 HISTORY: fall injury on blood thinners with facial pain and headaches. CT DLP: 1100 (accession [id number]), 410.4 (accession [id number]) mGycm. Automated Exposure Control for Dose Reduction was Utilized. TECHNIQUE: CT scan of the head and facial bones are performed without contrast. COMPARISON: CT brain September 21, 2020. FINDINGS: There is no acute intracranial hemorrhage or midline shift identified. There is mild to m oderate diffuse ventricular and sulcal prominence consistent with diffuse age-related cerebral atroph y. There is moderate low-attenuation in the periventricular white matter consistent with chronic sma ll vessel ischemic change. The calvarium is intact. The mandible is intact. The temporomandibular joints are maintained bilaterally. The acute comminuted minimally displaced fractures through the nasal bones extend into the anterior septum. Nasal septum is deviated to right of midline new finding from prior study. Zygomatic arches are intact. Orbital fl oors and grady are intact. Sclerotic pelvis dictation bilateral globes redemonstrated. Intraconal fat is preserved bilaterally. The maxilla is intact. The pterygoid plates are intact. Cerumen in the nora p right external auditory canal is redemonstrated. IMPRESSION: 1. No acute intracranial hemorrhage or midline shift. There is mild to moderate diffuse age-related cerebral atrophy and moderate chronic small vessel ischemic change redemonstrated without significant change from prior CT. 2. Mildly displaced acute nasal bone fractures extending into nasal septum with new right-sided nasal septal deviation and associated moderate overlying soft tissue swelling.
[2022-04-24] MEDS ORDERED: TOPICAL SKIN ADHESIVE 1 EACH AMP TOPICAL ONE (13:05)
--- NOTE | 2022-04-24 13:10 | ED ---
Fall HPI - General Chief Complaint: Fall Stated Complaint: Fall Time Seen by Provider: 04/24/22 12:15 Source: patient, RN notes reviewed Mode of arrival: ambulatory - History of Present Illness Initial Comments: This is an 86-year-old male who presents to the emergency department for a fall. Patient states that he was walking in a parking lot, when he tripped and fell face first. Denies any loss of consciousness. He is on blood thinners. Denies any dizziness, headaches, or chest pain prior to the fall. He did sustain a laceration to the nose. Unsure when his last Tetanus vaccine was. Patient does use a cane for ambulation. Denies any fevers, chills, sore throat, cough, dyspnea, chest pain, palpitations, abdominal pain, nausea, vomiting, diarrhea, or back pain. MD Complaint: fall Place Fall Occurred: street Loss of Consciousness: none Prolonged Down Time?: no Location: face Context: tripped/slipped - Related Data Home Medications Medication Instructions Recorded Confirmed Ezetimibe [Zetia] 10 mg PO HS 01/20/15 09/21/20 Levothyroxine Sodium [Synthroid] 137 mcg PO DAILY 01/20/15 09/21/20 Rivaroxaban [Xarelto] 15 mg PO DAILY 06/29/18 09/21/20 hydrALAZINE HCL 25 mg PO TID 06/29/18 09/21/20 hydroCHLOROthiazide [Hydrodiuril] 25 mg PO DAILY 06/29/18 09/21/20 Clopidogrel [Plavix] 75 mg PO DAILY 09/21/20 09/21/20 Metoprolol Tartrate [Lopressor] 12.5 mg PO BID 09/21/20 09/21/20 dilTIAZem HCL [Cardizem LA] 240 mg PO DAILY 09/21/20 09/21/20 Previous Rx's Medication Instructions Recorded Cephalexin [Keflex] 1,000 mg PO Q12HR 7 Days #28 cap 04/24/22 HYDROcodone/APAP 5-325MG [[place] 1 tab PO Q6HR PRN 3 Days #12 tab 04/24/22 5-325] Oxymetazoline 0.05% Nasl Lockhart 3 spray EA NOSTRIL TID PRN 3 Days 04/24/22 [Afrin 0.05% Nasal Lock[place]] #15 ml predniSONE 50 mg PO Q24H 5 Days #5 tablet 04/24/22 Allergies Allergy/AdvReac Type Severity Reaction Status Date / Time No Known Allergies Allergy Verified 09/21/20 16:54 Review of Systems ROS Statement: Those systems with pertinent positive or pertinent negative responses have been documented in the HPI. ROS Other: All systems not noted in ROS Statement are negative. Past Medical History Past Medical History: Atrial Fibrillation, Cancer, CVA/TIA, Hyperlipidemia, Hypertension, Pneumonia, Thyroid Disorder Additional Past Medical History / Comment(s): Skin cancer with removal; atrial fibrillation is paroxysmal, currently on Xarelto for anticoagulation History of Any Multi-Drug Resistant Organisms: None Reported Past Surgical History: Appendectomy, Cholecystectomy, Heart Catheterization, Joint Replacement, Orthopedic Surgery Additional Past Surgical History / Comment(s): bilateral shoulder and hips replaced; aortic valve replacement 2019 Past Anesthesia/Blood Transfusion Reactions: No Reported Reaction Past Psychological History: No Psychological Hx Reported Smoking Status: Never smoker Past Alcohol Use History: None Reported Past Drug Use History: None Reported - Past Family History Mother Family Medical History: CVA/TIA General Exam Limitations: no limitations General appearance: alert, in no apparent distress Head exam: Present: atraumatic, normocephalic, normal inspection Eye exam: Present: normal appearance, PERRL, EOMI. Absent: scleral icterus, conjunctival injection, periorbital swelling ENT exam: Present: other (3 cm laceration to the bridge of the nose. No active bleeding. Diffuse overlying swelling. No septal hematoma visualized. Dried crusting in and around the nares bilaterally.) Respiratory exam: Present: normal lung sounds bilaterally. Absent: respiratory distress, wheezes, rales, rhonchi, stridor Cardiovascular Exam: Present: regular rate, normal rhythm, normal heart sounds. Absent: systolic murmur, diastolic murmur, rubs, gallop, clicks Neurological exam: Present: alert, oriented X3, CN II-XII intact Psychiatric exam: Present: normal affect, normal mood Course Vital Signs 04/24/22 12:09 Temperature 97.6 F Pulse Rate 55 L Respiratory 20 Rate Blood Pressure 181/69 O2 Sat by Pulse 98 Oximetry Medical Decision Making - Medical Decision Making This is an 86-year-old male who presents to the emergency department for a fall. Computed tomography scan of the brain and facial bones obtained. This reveals no acute intracranial hemorrhage. He does have mildly displaced nasal bone fractures extending into the septum with right-sided septal deviation and moderate overlying soft tissue swelling. Exofin was placed across the superficial laceration. Patient's tetanus status was updated. Prescription for a 5 day course of prednisone and a 7 day course of Keflex were provided. He was also given a prescription for Afrin nasal spray to help with congestion, which he is instructed to avoid using for more than 3 days, as it can lead to dependence. Nasal precautions were reviewed, and he is instructed to avoid blowing his nose. Short course of [place] was prescribed for severe episodes of pain, advised he use this sparingly. Also advised he apply ice for 10 minutes every 2-3 hours. He was given follow-up for ear, nose, and throat, instructed him to contact them later today or first thing tomorrow morning. Return precautions reviewed in depth, the patient is instructed to return to the emergency department with any new, worsening, or concerning symptoms. Patient verbalized understanding. This case was discussed in detail with the attending ED physician. Presentation, findings, and treatment plan discussed in detail as well. - Radiology Data Radiology results: report reviewed, image reviewed Disposition Clinical Impression: Nasal bone fracture Disposition: HOME SELF-CARE Instructions (If sedation given, give patient instructions): Nasal Fracture (ED), Skin Adhesive Care (ED) Additional Instructions: Return to the emergency department with any new, worsening, or concerning symptoms. Take the prednisone daily for 5 days. Take the [place] as needed for severe episodes of pain. Take the antibiotic as prescribed for 7 days. The nasal spray can be used every 6-8 hours as needed for congestion. Do not use this for longer than 3 days, as you may become dependent on it. Try applying ice to the nose as well for 10 minutes every 2-3 hours. Contact the ear, nose, and throat provider as listed below for a follow-up appointment. Follow up with your primary care provider in 1-2 days. Prescriptions: Oxymetazoline 0.05% Nasl Lockhart [Afrin 0.05% Nasal Lockhart] 3 spray EA NOSTRIL TID PRN 3 Days #15 ml PRN Reason: Congestion Cephalexin [Keflex] 1,000 mg PO Q12HR 7 Days #28 cap HYDROcodone/APAP 5-325MG [[place] 5-325] 1 tab PO Q6HR PRN 3 Days #12 tab PRN Reason: Pain predniSONE 50 mg PO Q24H 5 Days #5 tablet Is patient prescribed a controlled substance at d/c from ED?: Yes When asked, does pt state using other controlled substances?: No If prescribed controlled substance>3 days was MAPS reviewed?: Prescribed <3 Days Referrals: None,Stated [Primary Care Provider] - 1-2 days Guido Grady DO [Doctor of Osteopathic Medicine] - 1-2 days
[2022-04-24] MEDS ORDERED: DIPH,PERTUS(ACELL)TETVAC-LF 0.5 ML VIAL IM ONE (13:45)
== END 2022-04-24 14:22 | disposition home or self-care (01) ==
LOC: EC 11:30
DX: S02.2XXA Fracture of nasal bones, initial encounter for closed fracture (principal); Z86.73 Personal history of transient ischemic attack (TIA), and cerebral infarction without residual deficits; E78.5 Hyperlipidemia, unspecified; I10 Essential (primary) hypertension; E07.9 Disorder of thyroid, unspecified; Z79.899 Other long term (current) drug therapy; W19.XXXA Unspecified fall, initial encounter; Z23 Encounter for immunization
CPT/HCPCS: 70450; 70486; 90471; 90715; 99284

== ENCOUNTER 2022-05-27 16:44 | Inpatient (IN) | payer MEDICARE ==
[2022-05-27] MEDS ORDERED: SODIUM CHLORIDE 0.9% 500 ML 500 ML IV STA (16:58)
[2022-05-27] MEDS ORDERED: IPRATROPIUM-ALBUTEROL 3 ML NEB INHALATION STA (17:01)
--- NOTE | 2022-05-27 17:04 | ED ---
General Adult HPI - General Chief complaint: Dizziness Stated complaint: lightheadedness Time Seen by Provider: 05/27/22 16:47 Source: patient, EMS, RN notes reviewed Mode of arrival: EMS Limitations: no limitations - History of Present Illness Initial comments: This is a pleasant 86-year-old male with a history of valvular heart disease, status post aortic valve replacement, as well as atrial fibrillation. Patient does take anticoagulation medication. Patient states he started getting lightheaded today on Sunday. Patient states he feels generally weak. He is denying any pain. Patient has had a minimally productive cough and runny nose. No known fever. Patient not immunized against influenza or COVID-19. No ill contacts. Lives alone. NO focal neurologic deficits. GENERAL weakness, No headache, no fever or chills, no changes in vision or hearing, no sore throat or difficulty with speech, no neck pain, no chest pain or shortness of breath, no abdominal pain, no nausea or vomiting, no changes in urination or bowel movements, no numbness or tingling, no extremity pain, no skin rashes or lesions. Past medical, surgical, social, and family history reviewed. - Related Data Home Medications Medication Instructions Recorded Confirmed Ezetimibe [Zetia] 10 mg PO HS 01/20/15 09/21/20 Levothyroxine Sodium [Synthroid] 137 mcg PO DAILY 01/20/15 09/21/20 Rivaroxaban [Xarelto] 15 mg PO DAILY 06/29/18 09/21/20 hydrALAZINE HCL 25 mg PO TID 06/29/18 09/21/20 hydroCHLOROthiazide [Hydrodiuril] 25 mg PO DAILY 06/29/18 09/21/20 Clopidogrel [Plavix] 75 mg PO DAILY 09/21/20 09/21/20 Metoprolol Tartrate [Lopressor] 12.5 mg PO BID 09/21/20 09/21/20 dilTIAZem HCL [Cardizem LA] 240 mg PO DAILY 09/21/20 09/21/20 Previous Rx's Medication Instructions Recorded Cephalexin [Keflex] 1,000 mg PO Q12HR 7 Days #28 cap 04/24/22 HYDROcodone/APAP 5-325MG [Lilly 1 tab PO Q6HR PRN 3 Days #12 tab 04/24/22 5-325] Oxymetazoline 0.05% Nasl Daniel 3 spray EA NOSTRIL TID PRN 3 Days 04/24/22 [Afrin 0.05% Nasal Daniel] #15 ml predniSONE 50 mg PO Q24H 5 Days #5 tablet 04/24/22 Allergies Allergy/AdvReac Type Severity Reaction Status Date / Time No Known Allergies Allergy Verified 09/21/20 16:54 Review of Systems ROS Statement: Those systems with pertinent positive or pertinent negative responses have been documented in the HPI. ROS Other: All systems not noted in ROS Statement are negative. Past Medical History Past Medical History: Atrial Fibrillation, Cancer, CVA/TIA, Hyperlipidemia, Hypertension, Pneumonia, Thyroid Disorder Additional Past Medical History / Comment(s): Skin cancer with removal; atrial fibrillation is paroxysmal, currently on Xarelto for anticoagulation History of Any Multi-Drug Resistant Organisms: None Reported Past Surgical History: Appendectomy, Cholecystectomy, Heart Catheterization, Joint Replacement, Orthopedic Surgery Additional Past Surgical History / Comment(s): bilateral shoulder and hips replaced; aortic valve replacement 2020 Past Anesthesia/Blood Transfusion Reactions: No Reported Reaction Past Psychological History: No Psychological Hx Reported Smoking Status: Never smoker Past Alcohol Use History: None Reported Past Drug Use History: None Reported - Past Family History Mother Family Medical History: CVA/TIA General Exam - General Exam Comments Initial Comments: Capillary refill less than 2 seconds. No mottling. Cranial nerves II through XII are intact. Patient is not acutely ill or toxic. Limitations: no limitations General appearance: alert, in no apparent distress Head exam: Present: atraumatic, normocephalic, normal inspection Eye exam: Present: normal appearance, PERRL, EOMI. Absent: scleral icterus, conjunctival injection, periorbital swelling ENT exam: Present: normal exam, normal oropharynx, mucous membranes moist, TM's normal bilaterally, normal external ear exam, other (Clear runny nose). Absent: mucous membranes dry Neck exam: Present: normal inspection, full ROM. Absent: tenderness, meningismus, lymphadenopathy Respiratory exam: Present: wheezes (Expiratory, worse on right). Absent: chest wall tenderness, accessory muscle use, decreased breath sounds, prolonged expiratory Cardiovascular Exam: Present: bradycardia, irregular rhythm GI/Abdominal exam: Present: soft, normal bowel sounds. Absent: distended, tenderness, guarding, rebound, rigid Extremities exam: Present: normal inspection, full ROM, normal capillary refill. Absent: tenderness, pedal edema, joint swelling, calf tenderness Back exam: Present: normal inspection Neurological exam: Present: alert, oriented X3, CN II-XII intact Psychiatric exam: Present: normal affect, normal mood Skin exam: Present: warm, dry, intact, normal color. Absent: rash Course Vital Signs 05/27/22 05/27/22 05/27/22 16:49 16:52 17:31 Temperature 98.0 F Pulse Rate 56 L 56 L Respiratory 18 Rate Blood Pressure 179/70 O2 Sat by Pulse 97 Oximetry 05/27/22 05/27/22 17:42 18:12 Temperature Pulse Rate 53 L 69 Respiratory 18 Rate Blood Pressure 169/60 O2 Sat by Pulse 97 Oximetry - Reevaluation(s) Reevaluation #1: 05/27/22 20:38 Medical record is reviewed Symptoms are improved here in the emergency department Patient is informed of results and questions answered Patient in no distress Reevaluation #2: 05/27/22 21:14 Medical record is reviewed Symptoms are improved here in the emergency department Patient is informed of results and questions answered Patient in no distress - Consultations Consultation #1: Case was discussed in detail with Dr. Cooper who is on-call for the patient's primary care doctor, Dr. Ramirez. He suggested that the patient be admitted to [facility]. States that he does not need to be on consult as the patient is being admitted for hyponatremia. The case was discussed in detail with ED attending physician. Presentation, findings, treatment plan discussed in detail. Supervising physicians Dr. Talley Consultation #2: Case discussed in detail with the hospitalist from [facility], Dr. Georges EKG Findings - EKG Comments: EKG Findings:: EKG done at 1724 and review by the ED attending physician reveals sinus rhythm with a first-degree AV block. HI interval 248 ms. Left axis deviation. Frequent supraventricular complexes. No evidence of acute ST or T- wave changes. Other intervals are normal. Medical Decision Making - Medical Decision Making Symptomology most indicative of viral syndrome with viral upper respiratory infection. However the patient does have expiratory wheezing noted. No history of lung pathology. Patient has no significant cigarette smoking history. Patient states he smoked some 30 years ago but quit. Infectious process such as COVID-19 or influenza is possible. Other viral etiologies possible low. We'll order testing. There is no evidence of focal neurologic deficits. At this point I do not think imaging in addition to chest x-ray is warranted. - Lab Data Result diagrams: 05/27/22 17:17 05/27/22 17:17 Lab Results 05/27/22 05/27/22 05/27/22 Range/Units 17:17 17:17 17:17 WBC 4.2 (3.8-10.6) k/uL RBC 4.30 (4.30-5.90) m/uL Hgb 10.4 L (13.0-17.5) gm/dL Hct 32.9 L (39.0-53.0) % MCV 76.5 L (80.0-100.0) fL MCH 24.1 L (25.0-35.0) pg MCHC 31.5 (31.0-37.0) g/dL RDW 13.9 (11.5-15.5) % Plt Count 264 (150-450) k/uL MPV 7.6 Neutrophils % (Manual) 24 % Lymphocytes % (Manual) 57 % Monocytes % (Manual) 17 % Eosinophils % (Manual) 2 % Neutrophils # (Manual) 1.01 L (1.3-7.7) k/uL Lymphocytes # (Manual) 2.39 (1.0-4.8) k/uL Monocytes # (Manual) 0.71 (0-1.0) k/uL Eosinophils # (Manual) 0.08 (0-0.7) k/uL Nucleated RBCs 0 (0-0) /100 WBC Manual Slide Review Performed Hypochromasia Marked PT 11.3 (9.0-12.0) sec INR 1.1 (<1.2) Sodium 125 L (137-145) mmol/L Potassium 4.7 (3.5-5.1) mmol/L Chloride 95 L (98-107) mmol/L Carbon Dioxide 24 (22-30) mmol/L Anion Gap 6 mmol/L BUN 20 (9-20) mg/dL Creatinine 0.90 (0.66-1.25) mg/dL Est GFR (CKD-EPI)AfAm 89 (>60 ml/min/1.73 sqM) Est GFR (CKD-EPI)NonAf 77 (>60 ml/min/1.73 sqM) Glucose 99 (74-99) mg/dL Plasma Lactic Acid Sudhakar (0.7-2.0) mmol/L Calcium 8.1 L (8.4-10.2) mg/dL Phosphorus 3.8 (2.5-4.5) mg/dL Magnesium 1.8 (1.6-2.3) mg/dL Total Bilirubin 0.9 (0.2-1.3) mg/dL AST 71 H (17-59) U/L ALT 28 (4-49) U/L Alkaline Phosphatase 50 (38-126) U/L Troponin I (0.000-0.034) ng/mL NT-Pro-B Natriuret Pep pg/mL Total Protein 7.0 (6.3-8.2) g/dL Albumin 4.4 (3.5-5.0) g/dL Urine Color Urine Appearance (Clear) Urine pH (5.0-8.0) Ur Specific Farwell (1.001-1.035) Urine Protein (Negative) Urine Glucose (UA) (Negative) Urine Ketones (Negative) Urine Blood (Negative) Urine Nitrite (Negative) Urine Bilirubin (Negative) Urine Urobilinogen (<2.0) mg/dL Ur Leukocyte Esterase (Negative) Influenza Type A (PCR) (Not Detectd) Influenza Type B (PCR) (Not Detectd) RSV (PCR) (Not Detectd) SARS-CoV-2 (PCR) (Not Detectd) 05/27/22 05/27/22 05/27/22 Range/Units 17:17 17:17 17:17 WBC (3.8-10.6) k/uL RBC (4.30-5.90) m/uL Hgb (13.0-17.5) gm/dL Hct (39.0-53.0) % MCV (80.0-100.0) fL MCH (25.0-35.0) pg MCHC (31.0-37.0) g/dL RDW (11.5-15.5) % Plt Count (150-450) k/uL MPV Neutrophils % (Manual) % Lymphocytes % (Manual) % Monocytes % (Manual) % Eosinophils % (Manual) % Neutrophils # (Manual) (1.3-7.7) k/uL Lymphocytes # (Manual) (1.0-4.8) k/uL Monocytes # (Manual) (0-1.0) k/uL Eosinophils # (Manual) (0-0.7) k/uL Nucleated RBCs (0-0) /100 WBC Manual Slide Review Hypochromasia PT (9.0-12.0) sec INR (<1.2) Sodium (137-145) mmol/L Potassium (3.5-5.1) mmol/L Chloride (98-107) mmol/L Carbon Dioxide (22-30) mmol/L Anion Gap mmol/L BUN (9-20) mg/dL Creatinine (0.66-1.25) mg/dL Est GFR (CKD-EPI)AfAm (>60 ml/min/1.73 sqM) Est GFR (CKD-EPI)NonAf (>60 ml/min/1.73 sqM) Glucose (74-99) mg/dL Plasma Lactic Acid Sudhakar 0.9 (0.7-2.0) mmol/L Calcium (8.4-10.2) mg/dL Phosphorus (2.5-4.5) mg/dL Magnesium (1.6-2.3) mg/dL Total Bilirubin (0.2-1.3) mg/dL AST (17-59) U/L ALT (4-49) U/L Alkaline Phosphatase (38-126) U/L Troponin I 0.019 (0.000-0.034) ng/mL NT-Pro-B Natriuret Pep 148 pg/mL Total Protein (6.3-8.2) g/dL Albumin (3.5-5.0) g/dL Urine Color Urine Appearance (Clear) Urine pH (5.0-8.0) Ur Specific Farwell (1.001-1.035) Urine Protein (Negative) Urine Glucose (UA) (Negative) Urine Ketones (Negative) Urine Blood (Negative) Urine Nitrite (Negative) Urine Bilirubin (Negative) Urine Urobilinogen (<2.0) mg/dL Ur Leukocyte Esterase (Negative) Influenza Type A (PCR) (Not Detectd) Influenza Type B (PCR) (Not Detectd) RSV (PCR) (Not Detectd) SARS-CoV-2 (PCR) (Not Detectd) 05/27/22 05/27/22 Range/Units 17:17 19:32 WBC (3.8-10.6) k/uL RBC (4.30-5.90) m/uL Hgb (13.0-17.5) gm/dL Hct (39.0-53.0) % MCV (80.0-100.0) fL MCH (25.0-35.0) pg MCHC (31.0-37.0) g/dL RDW (11.5-15.5) % Plt Count (150-450) k/uL MPV Neutrophils % (Manual) % Lymphocytes % (Manual) % Monocytes % (Manual) % Eosinophils % (Manual) % Neutrophils # (Manual) (1.3-7.7) k/uL Lymphocytes # (Manual) (1.0-4.8) k/uL Monocytes # (Manual) (0-1.0) k/uL Eosinophils # (Manual) (0-0.7) k/uL Nucleated RBCs (0-0) /100 WBC Manual Slide Review Hypochromasia PT (9.0-12.0) sec INR (<1.2) Sodium (137-145) mmol/L Potassium (3.5-5.1) mmol/L Chloride (98-107) mmol/L Carbon Dioxide (22-30) mmol/L Anion Gap mmol/L BUN (9-20) mg/dL Creatinine (0.66-1.25) mg/dL Est GFR (CKD-EPI)AfAm (>60 ml/min/1.73 sqM) Est GFR (CKD-EPI)NonAf (>60 ml/min/1.73 sqM) Glucose (74-99) mg/dL Plasma Lactic Acid Sudhakar (0.7-2.0) mmol/L Calcium (8.4-10.2) mg/dL Phosphorus (2.5-4.5) mg/dL Magnesium (1.6-2.3) mg/dL Total Bilirubin (0.2-1.3) mg/dL AST (17-59) U/L ALT (4-49) U/L Alkaline Phosphatase (38-126) U/L Troponin I (0.000-0.034) ng/mL NT-Pro-B Natriuret Pep pg/mL Total Protein (6.3-8.2) g/dL Albumin (3.5-5.0) g/dL Urine Color Light Yellow Urine Appearance Clear (Clear) Urine pH 6.0 (5.0-8.0) Ur Specific Farwell 1.006 (1.001-1.035) Urine Protein Trace H (Negative) Urine Glucose (UA) Negative (Negative) Urine Ketones Negative (Negative) Urine Blood Negative (Negative) Urine Nitrite Negative (Negative) Urine Bilirubin Negative (Negative) Urine Urobilinogen <2.0 (<2.0) mg/dL Ur Leukocyte Esterase Negative (Negative) Influenza Type A (PCR) Not Detected (Not Detectd) Influenza Type B (PCR) Not Detected (Not Detectd) RSV (PCR) Not Detected (Not Detectd) SARS-CoV-2 (PCR) Detected A (Not Detectd) - Radiology Data Radiology results: report reviewed, image reviewed I did interpret the plain film x-ray myself. Patient has no evidence of acute pathology. No infiltrate. No osseous lesion. No cardiomegaly. No pneumothorax. Concurrent with radiology interpretation Disposition Clinical Impression: Hyponatremia, COVID-19, Lightheadedness, Generalized weakness Disposition: ADMITTED IP TO THIS HOSP Condition: Fair Is patient prescribed a controlled substance at d/c from ED?: No Referrals: Virginia Pimentel MD [Primary Care Provider] - 1-2 days Time of Disposition: 20:38 Decision to Admit Reason: Admit from EC Decision Time: 20:38
--- NOTE | 2022-05-27 17:23 | XR ---
EXAMINATION TYPE: XR chest 1V portable DATE OF EXAM: 05/27/2022 COMPARISON: 01/23/2022 HISTORY: Cough TECHNIQUE: FINDINGS: Heart is normal. Thoracic aorta is atheromatous. Lungs are clear of consolidation. There is bilateral shoulder prosthesis. No pleural effusion. IMPRESSION: Atheromatous aorta. No active cardiopulmonary disease. No change.
[2022-05-27 17:32] LABS: HCT 32.9 % (39.0-53.0); HGB 10.4 gm/dL (13.0-17.5); Hypochromasia Marked; MCH 24.1 pg (25.0-35.0); MCHC 31.5 g/dL (31.0-37.0); MCV 76.5 fL (80.0-100.0); Mean Platelet Volume 7.6; Platelet Count 264 k/uL (150-450); RDW 13.9 % (11.5-15.5); WBC 4.2 k/uL (3.8-10.6)
[2022-05-27 17:48] LABS: Albumin 4.4 g/dL (3.5-5.0); Calcium 8.1 mg/dL (8.4-10.2); INR 1.1 (<1.2); Magnesium 1.8 mg/dL (1.6-2.3); Phosphorus 3.8 mg/dL (2.5-4.5); Prothrombin Time 11.3 sec (9.0-12.0); Total Bilirubin 0.9 mg/dL (0.2-1.3)
[2022-05-27 17:59] LABS: Potassium 4.7 mmol/L (3.5-5.1)
[2022-05-27 18:14] LABS: Eosinophils # (M) 0.08 k/uL (0-0.7); Nucleated Red Blood Cells 0 /100 WBC (0-0); Total Cells Counted 100
[2022-05-27 19:42] LABS: Appearance,Urine Clear (Clear); Bilirubin,Urine Negative (Negative); Blood,Urine Negative (Negative); Color,Urine Light Yellow; Glucose,Urine (UA) Negative (Negative); Ketones,Urine Negative (Negative); Leukocyte Esterase,Urine Negative (Negative); Nitrite,Urine Negative (Negative); Protein,Urine Trace (Negative); Specific Gravity,Urine 1.006 (1.001-1.035); Urobilinogen,Urine <2.0 mg/dL (<2.0)
[2022-05-27 20:37] LABS: Lymphocytes # (M) 2.39 k/uL (1.0-4.8); Monocytes # (M) 0.71 k/uL (0-1.0); Neutrophils # (M) 1.01 k/uL (1.3-7.7); Neutrophils % (M) 24 %
[2022-05-27] MEDS ORDERED: ONDANSETRON 4 MG/2 ML VIAL IVP PRN (21:31)
[2022-05-27] MEDS ORDERED: ACETAMINOPHEN TAB 325 MG TAB PO PRN (21:31)
[2022-05-27] MEDS ORDERED: NALOXONE 0.4 MG/ML 1 ML VIAL IV PRN (21:31)
[2022-05-27] MEDS: SODIUM CHLORIDE 0.9% 1,000 ML IV SCH (21:56)
[2022-05-27] MEDS: hydrALAZINE HCL 25 MG TAB PO SCH (23:37)
--- NOTE | 2022-05-28 02:07 | P.HPIM ---
History of Present Illness H&P Date: 05/28/22 The patient is an 86-year-old male with a PMH of A. lanie on Xarelto, status post TAVR, hypothyroidism, and hyperlipidemia who presents to the emergency room with complaints of lightheadedness and cough. The patient reports that over the past 3-4 days, he has been feeling more tired than usual and has also had a productive cough. He reports that earlier today, he felt lightheaded with mi nimal ambulation, which prompted him to come to the emergency room. The patient denied focal weakness, chest discomfort, shortness of breath, nausea, or diaphoresis. He also denied falls, visual disturbances, numbness, tingling. Chest x-ray in the emergency room was unremarkable. The patient did test positive for coronavirus PCR with sodium 125, chloride 95, and an unremarkable UA. EKG revealed sinus rhythm with first-degree AV block with PACs at 65 bpm with left axis deviation. The patient denied decreased oral intake or change in his appetite over the past few days. Review of systems: Pertinent positives and negatives as discussed in HPI, a complete review of systems was performed and all other systems are negative. Physical examination: General: non toxic, no distress, appears at stated age, normal weight Derm: no unusual rashes/lesions, warm Head: atraumatic, normocephalic, symmetric Eyes: EOMI, no lid lag, anicteric sclera, pupils equal round reactive to light ENT: Nose and ears atraumatic Neck: No cervical lymphadenopathy, trachea midline, supple Mouth: no lip lesion, mucus membranes moist Cardiovascular: S1S2 reg, no murmur, positive dorsalis pedis pulse bilateral, no edema Lungs: CTA bilateral, no rhonchi, no rales, no accessory muscle use Abdominal: soft, nontender to palpation, no guarding Ext: muscle strength 5 out of 5 in all 4 extremities grossly, no gross muscle atrophy, no contractures, Neuro: CN II-XI grossly intact, no gross focal neuro deficits Psych: Alert, oriented, appropriate affect Assessment/plan Hyponatremia, hypochloremic, suspect secondary to poor oral intake -IV fluids -Monitor BMP -Hold patient's home diuretic HCTZ COVID-19 infection -Patient currently minimally symptomatic with no evidence of pneumonia on chest x-ray and SpO2 97% on room air -Continue to monitor for now -Zinc, Vit C, Vit D Lightheadedness, unclear etiology -Suspect secondary to ongoing COVID-19 infection Microcytosis -Check iron panel Chronic conditions: Hypothyroidism, A. fib, hyperlipidemia -Continue with home meds DVT prophylaxis -Xarelto The patient is admitted with an anticipated greater than 2 midnight stay for evaluation of hyponatremia CODE STATUS: Full Code Discussed with: Patient Anticipated discharge date: 2-[address]: Home Past Medical History Past Medical History: Atrial Fibrillation, Cancer, CVA/TIA, Hyperlipidemia, Hypertension, Pneumonia, Thyroid Disorder Additional Past Medical History / Comment(s): Skin cancer with removal; atrial fibrillation is paroxysmal, currently on Xarelto for anticoagulation History of Any Multi-Drug Resistant Organisms: None Reported Past Surgical History: Appendectomy, Cholecystectomy, Heart Catheterization, Joint Replacement, Orthopedic Surgery Additional Past Surgical History / Comment(s): bilateral shoulder and hips replaced; aortic valve replacement 2019, left foot drop Past Anesthesia/Blood Transfusion Reactions: No Reported Reaction Past Psychological History: No Psychological Hx Reported Smoking Status: Former smoker Past Alcohol Use History: None Reported Additional Past Alcohol Use History / Comment(s): Pt states he quit smoking in the s, prior to that smoked approximately a pack a day since in his 20s Past Drug Use History: None Reported - Past Family History Mother Family Medical History: CVA/TIA Medications and Allergies Home Medications Medication Instructions Recorded Confirmed Type Ezetimibe [Zetia] 10 mg PO HS 01/20/15 05/27/22 History Levothyroxine Sodium [Synthroid] 137 mcg PO DAILY@0800 01/20/15 05/27/22 History Rivaroxaban [Xarelto] 15 mg PO HS 06/29/18 05/27/22 History hydrALAZINE HCL 25 mg PO BID 06/29/18 05/27/22 History hydroCHLOROthiazide [Hydrodiuril] 25 mg PO DAILY 06/29/18 05/27/22 History dilTIAZem HCL [Cardizem LA] 240 mg PO DAILY 09/21/20 05/27/22 History Aspirin EC [Ecotrin Low Dose] 81 mg PO DAILY 05/27/22 05/27/22 History Multivitamins, Thera [Multivitamin 1 tab PO DAILY 05/27/22 05/27/22 History (formulary)] carvediloL [Coreg] 3.125 mg PO BID 05/27/22 05/27/22 History Allergies Allergy/AdvReac Type Severity Reaction Status Date / Time No Known Allergies Allergy Verified 05/27/22 22:04 Physical Exam Vitals: Vital Signs Temp Pulse Pulse Resp BP BP Pulse Ox 05/27/22 23:23 97.5 F L 64 17 210/69 97 05/27/22 21:55 98.2 F 61 18 135/95 97 05/27/22 18:12 69 18 169/60 97 05/27/22 17:42 53 L 05/27/22 17:31 56 L 05/27/22 16:52 179/70 05/27/22 16:49 98.0 F 56 L 18 97 Intake and Output 05/27/22 05/27/22 05/28/22 14:59 22:59 06:59 Other: Voiding Method Urinal Weight 77.111 kg 77.111 kg Results CBC & Chem 7: 05/27/22 17:17 05/27/22 17:17 Labs: Abnormal Lab Results - Last 24 Hours (Table) 05/27/22 05/27/22 05/27/22 Range/Units 17:17 17:17 17:17 Hgb 10.4 L (13.0-17.5) gm/dL Hct 32.9 L (39.0-53.0) % MCV 76.5 L (80.0-100.0) fL MCH 24.1 L (25.0-35.0) pg Neutrophils # (Manual) 1.01 L (1.3-7.7) k/uL Sodium 125 L (137-145) mmol/L Chloride 95 L (98-107) mmol/L Calcium 8.1 L (8.4-10.2) mg/dL AST 71 H (17-59) U/L Urine Protein (Negative) SARS-CoV-2 (PCR) Detected A (Not Detectd) 05/27/22 Range/Units 19:32 Hgb (13.0-17.5) gm/dL Hct (39.0-53.0) % MCV (80.0-100.0) fL MCH (25.0-35.0) pg Neutrophils # (Manual) (1.3-7.7) k/uL Sodium (137-145) mmol/L Chloride (98-107) mmol/L Calcium (8.4-10.2) mg/dL AST (17-59) U/L Urine Protein Trace H (Negative) SARS-CoV-2 (PCR) (Not Detectd) Thrombosis Risk Factor Assmnt - Choose All That Apply Each Risk Factor Represents 3 Points: Age 75 years or older Thrombosis Risk Factor Assessment Total Risk Factor Score: 3 Thrombosis Risk Factor Assessment Level: Moderate Risk
[2022-05-28] MEDS: LEVOTHYROXINE 137 MCG TAB PO SCH (06:37)
[2022-05-28 07:18] LABS: African American GFR (CKD) >90 (>60 ml/min/1.73 sqM); Anion Gap 7 mmol/L; Blood Urea Nitrogen 13 mg/dL (9-20); Calcium 7.8 mg/dL (8.4-10.2); Carbon Dioxide 23 mmol/L (22-30); Chloride 101 mmol/L (98-107); Glucose 91 mg/dL (74-99); Magnesium 1.8 mg/dL (1.6-2.3); Non-African American GFR(CKD) 84 (>60 ml/min/1.73 sqM); Sodium 131 mmol/L (137-145)
[2022-05-28] MEDS: RIVAROXABAN 15 MG TAB PO SCH (08:34)
[2022-05-28] MEDS: DILTIAZEM CD 240 MG CAP.ER.24H PO SCH (08:34)
[2022-05-28] MEDS: carvediloL 3.125 MG TAB PO SCH ×2 (08:34→19:59)
[2022-05-28] MEDS: ZINC SULFATE 220 MG CAP PO SCH (08:34)
[2022-05-28] MEDS: ASCORBIC ACID 500 MG TAB PO SCH (08:34)
[2022-05-28] MEDS: hydrALAZINE HCL 25 MG TAB PO SCH ×2 (08:34→19:59)
[2022-05-28] MEDS: CHOLECALCIFEROL 125 MCG (5000 IU) TABLET PO SCH (08:34)
[2022-05-28] MEDS: ASPIRIN 81 MG PO SCH (08:34)
[2022-05-28] MEDS: SODIUM CHLORIDE 0.9% 1,000 ML IV SCH ×2 (08:35→19:59)
[2022-05-28 09:52] LABS: HCT 30.9 % (39.6-50.0); HGB 9.4 g/dL (13.0-17.0); MCH 23.3 pg (27.0-32.0); MCHC 30.4 g/dL (32.0-37.0); MCV 76.5 fL (80.0-97.0); Mean Platelet Volume 9.7 fL (9.5-12.2); NRBC Per 100 WBC 0 /100 WBCS (0.0-0.0); Platelet Count 245 X 10*3/uL (140-440); RBC 4.04 X 10*6/uL (4.40-5.60); RDW 14.6 % (11.5-14.5); WBC 3.95 X 10*3/uL (4.50-10.00)
[2022-05-28 10:26] LABS: % Iron Saturation 5.62 (15.00-50.00); Ferritin 56.4 ng/mL (22.0-322.0); Iron 21 ug/dL (65-175); Total Iron Binding Capacity 374 ug/dL (228-460)
[2022-05-29] MEDS: LEVOTHYROXINE 137 MCG TAB PO SCH (06:25)
[2022-05-29 08:08] VITALS: BP 151/70; PULSE 60; RESP 17; TEMP 97.9
[2022-05-29] MEDS: ASPIRIN 81 MG PO SCH (08:09)
[2022-05-29] MEDS: carvediloL 3.125 MG TAB PO SCH (08:09)
[2022-05-29] MEDS: RIVAROXABAN 15 MG TAB PO SCH (08:09)
[2022-05-29] MEDS: ZINC SULFATE 220 MG CAP PO SCH (08:09)
[2022-05-29] MEDS: ASCORBIC ACID 500 MG TAB PO SCH (08:09)
[2022-05-29] MEDS: hydrALAZINE HCL 25 MG TAB PO SCH (08:09)
[2022-05-29] MEDS: CHOLECALCIFEROL 125 MCG (5000 IU) TABLET PO SCH (08:09)
[2022-05-29] MEDS: SODIUM CHLORIDE 0.9% 1,000 ML IV SCH (08:10)
[2022-05-29] MEDS: DILTIAZEM CD 240 MG CAP.ER.24H PO SCH (08:10)
--- NOTE | 2022-05-29 13:09 | P.DS ---
Providers Date of admission: 05/27/22 21:33 Expected date of discharge: 05/29/22 Attending physician: Jan Georges MD Primary care physician: Virginia Loren [facility] Course: Hyponatremia, hypochloremic, suspect secondary to poor oral intake COVID-19 infection Lightheadedness Microcytosis Hypothyroidism Paroxysmal A. fib Hyperlipidemia The patient is an 86-year-old male with a PMH of A. fib on Xarelto, status post TAVR, hypothyroidism, and hyperlipidemia who presented to the emergency room with complaints of lightheadedness and cough. In the ER, patient was afebrile, 179/90, 97% on room air. Chest x-ray in the emergency room was unremarkable. The patient did test positive for coronavirus PCR with sodium 125, chloride 95, and an unremarkable UA. EKG revealed sinus rhythm with first-degree AV block with PACs at 65 bpm with left axis deviation. He was admitted and given IVF as well as multi-vitamins for COVID. He also had his HCTZ discontinued. Patient reported feeling back to baseline by following day, and was discharged with instructions to discontinue his HCTZ. His Na showed improvement on discharge labs. He will f/u with PCP. I spent 32 minutes coordinating this discharge, discharge date 05/29 Gen: awake, alert HEENT: normocephalic, atraumatic, good hearing acuity, moist mucous membranes Resp: good air exchange, breathing comfortably with no accessory muscle use CVS: good distal perfusion x 4, GI: soft, NTTP, ND : no SPT, no CVAT, zamora catheter not present MSK: no pitting edema, no clubbing Neuro: non-focal, moving all extremities Psych: cooperative, euthymic mood Patient Condition at Discharge: Good Plan - Discharge Summary New Discharge Prescriptions: New Ascorbic Acid [Vitamin C] 1,000 mg PO DAILY #28 tab Cholecalciferol [Vitamin D3 (125 Mcg = 5000 Iu)] 125 mcg PO DAILY #14 tab Zinc Sulfate [Orazinc] 220 mg PO DAILY #14 cap Acetaminophen Tab [Tylenol] 650 mg PO Q6HR PRN tab PRN Reason: Mild Pain Or Fever > 100.5 Continue Levothyroxine Sodium [Synthroid] 137 mcg PO DAILY@0800 Ezetimibe [Zetia] 10 mg PO HS hydrALAZINE HCL 25 mg PO BID Rivaroxaban [Xarelto] 15 mg PO HS dilTIAZem HCL [Cardizem LA] 240 mg PO DAILY carvediloL [Coreg] 3.125 mg PO BID Multivitamins, Thera [Multivitamin (formulary)] 1 tab PO DAILY Aspirin EC [Ecotrin Low Dose] 81 mg PO DAILY Discontinued hydroCHLOROthiazide [Hydrodiuril] 25 mg PO DAILY Discharge Medication List Ezetimibe [Zetia] 10 mg PO HS 01/20/15 [History] Levothyroxine Sodium [Synthroid] 137 mcg PO DAILY@0800 01/20/15 [History] Rivaroxaban [Xarelto] 15 mg PO HS 06/29/18 [History] hydrALAZINE HCL 25 mg PO BID 06/29/18 [History] dilTIAZem HCL [Cardizem LA] 240 mg PO DAILY 09/21/20 [History] Aspirin EC [Ecotrin Low Dose] 81 mg PO DAILY 05/27/22 [History] Multivitamins, Thera [Multivitamin (formulary)] 1 tab PO DAILY 05/27/22 [History] carvediloL [Coreg] 3.125 mg PO BID 05/27/22 [History] Acetaminophen Tab [Tylenol] 650 mg PO Q6HR PRN tab 05/29/22 [Rx] Ascorbic Acid [Vitamin C] 1,000 mg PO DAILY #28 tab 05/29/22 [Rx] Cholecalciferol [Vitamin D3 (125 Mcg = 5000 Iu)] 125 mcg PO DAILY #14 tab 05/29/22 [Rx] Zinc Sulfate [Orazinc] 220 mg PO DAILY #14 cap 05/29/22 [Rx] Follow up Appointment(s)/Referral(s): Virginia Pimentel MD [Primary Care Provider] - 06/15/22 2:00 pm [facility], [NON-STAFF] - 1-2 Days Patient Instructions/Handouts: COVID-19 (Coronavirus Disease 2019) (DC) Discharge Disposition: HOME WITH HOME HEALTH SERVICES
== END 2022-05-29 14:48 | disposition home health service (06) | DRG 640 ==
LOC: EC 16:44 → 4SSUR 21:33
PROVIDERS: ADMIT Internal Medicine; ATTEND Internal Medicine
DX: E87.1 Hypo-osmolality and hyponatremia (principal); U07.1 COVID-19; E03.9 Hypothyroidism, unspecified; E78.5 Hyperlipidemia, unspecified; E87.8 Other disorders of electrolyte and fluid balance, not elsewhere classified; I10 Essential (primary) hypertension; I49.3 Ventricular premature depolarization; Z28.310 Unvaccinated for COVID-19; I44.0 Atrioventricular block, first degree; I48.0 Paroxysmal atrial fibrillation; Z79.01 Long term (current) use of anticoagulants; Z79.02 Long term (current) use of antithrombotics/antiplatelets; Z79.82 Long term (current) use of aspirin; Z79.890 Hormone replacement therapy; Z79.899 Other long term (current) drug therapy; Z86.73 Personal history of transient ischemic attack (TIA), and cerebral infarction without residual deficits; Z85.828 Personal history of other malignant neoplasm of skin; Z87.891 Personal history of nicotine dependence; Z95.2 Presence of prosthetic heart valve; Z96.612 Presence of left artificial shoulder joint; Z96.611 Presence of right artificial shoulder joint; Z96.643 Presence of artificial hip joint, bilateral; Z90.49 Acquired absence of other specified parts of digestive tract
CPT/HCPCS: 36415; 71045; 80048; 80053; 81003; 82728; 83540; 83550; 83605; 83735; 83880; 84100; 84484; 85025; 85027; 85610; 87040; 87636; 93005; 94640; 94760; 96360; 96361; 99285

== ENCOUNTER 2022-05-31 16:26 | Emergency (ER) | payer MEDICARE ==
[2022-05-31 16:41] VITALS: TEMP 97.8
[2022-05-31] MEDS ORDERED: SODIUM CHLORIDE 0.9% 1,000 ML IV STA (17:40)
--- NOTE | 2022-05-31 18:10 | XR ---
EXAMINATION TYPE: XR chest 2V DATE OF EXAM: 05/31/2022 COMPARISON: NONE HISTORY: Weakness TECHNIQUE: 2 views FINDINGS: There is bilateral shoulder prosthesis. Heart size is normal. No heart failure. No pleural effusion. Thoracic aorta is atheromatous. There is aortic valve surgery. IMPRESSION: No active cardiopulmonary disease. No change
[2022-05-31 18:51] LABS: HCT 37.3 % (39.0-53.0); HGB 11.6 gm/dL (13.0-17.5); Hypochromasia Marked; MCH 23.9 pg (25.0-35.0); MCV 76.9 fL (80.0-100.0); Mean Platelet Volume 7.7; Microcytosis Slight; Platelet Count 294 k/uL (150-450); RBC 4.84 m/uL (4.30-5.90); WBC 4.9 k/uL (3.8-10.6)
[2022-05-31 19:25] LABS: Partial Thromboplastin Time 27.9 sec (22.0-30.0); Prothrombin Time 11.1 sec (9.0-12.0)
[2022-05-31 19:27] LABS: ALT 25 U/L (4-49); AST 48 U/L (17-59); African American GFR (CKD) >90 (>60 ml/min/1.73 sqM); Albumin 4.4 g/dL (3.5-5.0); Alkaline Phosphatase 73 U/L (38-126); Anion Gap 9 mmol/L; Blood Urea Nitrogen 11 mg/dL (9-20); Calcium 8.7 mg/dL (8.4-10.2); Carbon Dioxide 23 mmol/L (22-30); Chloride 100 mmol/L (98-107); Glucose 116 mg/dL (74-99); Non-African American GFR(CKD) 81 (>60 ml/min/1.73 sqM); Potassium 4.6 mmol/L (3.5-5.1); Sodium 132 mmol/L (137-145); Total Protein 6.9 g/dL (6.3-8.2)
[2022-05-31 19:48] LABS: Lymphocytes # (M) 1.96 k/uL (1.0-4.8); Monocytes # (M) 0.34 k/uL (0-1.0); Neutrophils % (M) 51 %; Nucleated Red Blood Cells 0 /100 WBC (0-0); Reactive Lymphocytes Present; Total Cells Counted 100
[2022-05-31 20:24] LABS: Appearance,Urine Clear (Clear); Bilirubin,Urine Negative (Negative); Blood,Urine Negative (Negative); Color,Urine Yellow; Glucose,Urine (UA) Negative (Negative); Hyaline Casts,Urine 1 /lpf (0-2); Ketones,Urine 1+ (Negative); Leukocyte Esterase,Urine Negative (Negative); Mucus,Urine Rare /hpf; Nitrite,Urine Negative (Negative); PH, Urine 6.5 (5.0-8.0); Protein,Urine 2+ (Negative); RBC,Urine <1 /hpf (0-5); Specific Gravity,Urine 1.008 (1.001-1.035); Urobilinogen,Urine <2.0 mg/dL (<2.0); WBC,Urine 1 /hpf (0-5)
--- NOTE | 2022-05-31 20:45 | ED ---
General Adult HPI - General Chief complaint: Weakness Stated complaint: dizziness Time Seen by Provider: 05/31/22 16:38 Source: patient, EMS, RN notes reviewed, old records reviewed Mode of arrival: EMS - History of Present Illness Initial comments: Patient is an 86-year-old male with past medical history remarkable for atrial fibrillation, recent COVID-19 infection, recent hospitalization for hyponatremia, who presents emergency department after being discharged home for 1-2 days with mild increased weakness as well as lightheadedness earlier today. States he has not been eating or drinking much. Wants to be reevaluated. Denies any chest pain, shortness of breath, abdominal pain, nausea, vomiting. Denies any diarrhea. Denies any fevers, chills, cough. Has no other acute complaints at this time. He presents for further evaluation at this time. Endorses just realized weakness with no joint pain. No known palliative or provocative factors. - Related Data Home Medications Medication Instructions Recorded Confirmed Ezetimibe [Zetia] 10 mg PO HS 01/20/15 05/31/22 Levothyroxine Sodium [Synthroid] 137 mcg PO DAILY@0800 01/20/15 05/31/22 Rivaroxaban [Xarelto] 15 mg PO HS 06/29/18 05/31/22 hydrALAZINE HCL 25 mg PO BID 06/29/18 05/31/22 dilTIAZem HCL [Cardizem LA] 240 mg PO DAILY 09/21/20 05/31/22 Aspirin EC [Ecotrin Low Dose] 81 mg PO DAILY 05/27/22 05/31/22 Multivitamins, Thera [Multivitamin 1 tab PO DAILY 05/27/22 05/31/22 (formulary)] carvediloL [Coreg] 3.125 mg PO BID 05/27/22 05/31/22 Previous Rx's Medication Instructions Recorded Acetaminophen Tab [Tylenol] 650 mg PO Q6HR PRN tab 05/29/22 Ascorbic Acid [Vitamin C] 1,000 mg PO DAILY #28 tab 05/29/22 Cholecalciferol [Vitamin D3 (125 125 mcg PO DAILY #14 tab 05/29/22 Mcg = 5000 Iu)] Zinc Sulfate [Orazinc] 220 mg PO DAILY #14 cap 05/29/22 Allergies Allergy/AdvReac Type Severity Reaction Status Date / Time No Known Allergies Allergy Verified 05/31/22 18:46 Review of Systems ROS Statement: Those systems with pertinent positive or pertinent negative responses have been documented in the HPI. Review of Systems: CONST: Denies fever EYES: Denies blurry vision ENT: Denies nasal congestion C/V: Denies Chest pain RESP: Denies shortness of breath GI: Denies abdominal pain : Denies dysuria SKIN: Denies rash. MSK: Denies joint pain. NEURO: Denies headache ROS Other: All systems not noted in ROS Statement are negative. Past Medical History Past Medical History: Atrial Fibrillation, Cancer, CVA/TIA, Hyperlipidemia, Hypertension, Pneumonia, Thyroid Disorder Additional Past Medical History / Comment(s): Skin cancer with removal; atrial fibrillation is paroxysmal, currently on Xarelto for anticoagulation History of Any Multi-Drug Resistant Organisms: None Reported Past Surgical History: Appendectomy, Cholecystectomy, Heart Catheterization, Joint Replacement, Orthopedic Surgery Additional Past Surgical History / Comment(s): bilateral shoulder and hips replaced; aortic valve replacement 2019, left foot drop Past Anesthesia/Blood Transfusion Reactions: No Reported Reaction Past Psychological History: No Psychological Hx Reported Smoking Status: Former smoker Past Alcohol Use History: None Reported Past Drug Use History: None Reported - Past Family History Mother Family Medical History: CVA/TIA General Exam - General Exam Comments Initial Comments: General: Appears in no acute distress. HEAD: Normal with no signs of head trauma. EYES: PERRLA, EOMI, conjunctiva normal, no discharge. ENT: Hearing grossly intact, normal oropharynx. RESPIRATORY: Clear breath sounds bilaterally. No wheezes, rales, or rhonchi. C/V: Irregular rate and rhythm. S1 and S2 auscultated, no edema, peripheral pulses 2+ and intact throughout ABD: Abd is soft, nontender, nondistended EXT: Normal range of motion, no obvious deformity SKIN: No rashes or lesions observed on exposed skin. NEURO: Alert and oriented 4. No focal deficits. Course Vital Signs 05/31/22 05/31/22 05/31/22 16:28 18:21 21:00 Temperature 97.8 F Pulse Rate 82 92 89 Respiratory 20 20 18 Rate Blood Pressure 165/107 172/90 169/94 O2 Sat by Pulse 97 98 98 Oximetry Medical Decision Making - Medical Decision Making Based on patient's presentation and physical exam, we will obtain a workup to look for dehydration as a cause of his weakness. Likely related to his recently diagnosed COVID-19 infection. He has no other acute complaints at this time. He was in agreement this plan. Vital signs within except for limits. He will be given IV fluids. EKG showed no signs of acute ischemia. Chest x-ray as interpreted by myself reveals no acute cardio primary process. No pneumothorax, infiltrate, acute bony traumatic injury. Patient's laboratory studies are remarkable for a chronic anemia which is within normal limits. A slight hyponatremia of 132. Troponin is indeterminate which is chronic for the patient. Lactic acid is within normal limits. Urinalysis is unremarkable. It does show 1+ ketones. On reevaluation, patient is feeling improved. I did discuss his workup with him. I did offer him admission for placement, as the patient does live at home alone but he refuses at this time and would like to go home. He states he still feels like he can take care of himself. I believe this is reasonable. Tricked return precautions were discussed. He was in agreement this plan. - Lab Data Result diagrams: 05/31/22 18:08 05/31/22 18:08 Lab Results 05/31/22 05/31/22 05/31/22 Range/Units 18:08 18:08 18:08 WBC 4.9 (3.8-10.6) k/uL RBC 4.84 (4.30-5.90) m/uL Hgb 11.6 L (13.0-17.5) gm/dL Hct 37.3 L (39.0-53.0) % MCV 76.9 L (80.0-100.0) fL MCH 23.9 L (25.0-35.0) pg MCHC 31.0 (31.0-37.0) g/dL RDW 15.0 (11.5-15.5) % Plt Count 294 (150-450) k/uL MPV 7.7 Neutrophils % (Manual) 51 % Lymphocytes % (Manual) 40 % Monocytes % (Manual) 7 % Eosinophils % (Manual) 2 % Neutrophils # (Manual) 2.50 (1.3-7.7) k/uL Lymphocytes # (Manual) 1.96 (1.0-4.8) k/uL Monocytes # (Manual) 0.34 (0-1.0) k/uL Eosinophils # (Manual) 0.10 (0-0.7) k/uL Nucleated RBCs 0 (0-0) /100 WBC Manual Slide Review Performed Reactive Lymphocytes Present Hypochromasia Marked Microcytosis Slight PT 11.1 (9.0-12.0) sec INR 1.0 (<1.2) APTT 27.9 (22.0-30.0) sec Sodium 132 L (137-145) mmol/L Potassium 4.6 (3.5-5.1) mmol/L Chloride 100 (98-107) mmol/L Carbon Dioxide 23 (22-30) mmol/L Anion Gap 9 mmol/L BUN 11 (9-20) mg/dL Creatinine 0.80 (0.66-1.25) mg/dL Est GFR (CKD-EPI)AfAm >90 (>60 ml/min/1.73 sqM) Est GFR (CKD-EPI)NonAf 81 (>60 ml/min/1.73 sqM) Glucose 116 H (74-99) mg/dL Plasma Lactic Acid Sudhakar (0.7-2.0) mmol/L Calcium 8.7 (8.4-10.2) mg/dL Total Bilirubin 1.0 (0.2-1.3) mg/dL AST 48 (17-59) U/L ALT 25 (4-49) U/L Alkaline Phosphatase 73 (38-126) U/L Troponin I (0.000-0.034) ng/mL Total Protein 6.9 (6.3-8.2) g/dL Albumin 4.4 (3.5-5.0) g/dL Urine Color Urine Appearance (Clear) Urine pH (5.0-8.0) Ur Specific [place] (1.001-1.035) Urine Protein (Negative) Urine Glucose (UA) (Negative) Urine Ketones (Negative) Urine Blood (Negative) Urine Nitrite (Negative) Urine Bilirubin (Negative) Urine Urobilinogen (<2.0) mg/dL Ur Leukocyte Esterase (Negative) Urine RBC (0-5) /hpf Urine WBC (0-5) /hpf Hyaline Casts (0-2) /lpf Urine Mucus (None) /hpf 05/31/22 05/31/22 05/31/22 Range/Units 18:08 18:08 19:00 WBC (3.8-10.6) k/uL RBC (4.30-5.90) m/uL Hgb (13.0-17.5) gm/dL Hct (39.0-53.0) % MCV (80.0-100.0) fL MCH (25.0-35.0) pg MCHC (31.0-37.0) g/dL RDW (11.5-15.5) % Plt Count (150-450) k/uL MPV Neutrophils % (Manual) % Lymphocytes % (Manual) % Monocytes % (Manual) % Eosinophils % (Manual) % Neutrophils # (Manual) (1.3-7.7) k/uL Lymphocytes # (Manual) (1.0-4.8) k/uL Monocytes # (Manual) (0-1.0) k/uL Eosinophils # (Manual) (0-0.7) k/uL Nucleated RBCs (0-0) /100 WBC Manual Slide Review Reactive Lymphocytes Hypochromasia Microcytosis PT (9.0-12.0) sec INR (<1.2) APTT (22.0-30.0) sec Sodium (137-145) mmol/L Potassium (3.5-5.1) mmol/L Chloride (98-107) mmol/L Carbon Dioxide (22-30) mmol/L Anion Gap mmol/L BUN (9-20) mg/dL Creatinine (0.66-1.25) mg/dL Est GFR (CKD-EPI)AfAm (>60 ml/min/1.73 sqM) Est GFR (CKD-EPI)NonAf (>60 ml/min/1.73 sqM) Glucose (74-99) mg/dL Plasma Lactic Acid Sudhakar 1.1 (0.7-2.0) mmol/L Calcium (8.4-10.2) mg/dL Total Bilirubin (0.2-1.3) mg/dL AST (17-59) U/L ALT (4-49) U/L Alkaline Phosphatase (38-126) U/L Troponin I 0.014 (0.000-0.034) ng/mL Total Protein (6.3-8.2) g/dL Albumin (3.5-5.0) g/dL Urine Color Yellow Urine Appearance Clear (Clear) Urine pH 6.5 (5.0-8.0) Ur Specific [place] 1.008 (1.001-1.035) Urine Protein 2+ H (Negative) Urine Glucose (UA) Negative (Negative) Urine Ketones 1+ H (Negative) Urine Blood Negative (Negative) Urine Nitrite Negative (Negative) Urine Bilirubin Negative (Negative) Urine Urobilinogen <2.0 (<2.0) mg/dL Ur Leukocyte Esterase Negative (Negative) Urine RBC <1 (0-5) /hpf Urine WBC 1 (0-5) /hpf Hyaline Casts 1 (0-2) /lpf Urine Mucus Rare H (None) /hpf - EKG Data -: EKG Interpreted by Me EKG Comments: 12-lead Electrocardiogram Interpretation Note EKG was reviewed and interpreted by myself. 12-lead ECG performed at 1844 is interpreted by me as revealing atrial fibrillation at a rate of 83 beats per minute. Mcintosh is normal. QRS duration is 110 ms. QTC is 425 ms.. There were no ST or T wave abnormalities to suggest myocardial ischemia or injury. R wave progression across the precordium was satisfactory. By my interpretation this EKG is non-diagnostic for acute ischemia. When compared with prior EKG from May 2022, no significant change. Disposition Clinical Impression: Weakness, COVID-19 virus infection Disposition: HOME SELF-CARE Condition: Good Instructions (If sedation given, give patient instructions): Weakness (ED), C OVID-19 (Coronavirus Disease 2019) (ED) Is patient prescribed a controlled substance at d/c from ED?: No Referrals: Virginia Pimentel MD [Primary Care Provider] - 1-2 days Time of Disposition: 20:40
[2022-05-31 21:03] VITALS: BP 169/94; PULSE 89; RESP 18
== END 2022-05-31 21:20 | disposition home or self-care (01) ==
LOC: EC 16:26
DX: U07.1 COVID-19 (principal); I48.91 Unspecified atrial fibrillation; I10 Essential (primary) hypertension; E78.5 Hyperlipidemia, unspecified; Z79.82 Long term (current) use of aspirin; Z79.01 Long term (current) use of anticoagulants; Z87.891 Personal history of nicotine dependence; Z86.73 Personal history of transient ischemic attack (TIA), and cerebral infarction without residual deficits
CPT/HCPCS: 36415; 71046; 80053; 81001; 83605; 84484; 85025; 85610; 85730; 93005; 96360; 96361; 99285

== ENCOUNTER → 2022-09-22 | Outpatient (CLI) | payer MEDICARE ==
--- NOTE | 2022-09-22 15:30 | CT ---
EXAMINATION TYPE: CT angio chest DATE OF EXAM: 09/22/2022 2:47 PM COMPARISON: 02/07/2022 HISTORY: thoracic aneurysm. This is a follow-up/comparison study. CT DLP: 651.8 mGycm Automated exposure control for dose reduction was used. CONTRAST: CTA scan of the thorax is performed with IV Contrast, patient injected with 100 mL of Isovue 370, pul monary embolism protocol. 3-D postprocessing was performed.. FINDINGS: The patient is status post TAVR. There is a fusiform aneurysm involving the thoracic aorta including the ascending aorta, aortic arch and descending thoracic aorta. Maximum diameter thoracic aorta is 5.2 cm. The maximum diameter of the aortic arch is 4.15 cm and the distal descending thoracic aorta is 3.75 cm. Compared to the prior st udy, there has been no significant interval change. The lungs are clear of consolidative or interstitial density. There is no suspicious lung mass or nod ule. There is no mediastinal, hilar or axillary adenopathy. There is no pleural thickening or pneumothorax. The osseous structures are intact. 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 There is been no sig nificant interval change compared to the prior study.
== END | disposition home or self-care (01) ==
LOC: RADCTMAIN 13:31
PROVIDERS: ATTEND Internal Medicine
DX: I71.20 Thoracic aortic aneurysm, without rupture, unspecified (principal)
CPT/HCPCS: 82565; 84520; 71275; 36415; Q9967

== ENCOUNTER 2022-11-28 07:04 | Day surgery (SDC) | payer MEDICARE ==
[~2022-11-28 07:04] MED LIST changes: +ALPRAZolam 0.25 MG TAB PO PRN; +ALPRAZolam 0.5 MG TAB PO PRN; +ASPIRIN 325 MG TAB PO ONE; -LIDOCAINE/EPINEPHR/TETRACAINE 5 ML BOTTLE TOPICAL ONE; +NITROGLYCERIN SL TABS 0.4 MG TAB SUBLINGUAL PRN
[2022-11-28] MEDS ORDERED: ASPIRIN 81 MG ONE (07:31)
[2022-11-28] MEDS ORDERED: SODIUM CHLORIDE 0.9% 1,000 ML IV ONE ×2 (07:35)
[2022-11-28] MEDS ORDERED: DILTIAZEM CD 240 MG CAP.ER.24H PO STA (07:53)
[2022-11-28] MEDS ORDERED: hydrALAZINE HCL 25 MG TAB PO STA (07:55)
[2022-11-28] MEDS ORDERED: carvediloL 3.125 MG TAB PO STA (07:55)
[2022-11-28 08:09] LABS: Anisocytosis Slight; Basophils # (A) 0.1 k/uL (0-0.2); Basophils % (A) 1 %; Eosinophils # (A) 0.2 k/uL (0-0.7); Eosinophils % (A) 2 %; HCT 32.4 % (39.0-53.0); HGB 9.1 gm/dL (13.0-17.5); Hypochromasia Marked; Lymphocytes # (A) 2.3 k/uL (1.0-4.8); Lymphocytes % (A) 25 %; MCH 19.3 pg (25.0-35.0); MCHC 28.1 g/dL (31.0-37.0); MCV 68.5 fL (80.0-100.0); Microcytosis Marked; Monocytes # (A) 0.7 k/uL (0-1.0); Monocytes % (A) 8 %; Neutrophils # (A) 5.4 k/uL (1.3-7.7); Neutrophils % (A) 60 %; Platelet Count 346 k/uL (150-450); RBC 4.73 m/uL (4.30-5.90); RDW 16.1 % (11.5-15.5)
[2022-11-28 08:26] LABS: Calcium 9.2 mg/dL (8.4-10.2); Potassium 4.1 mmol/L (3.5-5.1)
[2022-11-28] MEDS ORDERED: VERAPAMIL 2.5 MG/ML 2 ML AMP ONE (08:47)
[2022-11-28] MEDS ORDERED: fentaNYL (PF) 50 MCG/ML 2 ML AMP ONE (09:54)
[2022-11-28] MEDS ORDERED: HEPARIN SODIUM 1,000 UN/ML (10ML VL) ONE (10:01)
[2022-11-28] MEDS: BENZOCAINE SPRAY 1 CAN MUCOUS MEM ONE ×2 (10:04→10:13)
[2022-11-28] MEDS ORDERED: fentaNYL (PF) 50 MCG/ML 2 ML AMP IV ONE (10:13)
[2022-11-28] MEDS ORDERED: MIDAZOLAM 2 MG/2 ML VIAL IV ONE (10:13)
--- NOTE | 2022-11-28 10:24 | P.PCN ---
Date of Procedure: 11/28/22 Operative Findings: TRANSESOPHAGEAL ECHOCARDIOGRAM AVIONICS INSTALLER: CHEN WHYTE MD, RPVI INDICATION: Valvular heart disease SEDATION: Conscious sedation COMPLICATION: None LEVEL OF SEDATION Moderate to sedation length of 10 minutes PROCEDURE DESCRIPTION: After obtaining an informed consent, the patient was brought to transesophageal echocardiogram room. Pulse oximetry and heart monitors were attached to the patient. The patient throat was sprayed using lidocaine. The patient was turned into left lateral position. After that a bite guard was placed. After an appropriate conscious sedation was initiated, the transesophageal echocardiogram was advanced through a bite guard into the mid esophagus. A 2-D echocardiogram images, color Doppler images, continuous wave images, pulse-wave images, of various cardiac structure were performed. After that the transesophageal echocardiogram probe was advanced into the stomach and fixed to obtain transgastric view was. The probe was brought into the mid esophagus. Inter-atrial septum was interrogated using 2D images, color Doppler images, and then contrast study. After that transesophageal echocardiogram was withdrawn out and upon withdrawing the descending thoracic aorta all the way up to the ar ch was evaluated. FINDING: The LV systolic function is impaired with EF around 40%. There is global hypokinesia. The aortic valve appeared to be transcatheter valve with moderate perivalvular leak. The mitral valve appeared to be slightly thickened was moderate MR. There is also moderate tricuspid regurgitation seen. The left atrial appendage appeared to be free from any thrombus. The interatrial septum appeared to be intact. CONCLUSION: 1. Impaired LV function was EF around 40% with global hypokinesia 2. Transcatheter aortic valve was moderate perivalvular leak 3. Moderate mitral regurgitation. The mitral valve is mildly thickened 4. Moderate tricuspid regurgitation 5. Intact interatrial septum 6. No evidence of pericardial effusion
[2022-11-28] MEDS ORDERED: LIDOCAINE 1% INJ 10MG/ML (5 ML VIAL-PF) SQ ONE (10:28)
[2022-11-28] MEDS ORDERED: VERAPAMIL SYRINGE (5 MG/10 ML) INTRAARTER ONE (10:29)
[2022-11-28] MEDS: HEPARIN SODIUM 1,000 UN/ML (10ML VL) IV ONE ×3 (10:44→11:19)
[2022-11-28] MEDS ORDERED: IOPAMIDOL-370 100ML BTL INJ ONE ×2 (10:51→11:16)
[2022-11-28] MEDS ORDERED: CLOPIDOGREL 75 MG TAB ONE (10:56)
[2022-11-28] MEDS ORDERED: CLOPIDOGREL 75 MG TAB PO ONE (10:58)
[2022-11-28] MEDS ORDERED: NITROGLYCERIN 1000MCG/10ML SYRINGE INTRACORON ONE (11:07)
[2022-11-28] MEDS ORDERED: ACETAMINOPHEN TAB 325 MG TAB PO PRN (11:17)
[2022-11-28] MEDS ORDERED: ATROPINE SULFATE 0.1 MG/ML 10ML SYRINGE IV PRN (11:18)
[2022-11-28] MEDS ORDERED: NITROGLYCERIN SL TABS 0.4 MG TAB SUBLINGUAL PRN (11:18)
[2022-11-28] MEDS ORDERED: RX INFO: IV CONTRAST WAS GIVEN 1 EACH MISC MISCELLANE PRN (11:18)
[2022-11-28] MEDS ORDERED: ZOLPIDEM 5 MG TAB PO PRN (11:18)
[2022-11-28] MEDS ORDERED: MAG HYDROX/AL HYDROX/SIMETH 30 ML CUP PO PRN (11:18)
--- NOTE | 2022-11-28 11:24 | P.PCN ---
Date of Procedure: 11/28/22 Operative Findings: CARDIAC CATHETERIZATION AND PERCUTANEOUS CORONARY INTERVENTION PERFORMING PHYSICIAN: Waqas dOom MD, [facility] PROCEDURE PERFORMED: 1. Selective right and left coronary angiogram 2. Successful stenting of OM1 using 3.5 x 15 mm Xience WAYLON with an excellent angiographic results with adjunctive use of intravascular ultrasound INDICATION: Shortness of breath concerning for unstable angina COMPLICATION: None APPROACH: Right radial artery LEVEL OF SEDATION: Moderate with the sedation time off 47 minutes PROCEDURE DESCRIPTION: After obtaining an informed consent the patient was brought to the cardiac airport maintenance laborer. The right radial artery was cannulated using micropuncture technique, the micropuncture wire passed easily then I placed a 6-Yi sheath. I gave the patient 2 mg of verapamil intra-arterial and a total of 5000 units of heparin IV. Selective right and left coronary angiogram performed using JR4 and JL 4.5 catheters. After that I did intervene on the OM1 of the left circumflex. The procedure was completed was no complication SELECTIVE CORONARY ANGIOGRAM: The right coronary artery: Large caliber vessel and nondominant vessel. The RCA appeared to be angiographically normal Left main: Is angiographically normal but short left main bifurcates into an LCx and LAD The left circumflex: Large-caliber vessel and a dominant vessel. The LCx proximally gives rises into an OM1 which has severe lesion appeared to be in the range of 70% The left anterior descending artery: The LAD in the midportion has a tubular lesion appeared to be in the range of 50% PCI OF THE OM: Anticoagulation was initiated using heparin with continuous ACT monitoring. Subsequently I did engage the left main using JL4 0.5 guiding catheter. I did w lauren OM1 using a run-through wire. Intravascular ultrasound was performed and showed diameter of OM1 around 3.5 L. I predilated using 3 mm balloon before I deployed 3.5 x 15 mm stent where the stent was positioned under fluoroscopy guidance and deployed under 12 natalie for 20 seconds. 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 I did perform successful stenting of OM1 Intermediate disease involving the mid LAD was a tubular lesion appeared to be in the range of 50% POSTPROCEDURE MANAGEMENT: 1. Dual antiplatelet therapy using aspirin and Plavix for 12 month 2. Aggressive cholesterol control 3. Follow-up with the patient
[2022-11-28] MEDS ORDERED: SODIUM CHLORIDE 0.9% 1,000 ML in EMPTY BAG 1 BAG IV SCH (11:30)
[2022-11-28 13:52] VITALS: BMI 24.6
[2022-11-28] MEDS: SODIUM CHLORIDE 0.9% 1,000 ML in EMPTY BAG 1 BAG IV SCH ×2 (17:02→20:55)
[2022-11-28] MEDS: carvediloL 3.125 MG TAB PO SCH (18:03)
[2022-11-28] MEDS: hydrALAZINE HCL 25 MG TAB PO SCH (20:07)
[2022-11-28] MEDS ORDERED: EZETIMIBE 10 MG TAB PO SCH (21:00)
[2022-11-29 02:51] VITALS: RESP 16
[2022-11-29] MEDS: carvediloL 3.125 MG TAB PO SCH (05:33)
[2022-11-29] MEDS ORDERED: LEVOTHYROXINE 137 MCG TAB PO SCH (08:00)
[2022-11-29] MEDS: hydrALAZINE HCL 25 MG TAB PO SCH (08:10)
[2022-11-29] MEDS ORDERED: DILTIAZEM CD 240 MG CAP.ER.24H PO SCH (09:00)
[2022-11-29] MEDS ORDERED: ASPIRIN 81 MG PO SCH (09:00)
[2022-11-29] MEDS ORDERED: CLOPIDOGREL 75 MG TAB PO SCH (09:00)
[2022-11-29 09:16] VITALS: BP 133/70; PULSE 123; TEMP 97.4
--- NOTE | 2022-11-29 10:35 | P.DS ---
Providers Attending physician: Waqas Odom Consults: 11/28/22 11:18 Consult Physician Routine Consulting Provider: [facility] Consult Reason/Comments: Post Interventional Patient Do you want consulting provider notified?: Already Contacted Primary care physician: Virginia Pimentel [facility] Course: The patient is a pleasant 87-year-old gentleman who remains symptomatic in terms of shortness of breath with exertion. He is known to have valvular heart disease. He underwent transesophageal echocardiogram yesterday which did not show any significant valvular abnormalities and subsequently a heart catheterization and that showed severe disease involving the large first obtuse marginal branch which was stented. He was seen this morning. He is asymptomatic at this point and he is hemodynamically stable. He is going to be discharged on triple therapy temporally and subsequently will be on oral anticoagulation for atrial fibrillation along with Lasix only. He will be seen in the office in a week Plan - Discharge Summary Discharge Rx Participant: No New Discharge Prescriptions: New Clopidogrel [Plavix] 75 mg PO DAILY #90 tablet Continue Levothyroxine Sodium [Synthroid] 137 mcg PO DAILY@0800 Ezetimibe [Zetia] 10 mg PO HS hydrALAZINE HCL 25 mg PO BID Rivaroxaban [Xarelto] 15 mg PO HS dilTIAZem HCL [Cardizem LA] 240 mg PO DAILY carvediloL [Coreg] 3.125 mg PO BID Aspirin EC [Ecotrin Low Dose] 81 mg PO DAILY Acetaminophen Tab [Tylenol] 650 mg PO Q6HR PRN tab PRN Reason: Mild Pain Or Fever > 100.5 Discharge Medication List Ezetimibe [Zetia] 10 mg PO HS 01/20/15 [History] Levothyroxine Sodium [Synthroid] 137 mcg PO DAILY@0800 01/20/15 [History] Rivaroxaban [Xarelto] 15 mg PO HS 06/29/18 [History] hydrALAZINE HCL 25 mg PO BID 06/29/18 [History] dilTIAZem HCL [Cardizem LA] 240 mg PO DAILY 09/21/20 [History] Aspirin EC [Ecotrin Low Dose] 81 mg PO DAILY 05/27/22 [History] carvediloL [Coreg] 3.125 mg PO BID 05/27/22 [History] Acetaminophen Tab [Tylenol] 650 mg PO Q6HR PRN tab 05/29/22 [Rx] Clopidogrel [Plavix] 75 mg PO DAILY #90 tablet 11/29/22 [Rx] Follow up Appointment(s)/Referral(s): Waqas Odom MD [STAFF PHYSICIAN] - 12/06/22 3:00 pm Patient Instructions/Handouts: Moderate Sedation (ED), After Radial Heart Catheterization (GEN), Transesophageal Echocardiogram (DC) Activity/Diet/Wound Care/Special Instructions: *NO LIFTING, PUSHING, OR PULLING ANYTHING OVER 5 POUNDS FOR 5 DAYS *NO DRIVING FOR 3 DAYS *YOU CAN REMOVE YOUR DRESSING AND SHOWER TOMORROW BUT DO NOT SUBMERSE YOUR PUNCTURE SITE IN WATER FOR AT LEAST A FEW DAYS TO PREVENT INFECTION - SO NO TUB BATHS, POOLS, HOT TUBS, DISHES....ETC *ANY SIGNS OF BLEEDING (HARDNESS, SWELLING, OR EXCESSIVE BRUISING) HOLD DIRECT PRESSURE ON YOUR PUNCTURE SITE AND COME TO THE NEAREST EMERGENCY ROOM TO GET YOUR PUNCTURE SITE LOOKED AT - DO NOT DRIVE YOURSELF! EITHER CALL EMS OR HAVE SOMEONE DRIVE YOU!
== END 2022-11-29 13:42 | disposition home or self-care (01) ==
LOC: CATHCVL 07:04 → 6NMEDSUR 11:14 → CATHCVL 11-29 13:42
PROVIDERS: ATTEND Internal Medicine Interventional Cardiology
DX: I08.1 Rheumatic disorders of both mitral and tricuspid valves (principal); Z79.02 Long term (current) use of antithrombotics/antiplatelets
CPT/HCPCS: 94760; 93312; 93320; 93325; 93454; 80048; 82565; 85025; C1769 ×3; C9600; C1887 ×2; C1894; C1725 ×2; C1753; C1874; J2250; J2001; J3010; J1644; Q9967

== ENCOUNTER 2023-02-07 11:31 | Inpatient (IN) | payer MEDICARE ==
[2023-02-07] MEDS ORDERED: DILTIAZEM 125 MG in SODIUM CHLORIDE 0.9% 100 ML IV SCH (12:00)
--- NOTE | 2023-02-07 12:07 | ED ---
General Adult HPI - General Chief complaint: Weakness Stated complaint: Weakness Time Seen by Provider: 02/07/23 11:35 Source: patient, EMS, RN notes reviewed Mode of arrival: EMS Limitations: no limitations - History of Present Illness Initial comments: Patient is a pleasant 87-year-old male presenting to the emergency Department with concerns for confusion. Patient states he felt confused last night in the middle the night. Patient does not remember falling however knows that he was on the floor. Patient had difficulty getting off the floor this morning. Patient had to call for ambulance. Patient states he does not feel confused at this time. Patient may be slightly short of breath. Patient admits to history of atrial fibrillation. Patient is overall a poor historian. - Related Data Home Medications Medication Instructions Recorded Confirmed Ezetimibe [Zetia] 10 mg PO HS 01/20/15 02/07/23 Levothyroxine Sodium [Synthroid] 137 mcg PO DAILY 01/20/15 02/07/23 Rivaroxaban [Xarelto] 15 mg PO HS 06/29/18 02/07/23 hydrALAZINE HCL 25 mg PO BID 06/29/18 02/07/23 Aspirin EC [Ecotrin Low Dose] 81 mg PO DAILY 05/27/22 02/07/23 carvediloL [Coreg] 3.125 mg PO BID 05/27/22 02/07/23 dilTIAZem HCL [Cardizem LA] 300 mg PO DAILY 02/07/23 02/07/23 Previous Rx's Medication Instructions Recorded Clopidogrel [Plavix] 75 mg PO DAILY #90 tablet 11/29/22 Allergies Allergy/AdvReac Type Severity Reaction Status Date / Time No Known Allergies Allergy Verified 02/07/23 13:03 Review of Systems ROS Statement: Those systems with pertinent positive or pertinent negative responses have been documented in the HPI. ROS Other: All systems not noted in ROS Statement are negative. Constitutional: Denies: fever Eyes: Denies: eye pain ENT: Denies: ear pain Respiratory: Reports: as per HPI Cardiovascular: Denies: chest pain Endocrine: Denies: fatigue Gastrointestinal: Denies: abdominal pain, vomiting Genitourinary: Denies: dysuria Musculoskeletal: Denies: back pain Skin: Denies: rash Neurological: Reports: as per HPI, weakness Past Medical History Past Medical History: Atrial Fibrillation, Cancer, CVA/TIA, Hyperlipidemia, Hypertension, Pneumonia, Thyroid Disorder Additional Past Medical History / Comment(s): Skin cancer with removal; atrial fibrillation is paroxysmal, currently on Xarelto for anticoagulation History of Any Multi-Drug Resistant Organisms: None Reported Past Surgical History: Appendectomy, Cholecystectomy, Heart Catheterization, Joint Replacement, Orthopedic Surgery Additional Past Surgical History / Comment(s): bilateral shoulder and hips replaced; aortic valve replacement 2019, left foot drop Past Anesthesia/Blood Transfusion Reactions: No Reported Reaction Past Psychological History: No Psychological Hx Reported Smoking Status: Former smoker - Past Family History Mother Family Medical History: CVA/TIA General Exam Limitations: no limitations General appearance: alert, in no apparent distress Head exam: Present: atraumatic Eye exam: Present: normal appearance Neck exam: Present: normal inspection Respiratory exam: Present: normal lung sounds bilaterally Cardiovascular Exam: Present: tachycardia, irregular rhythm GI/Abdominal exam: Present: soft. Absent: tenderness Extremities exam: Present: normal inspection. Absent: pedal edema, calf tenderness Neurological exam: Present: alert, oriented X3, CN II-XII intact Expanded Neurological exam: Present: protecting the airway Speech: Present: fluid speech Cranial nerves: EOM's Intact: Normal Motor strength exam: RUE: 5, LUE: 5, RLE: 3, LLE: 3 Eye Response: (4) open spontaneously Motor Response: (6) obeys commands Verbal Response: (5) oriented Psychiatric exam: Present: normal affect, normal mood Skin exam: Present: normal color Course Vital Signs 02/07/23 11:36 Temperature 97.6 F Pulse Rate 76 Respiratory 16 Rate O2 Sat by Pulse 95 Oximetry EKG Findings - EKG Results: EKG: interpreted by ERMD (Septal Q waves. Lateral T wave inversion.), normal axis EKG shows: tachycardia, atrial fibrillation Medical Decision Making - Medical Decision Making Was pt. sent in by a medical professional or institution (, PA, ASSISTANT PASTRY CHEF, urgent care, hospital, or detention...) When possible be specific @ -No Did you speak to anyone other than the patient for history (EMS, parent, family, police, friend...)? What history was obtained from this source @ -EMS also provided history this patient is a poor historian Did you review nursing and triage notes (agree or disagree)? Why? @ -I reviewed and agree with nursing and triage notes Were old charts reviewed (outside hosp., previous admission, EMS record, old EKG, old radiological studies, urgent care reports/EKG's, detention records)? Report findings @ -No old charts were reviewed Differential Diagnosis (chest pain, altered mental status, abdominal pain women, abdominal pain men, vaginal bleeding, weakness, fever, dyspnea, syncope, headache, dizziness, GI bleed, back pain, seizure, CVA, palpatations, mental health, musculoskeletal)? @ -Differential Altered Mental Status: Hypoglycemia, DKA, hypercapnia, ETOH, overdose, CO poisoning, trauma, myxedema coma, HTN encephalopathy, infection, encephalitis, psychosis, intercranial hemorrhage, hepatic encephalopathy, meningitis, CVA, this is not meant to be an all-inclusive list EKG interpreted by me (3pts min.). @ -As above X-rays interpreted by me (1pt min.). @ -Chest x-ray does show some chronic changes with small effusions CT interpreted by me (1pt min.). @ -CT brain shows no large mass or hemorrhage U/S interpreted by me (1pt. min.). @ -None done What testing was considered but not performed or refused? (CT, X-rays, U/S, labs)? Why? @ -None What meds were considered but not given or refused? Why? @ -None Did you discuss the management of the patient with other professionals (professionals i.e. , PA, ASSISTANT PASTRY CHEF, lab, RT, psych nurse, social media designer, channel machine operator, teacher, workers' compensation hearings officer, geriatric case manager)? Give summary @ -Case was discussed with . she will admit covering Dr. Rg Was smoking cessation discussed for >3mins.? @ -No Was critical care preformed (if so, how long)? @ -31 minutes critical care time Were there social determinants of health that impacted care today? How? (Homelessness, low income, unemployed, alcoholism, drug addiction, transportation, low edu. Level, literacy, decrease access to med. care, [facility], rehab)? @ -No Was there de-escalation of care discussed even if they declined (Discuss DNR or withdrawal of care, Hospice)? DNR status @ -No What co-morbidities impacted this encounter? (DM, HTN, Smoking, COPD, CAD, Cancer, CVA, ARF, Chemo, Hep., AIDS, mental health diagnosis, sleep apnea, morbid obesity)? @ -None Was patient admitted / discharged? Hospital course, mention meds given and route, prescriptions, significant lab abnormalities, going to OR and other pertinent info. @ -Patient reevaluated. Patient and family updated. Patient will be admitted for A. fib with RVR as well as neurology consult for transient confusion Undiagnosed new problem with uncertain prognosis? @ -No Drug Therapy requiring intensive monitoring for toxicity (Heparin, Nitro, Insulin, Cardizem)? @ -Patient will need monitoring for Cardizem drip Were any procedures done? @ -No Diagnosis/symptom? @ -A. fib with RVR, confusion Acute, or Chronic, or Acute on Chronic? @ -, Acute, acute Uncomplicated (without systemic symptoms) or Complicated (systemic symptoms)? @ -default Side effects of treatment? @ -No Exacerbation, Progression, or Severe Exacerbation? @ -No Poses a threat to life or bodily function? How? (Chest pain, [place], [place], pneumonia, PE, COPD, DKA, ARF, appy, cholecystitis, CVA, Diverticulitis, Homicidal, Suicidal, threat to staff... and all critical care pts) @ -No - Lab Data Result diagrams: 02/07/23 12:20 02/07/23 12:20 Lab Results 02/07/23 02/07/23 02/07/23 Range/Units 12:20 12:20 12:20 WBC 12.7 H (3.8-10.6) k/uL RBC 4.79 (4.30-5.90) m/uL Hgb 8.5 L (13.0-17.5) gm/dL Hct 32.9 L (39.0-53.0) % MCV 68.7 L (80.0-100.0) fL MCH 17.7 L (25.0-35.0) pg MCHC 25.7 L (31.0-37.0) g/dL RDW 18.2 H (11.5-15.5) % Plt Count 292 (150-450) k/uL MPV 8.1 Neutrophils % 77 % Lymphocytes % 13 % Monocytes % 7 % Eosinophils % 1 % Basophils % 0 % Neutrophils # 9.8 H (1.3-7.7) k/uL Lymphocytes # 1.7 (1.0-4.8) k/uL Monocytes # 0.9 (0-1.0) k/uL Eosinophils # 0.1 (0-0.7) k/uL Basophils # 0.0 (0-0.2) k/uL Hypochromasia Marked Poikilocytosis Slight Anisocytosis Slight Microcytosis Marked PT 16.7 H (9.0-12.0) sec INR 1.7 H (<1.2) APTT 27.9 (22.0-30.0) sec Sodium 139 (137-145) mmol/L Potassium 5.1 (3.5-5.1) mmol/L Chloride 109 H (98-107) mmol/L Carbon Dioxide 17 L (22-30) mmol/L Anion Gap 13 mmol/L BUN 45 H (9-20) mg/dL Creatinine 1.31 H (0.66-1.25) mg/dL Est GFR (CKD-EPI)AfAm 56 (>60 ml/min/1.73 sqM) Est GFR (CKD-EPI)NonAf 49 (>60 ml/min/1.73 sqM) Glucose 114 H (74-99) mg/dL Calcium 9.3 (8.4-10.2) mg/dL Magnesium 2.2 (1.6-2.3) mg/dL Total Bilirubin 1.8 H (0.2-1.3) mg/dL AST 106 H (17-59) U/L ALT 69 H (4-49) U/L Alkaline Phosphatase 71 (38-126) U/L Creatine Kinase 570 H (55-170) U/L Troponin I (0.000-0.034) ng/mL NT-Pro-B Natriuret Pep 7950 pg/mL Total Protein 6.9 (6.3-8.2) g/dL Albumin 4.4 (3.5-5.0) g/dL TSH 11.300 H (0.465-4.680) mIU/L Free T4 1.32 (0.78-2.19) ng/dL Free T3 pg/mL 2.0 L (2.8-5.3) pg/ml 02/07/23 Range/Units 12:20 WBC (3.8-10.6) k/uL RBC (4.30-5.90) m/uL Hgb (13.0-17.5) gm/dL Hct (39.0-53.0) % MCV (80.0-100.0) fL MCH (25.0-35.0) pg MCHC (31.0-37.0) g/dL RDW (11.5-15.5) % Plt Count (150-450) k/uL MPV Neutrophils % % Lymphocytes % % Monocytes % % Eosinophils % % Basophils % % Neutrophils # (1.3-7.7) k/uL Lymphocytes # (1.0-4.8) k/uL Monocytes # (0-1.0) k/uL Eosinophils # (0-0.7) k/uL Basophils # (0-0.2) k/uL Hypochromasia Poikilocytosis Anisocytosis Microcytosis PT (9.0-12.0) sec INR (<1.2) APTT (22.0-30.0) sec Sodium (137-145) mmol/L Potassium (3.5-5.1) mmol/L Chloride (98-107) mmol/L Carbon Dioxide (22-30) mmol/L Anion Gap mmol/L BUN (9-20) mg/dL Creatinine (0.66-1.25) mg/dL Est GFR (CKD-EPI)AfAm (>60 ml/min/1.73 sqM) Est GFR (CKD-EPI)NonAf (>60 ml/min/1.73 sqM) Glucose (74-99) mg/dL Calcium (8.4-10.2) mg/dL Magnesium (1.6-2.3) mg/dL Total Bilirubin (0.2-1.3) mg/dL AST (17-59) U/L ALT (4-49) U/L Alkaline Phosphatase (38-126) U/L Creatine Kinase (55-170) U/L Troponin I 0.026 (0.000-0.034) ng/mL NT-Pro-B Natriuret Pep pg/mL Total Protein (6.3-8.2) g/dL Albumin (3.5-5.0) g/dL TSH (0.465-4.680) mIU/L Free T4 (0.78-2.19) ng/dL Free T3 pg/mL (2.8-5.3) pg/ml Critical Care Time Critical Care Time: Yes Total Critical Care Time: 31 Disposition Clinical Impression: Atrial fibrillation with RVR, Confusion Disposition: ADMITTED IP TO THIS HOSP Condition: Serious Is patient prescribed a controlled substance at d/c from ED?: No Referrals: Virginia Pimentel MD [Primary Care Provider] - 1-2 days Time of Disposition: 14:13
[2023-02-07 12:37] LABS: Anisocytosis Slight; Basophils % (A) 0 %; Eosinophils # (A) 0.1 k/uL (0-0.7); Eosinophils % (A) 1 %; HCT 32.9 % (39.0-53.0); HGB 8.5 gm/dL (13.0-17.5); Hypochromasia Marked; Lymphocytes # (A) 1.7 k/uL (1.0-4.8); Lymphocytes % (A) 13 %; MCH 17.7 pg (25.0-35.0); MCHC 25.7 g/dL (31.0-37.0); MCV 68.7 fL (80.0-100.0); Mean Platelet Volume 8.1; Microcytosis Marked; Monocytes # (A) 0.9 k/uL (0-1.0); Monocytes % (A) 7 %; Neutrophils # (A) 9.8 k/uL (1.3-7.7); Neutrophils % (A) 77 %; Platelet Count 292 k/uL (150-450); Poikilocytosis Slight; RBC 4.79 m/uL (4.30-5.90); RDW 18.2 % (11.5-15.5); WBC 12.7 k/uL (3.8-10.6)
--- NOTE | 2023-02-07 12:43 | XR ---
EXAMINATION TYPE: XR chest 2V DATE OF EXAM: 02/07/2023 COMPARISON: 05/31/2022 TECHNIQUE: PA and lateral views submitted. HISTORY: Dizziness FINDINGS: There is bilateral consolidation and small effusion. Hyperinflation compatible COPD. No pneumothorax. Osseous structures demonstrate hypertrophic and degenerative changes of the spine. Postsurgical kent ge about bilateral shoulder. IMPRESSION: 1. COPD with cardiomegaly and bilateral small effusion with suspected basilar atelectasis favored ove r ammonia. 2. Findings are suggestive of thoracic aortic aneurysm which is been reported on recent CT of the [facility] st 09/22/2022.
[2023-02-07 12:47] LABS: ALT 69 U/L (4-49); AST 106 U/L (17-59); African American GFR (CKD) 56 (>60 ml/min/1.73 sqM); Albumin 4.4 g/dL (3.5-5.0); Alkaline Phosphatase 71 U/L (38-126); Anion Gap 13 mmol/L; Blood Urea Nitrogen 45 mg/dL (9-20); Calcium 9.3 mg/dL (8.4-10.2); Carbon Dioxide 17 mmol/L (22-30); Chloride 109 mmol/L (98-107); Creatine Kinase 570 U/L (55-170); Glucose 114 mg/dL (74-99); INR 1.7 (<1.2); Magnesium 2.2 mg/dL (1.6-2.3); Non-African American GFR(CKD) 49 (>60 ml/min/1.73 sqM); Partial Thromboplastin Time 27.9 sec (22.0-30.0); Potassium 5.1 mmol/L (3.5-5.1); Prothrombin Time 16.7 sec (9.0-12.0); Sodium 139 mmol/L (137-145); Total Bilirubin 1.8 mg/dL (0.2-1.3); Total Protein 6.9 g/dL (6.3-8.2)
[2023-02-07 12:56] LABS: NT-Pro-B-Type Natriuretic Pept 7950 pg/mL
[2023-02-07 13:04] LABS: T4, Free (Free Thyroxine) 1.32 ng/dL (0.78-2.19)
--- NOTE | 2023-02-07 13:32 | CT ---
EXAMINATION TYPE: CT brain wo con DATE OF EXAM: 02/07/2023 COMPARISON: 04/24/2022 INDICATION: weakness DLP: 1100.4 mGycm, Automated exposure control for dose reduction was used. CONTRAST: None CT of the brain is performed utilizing 3 mm thick sections through the posterior fossa and 3 mm thick sections through the remaining calvarium. Study is performed within 24 hours of arrival to the hosp ital. No abnormal hyperdensity is present to suggest an acute intracranial hemorrhage. No mass lesion is evident. Physiologic basal ganglion calcifications likely present bilaterally. No acute infarcts are evident. There is periventricular white matter hypodensity present, likely on t he basis of chronic white matter ischemic changes. Ventricles and sulci are slightly prominent for the patient age. Paranasal sinuses and mastoid air cells within the [id number] are clear. IMPRESSIONS: 1. Chronic appearing periventricular white matter ischemic-type changes with age related atrophy.
[2023-02-07] MEDS ORDERED: NALOXONE 0.4 MG/ML 1 ML VIAL IV PRN (14:13)
--- NOTE | 2023-02-07 15:09 | P.HPIM ---
History of Present Illness This is a pleasant 87 years old male with multiple medical problems aortic valve replacement 2019, left foot drop atrial, fibrillation, hypertension, hyperlipidemia, hypothyroidism, CVA/TIA Patient presents because of fall at home. PCP is Dr. 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 Patient is alert awake oriented to time place and person and he has insight and follow commands. Patient is been complaining of from diarrhea for the last 3 days about once per day of watery loose bowel movement all over the place. No abdominal pain. No vomiting. He declines dysuria but he could not go today. He denies headache or dizziness, no specific weakness or numbness in arms or legs but he feels weak all over. He denies chest pain dyspnea or coughing. He has a bruise below his right eye He denies smoking alcohol or illicit drugs Vitals are stable showing mild leukocytosis of 12.7, hemoglobin 8.5, platelet 292. INR 1.7. Creatinine 1.3. Restoril BMP is unremarkable. ProBNP is elevated 7950. Liver enzymes mildly elevated with AST 106 and ALT 69 and total bili 1.8 TSH is elevated 11.3, free T4 is normal at 1.3 free T3 is 2.0. Echocardiogram from last year showing ejection fraction 55-60% grade 1 diastolic dysfunction, status post TAVR CT of brain: Chronic appearing periventricular white matter ischemic changes EKG: Atrial fibrillation with RVR at 138 Review of Systems Review of systems CONSTITUTIONAL: No fever, no malaise, no fatigue. HEENT: No recent visual problems or hearing problems. Denied any sore throat. CARDIOVASCULAR: No orthopnea, PND, no palpitations, no syncope. PULMONARY: No shortness of breath, no cough, no hemoptysis. GASTROINTESTINAL: No diarrhea, no nausea, no vomiting, no abdominal pain. Normoactive bowel sounds. NEUROLOGICAL: No headaches, no weakness, no numbness. HEMATOLOGICAL: Denies any bleeding or petechiae. GENITOURINARY: Denies any burning micturition, frequency, or urgency. MUSCULOSKELETAL/RHEUMATOLOGICAL: Denies any joint pain, swelling, or any muscle pain. ENDOCRINE: Denies any polyuria or polydipsia. Past Medical History Past Medical History: Atrial Fibrillation, Cancer, CVA/TIA, Hyperlipidemia, Hypertension, Pneumonia, Thyroid Disorder Additional Past Medical History / Comment(s): Skin cancer with removal; atrial fibrillation is paroxysmal, currently on Xarelto for anticoagulation History of Any Multi-Drug Resistant Organisms: None Reported Past Surgical History: Appendectomy, Cholecystectomy, Heart Catheterization, Joint Replacement, Orthopedic Surgery Additional Past Surgical History / Comment(s): bilateral shoulder and hips replaced; aortic valve replacement 2019, left foot drop Past Anesthesia/Blood Transfusion Reactions: No Reported Reaction Past Psychological History: No Psychological Hx Reported Smoking Status: Former smoker - Past Family History Mother Family Medical History: CVA/TIA Medications and Allergies Home Medications Medication Instructions Recorded Confirmed Type Ezetimibe [Zetia] 10 mg PO HS 01/20/15 02/07/23 History Levothyroxine Sodium [Synthroid] 137 mcg PO DAILY 01/20/15 02/07/23 History Rivaroxaban [Xarelto] 15 mg PO HS 06/29/18 02/07/23 History hydrALAZINE HCL 25 mg PO BID 06/29/18 02/07/23 History Aspirin EC [Ecotrin Low Dose] 81 mg PO DAILY 05/27/22 02/07/23 History carvediloL [Coreg] 3.125 mg PO BID 05/27/22 02/07/23 History Clopidogrel [Plavix] 75 mg PO DAILY #90 tablet 11/29/22 02/07/23 Rx dilTIAZem HCL [Cardizem LA] 300 mg PO DAILY 02/07/23 02/07/23 History Allergies Allergy/AdvReac Type Severity Reaction Status Date / Time No Known Allergies Allergy Verified 02/07/23 13:03 Physical Exam Vitals: Vital Signs Temp Pulse Resp BP Pulse Ox 02/07/23 14:31 113 H 18 128/96 97 02/07/23 11:36 97.6 F 76 16 95 Intake and Output 02/06/23 02/07/23 02/07/23 22:59 06:59 14:59 Other: Weight 83.915 kg -GENERAL: The patient is alert and oriented x3, not in any acute distress. Well developed, well nourished. Generally weak HEENT: Pupils are round and equally reacting to light. EOMI. No scleral icterus. No conjunctival pallor. Normocephalic, atraumatic. No pharyngeal erythema. No thyromegaly. CARDIOVASCULAR: S1 and S2 present. No murmurs, rubs, or gallops. -PULMONARY: Chest is clear to auscultation, no wheezing , mild bilateral basal crackles. ABDOMEN: Soft, nontender, nondistended, normoactive bowel sounds. No palpable organomegaly. MUSCULOSKELETAL: No joint swelling or deformity. -EXTREMITIES: No cyanosis, clubbing, , bilateral pitting leg edema. NEUROLOGICAL: Gross neurological examination did not reveal any focal deficits. SKIN: No rashes. no petechiae. Results CBC & Chem 7: 02/07/23 12:20 02/07/23 12:20 Labs: Abnormal Lab Results - Last 24 Hours (Table) 02/07/23 02/07/23 02/07/23 Range/Units 12:20 12:20 12:20 WBC 12.7 H (3.8-10.6) k/uL Hgb 8.5 L (13.0-17.5) gm/dL Hct 32.9 L (39.0-53.0) % MCV 68.7 L (80.0-100.0) fL MCH 17.7 L (25.0-35.0) pg MCHC 25.7 L (31.0-37.0) g/dL RDW 18.2 H (11.5-15.5) % Neutrophils # 9.8 H (1.3-7.7) k/uL PT 16.7 H (9.0-12.0) sec INR 1.7 H (<1.2) Chloride 109 H (98-107) mmol/L Carbon Dioxide 17 L (22-30) mmol/L BUN 45 H (9-20) mg/dL Creatinine 1.31 H (0.66-1.25) mg/dL Glucose 114 H (74-99) mg/dL Total Bilirubin 1.8 H (0.2-1.3) mg/dL AST 106 H (17-59) U/L ALT 69 H (4-49) U/L Creatine Kinase 570 H (55-170) U/L TSH 11.300 H (0.465-4.680) mIU/L Free T3 pg/mL 2.0 L (2.8-5.3) pg/ml Assessment and Plan Assessment: Fluid overload, mostly acute on chronic diastolic CHF with EF 55-60% Atrial Fibrillation, with RVR on a blood thinner at home Fall without syncope Generalized weakness Acute kidney injury, could be cardiorenal syndrome. Rule out urinary retention Difficulty urinating, rule out recurrent tract infection Mild area could be reactive versus viral or infectious gastroenteritis, mild History of thoracic aortic aneurysm History of CVA/TIA Hyperlipidemia Hypertension Hypothyroidism History of her toe replacement 2019, status post TAVR Plan: Start IV Lasix Cardiology consult Neuro check Check bladder scan and send urine analysis Check liver ultrasound. Resume his third medication and monitor TSH Labs and medication were reviewed.. Continue same treatment. Continue with symptomatic treatment. Resume home medication. Monitor labs and vitals. DVT and GI prophylaxis. Further recommendations as per clinical course of the patient DVT prophylaxis: XARELTO GI Prophylaxis: Pepcid PT/OT: Pending Prognosis is guarded
[2023-02-07 19:35] LABS: Lactic Acid, Venous 1.4 mmol/L (0.7-2.0)
--- NOTE | 2023-02-07 21:31 | US ---
EXAMINATION TYPE: US abd limited kidneys/bladder DATE OF EXAM: 02/07/2023 COMPARISON: NONE CLINICAL INDICATION: Male, 87 years old with history of liver and renal us is requested; TECHNIQUE: Multiple sonographic images of the right upper quadrant, bilateral kidneys, and bladder ar e obtained. FINDINGS: EXAM MEASUREMENTS: Liver Length: 14.5 cm Gallbladder Wall: Surgically absent CBD: 0.63 cm Right Kidney: 10.2 x 4.3 x 4.6 cm Left Kidney: 10.1 x 5.1 x 5.4 cm Pancreas: Obscured by bowel gas Liver: Limited due to bowel gas. No mass seen Gallbladder: Surgically absent CBD: wnl Right Kidney: wnl Left Kidney: wnl Bladder: wnl Bilateral Jets Seen No RN BUILDING NOTES: Free fluid seen in RUQ and RLQ IMPRESSION: 1. Trace free fluid throughout the right abdomen 2. No evidence for acute process. 3. No hepatic mass visualized. 4. Cortical medullary differentiation of the kidneys is maintained. No evidence for hydronephrosis.
[2023-02-07] MEDS: EZETIMIBE 10 MG TAB PO SCH (21:59)
[2023-02-07] MEDS: hydrALAZINE HCL 25 MG TAB PO SCH (22:00)
[2023-02-07] MEDS: FUROSEMIDE 10 MG/ML 4 ML VIAL IV SCH (22:00)
[2023-02-07] MEDS: RIVAROXABAN 15 MG TAB PO SCH (22:00)
[2023-02-07] MEDS: FAMOTIDINE 20 MG/2 ML VIAL IV SCH (22:00)
[2023-02-07] MEDS: carvediloL 3.125 MG TAB PO SCH (22:00)
[2023-02-07 23:12] LABS: Appearance,Urine Clear (Clear); Bacteria,Urine Rare /hpf; Bilirubin,Urine Negative (Negative); Blood,Urine Trace (Negative); Color,Urine Light Red; Glucose,Urine (UA) Negative (Negative); Hyaline Casts,Urine 21 /lpf (0-2); Ketones,Urine Trace (Negative); Leukocyte Esterase,Urine Negative (Negative); Mucus,Urine Occasional /hpf; Nitrite,Urine Negative (Negative); PH, Urine 5.5 (5.0-8.0); Protein,Urine 2+ (Negative); RBC,Urine 6 /hpf (0-5); Specific Gravity,Urine 1.022 (1.001-1.035); Squamous Epithelial Cell,Urine <1 /hpf (0-4); WBC,Urine 7 /hpf (0-5)
--- NOTE | 2023-02-08 04:19 | P.CNPUL ---
History of Present Illness Consult date: 02/08/23 Requesting physician: [place] E Sylwia Reason for consult: other (Altered mental status and fall) Chief complaint: Confusion and fall History of present illness: I am seeing this patient in new consultation today 01/08/2023 after the patient was reportedly confused and fell at home. Patient is a 87-year-old white male with past medical history significant for atrial fibrillation, aortic stenosis status post TAVR, thoracic aortic aneurysm, hypertension, hyperlipidemia, hypothyroidism, ataxia. Patient does follow Dr. Pimentel in the office for the above-mentioned comorbidities. Patient presented emergency department yesterday morning. He is a poor historian. Apparently, he felt confused in the middle of the night. He remembers waking up on the floor, does not remember falling. He reportedly had difficulty getting up off the floor and had to call EMS. On arrival to the emergency room, the patient was found to be in atrial fibrillation with rapid ventricular rate. He was started on Cardizem, which is currently infusing at 5 mg per hour. Heart rate is more controlled around 90 bpm. Blood pressure is normotensive. He is known to have history of atrial fibrillation and is anticoagulated on Xarelto. Patient is currently sitting up in bed, on room air, in no acute distress. He was reportedly mildly short of breath on arrival. Chest x-ray on arrival shows cardiomegaly with small bilateral pleural effusions and suspected atelectasis favored over pneumonia. NT proBNP was elevated at 7950. He does report some heart palpitations and increased lower extremity swelling. Denies any chest pain, orthopnea, PND. He has been started on Lasix 40 mg twice a day. He is oriented but has some inconsistencies in his story. Brain CT on arrival did not show any acute intracranial process. Denies any infectious symptoms such as fevers, chills, myalgias, cough. CBC on arrival showed some mild leukocytosis with a WBC count of 12.7, hemoglobin 8.5, hematocrit 32.9, platelets 292. BMP shows a sodium 139, potassium 5.1, chloride 109, serum bicarb 17, BUN 45, creatinine 1.31, glucose 114. LFTs are mildly elevated. Troponin level 0.026, 0.017, and 0.022 respectively. Lactic acid level was 1.4. CK was only mildly elevated at 570. There is a component of acute kidney injury. Urinalysis not particularly concerning for UTI. No IV maintenance fluids infusing. Patient appears hemo dynamic was stable. Review of Systems REVIEW OF SYSTEMS: CONSTITUTIONAL: Denies any recent significant weight loss or weight gain. EYES: Denies change in vision. EARS, NOSE, MOUTH, THROAT: Denies headaches, denies sore throat. CARDIOVASCULAR: See HPI RESPIRATORY: See HPI GASTROINTESTINAL: Denies change in appetite, abdominal pain, nausea and vomitin g, or diarrhea GENITOURINARY: Denies hematuria, denies infections. MUSKULOSKELETAL: Denies pain, denies swelling. INTEGUMENTARY: Denies rash, denies eczema. NEUROLOGICAL: Denies recent memory loss, no recent seizure activity. Admits possible syncopal event as described in HPI PSYCHIATRIC: Denies anxiety, denies depression. HEMATOLOGIC/LYMPHATIC: Denies anemia, denies enlarged lymph node Past Medical History Past Medical History: Atrial Fibrillation, Cancer, CVA/TIA, Hyperlipidemia, Hypertension, Pneumonia, Thyroid Disorder Additional Past Medical History / Comment(s): Skin cancer with removal; atrial fibrillation is paroxysmal, currently on Xarelto for anticoagulation History of Any Multi-Drug Resistant Organisms: None Reported Past Surgical History: Appendectomy, Cholecystectomy, Heart Catheterization, Joint Replacement, Orthopedic Surgery Additional Past Surgical History / Comment(s): bilateral shoulder and hips replaced; aortic valve replacement 2019, left foot drop Past Anesthesia/Blood Transfusion Reactions: No Reported Reaction Past Psychological History: No Psychological Hx Reported Smoking Status: Former smoker - Past Family History Mother Family Medical History: CVA/TIA Medications and Allergies Home Medications Medication Instructions Recorded Confirmed Type Ezetimibe [Zetia] 10 mg PO HS 01/20/15 02/07/23 History Levothyroxine Sodium [Synthroid] 137 mcg PO DAILY 01/20/15 02/07/23 History Rivaroxaban [Xarelto] 15 mg PO HS 06/29/18 02/07/23 History hydrALAZINE HCL 25 mg PO BID 06/29/18 02/07/23 History Aspirin EC [Ecotrin Low Dose] 81 mg PO DAILY 05/27/22 02/07/23 History carvediloL [Coreg] 3.125 mg PO BID 05/27/22 02/07/23 History Clopidogrel [Plavix] 75 mg PO DAILY #90 tablet 11/29/22 02/07/23 Rx dilTIAZem HCL [Cardizem LA] 300 mg PO DAILY 02/07/23 02/07/23 History Allergies Allergy/AdvReac Type Severity Reaction Status Date / Time No Known Allergies Allergy Verified 02/07/23 13:03 Physical Exam Vitals: Vital Signs Temp Pulse Resp BP Pulse Ox 02/08/23 01:00 89 20 121/74 97 02/08/23 00:30 93 114/63 97 02/08/23 00:23 104 H 114/63 97 02/08/23 00:00 96 133/74 97 02/07/23 23:30 87 20 129/69 97 02/07/23 23:00 97 20 132/80 97 02/07/23 22:30 115 H 126/85 97 02/07/23 22:10 101 H 20 123/71 98 02/07/23 22:00 101 H 20 123/71 98 02/07/23 20:54 93 18 122/76 97 02/07/23 14:31 113 H 18 128/96 97 02/07/23 11:36 97.6 F 76 16 95 Intake and Output 02/07/23 02/07/23 02/08/23 14:59 22:59 06:59 Output Total 429 Balance -429 Output: Post Void Residual 429 Other: Weight 83.915 kg GENERAL EXAM: Alert and oriented, 87-year-old white male, comfortable in no apparent distress. HEAD: Normocephalic and atraumatic EYES: Normal reaction of pupils, equal size. NOSE: Clear with pink turbinates. THROAT: No erythema or exudates. NECK: No masses, no JVD. No carotid artery bruits, carotid artery pulses palpable bilaterally CHEST: No chest wall deformity. LUNGS: Equal air entry with bibasilar inspiratory crackles. On room air. No conversational dyspnea or accessory muscle use.. CVS: S1 and S2 normal with no audible murmur, irregular rhythm. No extra heart sounds ABDOMEN: No hepatosplenomegaly, active bowel sounds, no guarding or rigidity. SPINE: No scoliosis or deformity SKIN: No rashes CENTRAL NERVOUS SYSTEM: No focal deficits, tone is normal in all 4 extremities. EXTREMITIES: There is bilateral pedal edema 2+. No clubbing, or cyanosis. Peripheral pulses are intact. Results - Laboratory Findings CBC and BMP: 02/08/23 07:14 02/08/23 07:14 PT/INR, D-dimer PT 16.7 sec (9.0-12.0) H 02/07/23 12:20 INR 1.7 (<1.2) H 02/07/23 12:20 Abnormal lab findings: Abnormal Labs 02/07/23 02/07/23 02/07/23 12:20 12:20 12:20 WBC 12.7 H Hgb 8.5 L Hct 32.9 L MCV 68.7 L MCH 17.7 L MCHC 25.7 L RDW 18.2 H Neutrophils # 9.8 H PT 16.7 H INR 1.7 H Chloride 109 H Carbon Dioxide 17 L BUN 45 H Creatinine 1.31 H Glucose 114 H Total Bilirubin 1.8 H AST 106 H ALT 69 H Creatine Kinase 570 H Folate TSH 11.300 H Free T3 pg/mL 2.0 L Urine Protein Urine Ketones Urine Blood Urine RBC Urine WBC Urine Bacteria Hyaline Casts Urine Mucus 02/07/23 02/07/23 12:20 22:53 WBC Hgb Hct MCV MCH MCHC RDW Neutrophils # PT INR Chloride Carbon Dioxide BUN Creatinine Glucose Total Bilirubin AST ALT Creatine Kinase Folate 40.00 H TSH Free T3 pg/mL Urine Protein 2+ H Urine Ketones Trace H Urine Blood Trace H Urine RBC 6 H Urine WBC 7 H Urine Bacteria Rare H Hyaline Casts 21 H Urine Mucus Occasional H - Diagnostic Findings Chest x-ray: image reviewed Assessment and Plan Assessment: Suspected syncopal event and fall, under investigation. Brain CT on arrival showed no acute intracranial abnormalities, no hemorrhage or mass effect. Atrial fibrillation with rapid ventricular rate, currently on Cardizem infusion at 5 mg per hour. Patient has a history of atrial fibrillation. Anticoagulated on Xarelto. Dyspnea, related to mild exacerbation of diastolic congestive heart failure, chest x-ray on arrival showed cardiomegaly with small bilateral pleural effusions and suspected bibasilar atelectasis. NT proBNP was elevated at 7950. Not requiring any supplemental oxygen. His most recent echocardiogram on file was done back in 2020, LV function was preserved with an EF of 55-60% at that time. There was grade 1 diastolic dysfunction. There was a normally functioning aortic valve. Acute kidney injury, creatinine 1.31 Anemia, microcytic and hypochromic. Mild leukocytosis, patient denies infectious symptoms Mildly elevated LFTs, undetermined significance Generalized weakness History of aortic stenosis, status post TAVR Thoracic aortic aneurysm, most recently measured at 5.2 cm on chest CTA done on 09/22/2022. Following outpatient Hyperlipidemia Essential hypertension Hypothyroidism Left foot drop Ataxia Plan: Patient's medications, labs, chest x-ray reviewed On room air Agree with Lasix for diuresis Continue with Cardizem infusion for RVR Anticoagulated on Xarelto Cardiology and neurology consults have been obtained. Unable to perform orthostatics due to weakness Check carotid duplex Synthroid has been restarted, TSH was 11.3, free T4 1.32, free T3 2 Check iron profile Liver ultrasound pending We will continue to follow I have personally seen and examined the patient, performed the documentation and the assessment and plan as written. Number of minutes spent on the visit:20 This is a joint evaluation that was seen along with the nurse practitioner. The patient was restless for a suspected syncopal event and the patient was ex pressing shortness of breath and the patient had some CHF with cardiomegaly and small bilateral pleural effusions. The patient responded well to diuretics and the patient has produced excellent amount of urine output. Currently is on room air oxygen. He remains on Lasix 40 mg IV every 12 hours. He is on long-term and coagulation with Xarelto. Creatinine is being monitored as the patient is an acute kidney injury with a creatinine of 1.3. Awake and alert and hemodynamically stable at this point in time. We'll continue to follow. The carotid Dopplers are negative. This evaluation was done in more than 30 minutes. Time with Patient: Greater than 30
[2023-02-08] MEDS: LEVOTHYROXINE 137 MCG TAB PO SCH (06:14)
[2023-02-08] MEDS: carvediloL 3.125 MG TAB PO SCH (06:14)
[2023-02-08 08:03] LABS: Anisocytosis Slight; Basophils % (A) 0 %; Eosinophils # (A) 0.1 k/uL (0-0.7); Eosinophils % (A) 1 %; HCT 29.1 % (39.0-53.0); HGB 7.7 gm/dL (13.0-17.5); Hypochromasia Marked; Lymphocytes # (A) 2.1 k/uL (1.0-4.8); Lymphocytes % (A) 23 %; MCH 18.3 pg (25.0-35.0); MCHC 26.3 g/dL (31.0-37.0); MCV 69.6 fL (80.0-100.0); Microcytosis Marked; Monocytes # (A) 0.8 k/uL (0-1.0); Monocytes % (A) 9 %; Neutrophils # (A) 5.9 k/uL (1.3-7.7); Neutrophils % (A) 65 %; Platelet Count 243 k/uL (150-450); RBC 4.19 m/uL (4.30-5.90); RDW 17.9 % (11.5-15.5); WBC 9.1 k/uL (3.8-10.6)
[2023-02-08 08:25] LABS: ALT 64 U/L (4-49); AST 69 U/L (17-59); African American GFR (CKD) 64 (>60 ml/min/1.73 sqM); Albumin 3.4 g/dL (3.5-5.0); Alkaline Phosphatase 54 U/L (38-126); Anion Gap 12 mmol/L; Bilirubin, Delta 0.4 mg/dL (0.0-0.2); Blood Urea Nitrogen 42 mg/dL (9-20); Calcium 8.5 mg/dL (8.4-10.2); Carbon Dioxide 19 mmol/L (22-30); Chloride 109 mmol/L (98-107); Glucose 78 mg/dL (74-99); Non-African American GFR(CKD) 55 (>60 ml/min/1.73 sqM); Potassium 3.8 mmol/L (3.5-5.1); Sodium 140 mmol/L (137-145); Total Bilirubin 1.4 mg/dL (0.2-1.3); Total Protein 5.6 g/dL (6.3-8.2)
--- NOTE | 2023-02-08 08:52 | P.CRDCN ---
History of Present Illness Consult date: 02/08/23 Consult reason: atrial fibrillation (w rvr) History of present illness: HISTORY OF PRESENTING ILLNESS This is an 87-year-old male patient of Dr. Odom with past medical history significant for hypertension, hyperlipidemia, aortic stenosis status post TAVR in 09/2019, coronary artery disease, paroxysmal atrial fibrillation on Xarelto, thoracic aortic aneursym. We have been asked to see in consultation for A. fib RVR. Patient presented to the hospital due to a syncopal episode. Patient states that he had woken up on the floor by his bed and could not remember falling. Patient denies having any chest pain, shortness of breath, no palpitations, no lightheadedness or dizziness. Patient noted to have lower extremity edema which she's not sure when this started but gradually worsening. DIAGNOSTICS EKG reveals atrial fibrillation with ventricular rate of 138 Chest x-ray COPD with cardiomegaly and bilateral small effusion suspected basil ar atelectasis favored over pneumonia. Findings suggestive of thoracic aortic aneurysm CAT scan of the brain revealed chronic appearing periventricular white matter ischemic type changes and age-related atrophy. Renal ultrasound no hydronephrosis WBC 9.1, hemoglobin 7.7, platelet count 243. INR 1.7. Potassium 3.8, sodium 140, BUN 42 and creatinine 1.18. Troponin negative 3. CK 570. ProBNP 7950. TSH 11.3, free T4 1 0.32. Current cardiac medications include aspirin 81 mg daily, Coreg 3.125 mg twice daily, Plavix 75 mg daily, Cardizem 300 mg daily, Leigh 10 mg at bedtime, hydralazine 25 mg twice daily, levothyroxine 137 g daily, Xarelto 15 mg at bedtime Cardiac catheterization 11/28/2022 revealed severe disease involving OM one of the LCx with stenting of the OM1. Intermediate disease of the LAD at range of 50%. ALVIN 11/28/2022 revealed impaired LV function with EF 40% with global hypokinesia, trans-catheter aortic valve has moderate. Valvular leak, moderate mitral regurgitation, moderate tricuspid regurgitation, intact intra-atrial septum. No evidence of pericardial effusion. REVIEW OF SYSTEMS At the time of my exam: CONSTITUTIONAL: Denies fever or chills. CARDIOVASCULAR: Denies chest pain, shortness of breath, orthopnea, PND or palpitations. + Lower extremity edema RESPIRATORY: Denies cough. GASTROINTESTINAL: Denies abdominal pain, diarrhea, constipation, nausea or vomiting. MUSCULOSKELETAL: Denies myalgias. NEUROLOGIC: Denies numbness, tingling, headacbe or weakness. ENDOCRINE: Denies fatigue, weight change, polydipsia or polyurina. GENITOURINARY: Denies burning, hematuria or urgency with micturation. HEMATOLOGIC: Denies history of anemia or bleeding. PHYSICAL EXAMINATION CONSTITUTIONAL: No apparent distress. Blood pressure 125/85, heart rate 90s to low 100s. HEENT: Head is normocephalic. Pupils are equal, round. Sclerae anicteric. Mucous membranes of the mouth are moist. No JVD. No carotid bruit. CHEST EXAMINATION: Lungs are clear to auscultation. No chest wall tenderness is noted on palpation or with deep breathing. HEART EXAMINATION: Irregular rate and rhythm. S1, S2 heard. Systolic murmur best heard at base. No gallops or rub. ABDOMEN: Soft, nontender. Positive bowel sounds. EXTREMITIES: 2+ peripheral pulses, 2+ lower extremity edema and no calf tenderness. NEUROLOGIC EXAMINATION: Patient is awake, alert and oriented x3. ASSESSMENT Permanent atrial fibrillation presenting with RVR Acute systolic heart failure Syncopal episode of unclear etiology Anemia with hemoglobin 7.7 History of Coronary artery disease status post most recent stent 11/28/2022 Hypertension Aortic stensosis s/p TAVR Hyperlipidemia Thoracic aortic aneurysm without rupture PLAN Resume Cardizem oral 300 mg daily, increase Coreg to 6.25 mg twice daily, disc ontinue Cardizem drip Resume patient's other home cardiac medications No need to repeat echocardiogram as he had a ALVIN in November Continue telemetry monitoring to rule out cardiac cause for syncope Further recommendations as patient progresses Nurse Practitioner note has been reviewed, I agree with a documented findings and plan of care. Patient was seen and examined. Past Medical History Past Medical History: Atrial Fibrillation, Cancer, CVA/TIA, Hyperlipidemia, Hypertension, Pneumonia, Thyroid Disorder Additional Past Medical History / Comment(s): Skin cancer with removal; atrial fibrillation is paroxysmal, currently on Xarelto for anticoagulation History of Any Multi-Drug Resistant Organisms: None Reported Past Surgical History: Appendectomy, Cholecystectomy, Heart Catheterization, Joint Replacement, Orthopedic Surgery Additional Past Surgical History / Comment(s): bilateral shoulder and hips replaced; aortic valve replacement 2019, left foot drop Past Anesthesia/Blood Transfusion Reactions: No Reported Reaction Past Psychological History: No Psychological Hx Reported Smoking Status: Former smoker - Past Family History Mother Family Medical History: CVA/TIA Medications and Allergies Home Medications Medication Instructions Recorded Confirmed Type Ezetimibe [Zetia] 10 mg PO HS 01/20/15 02/07/23 History Levothyroxine Sodium [Synthroid] 137 mcg PO DAILY 01/20/15 02/07/23 History Rivaroxaban [Xarelto] 15 mg PO HS 06/29/18 02/07/23 History hydrALAZINE HCL 25 mg PO BID 06/29/18 02/07/23 History Aspirin EC [Ecotrin Low Dose] 81 mg PO DAILY 05/27/22 02/07/23 History carvediloL [Coreg] 3.125 mg PO BID 05/27/22 02/07/23 History Clopidogrel [Plavix] 75 mg PO DAILY #90 tablet 11/29/22 02/07/23 Rx dilTIAZem HCL [Cardizem LA] 300 mg PO DAILY 02/07/23 02/07/23 History Allergies Allergy/AdvReac Type Severity Reaction Status Date / Time No Known Allergies Allergy Verified 02/07/23 13:03 Physical Exam Vitals: Vital Signs Temp Pulse Pulse Resp BP BP Pulse Ox 02/08/23 04:00 97.6 F 90 18 125/85 96 02/08/23 01:50 98.2 F 100 18 123/69 100 02/08/23 01:00 89 20 121/74 97 02/08/23 00:30 93 114/63 97 02/08/23 00:23 104 H 114/63 97 02/08/23 00:00 96 133/74 97 02/07/23 23:30 87 20 129/69 97 02/07/23 23:00 97 20 132/80 97 02/07/23 22:30 115 H 126/85 97 02/07/23 22:10 101 H 20 123/71 98 02/07/23 22:00 101 H 20 123/71 98 02/07/23 20:54 93 18 122/76 97 02/07/23 14:31 113 H 18 128/96 97 02/07/23 11:36 97.6 F 76 16 95 Intake and Output 02/07/23 02/08/23 02/08/23 22:59 06:59 14:59 Output Total 429 Balance -429 Output: Post Void Residual 429 Other: Weight 83.915 kg Results 02/08/23 07:14 02/08/23 07:14 Cardiac Enzymes 02/07/23 02/07/23 02/07/23 Range/Units 12:20 12:20 15:28 AST 106 H (17-59) U/L Troponin I 0.026 0.017 (0.000-0.034) ng/mL 02/07/23 Range/Units 18:46 AST (17-59) U/L Troponin I 0.022 (0.000-0.034) ng/mL Coagulation 02/07/23 Range/Units 12:20 PT 16.7 H (9.0-12.0) sec APTT 27.9 (22.0-30.0) sec CBC 02/07/23 Range/Units 12:20 WBC 12.7 H (3.8-10.6) k/uL RBC 4.79 (4.30-5.90) m/uL Hgb 8.5 L (13.0-17.5) gm/dL Hct 32.9 L (39.0-53.0) % Plt Count 292 (150-450) k/uL Comprehensive Metabolic Panel 02/07/23 Range/Units 12:20 Sodium 139 (137-145) mmol/L Potassium 5.1 (3.5-5.1) mmol/L Chloride 109 H (98-107) mmol/L Carbon Dioxide 17 L (22-30) mmol/L BUN 45 H (9-20) mg/dL Creatinine 1.31 H (0.66-1.25) mg/dL Glucose 114 H (74-99) mg/dL Calcium 9.3 (8.4-10.2) mg/dL AST 106 H (17-59) U/L ALT 69 H (4-49) U/L Alkaline Phosphatase 71 (38-126) U/L Total Protein 6.9 (6.3-8.2) g/dL Albumin 4.4 (3.5-5.0) g/dL Current Medications Generic Name Dose Route Start Last Admin Trade Name Freq PRN Reason Stop Dose Admin Aspirin 81 mg 02/08/23 09:00 Aspirin 81 Mg PO DAILY [facility] Carvedilol 3.125 mg 02/07/23 17:30 02/08/23 06:14 Carvedilol 3.125 Mg Tab PO 3.125 mg BID-W/MEALS KATARINA Administration Clopidogrel Bisulfate 75 mg 02/08/23 09:00 Clopidogrel 75 Mg Tab PO DAILY KATARINA Ezetimibe 10 mg 02/07/23 21:00 02/07/23 21:59 Ezetimibe 10 Mg Tab PO 10 mg HS KATARINA Administration Famotidine 10 mg 02/07/23 21:00 02/07/23 22:00 Famotidine 20 Mg/2 Ml Vial IV 10 mg Q12HR KATARINA Administration Furosemide 40 mg 02/07/23 21:00 02/07/23 22:00 Furosemide 10 Mg/Ml 4 Ml Vial IV 40 mg Q12HR KATARINA Administration Hydralazine HCl 25 mg 02/07/23 21:00 02/07/23 22:00 Hydralazine Hcl 25 Mg Tab PO 25 mg BID KATARINA Administration Diltiazem HCl 125 mg/ Sodium 125 mls @ 5 mls/hr 02/07/23 12:00 02/07/23 12:24 Chloride IV 5 mg/hr .Q24H KATARINA 5 mls/hr Administration 5 MG/HR Levothyroxine Sodium 137 mcg 02/08/23 06:30 02/08/23 06:14 Levothyroxine 137 Mcg Tab PO 137 mcg DAILY@0630 KATARINA Administration Naloxone HCl 0.2 mg 02/07/23 14:13 Naloxone 0.4 Mg/Ml 1 Ml Vial IV Q2M PRN Opioid Reversal Rivaroxaban 15 mg 02/07/23 21:00 02/07/23 22:00 Rivaroxaban 15 Mg Tab PO 15 mg HS KATARINA Administration Protocol Intake and Output 02/07/23 02/08/23 02/08/23 22:59 06:59 14:59 Output Total 429 Balance -429 Output: Post Void Residual 429 Other: Weight 83.915 kg 02/07/23 12:20 02/07/23 12:20
--- NOTE | 2023-02-08 08:52 | US ---
EXAMINATION TYPE: US carotid duplex BILAT DATE OF EXAM: 02/08/2023 Exam done portable COMPARISON: NONE CLINICAL INDICATION: Male, 87 years old with history of syncope; TECHNIQUE: Carotid duplex ultrasound examination. Indirect Doppler criteria was utilized. FINDINGS: EXAM MEASUREMENTS: RIGHT: Peak Systolic Velocity (PSV) cm/sec ----- Right CCA: 49.1 ----- Right ICA: 71.4 ----- Right ECA: 37.3 ICA/CCA ratio: 1.5 RIGHT: End Diastole cm/sec ----- Right CCA: 14.3 ----- Right ICA: 20.1 ----- Right ECA: 6.2 LEFT: Peak Systolic Velocity (PSV) cm/sec ----- Left CCA: 46.4 ----- Left ICA: 53.2 ----- Left ECA: 60.8 ICA/CCA ratio: 1.2 LEFT: End Diastole cm/sec ----- Left CCA: 7.2 ----- Left ICA: 18.2 ----- Left ECA: 0.0 VERTEBRALS (direction of flow): Right Vertebral: Antegrade Left Vertebral: Antegrade Rhythm: Arrhythmia No significant stenosis IMPRESSION: Less than 50% stenosis of the bilateral carotid bifurcations. Criteria for Assigning % of Stenosis / Diameter reduction (Estimation based on the indirect measurements of the internal carotid artery velocities (ICA PSV). 1. Normal (no stenosis)=ICA PSV < 125 cm/s: ratio < 2.0: ICA EDV<40 cm/s. 2. Less than 50% stenosis=ICA PSV < 125 cm/s: ratio < 2.0: ICA EDV<40 cm/s. 3. 50 to 69% stenosis=ICA PSV of 125 to 230 cm/s: ration 2.0 ? 4.0: ICA EDV 40-100 cm/s. 4. Greater than 70% stenosis to near occlusion= ICA PSV > 230 cm/s: ratio > 4.0: ICA EDV > 100 cm/s. 5. Near occlusion= ICA PSV velocities may be low or undetectable: variable ratio and ICA EDV. 6. Total occlusion=unable to detect flow.
[2023-02-08] MEDS: ASPIRIN 81 MG PO SCH (08:53)
[2023-02-08] MEDS: hydrALAZINE HCL 25 MG TAB PO SCH ×2 (08:53→20:09)
[2023-02-08] MEDS: CYANOCOBALAMIN 500 MCG TAB PO SCH (08:53)
[2023-02-08] MEDS: CLOPIDOGREL 75 MG TAB PO SCH (08:53)
[2023-02-08] MEDS: carvediloL 6.25 MG TAB PO SCH ×2 (08:54→17:01)
[2023-02-08] MEDS: FAMOTIDINE 20 MG/2 ML VIAL IV SCH ×2 (08:54→20:10)
[2023-02-08] MEDS: FUROSEMIDE 10 MG/ML 4 ML VIAL IV SCH ×2 (08:54→20:10)
[2023-02-08] MEDS: DILTIAZEM CD 300 MG CAP.ER.24H PO SCH (10:10)
[2023-02-08 14:06] LABS: % Iron Saturation 2.84 (15.00-50.00)
--- NOTE | 2023-02-08 14:09 | P.PN ---
Subjective Progress Note Date: 02/08/23 87 years old male with multiple medical problems aortic valve replacement 2019, left foot drop atrial, fibrillation, hypertension, hyperlipidemia, hypothyroidism, CVA/TIA Patient presents because of fall at home. PCP is Dr. Ramirez ProBNP is elevated 7950. Liver enzymes mildly elevated with AST 106 and ALT 69 and total bili 1.8 TSH is elevated 11.3, free T4 is normal at 1.3 free T3 is 2.0. Echocardiogram from last year showing ejection fraction 55-60% grade 1 diastolic dysfunction, status post TAVR CT of brain: Chronic appearing periventricular white matter ischemic changes EKG: Atrial fibrillation with RVR at 138 02/08 : Patient noted to have A. fib with rapid monitor response. Patient on rate control medications including Cardizem, Coreg, noted to have pulmonary congestion treated with Lasix. Patient states his breathing has improved Objective - Vital Signs Vital signs: Vital Signs Temp 98.0 F 02/08/23 11:28 Pulse 90 02/08/23 11:28 Resp 18 02/08/23 11:29 BP 116/61 02/08/23 11:28 Pulse Ox 98 02/08/23 11:28 FiO2 Intake & Output 02/07/23 02/08/23 02/08/23 18:59 06:59 18:59 Intake Total 118 Output Total 429 Balance -429 118 Weight 83.915 kg 83.915 kg Intake: Oral 118 Output: Post Void Residual 429 - Exam PHYSICAL EXAMINATION: GENERAL: The patient is alert and oriented x3, ill appearance HEENT: Pupils are round and equally reacting to light. EOMI. No scleral icterus. No conjunctival pallor. Normocephalic, atraumatic. No pharyngeal erythema. No thyromegaly. CARDIOVASCULAR: S1 and S2 present. Irregular, lower extremity edema PULMONARY: Decreased breath sounds bilaterally ABDOMEN: Soft, nontender, nondistended, normoactive bowel sounds. No palpable organomegaly. MUSCULOSKELETAL: No joint swelling or deformity. EXTREMITIES: No cyanosis, clubbing, or pedal edema. NEUROLOGICAL: Gross neurological examination did not reveal any focal deficits. - Labs CBC & Chem 7: 02/08/23 07:14 02/08/23 07:14 Labs: Abnormal Lab Results - Last 24 Hours (Table) 02/07/23 02/07/23 02/08/23 Range/Units 12:20 22:53 07:14 RBC 4.19 L (4.30-5.90) m/uL Hgb 7.7 L (13.0-17.5) gm/dL Hct 29.1 L (39.0-53.0) % MCV 69.6 L (80.0-100.0) fL MCH 18.3 L (25.0-35.0) pg MCHC 26.3 L (31.0-37.0) g/dL RDW 17.9 H (11.5-15.5) % Chloride (98-107) mmol/L Carbon Dioxide (22-30) mmol/L BUN (9-20) mg/dL Total Bilirubin (0.2-1.3) mg/dL Delta Bilirubin (0.0-0.2) mg/dL AST (17-59) U/L ALT (4-49) U/L Total Protein (6.3-8.2) g/dL Albumin (3.5-5.0) g/dL Folate 40.00 H (4.40-31.00) ng/mL Urine Protein 2+ H (Negative) Urine Ketones Trace H (Negative) Urine Blood Trace H (Negative) Urine RBC 6 H (0-5) /hpf Urine WBC 7 H (0-5) /hpf Urine Bacteria Rare H (None) /hpf Hyaline Casts 21 H (0-2) /lpf Urine Mucus Occasional H (None) /hpf 02/08/23 Range/Units 07:14 RBC (4.30-5.90) m/uL Hgb (13.0-17.5) gm/dL Hct (39.0-53.0) % MCV (80.0-100.0) fL MCH (25.0-35.0) pg MCHC (31.0-37.0) g/dL RDW (11.5-15.5) % Chloride 109 H (98-107) mmol/L Carbon Dioxide 19 L (22-30) mmol/L BUN 42 H (9-20) mg/dL Total Bilirubin 1.4 H (0.2-1.3) mg/dL Delta Bilirubin 0.4 H (0.0-0.2) mg/dL AST 69 H (17-59) U/L ALT 64 H (4-49) U/L Total Protein 5.6 L (6.3-8.2) g/dL Albumin 3.4 L (3.5-5.0) g/dL Folate (4.40-31.00) ng/mL Urine Protein (Negative) Urine Ketones (Negative) Urine Blood (Negative) Urine RBC (0-5) /hpf Urine WBC (0-5) /hpf Urine Bacteria (None) /hpf Hyaline Casts (0-2) /lpf Urine Mucus (None) /hpf Assessment and Plan Assessment: Assessment and plan Chronic atrial fibrillation with rapid ventricular response Acute exacerbation of congestive heart failure diastolic dysfunction Syncopal episode rule out cardiac etiology Anemia History of Coronary artery disease status post most recent stent 11/28/2022 Hypertension Aortic stensosis s/p TAVR Hyperlipidemia Thoracic aortic aneurysm without rupture * In regards to atrial fibrillation continue patient on rate control medication. Anticoagulated with Xarelto Continue Coreg and Cardizem * In regards to CHF exacerbation N-terminal proBNP 7950. Continue patient on Lasix for diuresis * Neurology consultation canceled after discussion * Consult obtained from pulmonary medicine and cardiology * In regards to anemia and follow-up on iron panel. Follow up on CBC and renal profile
--- NOTE | 2023-02-08 16:47 | P.GSCN ---
History of Present Illness Consult date: 02/08/23 Reason for Consult: History of thoracic aortic aneurysm Requesting physician: [place] E Sheet History of present illness: This is an 87-year-old gentleman who follows on an outpatient basis with Dr. Pimentel for his primary care. He has a past medical history significant for aortic valve stenosis and dilated ascending aorta, status post TAVR procedure in 2019, hypertension, hyperlipidemia, paroxysmal atrial fibrillation on Xarelto for anticoagulation, hypothyroidism, skin cancer with removal, previous tobacco dependence, quit smoking in the and family history of stroke. On 02/07/2023 the patient presented to the emergency department here at [facility] via EMS with concerns of confusion and a fall from standing. According to the patient he does not remember having a fall. The patient also admits to having recent episodes of shortness of breath even at rest. He denies any recent fever, chills, nausea, vomiting, headache, palpitations, chest pain/pressure, hemoptysis, hematemesis, or cough. In the emergency department the patient underwent a 12-lead EKG which showed atrial fibrillation with rapid ventricular rate, heart rate 138. According to his chart he was started on a Cardizem drip at 5 mg per hour. The patient reports he is compliant with his medication and has continued to take his Xarelto on an outpatient. Chest x-ray was completed on arrival which was treated cardiomegaly with small bilateral pleural effusions and suspected atelectasis. Laboratory results were completed which showed a mild leukocytosis with a WBC count of 12.7, hemoglobin 8.5, hematocrit 32.9, platelets 292, sodium 139, potassium 5.1, chloride 109, sodium bicarb 17, BUN 45, creatinine 1.31, glucose 114, serial troponins showed 0.026, 0.17 and 0.2 to, lactic acid level was 1.4, proBNP was elevated at 7950 and CK was mildly elevated at 570. For further evaluation a computed tomography scan of his brain was completed which showed chronic appearing periventricular white matter ischemic type changes with age-related atrophy. The patient also underwent a carotid duplex study which showed less than 50% stenosis of his bilateral carotid bifurcations. In September 2022 the patient underwent a CT angio of his chest which demonstrated diffuse fusiform aneurysmal dilatation of the thoracic aorta with a maximum diameter of his thoracic aorta to be 5.2 cm, the maximum diameter of the aortic arch 4.15 cm and the distal descending thoracic aorta is 3.[address] angio of the chest demonstrated that there has been no significant interval change compared to his prior study. Due to the history of aneurysmal dilatation of the thoracic aorta a consult was placed to Dr. Jaz Stiles from cardiothoracic surgery for further evaluation and treatment recommendations. Review of Systems A 14 point review systems was completed and was negative except as mentioned in the HPI. Past Medical History Past Medical History: Atrial Fibrillation, Cancer, CVA/TIA, Hyperlipidemia, Hypertension, Pneumonia, Thyroid Disorder Additional Past Medical History / Comment(s): Skin cancer with removal; atrial fibrillation is paroxysmal, currently on Xarelto for anticoagulation History of Any Multi-Drug Resistant Organisms: None Reported Past Surgical History: Appendectomy, Cholecystectomy, Heart Catheterization, Joint Replacement, Orthopedic Surgery Additional Past Surgical History / Comment(s): bilateral shoulder and hips r eplaced; aortic valve replacement 2019, left foot drop Past Anesthesia/Blood Transfusion Reactions: No Reported Reaction Past Psychological History: No Psychological Hx Reported Smoking Status: Former smoker - Past Family History Mother Family Medical History: CVA/TIA Medications and Allergies Home Medications Medication Instructions Recorded Confirmed Type Ezetimibe [Zetia] 10 mg PO HS 01/20/15 02/07/23 History Levothyroxine Sodium [Synthroid] 137 mcg PO DAILY 01/20/15 02/07/23 History Rivaroxaban [Xarelto] 15 mg PO HS 06/29/18 02/07/23 History hydrALAZINE HCL 25 mg PO BID 06/29/18 02/07/23 History Aspirin EC [Ecotrin Low Dose] 81 mg PO DAILY 05/27/22 02/07/23 History carvediloL [Coreg] 3.125 mg PO BID 05/27/22 02/07/23 History Clopidogrel [Plavix] 75 mg PO DAILY #90 tablet 11/29/22 02/07/23 Rx dilTIAZem HCL [Cardizem LA] 300 mg PO DAILY 02/07/23 02/07/23 History Allergies Allergy/AdvReac Type Severity Reaction Status Date / Time No Known Allergies Allergy Verified 02/07/23 13:03 Surgical - Exam Vital Signs Temp Pulse Resp Pulse Ox 97.6 F 76 16 95 02/07/23 11:36 02/07/23 11:36 02/07/23 11:36 02/07/23 11:36 - General No acute apparent distress well developed, well nourished, no distress, no pain, chronically ill - Eyes PERRL, normal ocular movement, no pale, no icteric - ENT normal pinna, normal nares, normal mucosa, decreased hearing - Neck Neck is supple, no lymphadenopathy no masses, no bruits, trachea midline, no venous distension - Respiratory Lung sounds with few scattered crackles throughout, diminished to his bilateral bases. Respirations are symmetrical and nonlabored. Currently on room air. No conversational dyspnea. - Cardiovascular Irregular rhythm with controlled rate, S1 and S2 present, negative for S3, gallop or murmur. +2 edema to his bilateral lower extremities. - Abdomen Abdomen is soft, nontender and nondistended. Active bowel sounds present all 4, quadrants. No guarding or rigidity. - Genitourinary Deferred - Rectum Deferred - Integumentary Ecchymosis area to his periorbital right eye no rash, no growths, no abnormal pigmentation - Neurologic No deficits. - Musculoskeletal Moves all 4 extremities with equal strength bilateral. - Psychiatric oriented to time, oriented to person, oriented to place, speech is normal, memory intact Results - Labs 02/08/23 07:14 02/08/23 07:14 Abnormal Lab Results - Last 24 Hours (Table) 02/07/23 02/07/23 02/08/23 Range/Units 12:20 22:53 07:14 RBC 4.19 L (4.30-5.90) m/uL Hgb 7.7 L (13.0-17.5) gm/dL Hct 29.1 L (39.0-53.0) % MCV 69.6 L (80.0-100.0) fL MCH 18.3 L (25.0-35.0) pg MCHC 26.3 L (31.0-37.0) g/dL RDW 17.9 H (11.5-15.5) % Chloride (98-107) mmol/L Carbon Dioxide (22-30) mmol/L BUN (9-20) mg/dL Iron (65-175) UG/DL % Saturation (15.00-50.00) Total Bilirubin (0.2-1.3) mg/dL Delta Bilirubin (0.0-0.2) mg/dL AST (17-59) U/L ALT (4-49) U/L Total Protein (6.3-8.2) g/dL Albumin (3.5-5.0) g/dL Folate 40.00 H (4.40-31.00) ng/mL Urine Protein 2+ H (Negative) Urine Ketones Trace H (Negative) Urine Blood Trace H (Negative) Urine RBC 6 H (0-5) /hpf Urine WBC 7 H (0-5) /hpf Urine Bacteria Rare H (None) /hpf Hyaline Casts 21 H (0-2) /lpf Urine Mucus Occasional H (None) /hpf 02/08/23 02/08/23 Range/Units 07:14 07:14 RBC (4.30-5.90) m/uL Hgb (13.0-17.5) gm/dL Hct (39.0-53.0) % MCV (80.0-100.0) fL MCH (25.0-35.0) pg MCHC (31.0-37.0) g/dL RDW (11.5-15.5) % Chloride 109 H (98-107) mmol/L Carbon Dioxide 19 L (22-30) mmol/L BUN 42 H (9-20) mg/dL Iron 11 L (65-175) UG/DL % Saturation 2.84 L (15.00-50.00) Total Bilirubin 1.4 H (0.2-1.3) mg/dL Delta Bilirubin 0.4 H (0.0-0.2) mg/dL AST 69 H (17-59) U/L ALT 64 H (4-49) U/L Total Protein 5.6 L (6.3-8.2) g/dL Albumin 3.4 L (3.5-5.0) g/dL Folate (4.40-31.00) ng/mL Urine Protein (Negative) Urine Ketones (Negative) Urine Blood (Negative) Urine RBC (0-5) /hpf Urine WBC (0-5) /hpf Urine Bacteria (None) /hpf Hyaline Casts (0-2) /lpf Urine Mucus (None) /hpf Diabetes panel 02/08/23 Range/Units 07:14 Sodium 140 (137-145) mmol/L Potassium 3.8 (3.5-5.1) mmol/L Chloride 109 H (98-107) mmol/L Carbon Dioxide 19 L (22-30) mmol/L BUN 42 H (9-20) mg/dL Creatinine 1.18 (0.66-1.25) mg/dL Glucose 78 (74-99) mg/dL Calcium 8.5 (8.4-10.2) mg/dL AST 69 H (17-59) U/L ALT 64 H (4-49) U/L Alkaline Phosphatase 54 (38-126) U/L Total Protein 5.6 L (6.3-8.2) g/dL Albumin 3.4 L (3.5-5.0) g/dL Calcium panel 02/08/23 Range/Units 07:14 Calcium 8.5 (8.4-10.2) mg/dL Albumin 3.4 L (3.5-5.0) g/dL Pituitary panel 02/08/23 Range/Units 07:14 Sodium 140 (137-145) mmol/L Potassium 3.8 (3.5-5.1) mmol/L Chloride 109 H (98-107) mmol/L Carbon Dioxide 19 L (22-30) mmol/L BUN 42 H (9-20) mg/dL Creatinine 1.18 (0.66-1.25) mg/dL Glucose 78 (74-99) mg/dL Calcium 8.5 (8.4-10.2) mg/dL Adrenal panel 02/08/23 Range/Units 07:14 Sodium 140 (137-145) mmol/L Potassium 3.8 (3.5-5.1) mmol/L Chloride 109 H (98-107) mmol/L Carbon Dioxide 19 L (22-30) mmol/L BUN 42 H (9-20) mg/dL Creatinine 1.18 (0.66-1.25) mg/dL Glucose 78 (74-99) mg/dL Calcium 8.5 (8.4-10.2) mg/dL Total Bilirubin 1.4 H (0.2-1.3) mg/dL AST 69 H (17-59) U/L ALT 64 H (4-49) U/L Alkaline Phosphatase 54 (38-126) U/L Total Protein 5.6 L (6.3-8.2) g/dL Albumin 3.4 L (3.5-5.0) g/dL - Imaging Chest x-ray: report reviewed, image reviewed CT scan - chest: report reviewed (Computed tomography scan from September 2022), image reviewed EKG: image reviewed Assessment and Plan Assessment: History of aortic aneurysm, on computed tomography scan of the chest from 09/22/2022 measured at 5.2 cm Suspected syncopal event and fall, CT scan of the brain showed no acute intracranial abnormalities, EEG results pending Dyspnea, related to mild exacerbation of congestive heart failure, proBNP 7950 Acute kidney injury creatinine 1.31 Anemia, microcytic and hypochromic Generalized weakness and medical debility, status post fall from standing History of aortic valve stenosis, status post TAVR 2019 Hypertension Hyperlipidemia Hypothyroidism Remote history of nicotine dependence, quit smoking in Plan: The patient was seen and examined at his bedside on the third floor cardiac stepdown unit. Discharge diagnostics were reviewed by Dr. Jaz Stiles. His case was discussed in detail with Dr. Jaz Stiles. No surgical intervention is warranted at this time, recommend a CTA of the chest in 1 year to follow aortic aneurysm. Continue strict blood pressure control. Medical management other comorbidities per primary care service and other consultants. If any further questions regarding the aneurysm please feel free to call or reconsult. Thank you Dr. Dao for this consult. I have personally seen and examined the patient, performed the documentation and the assessment and plan as written. 30 minutes spent on the visit . Ranjan RUANO Time with Patient: Greater than 30
[2023-02-08] MEDS: RIVAROXABAN 15 MG TAB PO SCH (20:09)
[2023-02-08] MEDS: EZETIMIBE 10 MG TAB PO SCH (20:09)
--- NOTE | 2023-02-08 21:33 | EEG ---
ELECTROENCEPHALOGRAM REPORT CLINICAL HISTORY: This is an 87-year-old gentleman, who has confusion. The video EEG is obtained to evaluate for seizure and epileptiform activity. RELEVANT MEDICATIONS: Diltiazem. EEG TYPE: A routine 21-channel EEG is performed with video using the 10/20 electrode placement system. DESCRIPTION: The predominant recording is in drowsy state. During brief awake state, the posterior-dominant rhythm consists of [id number] voltage of 8 Hz activity. Otherwise, the rest of the study is in drowsy state. There is no focal slowing. INTERICTAL AND ICTAL: None. ACTIVATION PROCEDURE: Photic stimulation did not evoke a posterior driving response. There is no abnormality during the photic stimulation. Hyperventilation is not performed. CLINICAL INTERPRETATION: This is a normal routine EEG. There is no focal slowing, epileptiform discharge, or seizure on the EEG. A normal routine EEG does not rule out underlying epilepsy. Clinical correlation is recommended. MMGREG / JASN: [id number] / MTDD
[2023-02-09] MEDS: LEVOTHYROXINE 137 MCG TAB PO SCH (06:21)
[2023-02-09] MEDS: carvediloL 6.25 MG TAB PO SCH ×2 (06:21→15:36)
[2023-02-09] MEDS: FAMOTIDINE 20 MG/2 ML VIAL IV SCH ×2 (08:09→20:23)
[2023-02-09] MEDS: CYANOCOBALAMIN 500 MCG TAB PO SCH (08:09)
[2023-02-09] MEDS: hydrALAZINE HCL 25 MG TAB PO SCH ×2 (08:11→20:23)
[2023-02-09] MEDS: FUROSEMIDE 10 MG/ML 4 ML VIAL IV SCH ×2 (08:11→20:23)
[2023-02-09] MEDS: CLOPIDOGREL 75 MG TAB PO SCH (08:11)
[2023-02-09] MEDS: ASPIRIN 81 MG PO SCH (08:11)
[2023-02-09] MEDS: DILTIAZEM CD 300 MG CAP.ER.24H PO SCH (08:11)
[2023-02-09 08:31] LABS: Anisocytosis Slight; HCT 27.8 % (39.0-53.0); HGB 7.6 gm/dL (13.0-17.5); Hypochromasia Marked; MCH 18.1 pg (25.0-35.0); MCHC 27.3 g/dL (31.0-37.0); MCV 66.2 fL (80.0-100.0); Mean Platelet Volume 7.3; Microcytosis Marked; Platelet Count 244 k/uL (150-450); Poikilocytosis Slight; RBC 4.19 m/uL (4.30-5.90); RDW 17.9 % (11.5-15.5)
[2023-02-09 08:41] LABS: Glucose 98 mg/dL (74-99); Sodium 138 mmol/L (137-145)
[2023-02-09 08:42] LABS: African American GFR (CKD) 66 (>60 ml/min/1.73 sqM); Anion Gap 8 mmol/L; Blood Urea Nitrogen 34 mg/dL (9-20); Calcium 8.5 mg/dL (8.4-10.2); Carbon Dioxide 28 mmol/L (22-30); Chloride 102 mmol/L (98-107); Non-African American GFR(CKD) 57 (>60 ml/min/1.73 sqM); Potassium 3.9 mmol/L (3.5-5.1)
--- NOTE | 2023-02-09 12:47 | P.PN ---
Subjective Progress Note Date: 02/09/23 87 years old male with multiple medical problems aortic valve replacement 2019, left foot drop atrial, fibrillation, hypertension, hyperlipidemia, hypothyroidism, CVA/TIA Patient presents because of fall at home. PCP is Dr. Ramirez ProBNP is elevated 7950. Liver enzymes mildly elevated with AST 106 and ALT 69 and total bili 1.8 TSH is elevated 11.3, free T4 is normal at 1.3 free T3 is 2.0. Echocardiogram from last year showing ejection fraction 55-60% grade 1 diastolic dysfunction, status post TAVR CT of brain: Chronic appearing periventricular white matter ischemic changes EKG: Atrial fibrillation with RVR at 138 02/08 : Patient noted to have A. fib with rapid monitor response. Patient on rate control medications including Cardizem, Coreg, noted to have pulmonary congestion treated with Lasix. Patient states his breathing has improved 02/09: Patient seen and evaluated and bedside. Heart rate controlled, episode of low blood pressure noted however patient asymptomatic. Continue to have lower extremity edema. Will need discharge to rehab Objective - Vital Signs Vital signs: Vital Signs Temp 97.6 F 02/09/23 12:00 Pulse 80 02/09/23 12:42 Resp 16 02/09/23 12:42 BP 106/60 02/09/23 12:00 Pulse Ox 98 02/09/23 12:00 FiO2 Intake & Output 02/08/23 02/09/23 02/09/23 18:59 06:59 18:59 Intake Total 118 356 Output Total 1400 700 Balance -1282 -700 356 Weight 76.5 kg Intake: Oral 118 356 Output: Urine 1400 700 Other: # Voids 1 # Bowel Movements 1 1 - Exam PHYSICAL EXAMINATION: GENERAL: The patient is alert and oriented x3, ill appearance HEENT: Pupils are round and equally reacting to light. EOMI. No scleral icterus. No conjunctival pallor. Normocephalic, atraumatic. No pharyngeal erythema. No thyromegaly. CARDIOVASCULAR: S1 and S2 present. Irregular, lower extremity edema PULMONARY: Decreased breath sounds bilaterally ABDOMEN: Soft, nontender, nondistended, normoactive bowel sounds. No palpable organomegaly. MUSCULOSKELETAL: No joint swelling or deformity. EXTREMITIES: No cyanosis, clubbing, or pedal edema. NEUROLOGICAL: Gross neurological examination did not reveal any focal deficits. - Labs CBC & Chem 7: 02/09/23 07:24 02/09/23 07:24 Labs: Abnormal Lab Results - Last 24 Hours (Table) 02/08/23 02/09/23 02/09/23 Range/Units 07:14 07:24 07:24 RBC 4.19 L (4.30-5.90) m/uL Hgb 7.6 L (13.0-17.5) gm/dL Hct 27.8 L (39.0-53.0) % MCV 66.2 L (80.0-100.0) fL MCH 18.1 L (25.0-35.0) pg MCHC 27.3 L (31.0-37.0) g/dL RDW 17.9 H (11.5-15.5) % BUN 34 H (9-20) mg/dL Iron 11 L (65-175) UG/DL % Saturation 2.84 L (15.00-50.00) Assessment and Plan Assessment: Assessment and plan Chronic atrial fibrillation with rapid ventricular response Acute exacerbation of congestive heart failure diastolic dysfunction Syncopal episode rule out cardiac etiology Anemia History of Coronary artery disease status post most recent stent 11/28/2022 Hypertension Aortic stensosis s/p TAVR Hyperlipidemia Thoracic aortic aneurysm without rupture History of aortic aneurysm, on computed tomography scan of the chest from 09/22/2022 measured at 5.2 cm * In regards to atrial fibrillation continue patient on rate control medication. Anticoagulated with Xarelto Continue Coreg and Cardizem * In regards to CHF exacerbation N-terminal proBNP 7950. Continue patient on Lasix for diuresis, 40 mg IV twice a day, monitor intake and output * Neurology consultation canceled after discussion with neurology * Consult obtained from pulmonary medicine and cardiology * In regards to anemia him a iron panel shows iron deficiency anemia started on ferrous sulfate * Patient seen by physical therapy occupational therapy and they recommended discharge to rehab
--- NOTE | 2023-02-09 12:56 | P.PN ---
Subjective Progress Note Date: 02/09/23 I am seeing this patient in new consultation today 01/08/2023 after the patient was reportedly confused and fell at home. Patient is a 87-year-old white male with past medical history significant for atrial fibrillation, aortic stenosis status post TAVR, thoracic aortic aneurysm, hypertension, hyperlipidemia, hypothyroidism, ataxia. Patient does follow Dr. Pimentel in the office for the above-mentioned comorbidities. Patient presented emergency department yesterday morning. He is a poor historian. Apparently, he felt confused in the middle of the night. He remembers waking up on the floor, does not remember falling. He reportedly had difficulty getting up off the floor and had to call EMS. On arrival to the emergency room, the patient was found to be in atrial fibri llation with rapid ventricular rate. He was started on Cardizem, which is currently infusing at 5 mg per hour. Heart rate is more controlled around 90 bpm. Blood pressure is normotensive. He is known to have history of atrial fibrillation and is anticoagulated on Xarelto. Patient is currently sitting up in bed, on room air, in no acute distress. He was reportedly mildly short of breath on arrival. Chest x-ray on arrival shows cardiomegaly with small bilateral pleural effusions and suspected atelectasis favored over pneumonia. NT proBNP was elevated at 7950. He does report some heart palpitations and increased lower extremity swelling. Denies any chest pain, orthopnea, PND. He has been started on Lasix 40 mg twice a day. He is oriented but has some inconsistencies in his story. Brain CT on arrival did not show any acute intracranial process. Denies any infectious symptoms such as fevers, chills, myalgias, cough. CBC on arrival showed some mild leukocytosis with a WBC count of 12.7, hemoglobin 8.5, hematocrit 32.9, platelets 292. BMP shows a sodium 139, potassium 5.1, chloride 109, serum bicarb 17, BUN 45, creatinine 1.31, glucose 114. LFTs are mildly elevated. Troponin level 0.026, 0.017, and 0.022 respectively. Lactic acid level was 1.4. CK was only mildly elevated at 570. There is a component of acute kidney injury. Urinalysis not particularly concerning for UTI. No IV maintenance fluids infusing. Patient appears hemodynamic was stable. On today's evaluation of 02/09/2023, the patient is less short of breath, the patient is currently on room air oxygen. Hemodynamically stable. He is off the Cardizem drip and the patient is currently on oral Cardizem 300 mg by mouth daily. Is also on anticoagulation. He is also on Coreg for rate control at a dose of 6.25 mg by mouth twice a day. Remains on aspirin. Remains on IV Lasix 40 mg every 12 hours. He has produced excellent amount of urine output and the net fluid balance is -1.9 L over the past 24 hours. The patient's echoes of 8 hemoglobin is at 7.6, BUN 34 with a creatinine of 1.1. He does have bilateral pleural effusions that essentially being monitored at this point in time. No need for thoracentesis. Objective - Vital Signs Vital signs: Vital Signs Temp 97.8 F 02/09/23 08:00 Pulse 64 02/09/23 08:00 Resp 18 02/09/23 08:00 BP 90/45 02/09/23 08:00 Pulse Ox 97 02/09/23 08:00 FiO2 Intake & Output 02/08/23 02/09/23 02/09/23 18:59 06:59 18:59 Intake Total 118 356 Output Total 1400 700 Balance -1282 -700 356 Weight 76.5 kg Intake: Oral 118 356 Output: Urine 1400 700 Other: # Voids 1 # Bowel Movements 1 1 - Exam GENERAL EXAM: Alert and oriented, 87-year-old white male, comfortable in no appa rent distress. HEAD: Normocephalic and atraumatic EYES: Normal reaction of pupils, equal size. NOSE: Clear with pink turbinates. THROAT: No erythema or exudates. NECK: No masses, no JVD. No carotid artery bruits, carotid artery pulses palpable bilaterally CHEST: No chest wall deformity. LUNGS: Equal air entry with bibasilar inspiratory crackles. On room air. No conversational dyspnea or accessory muscle use.. CVS: S1 and S2 normal with no audible murmur, irregular rhythm. No extra heart sounds ABDOMEN: No hepatosplenomegaly, active bowel sounds, no guarding or rigidity. SPINE: No scoliosis or deformity SKIN: No rashes CENTRAL NERVOUS SYSTEM: No focal deficits, tone is normal in all 4 extremities. EXTREMITIES: There is bilateral pedal edema 2+. No clubbing, or cyanosis. Peripheral pulses are intact. - Labs CBC & Chem 7: 02/09/23 07:24 02/09/23 07:24 Labs: Abnormal Lab Results - Last 24 Hours (Table) 02/08/23 02/09/23 02/09/23 Range/Units 07:14 07:24 07:24 RBC 4.19 L (4.30-5.90) m/uL Hgb 7.6 L (13.0-17.5) gm/dL Hct 27.8 L (39.0-53.0) % MCV 66.2 L (80.0-100.0) fL MCH 18.1 L (25.0-35.0) pg MCHC 27.3 L (31.0-37.0) g/dL RDW 17.9 H (11.5-15.5) % BUN 34 H (9-20) mg/dL Iron 11 L (65-175) UG/DL % Saturation 2.84 L (15.00-50.00) Assessment and Plan Assessment: Suspected syncopal event and fall, under investigation. Brain CT on arrival showed no acute intracranial abnormalities, no hemorrhage or mass effect. Atrial fibrillation with rapid ventricular rate, recovered and the patient is currently on Coreg and Cardizem orally and the patient is on anticoagulation with Xarelto. Dyspnea, related to mild exacerbation of diastolic congestive heart failure, chest x-ray on arrival showed cardiomegaly with small bilateral pleural effusions and suspected bibasilar atelectasis. NT proBNP was elevated at 7950. Not requiring any supplemental oxygen. His most recent echocardiogram on file was done back in 2020, LV function was preserved with an EF of 55-60% at that time. There was grade 1 diastolic dysfunction. There was a normally functioning aortic valve. Shortness of breath is improved considerably Acute kidney injury, creatinine is improving Anemia, microcytic and hypochromic. Mild leukocytosis, patient denies infectious symptoms Mildly elevated LFTs, undetermined significance Generalized weakness History of aortic stenosis, status post TAVR Thoracic aortic aneurysm, most recently measured at 5.2 cm on chest CTA done on 09/22/2022. Following outpatient Hyperlipidemia Essential hypertension Hypothyroidism Left foot drop Ataxia Plan: Continue Coreg and Cardizem Continue anticoagulation A. fib is under better control Creatinine is improving Patient was seen by thoracic surgery and the patient is an aortic aneurysm measuring 5.2 cm. Outpatient follow-up with a CT of the chest was recommended Pleural effusions are being monitored. The patient is on diuretics with a negative fluid balance Patient is currently on room air oxygen
--- NOTE | 2023-02-09 12:59 | P.PN ---
Subjective Progress Note Date: 02/09/23 HISTORY OF PRESENTING ILLNESS This is an 87-year-old male patient of Dr. Odom with past medical history si gnificant for hypertension, hyperlipidemia, aortic stenosis status post TAVR in 09/2019, coronary artery disease, paroxysmal atrial fibrillation on Xarelto, thoracic aortic aneursym. We have been asked to see in consultation for Buffy dela cruz RVR. Patient presented to the hospital due to a syncopal episode. Patient states that he had woken up on the floor by his bed and could not remember falling. Patient denies having any chest pain, shortness of breath, no palpitations, no lightheadedness or dizziness. Patient noted to have lower extremity edema which she's not sure when this started but gradually worsening. DIAGNOSTICS EKG reveals atrial fibrillation with ventricular rate of 138 Chest x-ray COPD with cardiomegaly and bilateral small effusion suspected basilar atelectasis favored over pneumonia. Findings suggestive of thoracic aortic aneurysm CAT scan of the brain revealed chronic appearing periventricular white matter ischemic type changes and age-related atrophy. Renal ultrasound no hydronephrosis WBC 9.1, hemoglobin 7.7, platelet count 243. INR 1.7. Potassium 3.8, sodium 140, BUN 42 and creatinine 1.18. Troponin negative 3. CK 570. ProBNP 7950. TSH 11.3, free T4 1 0.32. Current cardiac medications include aspirin 81 mg daily, Coreg 3.125 mg twice daily, Plavix 75 mg daily, Cardizem 300 mg daily, Leigh 10 mg at bedtime, hydralazine 25 mg twice daily, levothyroxine 137 g daily, Xarelto 15 mg at bedtime Cardiac catheterization 11/28/2022 revealed severe disease involving OM one of the LCx with stenting of the OM1. Intermediate disease of the LAD at range of 50%. ALVIN 11/28/2022 revealed impaired LV function with EF 40% with global hypokinesia, trans-catheter aortic valve has moderate. Valvular leak, moderate mitral regurgitation, moderate tricuspid regurgitation, intact intra-atrial septum. No evidence of pericardial effusion. 02/09 Patient is seen today in follow-up. Heart rate has been in the 60s to 80s, blood pressure 106/60, pulse ox 90% on room air. Telemetry is atrial fibrillation rate controlled. PHYSICAL EXAMINATION CONSTITUTIONAL: No apparent distress. Blood pressure 125/85, heart rate 90s to low 100s. HEENT: Head is normocephalic. Pupils are equal, round. Sclerae anicteric. Mucous membranes of the mouth are moist. No JVD. No carotid bruit. CHEST EXAMINATION: Lungs are clear to auscultation. No chest wall tenderness is noted on palpation or with deep breathing. HEART EXAMINATION: Irregular rate and rhythm. S1, S2 heard. Systolic murmur best heard at base. No gallops or rub. EXTREMITIES: 2+ peripheral pulses, 2+ lower extremity edema and no calf tenderness. ASSESSMENT Permanent atrial fibrillation presenting with RVR Acute systolic heart failure Syncopal episode of unclear etiology Anemia with hemoglobin 7.7 History of Coronary artery disease status post most recent stent 11/28/2022 Hypertension Aortic stensosis s/p TAVR Hyperlipidemia Thoracic aortic aneurysm without rupture PLAN Continue Cardizem oral 300 mg daily, increase Coreg to 6.25 mg twice daily, discontinue Cardizem drip Continue patient's other home cardiac medications No need to repeat echocardiogram as he had a ALVIN in November Patient is cleared for discharge from cardiology recommended discontinuing aspirin at the time of discharge and continuing on Plavix and Xarelto. Patient will follow up with Dr. Odom in one week Nurse Practitioner note has been reviewed, I agree with a documented findings and plan of care. Patient was seen and examined. Objective - Vital Signs Vital signs: Vital Signs Temp 97.8 F 02/09/23 08:00 Pulse 64 02/09/23 08:00 Resp 18 02/09/23 08:00 BP 90/45 02/09/23 08:00 Pulse Ox 97 02/09/23 08:00 FiO2 Intake & Output 02/08/23 02/09/23 02/09/23 18:59 06:59 18:59 Intake Total 118 356 Output Total 1400 700 Balance -1282 -700 356 Weight 76.5 kg Intake: Oral 118 356 Output: Urine 1400 700 Other: # Voids 1 # Bowel Movements 1 1 - Labs CBC & Chem 7: 02/09/23 07:24 02/09/23 07:24 Labs: Abnormal Lab Results - Last 24 Hours (Table) 02/08/23 02/09/23 02/09/23 Range/Units 07:14 07:24 07:24 RBC 4.19 L (4.30-5.90) m/uL Hgb 7.6 L (13.0-17.5) gm/dL Hct 27.8 L (39.0-53.0) % MCV 66.2 L (80.0-100.0) fL MCH 18.1 L (25.0-35.0) pg MCHC 27.3 L (31.0-37.0) g/dL RDW 17.9 H (11.5-15.5) % BUN 34 H (9-20) mg/dL Iron 11 L (65-175) UG/DL % Saturation 2.84 L (15.00-50.00)
[2023-02-09] MEDS: FERROUS SULFATE 325 MG TAB PO SCH ×2 (13:05→15:36)
--- NOTE | 2023-02-09 16:36 | CDI ---
Documentation Clarification Form Date: 02/09/2023 04:14:23 PM From: Esthela Buck Phone: [phone] Admit Date: 02/07/2023 02:15:00 PM Patient Name: Jatinder Ware Visit Number: [id number] Discharge Date: ATTENTION: The Clinical Documentation Specialists (CDI) and [facility] Coding Staff appreciate your assistance in clarifying documentation. Please respond to the clarification below the line at the bottom and electronically sign. The CDI & [facility] Coding staff will review the response and follow-up if needed. Please note: Queries are made part of the Legal Health Record. If you have any questions, please contact the author of this message via ITS. Dr. Iker Ortiz Conflicting documentation has been found in the medical record. As attending physician, please provide clarification. Acute on chronic diastolic heart failure with EF 55-60%, 02/07 H&P Acute systolic heart failure, 02/08, Cardiology Consult History/Risk Factors: 87 year old male presents to the ED with a syncopal episode, woke up on the floor. Medical history: Atrial Fibrillation, CHF and HTN. 02/07, H&P. Clinical Indicators: ECHO, 09/22/2020: EF 55-60% Grade 1 Diastolic dysfunction, normally functioning bio prosthetic valve. TAVAR done. Trace mitral regurgitation. Trace tricuspid regurgitation present. Cardiology consult, 02/08: ALVIN 11/28/2022 revealed impaired LV function with EF 40% with global hypokinesia, trans-catheter aortic valve has moderate.Valvular leak, moderate mitral regurgitation, moderate tricuspid regurgitation, intact intra- atrial septum. No evidence of pericardial effusion. BNP, 02/07: 7950 CXR, 02/07: COPD with cardiomegaly and bilateral small effusion. Treatment: Lasix 40mg IV Q12HR; Hydralazine 25mg PO BID Please clarify which diagnosis is most appropriate: [ ] Acute on chronic diastolic heart failure [ ] Acute on chronic systolic heart failure [ ] Acute on chronic diastolic / systolic heart failure [ ] Other (please specify) [ ] Unable to determine (Template Last Revised: September 2020) MTDD
[2023-02-09] MEDS: RIVAROXABAN 15 MG TAB PO SCH (20:23)
[2023-02-09] MEDS: EZETIMIBE 10 MG TAB PO SCH (20:23)
[2023-02-10] MEDS: FERROUS SULFATE 325 MG TAB PO SCH (06:17)
[2023-02-10] MEDS: carvediloL 6.25 MG TAB PO SCH (06:17)
[2023-02-10] MEDS: LEVOTHYROXINE 137 MCG TAB PO SCH (06:17)
[2023-02-10] MEDS: CYANOCOBALAMIN 500 MCG TAB PO SCH (08:09)
[2023-02-10] MEDS: hydrALAZINE HCL 25 MG TAB PO SCH (08:09)
[2023-02-10] MEDS: CLOPIDOGREL 75 MG TAB PO SCH (08:09)
[2023-02-10] MEDS: ASPIRIN 81 MG PO SCH (08:10)
[2023-02-10] MEDS: FAMOTIDINE 20 MG/2 ML VIAL IV SCH (08:10)
[2023-02-10] MEDS: FUROSEMIDE 10 MG/ML 4 ML VIAL IV SCH (08:10)
[2023-02-10 08:18] LABS: Anisocytosis Slight; HCT 30.4 % (39.0-53.0); HGB 8.3 gm/dL (13.0-17.5); Hypochromasia Marked; MCH 17.9 pg (25.0-35.0); MCHC 27.3 g/dL (31.0-37.0); MCV 65.7 fL (80.0-100.0); Mean Platelet Volume 7.8; Microcytosis Marked; Platelet Count 253 k/uL (150-450); Poikilocytosis Slight; RBC 4.62 m/uL (4.30-5.90); RDW 17.8 % (11.5-15.5); WBC 8.5 k/uL (3.8-10.6)
[2023-02-10 08:25] VITALS: RESP 16
[2023-02-10 08:34] LABS: African American GFR (CKD) 70 (>60 ml/min/1.73 sqM); Anion Gap 8 mmol/L; Blood Urea Nitrogen 34 mg/dL (9-20); Calcium 8.7 mg/dL (8.4-10.2); Carbon Dioxide 30 mmol/L (22-30); Chloride 99 mmol/L (98-107); Glucose 98 mg/dL (74-99); Non-African American GFR(CKD) 60 (>60 ml/min/1.73 sqM); Potassium 3.6 mmol/L (3.5-5.1); Sodium 137 mmol/L (137-145)
[2023-02-10 08:35] LABS: NT-Pro-B-Type Natriuretic Pept 3730 pg/mL
[2023-02-10] MEDS: DILTIAZEM CD 300 MG CAP.ER.24H PO SCH (11:22)
[2023-02-10 12:06] VITALS: BP 106/64; PULSE 79; TEMP 98.2
--- NOTE | 2023-02-10 12:49 | P.DS ---
Providers Date of admission: 02/07/23 14:15 Expected date of discharge: 02/10/23 Attending physician: Los Dao MD Consults: 02/07/23 14:13 Consult Physician Urgent Consulting Provider: Shukri Cortes Consult Reason/Comments: a fib w rvr Do you want consulting provider notified?: Yes 02/07/23 15:12 Consult Physician Routine Consulting Provider: Virginia Pimentel Consult Reason/Comments: known to you Do you want consulting provider notified?: Yes 02/08/23 08:46 Consult Physician Urgent Consulting Provider: Reinaldo Ramirez Consult Reason/Comments: thoracic aortic aneurysm Do you want consulting provider notified?: Yes Primary care physician: Virginia Loren [place] [facility] Course: 87 years old male with multiple medical problems aortic valve replacement 2019, left foot drop atrial, fibrillation, hypertension, hyperlipidemia, hypothyroidism, CVA/TIA Patient presents because of fall at home. PCP is Dr. Ramirez ProBNP is elevated 7950. Liver enzymes mildly elevated with AST 106 and ALT 69 and total bili 1.8 TSH is elevated 11.3, free T4 is normal at 1.3 free T3 is 2.0. Echocardiogram from last year showing ejection fraction 55-60% grade 1 diastolic dysfunction, status post TAVR CT of brain: Chronic appearing periventricular white matter ischemic changes EKG: Atrial fibrillation with RVR at 138 02/08 : Patient noted to have A. fib with rapid monitor response. Patient on rate control medications including Cardizem, Coreg, noted to have pulmonary congestion treated with Lasix. Patient states his breathing has improved 02/09: Patient seen and evaluated and bedside. Heart rate controlled, episode of low blood pressure noted however patient asymptomatic. Continue to have lower extremity edema. Will need discharge to rehab 02/10: Patient blood pressure monitored, repeat blood pressure obtained patient when asymptomatic systolic blood pressure more than 100 cardiology signed off and platelet for discharge. Hydralazine discontinued due to concern for low blood pressure During the hospital stay patient was on IV Cardizem drip which has been weaned off. Patient was seen in the physical therapy occupational therapy and recommended discharge to subacute rehab PHYSICAL EXAMINATION: GENERAL: The patient is alert and oriented x3, ill appearance HEENT: Pupils are round and equally reacting to light. EOMI. No scleral icterus. No conjunctival pallor. Normocephalic, atraumatic. No pharyngeal erythema. No thyromegaly. CARDIOVASCULAR: S1 and S2 present. Irregular, lower extremity edema PULMONARY: Decreased breath sounds bilaterally ABDOMEN: Soft, nontender, nondistended, normoactive bowel sounds. No palpable organomegaly. MUSCULOSKELETAL: No joint swelling or deformity. EXTREMITIES: No cyanosis, clubbing, or pedal edema. NEUROLOGICAL: Gross neurological examination did not reveal any focal deficits. Assessment and plan Chronic atrial fibrillation with rapid ventricular response Acute exacerbation of congestive heart failure diastolic dysfunction Syncopal episode rule out cardiac etiology Anemia History of Coronary artery disease status post most recent stent 11/28/2022 Hypertension Aortic stensosis s/p TAVR Hyperlipidemia Thoracic aortic aneurysm without rupture History of aortic aneurysm, on computed tomography scan of the chest from 09/22/2022 measured at 5.2 cm * In regards to atrial fibrillation continue patient on rate control medication. Anticoagulated with Xarelto Continue Coreg and Cardizem, hold if systolic blood pressure less than 100 * In regards to CHF exacerbation N-terminal proBNP 7950. Received IV when the Lasix transitioned to oral Lasix on discharge * Neurology consultation canceled after discussion with neurology * Consult obtained from pulmonary medicine and cardiology * In regards to anemia him a iron panel shows iron deficiency anemia started on ferrous sulfate * Patient seen by physical therapy occupational therapy and they recommended discharge to rehab Patient Condition at Discharge: Fair Plan - Discharge Summary Discharge Rx Participant: No New Discharge Prescriptions: New carvediloL [Coreg] 6.25 mg PO BID-W/MEALS tab Furosemide [Lasix] 40 mg PO DAILY tab Ferrous Sulfate [Iron (65 MG Elemental)] 325 mg PO BID-W/MEALS tab Cyanocobalamin [Vitamin B-12] 1,000 mcg PO DAILY tab Continue Levothyroxine Sodium [Synthroid] 137 mcg PO DAILY Ezetimibe [Zetia] 10 mg PO HS Rivaroxaban [Xarelto] 15 mg PO HS Aspirin EC [Ecotrin Low Dose] 81 mg PO DAILY Clopidogrel [Plavix] 75 mg PO DAILY #90 tablet dilTIAZem HCL [Cardizem LA] 300 mg PO DAILY Discontinued hydrALAZINE HCL 25 mg PO BID carvediloL [Coreg] 3.125 mg PO BID Discharge Medication List Ezetimibe [Zetia] 10 mg PO HS 01/20/15 [History] Levothyroxine Sodium [Synthroid] 137 mcg PO DAILY 01/20/15 [History] Rivaroxaban [Xarelto] 15 mg PO HS 06/29/18 [History] Aspirin EC [Ecotrin Low Dose] 81 mg PO DAILY 05/27/22 [History] Clopidogrel [Plavix] 75 mg PO DAILY #90 tablet 11/29/22 [Rx] dilTIAZem HCL [Cardizem LA] 300 mg PO DAILY 02/07/23 [History] Cyanocobalamin [Vitamin B-12] 1,000 mcg PO DAILY tab 02/10/23 [Rx] Ferrous Sulfate [Iron (65 MG Elemental)] 325 mg PO BID-W/MEALS tab 02/10/23 [Rx] Furosemide [Lasix] 40 mg PO DAILY tab 02/10/23 [Rx] carvediloL [Coreg] 6.25 mg PO BID-W/MEALS tab 02/10/23 [Rx] Follow up Appointment(s)/Referral(s): Virginia Pimentel MD [Primary Care Provider] - 1-2 days Waqas Odom MD [STAFF PHYSICIAN] - 1 Week Discharge Disposition: TRANSFER TO SNF/ECF
--- NOTE | 2023-02-10 16:06 | P.PN ---
Subjective Progress Note Date: 02/10/23 I am seeing this patient in new consultation today 01/08/2023 after the patient was reportedly confused and fell at home. Patient is a 87-year-old white male with past medical history significant for atrial fibrillation, aortic stenosis status post TAVR, thoracic aortic aneurysm, hypertension, hyperlipidemia, hypothyroidism, ataxia. Patient does follow Dr. Pimentel in the office for the above-mentioned comorbidities. Patient presented emergency department yesterday morning. He is a poor historian. Apparently, he felt confused in the middle of the night. He remembers waking up on the floor, does not remember falling. He reportedly had difficulty getting up off the floor and had to call EMS. On arrival to the emergency room, the patient was found to be in atrial fibri llation with rapid ventricular rate. He was started on Cardizem, which is currently infusing at 5 mg per hour. Heart rate is more controlled around 90 bpm. Blood pressure is normotensive. He is known to have history of atrial fibrillation and is anticoagulated on Xarelto. Patient is currently sitting up in bed, on room air, in no acute distress. He was reportedly mildly short of breath on arrival. Chest x-ray on arrival shows cardiomegaly with small bilateral pleural effusions and suspected atelectasis favored over pneumonia. NT proBNP was elevated at 7950. He does report some heart palpitations and increased lower extremity swelling. Denies any chest pain, orthopnea, PND. He has been started on Lasix 40 mg twice a day. He is oriented but has some inconsistencies in his story. Brain CT on arrival did not show any acute intracranial process. Denies any infectious symptoms such as fevers, chills, myalgias, cough. CBC on arrival showed some mild leukocytosis with a WBC count of 12.7, hemoglobin 8.5, hematocrit 32.9, platelets 292. BMP shows a sodium 139, potassium 5.1, chloride 109, serum bicarb 17, BUN 45, creatinine 1.31, glucose 114. LFTs are mildly elevated. Troponin level 0.026, 0.017, and 0.022 respectively. Lactic acid level was 1.4. CK was only mildly elevated at 570. There is a component of acute kidney injury. Urinalysis not particularly concerning for UTI. No IV maintenance fluids infusing. Patient appears hemodynamic was stable. On today's evaluation of 02/09/2023, the patient is less short of breath, the patient is currently on room air oxygen. Hemodynamically stable. He is off the Cardizem drip and the patient is currently on oral Cardizem 300 mg by mouth daily. Is also on anticoagulation. He is also on Coreg for rate control at a dose of 6.25 mg by mouth twice a day. Remains on aspirin. Remains on IV Lasix 40 mg every 12 hours. He has produced excellent amount of urine output and the net fluid balance is -1.9 L over the past 24 hours. The patient's echoes of 8 hemoglobin is at 7.6, BUN 34 with a creatinine of 1.1. He does have bilateral pleural effusions that essentially being monitored at this point in time. No need for thoracentesis. On today's evaluation of 02/10/2023, the patient is comfortable room and oxygen. Remains in atrial fibrillation at the rate is controlled. The patient has been adequately diuresed IV Lasix. No significant shortness of breath. No chest pain. No other new complaints otherwise and the patient is resting comfortably in bed. The patient doesn't disclose of 8.5 with a hemoglobin of 8.3 and a platelet count of 263. BUN is at 34 with a creatinine of 1.1. Sodium is up to 134. The patient is currently on diuretics and the patient will be switched to Lasix 40 mg by mouth daily. The patient is also on long-term and coagulation. Objective - Vital Signs Vital signs: Vital Signs Temp 98 F 02/10/23 08:11 Pulse 85 02/10/23 04:00 Resp 16 02/10/23 08:11 BP 95/57 02/10/23 08:11 Pulse Ox 99 02/10/23 08:11 FiO2 Intake & Output 02/09/23 02/10/23 02/10/23 18:59 06:59 18:59 Intake Total 592 118 Output Total 225 300 275 Balance 367 -300 -157 Intake: Oral 592 118 Output: Urine 225 300 275 Other: # Voids 1 # Bowel Movements 1 - Exam GENERAL EXAM: Alert and oriented, 87-year-old white male, comfortable in no apparent distress. HEAD: Normocephalic and atraumatic EYES: Normal reaction of pupils, equal size. NOSE: Clear with pink turbinates. THROAT: No erythema or exudates. NECK: No masses, no JVD. No carotid artery bruits, carotid artery pulses palpable bilaterally CHEST: No chest wall deformity. LUNGS: Equal air entry with bibasilar inspiratory crackles. On room air. No conversational dyspnea or accessory muscle use.. CVS: S1 and S2 normal with no audible murmur, irregular rhythm. No extra heart sounds ABDOMEN: No hepatosplenomegaly, active bowel sounds, no guarding or rigidity. SPINE: No scoliosis or deformity SKIN: No rashes CENTRAL NERVOUS SYSTEM: No focal deficits, tone is normal in all 4 extremities. EXTREMITIES: There is bilateral pedal edema 2+. No clubbing, or cyanosis. Peripheral pulses are intact. - Labs CBC & Chem 7: 02/10/23 07:04 02/10/23 07:04 Labs: Abnormal Lab Results - Last 24 Hours (Table) 02/10/23 02/10/23 Range/Units 07:04 07:04 Hgb 8.3 L (13.0-17.5) gm/dL Hct 30.4 L (39.0-53.0) % MCV 65.7 L (80.0-100.0) fL MCH 17.9 L (25.0-35.0) pg MCHC 27.3 L (31.0-37.0) g/dL RDW 17.8 H (11.5-15.5) % BUN 34 H (9-20) mg/dL Assessment and Plan Assessment: Suspected syncopal event and fall, under investigation. Brain CT on arrival showed no acute intracranial abnormalities, no hemorrhage or mass effect. Atrial fibrillation with rapid ventricular rate, recovered and the patient is currently on Coreg and Cardizem orally and the patient is on anticoagulation with Xarelto. Dyspnea, related to mild exacerbation of diastolic congestive heart failure, chest x-ray on arrival showed cardiomegaly with small bilateral pleural effusions and suspected bibasilar atelectasis. NT proBNP was elevated at 7950. Not requiring any supplemental oxygen. His most recent echocardiogram on file was done back in 2020, LV function was preserved with an EF of 55-60% at that time. There was grade 1 diastolic dysfunction. There was a normally functioning aortic valve. Shortness of breath is improved considerably Acute kidney injury, creatinine is improving Anemia, microcytic and hypochromic. Mild leukocytosis, patient denies infectious symptoms Mildly elevated LFTs, undetermined significance Generalized weakness History of aortic stenosis, status post TAVR Thoracic aortic aneurysm, most recently measured at 5.2 cm on chest CTA done on 09/22/2022. Following outpatient Hyperlipidemia Essential hypertension Hypothyroidism Left foot drop Ataxia Plan: Patient will be switched to oral Lasix 40 mg by mouth daily Adequately diuresed and there is no significant shortness of breath and the patient is currently on room air oxygen Continue Coreg and Cardizem Continue anticoagulation A. fib is under better control Creatinine is improving Patient was seen by thoracic surgery and the patient is an aortic aneurysm measuring 5.2 cm. Outpatient follow-up with a CT of the chest was recommended Patient is currently on room air oxygen The patient to be discharged home today
[2023-02-11] MEDS ORDERED: FUROSEMIDE 40 MG TAB PO SCH (09:00)
--- NOTE | 2023-02-12 10:42 | CDI ---
Documentation Clarification Form Date: 02/09/2023 04:14:00 PM From: Esthela Buck Phone: [phone] Admit Date: 02/07/2023 02:15:00 PM Patient Name: Jatinder Ware Visit Number: [id number] Discharge Date: 02/10/2023 02:42:00 PM ATTENTION: The Clinical Documentation Specialists (CDI) and [facility] Coding Staff appreciate your assistance in clarifying documentation. Please respond to the clarification below the line at the bottom and electronically sign. The CDI & [facility] Coding staff will review the response and follow-up if needed. Please note: Queries are made part of the Legal Health Record. If you have any questions, please contact the author of this message via ITS. Dr. Iker Ortiz Conflicting documentation has been found in the medical record. As attending physician, please provide clarification. Acute on chronic diastolic heart failure with EF 55-60%, 02/07 H&P Acute systolic heart failure, 02/08, Cardiology Consult History/Risk Factors: 87 year old male presents to the ED with a syncopal episode, woke up on the floor. Medical history: Atrial Fibrillation, CHF and HTN. 02/07, H&P. Clinical Indicators: ECHO, 09/22/2020: EF 55-60% Grade 1 Diastolic dysfunction, normally functioning bio prosthetic valve. TAVAR done. Trace mitral regurgitation. Trace tricuspid regurgitation present. Cardiology consult, 02/08: [facility]IN 11/28/2022 revealed impaired LV function with EF 40% with global hypokinesia, trans-catheter aortic valve has moderate.Valvular leak, moderate mitral regurgitation, moderate tricuspid regurgitation, intact intra- atrial septum. No evidence of pericardial effusion. BNP, 02/07: 7950 CXR, 02/07: COPD with cardiomegaly and bilateral small effusion. Treatment: Lasix 40mg IV Q12HR; Hydralazine 25mg PO BID Please clarify which diagnosis is most appropriate: [ ] Acute on chronic diastolic heart failure [ ] Acute on chronic systolic heart failure [ y ] Acute on chronic diastolic / systolic heart failure [ ] Other (please specify) [ ] Unable to determine (Template Last Revised: September 2020) MTDD
== END 2023-02-10 14:42 | DRG 291 ==
LOC: EC 11:31 → 3SCARD 14:15
PROVIDERS: ADMIT Internal Medicine; ATTEND Internal Medicine
PROC: 4A10X4Z Monitoring of Central Nervous Electrical Activity, External Approach (ICD-10-PCS; principal; 2023-02-08)
DX: I11.0 Hypertensive heart disease with heart failure (principal); I50.43 Acute on chronic combined systolic (congestive) and diastolic (congestive) heart failure; I48.21 Permanent atrial fibrillation; N17.9 Acute kidney failure, unspecified; R27.0 Ataxia, unspecified; M21.372 Foot drop, left foot; I71.20 Thoracic aortic aneurysm, without rupture, unspecified; Z95.2 Presence of prosthetic heart valve; R30.0 Dysuria; R39.198 Other difficulties with micturition; I08.3 Combined rheumatic disorders of mitral, aortic and tricuspid valves; R79.89 Other specified abnormal findings of blood chemistry; G31.89 Other specified degenerative diseases of nervous system; J44.9 Chronic obstructive pulmonary disease, unspecified; D50.9 Iron deficiency anemia, unspecified; E78.5 Hyperlipidemia, unspecified; E03.9 Hypothyroidism, unspecified; Z79.890 Hormone replacement therapy; Z86.73 Personal history of transient ischemic attack (TIA), and cerebral infarction without residual deficits; Z95.5 Presence of coronary angioplasty implant and graft; Z86.79 Personal history of other diseases of the circulatory system; Z85.828 Personal history of other malignant neoplasm of skin; Z79.899 Other long term (current) drug therapy; R55 Syncope and collapse; Z79.82 Long term (current) use of aspirin; Z79.02 Long term (current) use of antithrombotics/antiplatelets; Z79.01 Long term (current) use of anticoagulants; W19.XXXA Unspecified fall, initial encounter; Y92.009 Unspecified place in unspecified non-institutional (private) residence as the place of occurrence of the external cause; Z96.612 Presence of left artificial shoulder joint; Z96.611 Presence of right artificial shoulder joint; Z96.643 Presence of artificial hip joint, bilateral; Z90.49 Acquired absence of other specified parts of digestive tract
CPT/HCPCS: 36415; 70450; 71046; 76705; 76770; 80048; 80053; 80076; 81001; 82140; 82550; 82607; 82746; 83540; 83550; 83605; 83735; 83880; 84439; 84443; 84481; 84484; 85025; 85027; 85610; 85730; 93005; 93880; 94760; 95819; 96365; 96366; 96375; 99291

== ENCOUNTER 2023-02-25 00:48 | Emergency (ER) | payer MEDICARE ==
[2023-02-25] MEDS ORDERED: OXYMETAZOLINE 0.05% NASL SPRAY 1 SPRAY BOTTLE NASAL STA (01:14)
[2023-02-25] MEDS ORDERED: SILVER NITRATE APPLICATOR 1 EACH STICK..EA. TOPICAL STA (02:09)
--- NOTE | 2023-02-25 02:12 | ED ---
ENT HPI - General Chief complaint: ENT Stated complaint: Nose bleed Time Seen by Provider: 02/25/23 00:58 Source: patient, EMS Mode of arrival: EMS Limitations: no limitations - History of Present Illness Initial comments: 87-year-old male presenting from [facility] with chief complaint of nosebleed. Nosebleed has been ongoing since 2100 yesterday. Bleeding has been on and off. States that he has had issues with intermittent nosebleeds for about a year now. There is been no injury or trauma. No headache or dizziness. He is on xarelto. Upon arrival patient has nose clamp and gauze in place which is controlling the bleeding at this time - Related Data Home Medications Medication Instructions Recorded Confirmed Ezetimibe [Zetia] 10 mg PO HS 01/20/15 02/07/23 Levothyroxine Sodium [Synthroid] 137 mcg PO DAILY 01/20/15 02/07/23 Rivaroxaban [Xarelto] 15 mg PO HS 06/29/18 02/07/23 Aspirin EC [Ecotrin Low Dose] 81 mg PO DAILY 05/27/22 02/07/23 dilTIAZem HCL [Cardizem LA] 300 mg PO DAILY 02/07/23 02/07/23 Previous Rx's Medication Instructions Recorded Clopidogrel [Plavix] 75 mg PO DAILY #90 tablet 11/29/22 Cyanocobalamin [Vitamin B-12] 1,000 mcg PO DAILY tab 02/10/23 Ferrous Sulfate [Iron (65 MG 325 mg PO BID-W/MEALS tab 02/10/23 Elemental)] Furosemide [Lasix] 40 mg PO DAILY tab 02/10/23 carvediloL [Coreg] 6.25 mg PO BID-W/MEALS tab 02/10/23 Amoxic-Pot Clav 875-125Mg 1 tab PO Q12HR 7 Days #14 tab 02/25/23 [Augmentin 875-125] Allergies Allergy/AdvReac Type Severity Reaction Status Date / Time No Known Allergies Allergy Verified 02/07/23 13:03 Review of Systems ROS Statement: Those systems with pertinent positive or pertinent negative responses have been documented in the HPI. ROS Other: All systems not noted in ROS Statement are negative. Past Medical History Past Medical History: Atrial Fibrillation, Cancer, CVA/TIA, Hyperlipidemia, Hypertension, Pneumonia, Thyroid Disorder Additional Past Medical History / Comment(s): Skin cancer with removal; atrial fibrillation is paroxysmal, currently on Xarelto for anticoagulation History of Any Multi-Drug Resistant Organisms: None Reported Past Surgical History: Appendectomy, Cholecystectomy, Heart Catheterization, Joint Replacement, Orthopedic Surgery Additional Past Surgical History / Comment(s): bilateral shoulder and hips replaced; aortic valve replacement 2019, left foot drop Past Anesthesia/Blood Transfusion Reactions: No Reported Reaction Past Psychological History: No Psychological Hx Reported Smoking Status: Former smoker - Past Family History Mother Family Medical History: CVA/TIA General Exam Limitations: no limitations General appearance: alert, in no apparent distress Head exam: Present: atraumatic, normocephalic, normal inspection Eye exam: Present: normal appearance, EOMI ENT exam: Present: other (Nosebleed right nostril) Neck exam: Present: normal inspection, full ROM Respiratory exam: Present: normal lung sounds bilaterally. Absent: respiratory distress, wheezes, rales, rhonchi, stridor Cardiovascular Exam: Present: regular rate, normal rhythm, normal heart sounds. Absent: systolic murmur, diastolic murmur, rubs, gallop, clicks Neurological exam: Present: alert, oriented X3, CN II-XII intact Psychiatric exam: Present: normal affect, normal mood Skin exam: Present: warm, dry, intact, normal color. Absent: rash Course Vital Signs 02/25/23 02/25/23 02/25/23 00:51 03:07 06:15 Temperature 98.1 F 98.4 F Pulse Rate 94 82 84 Respiratory 18 16 16 Rate Blood Pressure 108/69 119/72 115/78 O2 Sat by Pulse 97 98 98 Oximetry Medical Decision Making - Medical Decision Making Was pt. sent in by a medical professional or institution (, PA, RUNNING INSTRUCTOR, urgent care, hospital, or fci...) When possible be specific @ -No Did you speak to anyone other than the patient for history (EMS, parent, family, police, friend...)? What history was obtained from this source @ -No Did you review nursing and triage notes (agree or disagree)? Why? @ -I reviewed and agree with nursing and triage notes Were old charts reviewed (outside hosp., previous admission, EMS record, old EKG, old radiological studies, urgent care reports/EKG's, fci records)? Report findings @ -No old charts were reviewed Differential Diagnosis (chest pain, altered mental status, abdominal pain women, abdominal pain men, vaginal bleeding, weakness, fever, dyspnea, syncope, headache, dizziness, GI bleed, back pain, seizure, CVA, palpatations, mental health, musculoskeletal)? @ -not applicable EKG interpreted by me (3pts min.). @ -As above X-rays interpreted by me (1pt min.). @ -None done CT interpreted by me (1pt min.). @ -None done U/S interpreted by me (1pt. min.). @ -None done What testing was considered but not performed or refused? (CT, X-rays, U/S, labs)? Why? @ -None What meds were considered but not given or refused? Why? @ -None Did you discuss the management of the patient with other professionals (professionals i.e. , PA, RUNNING INSTRUCTOR, lab, RT, psych nurse, addiction social worker, broadcast correspondent, teacher, agricultural technical officer, case management manager)? Give summary @ -No Was smoking cessation discussed for >3mins.? @ -No Was critical care preformed (if so, how long)? @ -No Were there social determinants of health that impacted care today? How? (Homelessness, low income, unemployed, alcoholism, drug addiction, transportati on, low edu. Level, literacy, decrease access to med. care, senior care, rehab)? @ -No Was there de-escalation of care discussed even if they declined (Discuss DNR or withdrawal of care, Hospice)? DNR status @ -No What co-morbidities impacted this encounter? (DM, HTN, Smoking, COPD, CAD, Cancer, CVA, ARF, Chemo, Hep., AIDS, mental health diagnosis, sleep apnea, morbid obesity)? @ -None Was patient admitted / discharged? Hospital course, mention meds given and route, prescriptions, significant lab abnormalities, going to OR and other pertinent info. @ -87-year-old male presenting with chief complaint of nosebleed. Blood pressure is WNL. Nasal clamp and Afrin were applied for 20 minutes. On reassessment nosebleed continued. Attempted to place Merocel, blood was leaking around the Merocel. Rhino Rocket was placed, due to the patient's anatomy and clenching a small amount of the Rhino Rocket remained outside the nose, blew into her inflated and Rhino Rocket is in place. Bleeding has stopped. Patient was observed for half an hour bleeding did not resume. Patient is placed on Augmentin and instructed to follow-up with ENT. Follow-up with PCP. Report back to ER with any new or worsening symptoms. Discussed return parameters and answ ered all questions. Patient conveyed verbal understanding and agreed to the plan. I discussed this case in detail with my attending Dr. Talley Undiagnosed new problem with uncertain prognosis? @ -No Drug Therapy requiring intensive monitoring for toxicity (Heparin, Nitro, Insulin, Cardizem)? @ -No Were any procedures done? @ -Rhino Rocket placed Diagnosis/symptom? @ -Epistaxis Acute, or Chronic, or Acute on Chronic? @ -Acute Uncomplicated (without systemic symptoms) or Complicated (systemic symptoms)? @ -Uncomplicated Side effects of treatment? @ -No Exacerbation, Progression, or Severe Exacerbation? @ -No Poses a threat to life or bodily function? How? (Chest pain, USA, DC, pneumonia, PE, COPD, DKA, ARF, appy, cholecystitis, CVA, Diverticulitis, Homicidal, Suicidal, threat to staff... and all critical care pts) @ -No Disposition Clinical Impression: Nosebleed Disposition: HOME SELF-CARE Condition: Good Instructions (If sedation given, give patient instructions): Nosebleed (ED) Additional Instructions: Follow up with ENT, suggestions provided. Report back to ER with any new or wor sening symptoms. Take antibiotic as prescribed while packing is in place in order to prevent infection. Prescriptions: Amoxic-Pot Clav 875-125Mg [Augmentin 875-125] 1 tab PO Q12HR 7 Days #14 tab Is patient prescribed a controlled substance at d/c from ED?: No Referrals: Leobardo Pimentel DO [Primary Care Provider] - 1-2 days Alcides Torres MD [STAFF PHYSICIAN] - 1-2 days Tony Hensley MD [STAFF PHYSICIAN] - 1-2 days Guido Grady DO [Doctor of Osteopathic Medicine] - 1-2 days Time of Disposition: 03:15
[2023-02-25] MEDS ORDERED: TRANEXAMIC ACID 1,000 MG/10 ML VIAL MISCELLANE ONE (03:00)
[2023-02-25 03:07] VITALS: RESP 16
[2023-02-25 06:16] VITALS: BP 115/78; PULSE 84; TEMP 98.4
== END 2023-02-25 06:37 | disposition home or self-care (01) ==
LOC: EC 00:48
DX: R04.0 Epistaxis (principal); I10 Essential (primary) hypertension; E78.5 Hyperlipidemia, unspecified; E07.9 Disorder of thyroid, unspecified; I48.0 Paroxysmal atrial fibrillation; Z79.890 Hormone replacement therapy; Z79.82 Long term (current) use of aspirin; Z79.01 Long term (current) use of anticoagulants; Z79.899 Other long term (current) drug therapy; Z90.49 Acquired absence of other specified parts of digestive tract; Z86.73 Personal history of transient ischemic attack (TIA), and cerebral infarction without residual deficits; Z87.891 Personal history of nicotine dependence
CPT/HCPCS: 30903; 99284

== ENCOUNTER 2023-03-01 05:01 | Inpatient (IN) | payer MEDICARE ==
[2023-03-01] MEDS ORDERED: SODIUM CHLORIDE 0.9% 500 ML 500 ML IV STA (05:08)
--- NOTE | 2023-03-01 05:08 | ED ---
Recheck HPI - General Stated Complaint: Anemia Time Seen by Provider: 03/01/23 05:07 Source: RN notes reviewed, old records reviewed Mode of arrival: EMS Limitations: no limitations - History of Present Illness Initial Comments: This is an 87-year-old male to the emergency department today for evaluation recheck hemoglobin. Patient had an outpatient lab tests drawn with hemoglobin that was in the low 6.0. Patient himself has no complaints here, has had recent recurrent and frequent bloody noses. No chest pain or shortness of breath no abdominal pain. No other complaints no nausea vomiting, patient is on blood thinners MD Complaint: abnormal lab (Low hemoglobin) -: unknown Returns Today for: Called Because of Abnormal Lab/Test Symptoms Since Prior Visit: no new symptoms Context: planned re-check, called for abnormal lab result Associated Symptoms: none Treatments Prior to Arrival: other (0) - Related Data Home Medications Medication Instructions Recorded Confirmed Ezetimibe [Zetia] 10 mg PO HS 01/20/15 03/01/23 Levothyroxine Sodium [Synthroid] 137 mcg PO SUTUWEFRSA@0600 01/20/15 03/01/23 dilTIAZem HCL [Cardizem LA] 300 mg PO DAILY 02/07/23 03/01/23 Amoxic-Pot Clav 875-125Mg 1 tab PO BID 03/01/23 03/01/23 [Augmentin 875-125] Furosemide [Lasix] 40 mg PO BID@0600,1400 03/01/23 03/01/23 Lactose-Reduced Food [Ensure Plus] 240 ml PO DAILY 03/01/23 03/01/23 Levothyroxine Sodium [Synthroid] 150 mcg PO MOTH@0600 03/01/23 03/01/23 carvediloL [Coreg] 6.25 mg PO BID 03/01/23 03/01/23 Previous Rx's Medication Instructions Recorded Cyanocobalamin [Vitamin B-12] 1,000 mcg PO DAILY tab 02/10/23 Allergies Allergy/AdvReac Type Severity Reaction Status Date / Time simvastatin [From Zocor] Allergy Unknown Verified 03/01/23 07:08 Review of Systems ROS Statement: Those systems with pertinent positive or pertinent negative responses have been documented in the HPI. ROS Other: All systems not noted in ROS Statement are negative. Past Medical History Past Medical History: Atrial Fibrillation, Cancer, CVA/TIA, Hyperlipidemia, Hypertension, Pneumonia, Thyroid Disorder Additional Past Medical History / Comment(s): Skin cancer with removal; atrial fibrillation is paroxysmal, currently on Xarelto for anticoagulation History of Any Multi-Drug Resistant Organisms: None Reported Past Surgical History: Appendectomy, Cholecystectomy, Heart Catheterization, Joint Replacement, Orthopedic Surgery Additional Past Surgical History / Comment(s): bilateral shoulder and hips replaced; aortic valve replacement 2019, left foot drop Past Anesthesia/Blood Transfusion Reactions: No Reported Reaction Past Psychological History: No Psychological Hx Reported Smoking Status: Former smoker - Past Family History Mother Family Medical History: CVA/TIA General Exam General appearance: alert, in no apparent distress Head exam: Present: atraumatic, normocephalic, normal inspection Eye exam: Present: normal appearance, PERRL, EOMI. Absent: scleral icterus, conjunctival injection, periorbital swelling ENT exam: Present: normal exam, mucous membranes moist Neck exam: Present: normal inspection. Absent: tenderness, meningismus, lymphadenopathy Respiratory exam: Present: normal lung sounds bilaterally. Absent: respiratory distress, wheezes, rales, rhonchi, stridor Cardiovascular Exam: Present: regular rate, normal rhythm, normal heart sounds. Absent: systolic murmur, diastolic murmur, rubs, gallop, clicks GI/Abdominal exam: Present: soft, normal bowel sounds. Absent: distended, tenderness, guarding, rebound, rigid Extremities exam: Present: normal inspection, full ROM, normal capillary refill. Absent: tenderness, pedal edema, joint swelling, calf tenderness Back exam: Present: normal inspection Neurological exam: Present: alert, oriented X3, CN II-XII intact Psychiatric exam: Present: normal affect, normal mood Skin exam: Present: warm, dry, intact, normal color. Absent: rash Course Vital Signs 03/01/23 03/01/23 03/01/23 05:22 06:59 08:19 Temperature 97.5 F L 97.7 F Pulse Rate 80 80 81 Respiratory 18 18 18 Rate Blood Pressure 121/62 135/75 124/73 O2 Sat by Pulse 95 95 97 Oximetry 03/01/23 03/01/23 03/01/23 09:48 10:00 10:20 Temperature 98.0 F 98.2 F 97.2 F L Pulse Rate 82 81 72 Respiratory 18 18 16 Rate Blood Pressure 131/74 131/72 131/86 O2 Sat by Pulse 97 96 98 Oximetry 03/01/23 03/01/23 03/01/23 12:02 12:32 12:45 Temperature 97.8 F 97.9 F 98.1 F Pulse Rate 72 92 85 Respiratory 18 18 18 Rate Blood Pressure 145/78 138/79 148/81 O2 Sat by Pulse 96 97 Oximetry 03/01/23 03/01/23 03/01/23 13:05 14:00 15:00 Temperature 97.9 F 98.0 F 97.8 F Pulse Rate 91 100 100 Respiratory 18 18 18 Rate Blood Pressure 134/83 158/108 151/80 O2 Sat by Pulse 98 97 97 Oximetry 03/01/23 15:15 Temperature 98.0 F Pulse Rate 95 Respiratory 18 Rate Blood Pressure 151/80 O2 Sat by Pulse 98 Oximetry - Reevaluation(s) Reevaluation #1: 03/01/23 06:14 Medical records reviewed Reevaluation #2: 03/01/23 06:48 Patient has no active bleeding here in the ER but still feels very weak Reevaluation #3: 03/01/23 06:48 Patient informed results and questions answered Reevaluation #4: 03/01/23 06:14 Was pt. sent in by a medical professional or institution (Dr. PA, MANAGER TALENT MANAGEMENT, urgent care, hospital, or [facility]...) When possible be specific @ -no Did you speak to anyone other than the patient for history (EMS, parent, family, police, friend...)? What history was obtained from this source @ -no Did you review nursing and triage notes (agree or disagree)? Why? @ -agree Are old charts reviewed (outside hosp., previous admission, EMS record, old EKG, old radiological studies, urgent care reports/EKG's, [facility] records)? Report findings @ -yes Differential Diagnosis (chest pain, altered mental status, abdominal pain women, abdominal pain men, vaginal bleeding, weakness, fever, dyspnea, syncope, headache, dizziness, GI bleed, back pain, seizure, CVA, palpatations, mental health, musculoskeletal)? @ -prior EKG interpreted by me (3pts min.). @ -yes X-rays interpreted by me (1pt min.). @ -no CT interpreted by me (1pt min.). @ -no U/S interpreted by me (1pt. min.). @ -no What testing was considered but not performed or refused? (CT, X-rays, U/S, labs)? Why? @ -none What meds were considered but not given or refused? Why? @ -none Did you discuss the management of the patient with other professionals (professionals i.e. Dr., PA, MANAGER TALENT MANAGEMENT, lab, RT, psych nurse, social work instructor, art preparator, teacher, armoured corps officer, onsite case manager)? Give summary @ -no Was smoking cessation discussed for >3mins.? @ -no Was critical care preformed (if so, how long)? @ -no Were there social determinants of health that impacted care today? How? (Homelessness, low income, unemployed, alcoholism, drug addiction, transportation, low edu. Level, literacy, decrease access to med. care, fci, rehab)? @ -none Was there de-escalation of care discussed even if they declined (Discuss DNR or withdrawal of care, Hospice)? DNR status @ -no What co-morbidities impacted this encounter? (DM, HTN, Smoking, COPD, CAD, Cancer, CVA, ARF, Chemo, Hep., AIDS, mental health diagnosis, sleep apnea, morbid obesity)? @ -none Was patient admitted / discharged? Hospital course, mention meds given and route, prescriptions, significant lab abnormalities, going to OR and other pertinent info. @ - 87 female to the emergency department for evaluation of severe weakness low hemoglobin outpatient basis with recent history of nosebleeds. Patient is on blood thinners for A. fib, patient will be admitted for transfusion Admitted Undiagnosed new problem with uncertain prognosis? @ -no Drug Therapy requiring intensive monitoring for toxicity (Heparin, Nitro, Insulin, Cardizem)? @ -no Were any procedures done? @ -no Diagnosis/symptom? @ -Anemia, GI bleed on blood thinners Acute, or Chronic, or Acute on Chronic? @ -Acute Uncomplicated (without systemic symptoms) or Complicated (systemic symptoms)? @ -Complicated Side effects of treatment? @ -no Exacerbation, Progression, or Severe Exacerbation? @ -exacerbation Poses a threat to life or bodily function? How? (Chest pain, USA, DE, pneumonia, PE, COPD, DKA, ARF, appy, cholecystitis, CVA, Diverticulitis, Homicidal, Suicidal, threat to staff... and all critical care pts) @ -yes with significant GI bleed, anemia on blood thinners Reevaluation #5: 03/01/23 06:14 Differential Weakness: Hypoglycemia, shock, sepsis, hyponatremia, anemia, infection, DE, ETOH, adverse medicine reaction, overdose, stroke, this is not meant to be an all-inclusive list. - Consultations Consultation #1: Spoke with [facility] were agrees to admit the patient Medical Decision Making - Medical Decision Making 87 female to the emergency department for evaluation of severe weakness low hemoglobin outpatient basis with recent history of nosebleeds. Patient is on blood thinners for A. fib, patient will be admitted for transfusion - Lab Data Result diagrams: 03/02/23 07:39 03/02/23 07:39 Lab Results 03/01/23 03/01/23 03/01/23 Range/Units 05:11 05:11 05:11 WBC 9.2 (3.8-10.6) k/uL RBC 3.32 L (4.30-5.90) m/uL Hgb 6.7 L* D (13.0-17.5) gm/dL Hct 25.0 L (39.0-53.0) % MCV 75.2 L D (80.0-100.0) fL MCH 20.2 L (25.0-35.0) pg MCHC 26.8 L (31.0-37.0) g/dL RDW 25.2 H (11.5-15.5) % Plt Count 351 (150-450) k/uL MPV 7.4 Neutrophils % 56 % Lymphocytes % 28 % Monocytes % 9 % Eosinophils % 4 % Basophils % 0 % Neutrophils # 5.2 (1.3-7.7) k/uL Lymphocytes # 2.6 (1.0-4.8) k/uL Monocytes # 0.9 (0-1.0) k/uL Eosinophils # 0.4 (0-0.7) k/uL Basophils # 0.0 (0-0.2) k/uL Manual Slide Review Performed Polychromasia Present Hypochromasia Marked Poikilocytosis (manual Present Anisocytosis Marked Microcytosis Marked PT 14.8 H (9.0-12.0) sec INR 1.5 H (<1.2) APTT 31.9 H (22.0-30.0) sec Sodium 136 L (137-145) mmol/L Potassium 4.0 (3.5-5.1) mmol/L Chloride 100 (98-107) mmol/L Carbon Dioxide 30 (22-30) mmol/L Anion Gap 6 mmol/L BUN 36 H (9-20) mg/dL Creatinine 0.95 (0.66-1.25) mg/dL Est GFR (CKD-EPI)AfAm 83 (>60 ml/min/1.73 sqM) Est GFR (CKD-EPI)NonAf 72 (>60 ml/min/1.73 sqM) Glucose 95 (74-99) mg/dL Plasma Lactic Acid Sudhakar (0.7-2.0) mmol/L Calcium 8.5 (8.4-10.2) mg/dL Phosphorus 4.1 (2.5-4.5) mg/dL Magnesium 2.3 (1.6-2.3) mg/dL Total Bilirubin 1.1 (0.2-1.3) mg/dL AST 26 (17-59) U/L ALT 17 (4-49) U/L Alkaline Phosphatase 55 (38-126) U/L Troponin I (0.000-0.034) ng/mL Total Protein 6.0 L (6.3-8.2) g/dL Albumin 3.6 (3.5-5.0) g/dL Blood Type Blood Type Recheck Bld Type Recheck Status Antibody Screen Crossmatch Spec Expiration Date 03/01/23 03/01/23 03/01/23 Range/Units 05:11 05:11 05:11 WBC (3.8-10.6) k/uL RBC (4.30-5.90) m/uL Hgb (13.0-17.5) gm/dL Hct (39.0-53.0) % MCV (80.0-100.0) fL MCH (25.0-35.0) pg MCHC (31.0-37.0) g/dL RDW (11.5-15.5) % Plt Count (150-450) k/uL MPV Neutrophils % % Lymphocytes % % Monocytes % % Eosinophils % % Basophils % % Neutrophils # (1.3-7.7) k/uL Lymphocytes # (1.0-4.8) k/uL Monocytes # (0-1.0) k/uL Eosinophils # (0-0.7) k/uL Basophils # (0-0.2) k/uL Manual Slide Review Polychromasia Hypochromasia Poikilocytosis (manual Anisocytosis Microcytosis PT (9.0-12.0) sec INR (<1.2) APTT (22.0-30.0) sec Sodium (137-145) mmol/L Potassium (3.5-5.1) mmol/L Chloride (98-107) mmol/L Carbon Dioxide (22-30) mmol/L Anion Gap mmol/L BUN (9-20) mg/dL Creatinine (0.66-1.25) mg/dL Est GFR (CKD-EPI)AfAm (>60 ml/min/1.73 sqM) Est GFR (CKD-EPI)NonAf (>60 ml/min/1.73 sqM) Glucose (74-99) mg/dL Plasma Lactic Acid Sudhakar 1.0 (0.7-2.0) mmol/L Calcium (8.4-10.2) mg/dL Phosphorus (2.5-4.5) mg/dL Magnesium (1.6-2.3) mg/dL Total Bilirubin (0.2-1.3) mg/dL AST (17-59) U/L ALT (4-49) U/L Alkaline Phosphatase (38-126) U/L Troponin I <0.012 (0.000-0.034) ng/mL Total Protein (6.3-8.2) g/dL Albumin (3.5-5.0) g/dL Blood Type B Positive Blood Type Recheck No Previous Record Bld Type Recheck Status CABO Indicated Antibody Screen NEGATIVE Crossmatch See Detail Spec Expiration Date 03/04/20232307 - EKG Data -: EKG Interpreted by Me (EKG is A. fib 86 QRS 114 QTc 432) Disposition Clinical Impression: Anemia, Generalized weakness Disposition: ADMITTED IP TO THIS [facility] Condition: Fair Is patient prescribed a controlled substance at d/c from ED?: No Time of Disposition: 18:45
[2023-03-01 05:56] LABS: INR 1.5 (<1.2); Partial Thromboplastin Time 31.9 sec (22.0-30.0); Prothrombin Time 14.8 sec (9.0-12.0)
[2023-03-01 06:01] LABS: ALT 17 U/L (4-49); AST 26 U/L (17-59); African American GFR (CKD) 83 (>60 ml/min/1.73 sqM); Albumin 3.6 g/dL (3.5-5.0); Alkaline Phosphatase 55 U/L (38-126); Anion Gap 6 mmol/L; Blood Urea Nitrogen 36 mg/dL (9-20); Calcium 8.5 mg/dL (8.4-10.2); Carbon Dioxide 30 mmol/L (22-30); Chloride 100 mmol/L (98-107); Glucose 95 mg/dL (74-99); Magnesium 2.3 mg/dL (1.6-2.3); Non-African American GFR(CKD) 72 (>60 ml/min/1.73 sqM); Phosphorus 4.1 mg/dL (2.5-4.5); Sodium 136 mmol/L (137-145); Total Bilirubin 1.1 mg/dL (0.2-1.3)
[2023-03-01 06:07] LABS: Anisocytosis Marked; Basophils % (A) 0 %; Eosinophils # (A) 0.4 k/uL (0-0.7); Eosinophils % (A) 4 %; Hypochromasia Marked; Lymphocytes # (A) 2.6 k/uL (1.0-4.8); Lymphocytes % (A) 28 %; MCH 20.2 pg (25.0-35.0); MCHC 26.8 g/dL (31.0-37.0); MCV 75.2 fL (80.0-100.0); Mean Platelet Volume 7.4; Microcytosis Marked; Monocytes # (A) 0.9 k/uL (0-1.0); Monocytes % (A) 9 %; Neutrophils # (A) 5.2 k/uL (1.3-7.7); Neutrophils % (A) 56 %; Platelet Count 351 k/uL (150-450); RBC 3.32 m/uL (4.30-5.90); WBC 9.2 k/uL (3.8-10.6)
[2023-03-01 06:41] LABS: HGB 6.7 gm/dL (13.0-17.5); RDW 25.2 % (11.5-15.5)
[2023-03-01] MEDS ORDERED: NALOXONE 0.4 MG/ML 1 ML VIAL IV PRN (06:45)
[2023-03-01] MEDS ORDERED: ONDANSETRON 4 MG/2 ML VIAL IVP PRN (06:45)
[2023-03-01] MEDS ORDERED: MORPHINE SULFATE 4 MG/ML SYRINGE IV PRN (06:45)
[2023-03-01 07:40] LABS: Poikilocytosis (M) Present; Polychromasia Present
[2023-03-01] MEDS: SODIUM CHLORIDE 0.9% 1,000 ML IV SCH (08:18)
[2023-03-01] MEDS: PANTOPRAZOLE 40 MG/10 ML VIAL IV SCH (08:22)
[2023-03-01] MEDS: FUROSEMIDE 10 MG/ML 4 ML VIAL IV SCH ×2 (12:26→20:48)
--- NOTE | 2023-03-01 12:34 | XR ---
EXAMINATION TYPE: XR chest 1V portable DATE OF EXAM: 03/01/2023 COMPARISON: 02/07/2023 HISTORY: Shortness of breath TECHNIQUE: Single frontal view of the chest is obtained. FINDINGS: Heart is enlarged and there is diffuse interstitial pattern with left lower lobe consolida tion and small effusion. Hyperinflation suggests COPD. There is post aortic valve surgery. Bilateral shoulder surgery. Thoracic aortic arch is prominent claudia suring 4.2 cm suggestive of aneurysmal dilation. Bilateral AC joint arthropathy. IMPRESSION: 1. COPD with left lower lobe infiltrate and small effusion stable. Findings could be on the basis of either atelectasis or pneumonia. Slightly prominent interstitium can be associated with early or mild venous congestion correlate clinically. 2. Correlate for thoracic aortic aneurysm.
--- NOTE | 2023-03-01 13:25 | P.HPIM ---
History of Present Illness H&P Date: 03/01/23 This is a 87-year-old male who presented to the emergency department via EMS from [facility] as he was there rehab and was told he had an abnormal hemoglobin and came to the hospital for further evaluation. Hemoglobin was noted to be 6.9 on admission. There is no active bleeding noted although patient reports was here a few weeks ago for epistaxis that would not stop and was cauterized. Patient was discharged back to the [facility] as he is therefore rehab for strength and mobility. Patient had a recent ALVIN with past medical history of atrial fibrillation, skin cancer, CVA/TIA, hyperlipidemia, hypertension, hypothyroid was maintained on xarelto and Plavix as well as has been receiving iron supp lements. Patient reports he has had dark stools approximately one per day that he has noticed. Patient is occult positive and currently receiving 1 unit of PRBC. We'll consult general surgery for evaluation. Patient is significantly weak and will have physical therapy evaluate the patient. Plan is to return to [facility] on discharge to continue with physical therapy. Chest x-ray was ordered as no imaging was done in the ER and chest x-ray shows COPD with left lower lobe infiltrate and small effusion stable findings could be on the basis of either atelectasis or pneumonia with a slightly prominent interstitium could be associated with early mild venous congestion correlate clinically. Patient is noted to have a thoracic aortic aneurysm and was evaluated recently by CT surgery with no plans for intervention on previous admission. We will reconsult PT/OT therapy as well. Review Of Systems: Constitutional: No fever, no chills, no night sweats. No weight change. Reports weakness, no fatigue or lethargy. No daytime sleepiness. EENT: No headache. No blurred vision or double vision, no loss of vision. No loss of Hearing, no ringing in the ears, no dizziness. No nasal drainage or c ongestion. No epistaxis. No sore throat. Lungs: Reports shortness of breath, cough, no sputum production. No wheezing. Cardiovascular: No chest pain, reports lower extremity edema. No palpitations. No paroxysmal nocturnal dyspnea. No orthopnea. No lightheadedness or dizziness. No syncopal episodes. Abdominal: No abdominal pain. No nausea, vomiting. No diarrhea. No constipation. No bloody or tarry stools.. No loss of appetite. Reports dark stools Genitourinary: No dysuria, increased frequency, urgency. No urinary retention. Musculoskeletal: No myalgias. No muscle weakness, reports gait dysfunction, no frequent falls. No back pain. No neck pain. Integumentary: No wounds, no lesions. No rash or pruritus. No unusual bruising. No change in hair or nails. Neurologic: No aphasia. No facial droop. No change in mentation. No head injury. No headache. No paralysis. No paresthesia. Psychiatric: No depression. No anxiety. No mood swings. Endocrine: No abnormal blood sugars. No weight change. No excessive sweating or thirst. No cold intolerance. PHYSICAL EXAMINATION: GENERAL: The patient is alert and oriented x4, Well developed, well nourished. Elderly-appearing HEENT: Pupils are round and equally reacting to light. EOMI. no scleral icterus. No conjunctival pallor. Normocephalic, atraumatic. No pharyngeal erythema. No thyromegaly. CARDIOVASCULAR: S1 and S2 muffled PULMONARY: diminished breath sounds bilaterally with no wheezing or rhonchi noted. ABDOMEN: soft. Nontender on exam. non-distended, normoactive bowel sounds. No palpable organomegaly. MUSCULOSKELETAL: No joint swelling or deformity. EXTREMITIES: No cyanosis, clubbing, or pedal edema. NEUROLOGICAL: Gross neurological examination did not reveal any focal deficits. Diffuse weakness SKIN: No rashes. Assessment: Anemia, hemoglobin 6.9 on admission, history of chronic anemia, iron deficient Black stools, possibly GI bleed versus possible medication effect with iron supplements History of paroxysmal atrial fibrillation Acute on chronic Congestive heart failure with diastolic dysfunction, acute exacerbation History of coronary artery disease with recent stenting in November 2022 history of CVA/TIA Gait dysfunction with generalized weakness Hypertension history Aortic stenosis history, status post TAVR Hyperlipidemia History of thoracic aortic aneurysm without rupture was evaluated on previous admission by CT surgery GI prophylaxis DVT prophylaxis Full code Plan: Patient's hemoglobin was 6.9 on admission and received 1 unit of PRBC and will follow-up with repeat CBC Patient with some lower extremity edema with history of heart failure will order BNP and start patient on Lasix. Doesn't appear to be in exacerbation just with volume overload Patient did have positive guaiac and reporting dark stools will have general surgery evaluate and will hold Xarelto, Plavix for now. Other home medications have been reviewed and resumed as appropriate Chest x-ray obtained showed some vascular congestion will start IV Lasix twice daily and follow up on repeat labs Will have PT/OT therapy evaluate the patient and plan is to return to rehab at [facility] for continued PT/OT therapy The impression and plan of care has been dictated by Kandy Will, nurse practitioner as directed. Dr. Lex MD I have performed a history and examination and MDM of this patient, discussed the same with the dictator, and agree with the dictator's assessment and plan as written ,documented as a scribe. Based on total visit time, I have performed more than 50% of the visit. Any additional findings or plans will be noted. Past Medical History Past Medical History: Atrial Fibrillation, Cancer, CVA/TIA, Hyperlipidemia, Hypertension, Pneumonia, Thyroid Disorder Additional Past Medical History / Comment(s): Skin cancer with removal; atrial fibrillation is paroxysmal, currently on Xarelto for anticoagulation History of Any Multi-Drug Resistant Organisms: None Reported Past Surgical History: Appendectomy, Cholecystectomy, Heart Catheterization, Joint Replacement, Orthopedic Surgery Additional Past Surgical History / Comment(s): bilateral shoulder and hips replaced; aortic valve replacement 2019, left foot drop Past Anesthesia/Blood Transfusion Reactions: No Reported Reaction Past Psychological History: No Psychological Hx Reported Smoking Status: Former smoker - Past Family History Mother Family Medical History: CVA/TIA Medications and Allergies Home Medications Medication Instructions Recorded Confirmed Type Ezetimibe [Zetia] 10 mg PO HS 01/20/15 03/01/23 History Levothyroxine Sodium [Synthroid] 137 mcg PO SUTUWEFRSA@0600 01/20/15 03/01/23 History Rivaroxaban [Xarelto] 15 mg PO HS 06/29/18 03/01/23 History Clopidogrel [Plavix] 75 mg PO DAILY #90 tablet 11/29/22 03/01/23 Rx dilTIAZem HCL [Cardizem LA] 300 mg PO DAILY 02/07/23 03/01/23 History Cyanocobalamin [Vitamin B-12] 1,000 mcg PO DAILY tab 02/10/23 03/01/23 Rx Amoxic-Pot Clav 875-125Mg 1 tab PO BID 03/01/23 03/01/23 History [Augmentin 875-125] Ferrous Sulfate [Iron (65 MG 325 mg PO BID 03/01/23 03/01/23 History Elemental)] Furosemide [Lasix] 40 mg PO BID@0600,1400 03/01/23 03/01/23 History Lactose-Reduced Food [Ensure Plus] 240 ml PO DAILY 03/01/23 03/01/23 History Levothyroxine Sodium [Synthroid] 150 mcg PO MOTH@0600 03/01/23 03/01/23 History carvediloL [Coreg] 6.25 mg PO BID 03/01/23 03/01/23 History Allergies Allergy/AdvReac Type Severity Reaction Status Date / Time simvastatin [From Zocor] Allergy Unknown Verified 03/01/23 07:08 Physical Exam Vitals: Vital Signs Temp Pulse Resp BP Pulse Ox 03/01/23 10:00 98.2 F 81 18 131/72 96 03/01/23 09:48 98.0 F 82 18 131/74 97 03/01/23 08:19 97.7 F 81 18 124/73 97 03/01/23 06:59 80 18 135/75 95 03/01/23 05:22 97.5 F L 80 18 121/62 95 Intake and Output 02/28/23 03/01/23 03/01/23 22:59 06:59 14:59 Intake Total 0 Balance 0 Intake: Blood Product 0 Rc Pheresis As-3 Unit 0 [id number] Other: Weight 77.111 kg Results CBC & Chem 7: 03/01/23 05:11 03/01/23 05:11 Labs: Abnormal Lab Results - Last 24 Hours (Table) 03/01/23 03/01/23 03/01/23 Range/Units 05:11 05:11 05:11 RBC 3.32 L (4.30-5.90) m/uL Hgb 6.7 L* D (13.0-17.5) gm/dL Hct 25.0 L (39.0-53.0) % MCV 75.2 L D (80.0-100.0) fL MCH 20.2 L (25.0-35.0) pg MCHC 26.8 L (31.0-37.0) g/dL RDW 25.2 H (11.5-15.5) % PT 14.8 H (9.0-12.0) sec INR 1.5 H (<1.2) APTT 31.9 H (22.0-30.0) sec Sodium 136 L (137-145) mmol/L BUN 36 H (9-20) mg/dL Total Protein 6.0 L (6.3-8.2) g/dL Crossmatch 03/01/23 Range/Units 05:11 RBC (4.30-5.90) m/uL Hgb (13.0-17.5) gm/dL Hct (39.0-53.0) % MCV (80.0-100.0) fL MCH (25.0-35.0) pg MCHC (31.0-37.0) g/dL RDW (11.5-15.5) % PT (9.0-12.0) sec INR (<1.2) APTT (22.0-30.0) sec Sodium (137-145) mmol/L BUN (9-20) mg/dL Total Protein (6.3-8.2) g/dL Crossmatch See Detail Thrombosis Risk Factor Assmnt - DVT/VTE Prophylaxis DVT/VTE Prophylaxis: Contraindicated - See note Assessment and Plan Time with Patient: Greater than 30
[2023-03-01] MEDS: DILTIAZEM CD 300 MG CAP.ER.24H PO SCH (13:56)
[2023-03-01 17:17] LABS: Anisocytosis Marked; Basophils % (A) 0 %; Eosinophils # (A) 0.2 k/uL (0-0.7); Eosinophils % (A) 3 %; HCT 31.2 % (39.0-53.0); Hypochromasia Marked; Lymphocytes # (A) 1.6 k/uL (1.0-4.8); Lymphocytes % (A) 21 %; MCH 22.4 pg (25.0-35.0); MCHC 29.3 g/dL (31.0-37.0); MCV 76.5 fL (80.0-100.0); Mean Platelet Volume 7.8; Microcytosis Marked; Monocytes # (A) 0.8 k/uL (0-1.0); Monocytes % (A) 11 %; Neutrophils # (A) 4.8 k/uL (1.3-7.7); Neutrophils % (A) 62 %; Platelet Count 393 k/uL (150-450); Poikilocytosis Moderate; RBC 4.09 m/uL (4.30-5.90); RDW 24.8 % (11.5-15.5); WBC 7.7 k/uL (3.8-10.6)
[2023-03-01 17:18] LABS: HGB 9.2 gm/dL (13.0-17.5)
[2023-03-01] MEDS ORDERED: EZETIMIBE 10 MG TAB PO SCH (21:00)
[2023-03-02] MEDS ORDERED: LEVOTHYROXINE 137 MCG TAB PO SCH (06:00)
[2023-03-02] MEDS: PANTOPRAZOLE 40 MG/10 ML VIAL IV SCH (08:10)
[2023-03-02] MEDS: FUROSEMIDE 10 MG/ML 4 ML VIAL IV SCH (08:10)
[2023-03-02] MEDS: DILTIAZEM CD 300 MG CAP.ER.24H PO SCH (08:11)
[2023-03-02] MEDS: SODIUM CHLORIDE 0.9% 1,000 ML IV SCH (08:13)
[2023-03-02 08:46] VITALS: RESP 18
[2023-03-02 11:12] LABS: HCT 28.5 % (39.6-50.0); MCH 21.2 pg (27.0-32.0); MCHC 28.1 d/dL (32.0-37.0); MCV 75.4 FL (80.0-97.0); Mean Platelet Volume 9.2 FL (9.5-12.2); NRBC Per 100 WBC 0 X 10*3/uL (0.00-0.01); Platelet Count 361 X 10*3/uL (140-440); RBC 3.78 X 10*6/uL (4.40-5.60); RDW 27.1 % (11.5-14.5); WBC 8.48 X 10*3/uL (4.50-10.00)
[2023-03-02 11:15] LABS: Blood Urea Nitrogen 22.6 mg/dL (9.0-27.0); Carbon Dioxide 27.2 mmol/L (21.6-31.8); Chloride 101 mmol/L (96-109); Glucose 88 mg/dL (70-110); Potassium 4.3 mmol/L (3.5-5.5); Sodium 138 mmol/L (135-145)
[2023-03-02 12:00] LABS: Anisocytosis (M) 2+; Basophils # (A) 0.06 X 10*3/uL (0.00-0.10); Basophils % (A) 0.7 %; Eosinophils # (A) 0.42 X 10*3/uL (0.04-0.35); Hypochromasia (M) 2+; Lymphocytes # (A) 2.14 X 10*3/uL (0.90-5.00); Lymphocytes % (A) 25.2 %; Microcytosis (M) 2+; Monocytes # (A) 1.29 X 10*3/uL (0.20-1.00); Monocytes % (A) 15.2 %; Neutrophils # (A) 4.55 X 10*3/uL (1.80-7.70); Neutrophils % (A) 53.7 %; Schistocytes 1+
[2023-03-02 13:00] VITALS: BP 126/71; PULSE 73; TEMP 97.5
--- NOTE | 2023-03-02 14:05 | P.GSCN ---
History of Present Illness Consult date: 03/02/23 History of present illness: CHIEF COMPLAINT: Anemia HISTORY OF PRESENT ILLNESS: This is a 87-year-old male who was brought into the hospital due to low hemoglobin in the outpatient setting. Hemoglobin had been noted at 6.7 on admission. Patient denies any abdominal pain. But he has been having black stools for about 2 weeks. He has been having about one loose black bowel movement daily for the last 2 weeks. Patient reports having epistaxis about 2 weeks ago in which he needed cauterization. Patient is on Xarelto and Plavix. History of A. fib and CVA as well as coronary artery disease cardiac stent laced in November 2022. Patient's hemoglobin on admission 6.7 he did receive 2 units of blood hemoglobin up to 9.2. Stool positive for occult blood. Patient denies any NSAID use. Patient has never had EGD. His last colonoscopy was over 10 years ago. She does not remember the results. Patient is also receiving IV Lasix for fluid overload. PAST MEDICAL HISTORY: See below. And thoracic aortic aneurysm PAST SURGICAL HISTORY: See below MEDICATIONS: See below ALLERGIES: See below SOCIAL HISTORY: No illicit drug use. REVIEW OF SYSTEMS: CONSTITUTIONAL: Denies fever or chills. HEENT: Denies blurred vision, vision changes, or eye pain. Denies hemoptysis CARDIOVASCULAR: Denies chest pain or pressure. RESPIRATORY: No shortness of breath. GASTROINTESTINAL: See HPI for pertinent findings HEMATOLOGIC: Denies bleeding disorders. GENITOURINARY: Denies any blood in urine or increased urinary frequency. SKIN: Denies pruitis. Denies rash. PHYSICAL EXAM: VITAL SIGNS: Reviewed GENERAL: Well-developed in no acute distress. HEENT: No sclera icterus. Extraocular movements grossly intact. Moist buccal mucosa. Head is atraumatic, normocephalic. No nasal drainage. ABDOMEN: Soft. Nondistended. Nontender NEUROLOGIC: Alert and oriented. Cranial nerves II through XII grossly intact. LABORATORY DATA: WBC 8.48 hgb 6.7-9.2-8.0 plt 361 Sodium 138 potassium 4.3 creatinine 1.0 Stool for occult blood positive Elevated BNP IMAGING: Chest x-ray COPD with left lobe infiltrate and small effusion stable. Correlate for thoracic aortic aneurysm ASSESSMENT: 1. Anemia with recent epistaxis. Black stools could possibly related to patient swallowing blood from the epistaxis. However, GI bleed does need be ruled out. 2. History of atrial fibrillation 3. History of CVA 4. History of coronary disease with cardiac stent PLAN: -Recommend EGD and colonoscopy. Patient can have endoscopies completed outpatient. Otherwise, would plan for EGD and colonoscopy on Sunday if remains inpatient -If discharged, follow-up in office with Dr. Genao next week -Continue to hold Xarelto and Plavix -Continue to monitor hemoglobin -Continue monitoring for any signs or symptoms of bleeding Physician Medical Records Tech note has been reviewed by physician. Signing provider agrees with the documented findings, assessment, and plan of care. Past Medical History Past Medical History: Atrial Fibrillation, Cancer, CVA/TIA, Hyperlipidemia, Hypertension, Pneumonia, Thyroid Disorder Additional Past Medical History / Comment(s): Skin cancer with removal; atrial fibrillation is paroxysmal, currently on Xarelto for anticoagulation History of Any Multi-Drug Resistant Organisms: None Reported Past Surgical History: Appendectomy, Cholecystectomy, Heart Catheterization, Joint Replacement, Orthopedic Surgery Additional Past Surgical History / Comment(s): bilateral shoulder and hips replaced; aortic valve replacement 2019, left foot drop Past Anesthesia/Blood Transfusion Reactions: No Reported Reaction Past Psychological History: No Psychological Hx Reported Smoking Status: Former smoker Past Alcohol Use History: None Reported Additional Past Alcohol Use History / Comment(s): Pt states he quit smoking in the s, prior to that smoked approximately a pack a day since in his 20s Past Drug Use History: None Reported - Past Family History Mother Family Medical History: CVA/TIA Medications and Allergies Home Medications Medication Instructions Recorded Confirmed Type Ezetimibe [Zetia] 10 mg PO HS 01/20/15 03/01/23 History Levothyroxine Sodium [Synthroid] 137 mcg PO SUTUWEFRSA@0600 01/20/15 03/01/23 History Rivaroxaban [Xarelto] 15 mg PO HS 06/29/18 03/01/23 History Clopidogrel [Plavix] 75 mg PO DAILY #90 tablet 11/29/22 03/01/23 Rx dilTIAZem HCL [Cardizem LA] 300 mg PO DAILY 02/07/23 03/01/23 History Cyanocobalamin [Vitamin B-12] 1,000 mcg PO DAILY tab 02/10/23 03/01/23 Rx Amoxic-Pot Clav 875-125Mg 1 tab PO BID 03/01/23 03/01/23 History [Augmentin 875-125] Ferrous Sulfate [Iron (65 MG 325 mg PO BID 03/01/23 03/01/23 History Elemental)] Furosemide [Lasix] 40 mg PO BID@0600,1400 03/01/23 03/01/23 History Lactose-Reduced Food [Ensure Plus] 240 ml PO DAILY 03/01/23 03/01/23 History Levothyroxine Sodium [Synthroid] 150 mcg PO MOTH@0600 03/01/23 03/01/23 History carvediloL [Coreg] 6.25 mg PO BID 03/01/23 03/01/23 History Allergies Allergy/AdvReac Type Severity Reaction Status Date / Time simvastatin [From Zocor] Allergy Unknown Verified 03/01/23 07:08 Surgical - Exam Vital Signs Temp Pulse Resp BP Pulse Ox 97.5 F L 80 18 121/62 95 03/01/23 05:22 03/01/23 05:22 03/01/23 05:22 03/01/23 05:22 03/01/23 05:22 Results - Labs 03/02/23 07:39 03/02/23 07:39 Abnormal Lab Results - Last 24 Hours (Table) 03/01/23 03/01/23 Range/Units 05:11 16:03 RBC 4.09 L (4.30-5.90) m/uL Hgb 9.2 L D (13.0-17.5) gm/dL Hct 31.2 L (39.0-53.0) % MCV 76.5 L (80.0-100.0) fL MCH 22.4 L (25.0-35.0) pg MCHC 29.3 L (31.0-37.0) g/dL RDW 24.8 H (11.5-15.5) % Crossmatch See Detail
--- NOTE | 2023-03-03 20:24 | P.DS ---
Providers Date of admission: 03/01/23 06:46 Expected date of discharge: 03/02/23 Attending physician: Harsh Pena Consults: 03/01/23 12:10 Consult Physician Urgent Consulting Provider: Gary Genao Consult Reason/Comments: gi bleed, pos occult, hgb 6.9 on admit Do you want consulting provider notified?: Yes Primary care physician: Virginia Pimentel Hospital Course: Final diagnosis Anemia, hemoglobin 6.9 on admission, history of chronic anemia, iron deficient Black stools, possibly GI bleed versus possible medication effect with iron supplements History of paroxysmal atrial fibrillation Acute on chronic Congestive heart failure with diastolic dysfunction, acute exacerbation History of coronary artery disease with recent stenting in November 2022 history of CVA/TIA Gait dysfunction with generalized weakness Hypertension history Aortic stenosis history, status post TAVR Hyperlipidemia History of thoracic aortic aneurysm without rupture was evaluated on previous admission by CT surgery GI prophylaxis DVT prophylaxis Full code Discharge disposition Patient is being discharged in a stable condition with guarded prognosis to home. Patient will follow-up with Dr. Pimentel in the outpatient setting upon discharge. Patient is to continue to hold Xarelto and Plavix and close outpatient follow-up with surgery for EGD/colonoscopy as scheduled. Total time taken is greater than 35 minutes. Hospital course This is a 87-year-old male who presented to the emergency department via EMS from [facility] as he was there rehab and was told he had an abnormal hemoglobin and came to the hospital for further evaluation. Hemoglobin was noted to be 6.9 on admission. There is no active bleeding noted although patient reports was here a few weeks ago for epistaxis that would not stop and was cauterized. Patient was discharged back to the [facility] as he is therefore rehab for strength and mobility. Patient had a recent ALVIN with past medical history of atrial fibrillation, skin cancer, CVA/TIA, hyperlipidemia, hypertension, hypothyroid was maintained on xarelto and Plavix as well as has been receiving iron supplements. Patient reports he has had dark stools approximately one per day that he has noticed. Patient is occult positive and currently receiving 1 unit of PRBC. We'll consult general surgery for evaluation. Patient is significantly weak and will have physical therapy evaluate the patient. Plan is to return to [facility] on discharge to continue with physical therapy. Chest x-ray was ordered as no imaging was done in the ER and chest x-ray shows COPD with left lower lobe infiltrate and small effusion stable findings could be on the basis of either atelectasis or pneumonia with a slightly prominent interstitium could be associated with early mild venous congestion correlate clinically. Patient is noted to have a thoracic aortic aneurysm and was evaluated recently by CT surgery with no plans for intervention on previous admission. We will reconsult PT/OT therapy as well. 03/02/2023 Patient reevaluated with no further dark stools and has been maintained on Xarelto and Plavix and will continue. Patient was scheduled to have EGD/colonoscopy although no OR time available until Sunday and patient is stable with stable hemoglobin will be going home and have outpatient follow-up with surgery for EGD/colonoscopy. Patient has been cleared by surgery. Please refer to surgery notes for further HPI. Patient would like to go home and would not like to return to [facility]. Patient evaluated by physical therapy and family will be taking patient home. PHYSICAL EXAMINATION: GENERAL: The patient is alert and oriented x4, Well developed, well nourished. Elderly-appearing HEENT: Pupils are round and equally reacting to light. EOMI. no scleral icterus. No conjunctival pallor. Normocephalic, atraumatic. No pharyngeal erythema. No thyromegaly. CARDIOVASCULAR: S1 and S2 muffled PULMONARY: diminished breath sounds bilaterally with no wheezing or rhonchi noted. ABDOMEN: soft. Nontender on exam. non-distended, normoactive bowel sounds. No palpable organomegaly. MUSCULOSKELETAL: No joint swelling or deformity. EXTREMITIES: No cyanosis, clubbing, or pedal edema. NEUROLOGICAL: Gross neurological examination did not reveal any focal deficits. Diffuse weakness SKIN: No rashes. Please refer to medication reconciliation sheet for a list of medications. The impression and plan of care has been dictated by Kandy Will, Nurse Practitioner as directed. MD Lokesh I have performed a history and examination and MDM of this patient, discussed the same with the dictator, and agree with the dictator's assessment and plan as written ,documented as a scribe. Based on total visit time, I have performed more than 50% of the visit. Patient Condition at Discharge: Fair Plan - Discharge Summary New Discharge Prescriptions: Continue Levothyroxine Sodium [Synthroid] 137 mcg PO MICA@0600 Ezetimibe [Zetia] 10 mg PO HS Lactose-Reduced Food [Ensure Plus] 240 ml PO DAILY Amoxic-Pot Clav 875-125Mg [Augmentin 875-125] 1 tab PO BID carvediloL [Coreg] 6.25 mg PO BID dilTIAZem HCL [Cardizem LA] 300 mg PO DAILY Cyanocobalamin [Vitamin B-12] 1,000 mcg PO DAILY tab Levothyroxine Sodium [Synthroid] 150 mcg PO MOTH@0600 Furosemide [Lasix] 40 mg PO BID@0600,1400 Discontinued Rivaroxaban [Xarelto] 15 mg PO HS Clopidogrel [Plavix] 75 mg PO DAILY #90 tablet Ferrous Sulfate [Iron (65 MG Elemental)] 325 mg PO BID Discharge Medication List Ezetimibe [Zetia] 10 mg PO HS 01/20/15 [History] Levothyroxine Sodium [Synthroid] 137 mcg PO SUTUWEFRSA@0600 01/20/15 [History] dilTIAZem HCL [Cardizem LA] 300 mg PO DAILY 02/07/23 [History] Cyanocobalamin [Vitamin B-12] 1,000 mcg PO DAILY tab 02/10/23 [Rx] Amoxic-Pot Clav 875-125Mg [Augmentin 875-125] 1 tab PO BID 03/01/23 [History] Furosemide [Lasix] 40 mg PO BID@0600,1400 03/01/23 [History] Lactose-Reduced Food [Ensure Plus] 240 ml PO DAILY 03/01/23 [History] Levothyroxine Sodium [Synthroid] 150 mcg PO MOTH@0600 03/01/23 [History] carvediloL [Coreg] 6.25 mg PO BID 03/01/23 [History] Follow up Appointment(s)/Referral(s): Virginia Pimentel MD [Primary Care Provider] - 03/20/23 2:00 pm Gary Genao MD [STAFF PHYSICIAN] - 03/19/23 9:00 am (This appointment is for an outpatient EGD and Colonoscopy. The hospital will call to pre-register. The hospital will call the day before the procedure with hospital arrival time. The office will call with any pre-procedure prep instructions. ) Patient Instructions/Handouts: Anemia (DC), Colonoscopy (DC), Upper Endoscopy ( DC) Activity/Diet/Wound Care/Special Instructions: silvestre out patient physical therapy - HOLD XaReLTO AND PLAVIX Diet: full liquids, advance as tolerated to regular Continue other educations as prescribed Continue to elevate lower extremities while at rest and may use compression stockings or Javier wraps from the toes up to the knees to assist with swelling Discharge Disposition: HOME SELF-CARE
[2023-03-04] MEDS ORDERED: PEG 3350 (236 GM/BTL) + LYTES 4,000 ML BOTTLE PO ONE (08:00)
[2023-03-05] MEDS ORDERED: LEVOTHYROXINE 75 MCG TAB PO SCH (06:00)
--- NOTE | 2023-03-08 08:17 | CDI ---
Documentation Clarification Form Date: 03/08/2023 07:57:29 AM From: Marce Arriola RN, CCDS Email: [email or web address] Admit Date: 03/01/2023 06:46:00 AM Patient Name: Jatinder Ware Visit Number: [id number] Discharge Date: 03/02/2023 03:45:00 PM ATTENTION: The Clinical Documentation Specialists (CDI) and [employer] Coding Staff appreciate your assistance in clarifying documentation. Please respond to the clarification below the line at the bottom and electronically sign. The CDI & [employer] Coding staff will review the response and follow-up if needed. Please note: Queries are made part of the Legal Health Record. If you have any questions, please contact the author of this message via ITS. Dr. Christiano Burnett There is documentation of anemia and possible bleeding. Based on this information and the findings below, is there an additional diagnosis that is clinically appropriate for this patient? History/Risk Factors: atrial fibrillation, skin cancer, CVA/TIA, hyperlipidemia, hypertension, hypothyroid. Patient is maintained on Xarelto and Plavix as well as iron supplements. Patient reports he was here a few weeks ago for epistaxis that would not stop and was cauterized. [facility]. Patient reports he has had dark stools approximately one per day. Clinical Indicators: ED: "87 year old male presents to the emergency department for evaluation of severe weakness, low hemoglobin on outpatient basis with recent history of nosebleeds. Patient is on blood thinners for A. fib. Patient will be admitted for transfusion." H&P: "Anemia, hemoglobin 6.9 on admission, history of chronic anemia, iron deficient, black stools, possibly GI bleed versus possible medication effect with iron supplements. Patient did have positive guaiac and reporting dark stools. Will have general surgery evaluate and will hold Xarelto and Plavix for now." 03/02 Surgery consult: "Anemia with recent epistaxis. Black stools could possibly related to patient swallowing blood from the epistaxis, however, GI bleed does need be ruled out. Recommend EGD and colonoscopy completed outpatient." 03/01 PT/PTT/INR: 14.8/1.5/31.9, Hgb 6.7-9.2 Treatment: Daily CBC; hold Xarelto and Plavix; 1 unit PRBC's IV Fluid: 0.9 NS 1L bolus on 11/29then 20ml/hr Transfusion: 2-units PRBC's Is there an additional diagnosis that is clinically appropriate for this patient? [ ] Anemia due to bleed from Xarelto [ ] Other, please specify [ x ] Unable to determine (Template Last Revised: April 2022) MTDD
== END 2023-03-02 15:45 | disposition home or self-care (01) | DRG 811 ==
LOC: EC 05:01 → 5NMEDONC 06:46
PROVIDERS: ADMIT Hospitalist; ATTEND Hospitalist
PROC: 30233N1 Transfusion of Nonautologous Red Blood Cells into Peripheral Vein, Percutaneous Approach (ICD-10-PCS; principal; 2023-03-02)
DX: D50.9 Iron deficiency anemia, unspecified (principal); I50.33 Acute on chronic diastolic (congestive) heart failure; K92.2 Gastrointestinal hemorrhage, unspecified; I11.0 Hypertensive heart disease with heart failure; I71.20 Thoracic aortic aneurysm, without rupture, unspecified; J44.9 Chronic obstructive pulmonary disease, unspecified; I48.0 Paroxysmal atrial fibrillation; E03.9 Hypothyroidism, unspecified; I25.10 Atherosclerotic heart disease of native coronary artery without angina pectoris; R53.1 Weakness; E78.5 Hyperlipidemia, unspecified; M21.372 Foot drop, left foot; R19.5 Other fecal abnormalities; R26.9 Unspecified abnormalities of gait and mobility; Z96.611 Presence of right artificial shoulder joint; Z96.612 Presence of left artificial shoulder joint; Z96.643 Presence of artificial hip joint, bilateral; Z95.2 Presence of prosthetic heart valve; Z79.02 Long term (current) use of antithrombotics/antiplatelets; Z86.73 Personal history of transient ischemic attack (TIA), and cerebral infarction without residual deficits; Z95.5 Presence of coronary angioplasty implant and graft; Z79.01 Long term (current) use of anticoagulants; Z79.890 Hormone replacement therapy; Z79.899 Other long term (current) drug therapy; Z87.891 Personal history of nicotine dependence; Z85.828 Personal history of other malignant neoplasm of skin; Z88.8 Allergy status to other drugs, medicaments and biological substances
CPT/HCPCS: 36415; 71045; 80048; 80053; 82272; 83605; 83735; 83880; 84100; 84484; 85025; 85610; 85730; 86850; 86900; 86901; 86920; 93005; 94760; 96361; 96374; 96375; 99285

== ENCOUNTER 2023-03-11 20:54 | Inpatient (IN) | payer MEDICARE ==
[2023-03-11 21:44] LABS: INR 1.1 (<1.2); Partial Thromboplastin Time 24.7 sec (22.0-30.0); Prothrombin Time 11.1 sec (9.0-12.0)
[2023-03-11 21:49] LABS: ALT 18 U/L (4-49); AST 34 U/L (17-59); African American GFR (CKD) 71 (>60 ml/min/1.73 sqM); Albumin 4.2 g/dL (3.5-5.0); Alkaline Phosphatase 67 U/L (38-126); Anion Gap 9 mmol/L; Blood Urea Nitrogen 28 mg/dL (9-20); Calcium 9.2 mg/dL (8.4-10.2); Carbon Dioxide 22 mmol/L (22-30); Chloride 106 mmol/L (98-107); Glucose 103 mg/dL (74-99); Lipase 84 U/L (23-300); Magnesium 2.2 mg/dL (1.6-2.3); Non-African American GFR(CKD) 61 (>60 ml/min/1.73 sqM); Potassium 4.8 mmol/L (3.5-5.1); Sodium 137 mmol/L (137-145); Total Bilirubin 1.1 mg/dL (0.2-1.3); Total Protein 7.1 g/dL (6.3-8.2)
--- NOTE | 2023-03-11 21:51 | XR ---
EXAMINATION TYPE: XR chest 2V DATE OF EXAM: 03/11/2023 9:32 PM COMPARISON: Chest radiographs from 03/01/2023, 02/07/2022 CT. TECHNIQUE: XR chest 2V Frontal and lateral views of the chest. CLINICAL INDICATION:Male, 87 years old with history of CP; FINDINGS: Lungs/Pleura: Prominent interstitial lung markings are seen scattered throughout the lungs with kvng ening of the diaphragm and increased lucency of the lung apices. No evidence of focal consolidation, pneumothorax or pleural effusion. Pulmonary vascularity: Pulmonary vascular congestion. Heart/mediastinum: Cardiomediastinal silhouette is enlarged and stable. Valvular repair changes of a benjy. Atherosclerotic calcifications are seen in the aorta. Dilation of the aorta as seen on prior CT . Musculoskeletal: No acute osseous pathology. Bilateral shoulder arthroplasty changes. Number IMPRESSION: 1. Cardiomegaly with blunting of the costophrenic angles correlate with serum BNP for congestive hea rt failure. 2. COPD changes. 3. Similar prominent aorta as seen on prior 02/07/2022.
[2023-03-11 21:52] LABS: Anisocytosis Moderate; Basophils % (A) 0 %; Eosinophils # (A) 0.5 k/uL (0-0.7); Eosinophils % (A) 6 %; HCT 33.8 % (39.0-53.0); HGB 9.7 gm/dL (13.0-17.5); Hypochromasia Marked; Lymphocytes % (A) 24 %; MCH 21.9 pg (25.0-35.0); MCHC 28.6 g/dL (31.0-37.0); MCV 76.7 fL (80.0-100.0); Mean Platelet Volume 7.6; Microcytosis Marked; Monocytes # (A) 0.7 k/uL (0-1.0); Monocytes % (A) 8 %; Neutrophils # (A) 4.8 k/uL (1.3-7.7); Neutrophils % (A) 58 %; Platelet Count 369 k/uL (150-450); Poikilocytosis Slight; RBC 4.41 m/uL (4.30-5.90); RDW 22.6 % (11.5-15.5); WBC 8.3 k/uL (3.8-10.6)
[2023-03-11 21:58] LABS: NT-Pro-B-Type Natriuretic Pept 3780 pg/mL
[2023-03-11] MEDS ORDERED: MORPHINE SULFATE 4 MG/ML SYRINGE IVP STA (22:37)
[2023-03-11] MEDS ORDERED: HEPARIN SODIUM 1,000 UN/ML (10ML VL) IV PRN ×2 (23:02→23:45)
[2023-03-11] MEDS ORDERED: HEPARIN SODIUM 1,000 UN/ML (10ML VL) IV ONE ×2 (23:02→23:45)
[2023-03-11] MEDS ORDERED: NALOXONE 0.4 MG/ML 1 ML VIAL IV PRN (23:03)
[2023-03-11] MEDS ORDERED: MORPHINE SULFATE 4 MG/ML SYRINGE IV PRN (23:03)
[2023-03-11] MEDS ORDERED: FUROSEMIDE 10 MG/ML 4 ML VIAL IV STA (23:04)
[2023-03-11] MEDS ORDERED: HEPARIN SOD,PORK IN 0.45% NACL 25,000 UNIT in 0.45% NACL 1 250ML.BAG IV SCH (23:15)
--- NOTE | 2023-03-11 23:57 | ED ---
General Adult HPI - General Chief complaint: Chest Pain Stated complaint: Chest pain Time Seen by Provider: 03/11/23 21:04 Source: patient, EMS Mode of arrival: EMS Limitations: no limitations - History of Present Illness Initial comments: This is a 87-year-old male with a past medical history including hypertension as well as previous cardiac stents presented to the emergency department for chest pressure via EMS. The patient was an overall poor historian but stated that the chest pressure was present throughout the day but cannot provide any exact time when it started. The patient stated that this pressure sensation is worse than any sensation that he has experienced before. The patient was otherwise resting in bed denying any shortness of breath as well as any lightheadedness or dizziness. - Related Data Home Medications Medication Instructions Recorded Confirmed Ezetimibe [Zetia] 10 mg PO HS 01/20/15 03/01/23 Levothyroxine Sodium [Synthroid] 137 mcg PO SUTUWEFRSA@0600 01/20/15 03/01/23 dilTIAZem HCL [Cardizem LA] 300 mg PO DAILY 02/07/23 03/01/23 Amoxic-Pot Clav 875-125Mg 1 tab PO BID 03/01/23 03/01/23 [Augmentin 875-125] Furosemide [Lasix] 40 mg PO BID@0600,1400 03/01/23 03/01/23 Lactose-Reduced Food [Ensure Plus] 240 ml PO DAILY 03/01/23 03/01/23 Levothyroxine Sodium [Synthroid] 150 mcg PO MOTH@0600 03/01/23 03/01/23 carvediloL [Coreg] 6.25 mg PO BID 03/01/23 03/01/23 Previous Rx's Medication Instructions Recorded Cyanocobalamin [Vitamin B-12] 1,000 mcg PO DAILY tab 02/10/23 Allergies Allergy/AdvReac Type Severity Reaction Status Date / Time simvastatin [From Zocor] Allergy Unknown Verified 03/01/23 07:08 Review of Systems ROS Statement: Those systems with pertinent positive or pertinent negative responses have been documented in the HPI. ROS Other: All systems not noted in ROS Statement are negative. Past Medical History Past Medical History: Atrial Fibrillation, Cancer, CVA/TIA, Hyperlipidemia, Hypertension, Pneumonia, Thyroid Disorder Additional Past Medical History / Comment(s): Skin cancer with removal; atrial fibrillation is paroxysmal, currently on Xarelto for anticoagulation History of Any Multi-Drug Resistant Organisms: None Reported Past Surgical History: Appendectomy, Cholecystectomy, Heart Catheterization, Joint Replacement, Orthopedic Surgery Additional Past Surgical History / Comment(s): bilateral shoulder and hips replaced; aortic valve replacement 2019, left foot drop Past Anesthesia/Blood Transfusion Reactions: No Reported Reaction Past Psychological History: No Psychological Hx Reported Smoking Status: Former smoker - Past Family History Mother Family Medical History: CVA/TIA General Exam Limitations: no limitations General appearance: alert, in distress (In mild distress 2/2 chest pain) Head exam: Present: atraumatic, normocephalic, normal inspection Eye exam: Present: normal appearance, PERRL Pupils: Present: normal accommodation ENT exam: Present: normal exam, normal oropharynx, mucous membranes moist Neck exam: Present: normal inspection, full ROM Respiratory exam: Present: normal lung sounds bilaterally Cardiovascular Exam: Present: regular rate, normal rhythm, normal heart sounds GI/Abdominal exam: Present: soft, normal bowel sounds Extremities exam: Present: normal inspection, full ROM Back exam: Present: normal inspection, full ROM Neurological exam: Present: alert, oriented X3, CN II-XII intact Psychiatric exam: Present: normal affect, normal mood Skin exam: Present: warm, dry Course Vital Signs 03/11/23 03/11/23 03/11/23 20:56 22:32 23:17 Temperature 98.1 F Pulse Rate 86 103 H 83 Respiratory 19 19 17 Rate Blood Pressure 154/104 159/86 151/103 O2 Sat by Pulse 96 96 100 Oximetry EKG Findings - EKG Comments: EKG Findings:: An EKG was obtained and was interpreted by myself showing a rate of 96, QS duration 1:15 and QTC of 413. This EKG showed an atrial fibrillation however there was no ST segment elevation or depression noted. Medical Decision Making - Medical Decision Making Was pt. sent in by a medical professional or institution (, PA, APN, urgent care, hospital, or shelter...) When possible be specific @ -No Did you speak to anyone other than the patient for history (EMS, parent, family, police, friend...)? What history was obtained from this source @ -No Did you review nursing and triage notes (agree or disagree)? Why? @ -I reviewed and agree with nursing and triage notes Were old charts reviewed (outside hosp., previous admission, EMS record, old EKG, old radiological studies, urgent care reports/EKG's, shelter records)? Report findings @ -No old charts were reviewed Differential Diagnosis (chest pain, altered mental status, abdominal pain women, abdominal pain men, vaginal bleeding, weakness, fever, dyspnea, syncope, headache, dizziness, GI bleed, back pain, seizure, CVA, palpatations, mental health)? @ -ACS, chest wall muscle strain, pneumonia, pneumothorax EKG interpreted by me (3pts min.). @ -As above X-rays interpreted by me (1pt min.). @ -Chest x-ray was obtained and was interpreted by myself showing cardiomegaly with blunting of the costophrenic angles correlate with serum BMP for congestive heart failure. There was also COPD changes noted. There is a prominent aorta as seen on prior imaging on 02/07/2022. CT interpreted by me (1pt min.). @ -None done U/S interpreted by me (1pt. min.). @ -None done What testing was considered but not performed or refused? (CT, X-rays, U/S, l abs)? Why? @ -None What meds were considered but not given or refused? Why? @ -None Did you discuss the management of the patient with other professionals (professionals i.e. , PA, APN, lab, RT, psych nurse, manager social media, corrections nurse, teacher, court registry officer, case repairer)? Give summary @ -Yes, admitting physician was contacted regarding patient admission Was smoking cessation discussed for >3mins.? @ -No Was critical care preformed (if so, how long)? @ -No Were there social determinants of health that impacted care today? How? (Homelessness, low income, unemployed, alcoholism, drug addiction, transportat ion, low edu. Level, literacy, decrease access to med. care, [facility], rehab)? @ -No Was there de-escalation of care discussed even if they declined (Discuss DNR or withdrawal of care, Hospice)? DNR status @ -No What co-morbidities impacted this encounter? (DM, HTN, Smoking, COPD, CAD, Cancer, CVA, ARF, Chemo, Hep., AIDS, mental health diagnosis, sleep apnea, morbid obesity)? @ -Hypertension, previous cardiac stents Was patient admitted / discharged? Hospital course, mention meds given and route, prescriptions, significant lab abnormalities, going to OR and other pertinent info. @ -The patient seen and evaluated emergency department. Physical exam, the patient was resting in bed without any acute distress. Vital signs admission were stable. The patient had persistent central chest pressure in EKG was negative for any STEMI at this time. Laboratory workup was obtained and was significant for a significant elevation in his troponin consistent with an NST BRADLEY. The patient was placed on IV heparin and will be admitted for further workup and evaluation by cardiology. The patient's primary care physician was covered by Dr. Richey and she did accept the patient for admission. The patient was admitted in stable condition. Undiagnosed new problem with uncertain prognosis? @ -No Drug Therapy requiring intensive monitoring for toxicity (Heparin, Nitro, Insulin, Cardizem)? @ -Heparin Were any procedures done? @ -No Diagnosis/symptom? @ -NSTEMI Acute, or Chronic, or Acute on Chronic? @ -Acute Uncomplicated (without systemic symptoms) or Complicated (systemic symptoms)? @ -Complicated Side effects of treatment? @ -No Exacerbation, Progression, or Severe Exacerbation? @ -No Poses a threat to life or bodily function? How? (Chest pain, USA, CT, pneumonia, PE, COPD, DKA, ARF, appy, cholecystitis, CVA, Diverticulitis, Homicidal, [place] icidal, threat to staff... and all critical care pts) @ -Yes, continued ACS can lead to permanent damage and possible . - Lab Data Result diagrams: 03/11/23 21:25 03/11/23 21:25 Lab Results 03/11/23 03/11/23 03/11/23 Range/Units 21:25 21:25 21:25 WBC 8.3 (3.8-10.6) k/uL RBC 4.41 (4.30-5.90) m/uL Hgb 9.7 L (13.0-17.5) gm/dL Hct 33.8 L (39.0-53.0) % MCV 76.7 L (80.0-100.0) fL MCH 21.9 L (25.0-35.0) pg MCHC 28.6 L (31.0-37.0) g/dL RDW 22.6 H (11.5-15.5) % Plt Count 369 (150-450) k/uL MPV 7.6 Neutrophils % 58 % Lymphocytes % 24 % Monocytes % 8 % Eosinophils % 6 % Basophils % 0 % Neutrophils # 4.8 (1.3-7.7) k/uL Lymphocytes # 2.0 (1.0-4.8) k/uL Monocytes # 0.7 (0-1.0) k/uL Eosinophils # 0.5 (0-0.7) k/uL Basophils # 0.0 (0-0.2) k/uL Hypochromasia Marked Poikilocytosis Slight Anisocytosis Moderate Microcytosis Marked PT (9.0-12.0) sec INR (<1.2) APTT (22.0-30.0) sec Sodium 137 (137-145) mmol/L Potassium 4.8 (3.5-5.1) mmol/L Chloride 106 (98-107) mmol/L Carbon Dioxide 22 (22-30) mmol/L Anion Gap 9 mmol/L BUN 28 H (9-20) mg/dL Creatinine 1.08 (0.66-1.25) mg/dL Est GFR (CKD-EPI)AfAm 71 (>60 ml/min/1.73 sqM) Est GFR (CKD-EPI)NonAf 61 (>60 ml/min/1.73 sqM) Glucose 103 H (74-99) mg/dL Calcium 9.2 (8.4-10.2) mg/dL Magnesium 2.2 (1.6-2.3) mg/dL Total Bilirubin 1.1 (0.2-1.3) mg/dL AST 34 (17-59) U/L ALT 18 (4-49) U/L Alkaline Phosphatase 67 (38-126) U/L Troponin I 0.450 H* (0.000-0.034) ng/mL NT-Pro-B Natriuret Pep 3780 pg/mL Total Protein 7.1 (6.3-8.2) g/dL Albumin 4.2 (3.5-5.0) g/dL Lipase 84 (23-300) U/L 03/11/23 Range/Units 21:25 WBC (3.8-10.6) k/uL RBC (4.30-5.90) m/uL Hgb (13.0-17.5) gm/dL Hct (39.0-53.0) % MCV (80.0-100.0) fL MCH (25.0-35.0) pg MCHC (31.0-37.0) g/dL RDW (11.5-15.5) % Plt Count (150-450) k/uL MPV Neutrophils % % Lymphocytes % % Monocytes % % Eosinophils % % Basophils % % Neutrophils # (1.3-7.7) k/uL Lymphocytes # (1.0-4.8) k/uL Monocytes # (0-1.0) k/uL Eosinophils # (0-0.7) k/uL Basophils # (0-0.2) k/uL Hypochromasia Poikilocytosis Anisocytosis Microcytosis PT 11.1 (9.0-12.0) sec INR 1.1 (<1.2) APTT 24.7 (22.0-30.0) sec Sodium (137-145) mmol/L Potassium (3.5-5.1) mmol/L Chloride (98-107) mmol/L Carbon Dioxide (22-30) mmol/L Anion Gap mmol/L BUN (9-20) mg/dL Creatinine (0.66-1.25) mg/dL Est GFR (CKD-EPI)AfAm (>60 ml/min/1.73 sqM) Est GFR (CKD-EPI)NonAf (>60 ml/min/1.73 sqM) Glucose (74-99) mg/dL Calcium (8.4-10.2) mg/dL Magnesium (1.6-2.3) mg/dL Total Bilirubin (0.2-1.3) mg/dL AST (17-59) U/L ALT (4-49) U/L Alkaline Phosphatase (38-126) U/L Troponin I (0.000-0.034) ng/mL NT-Pro-B Natriuret Pep pg/mL Total Protein (6.3-8.2) g/dL Albumin (3.5-5.0) g/dL Lipase (23-300) U/L Disposition Clinical Impression: Acute non-ST elevation myocardial infarction (NSTEMI), CHF (congestive heart failure) Disposition: ADMITTED IP TO THIS HOSP Condition: Stable Is patient prescribed a controlled substance at d/c from ED?: No Referrals: Waqas Odom MD [Primary Care Provider] - 1-2 days Time of Disposition: 23:00 Decision to Admit Reason: Admit from EC Decision Date: 03/11/23 Decision Time: 23:00
[2023-03-12] MEDS: HEPARIN SOD,PORK IN 0.45% NACL 25,000 UNIT in 0.45% NACL 1 250ML.BAG IV SCH ×2 (00:04→23:55)
[2023-03-12] MEDS ORDERED: NITROGLYCERIN SL TABS 0.4 MG TAB SUBLINGUAL PRN (11:11)
[2023-03-12] MEDS ORDERED: ALPRAZolam 0.25 MG TAB PO PRN (11:11)
[2023-03-12] MEDS ORDERED: ALPRAZolam 0.5 MG TAB PO PRN (11:11)
--- NOTE | 2023-03-12 11:22 | P.CRDCN ---
History of Present Illness Consult date: 03/12/23 History of present illness: History of Present Illness: The patient is an 87-year-old male with known history of atrial fibrillation, CAD status post stenting of the OM by Dr. Odom in November of this year, history of aortic valve disease status post TAVR in 2019, hypertension and hyperlipidemia who presented with symptoms of severe chest discomfort that occurred yesterday while he was playing cards associated with progressive dyspnea. He denies any palpitation or dizziness. He has chronic peripheral edema. He has no syncope. He wasn't hostile early February after a fall. He was in atrial fibrillation at that time. His echocardiogram in the past showed an ejection fraction of 40% with moderate aortic regurgitation, mitral and tricuspid regurgitation. The patient has a history of hypertension and hyperlipidemia. He is a nondiabetic nonsmoker. On presentation his troponin was 0.450 and his NT proBNP was elevated. His EKG showed atrial fibrillation with nonspecific ST-T wave changes. Medications: Coreg 6.25 mg twice a day, Lasix 40 mg twice a day, Synthroid, diltiazem 300 mg daily,Zetia 10 mg daily patient has been anticoagulated in the past Review of Systems: Respiratory: He has dyspnea on exertion no recent wheezing or cough GI: No nausea or vomiting . No history of peptic ulcer disease. He had an episode of GI bleeding few weeks ago according to him but no recurrence. : No hematuria or dysuria. Nervous System: No stroke or seizure. Physical Examination: 87-year-old male, alert and oriented no apparent distress ,Blood pressure 138/80, Heart rate 90 Head: Normocephalic. Eyes: Sclerae nonicteric. Neck: Good carotid upstroke, no bruit, no jugular venous distention. Lungs: Clear to auscultation. Heart: Irregular rate and rhythm, S1-S2, no S3, no rub. Systolic ejection murmur with early diastolic murmur. Abdomen: Soft nontender, positive bowel sounds no organomegaly. Extremities: +1 edema, intact distal pulses. Labs: Hemoglobin 9.7, potassium 4.8, BUN 28, creatinine 1.08, troponin 0.450, NT proBNP 3780. Chest x-ray with mild congestion EKG: Atrial fibrillation, rate of 96, nonspecific ST-T wave changes, cannot exclude anterior wall myocardial infarction Impression: 1. Chest discomfort with abnormal troponin, probable non-STEMI in a patient with known history of CAD 2. Chronic atrial fibrillation 3. Status post TAVR 4. History of aortic aneurysm 5. History of hyperlipidemia Plan: 1. Increase beta saud 2. Continue IV heparin 3. Obtain an echocardiogram with Doppler 4. Add spironolactone 5. Proceed with cardiac catheterization, to be done tomorrow by Dr. Odom. The risks and the complications were discussed with the patient who is in agreement to proceed. Thank you for this consult we will follow with you. Past Medical History Past Medical History: Atrial Fibrillation, Cancer, CVA/TIA, Hyperlipidemia, Hypertension, Pneumonia, Thyroid Disorder Additional Past Medical History / Comment(s): Skin cancer with removal; atrial fibrillation is paroxysmal, currently on Xarelto for anticoagulation History of Any Multi-Drug Resistant Organisms: None Reported Past Surgical History: Appendectomy, Cholecystectomy, Heart Catheterization, Joint Replacement, Orthopedic Surgery Additional Past Surgical History / Comment(s): bilateral shoulder and hips replaced; aortic valve replacement 2019, left foot drop Past Anesthesia/Blood Transfusion Reactions: No Reported Reaction Date of Last Stent Placement:: 01/06/23 Past Psychological History: No Psychological Hx Reported Smoking Status: Former smoker - Past Family History Mother Family Medical History: CVA/TIA Medications and Allergies Home Medications Medication Instructions Recorded Confirmed Type Ezetimibe [Zetia] 10 mg PO HS 01/20/15 03/01/23 History Levothyroxine Sodium [Synthroid] 137 mcg PO SUTUWEFRSA@0600 01/20/15 03/01/23 History dilTIAZem HCL [Cardizem LA] 300 mg PO DAILY 02/07/23 03/01/23 History Cyanocobalamin [Vitamin B-12] 1,000 mcg PO DAILY tab 02/10/23 03/01/23 Rx Amoxic-Pot Clav 875-125Mg 1 tab PO BID 03/01/23 03/01/23 History [Augmentin 875-125] Furosemide [Lasix] 40 mg PO BID@0600,1400 03/01/23 03/01/23 History Lactose-Reduced Food [Ensure Plus] 240 ml PO DAILY 03/01/23 03/01/23 History Levothyroxine Sodium [Synthroid] 150 mcg PO MOTH@0600 03/01/23 03/01/23 History carvediloL [Coreg] 6.25 mg PO BID 03/01/23 03/01/23 History Allergies Allergy/AdvReac Type Severity Reaction Status Date / Time simvastatin [From Zocor] Allergy Unknown Verified 03/01/23 07:08 Physical Exam Vitals: Vital Signs Temp Pulse Pulse Pulse Resp BP BP 03/12/23 09:00 97.6 F 112 H 18 138/81 03/12/23 03:40 74 18 130/74 03/12/23 01:14 112 H 18 03/12/23 00:00 97.6 F 112 H 18 152/90 03/11/23 23:17 83 17 151/103 03/11/23 22:32 103 H 19 159/86 03/11/23 20:56 98.1 F 86 19 154/104 Pulse Ox 03/12/23 09:00 100 03/12/23 03:40 100 03/12/23 01:14 03/12/23 00:00 98 03/11/23 23:17 100 03/11/23 22:32 96 03/11/23 20:56 96 Intake and Output 03/11/23 03/12/23 03/12/23 22:59 06:59 14:59 Intake Total 97.688 Output Total 800 Balance -800 97.688 Intake: Intake, IV Titration 97.688 Amount Heparin Sod,Pork in 0.45% 97.688 NaCl 25,000 unit In 0.45 % NaCl 1 250ml.bag @ 12 UNITS/KG/HR 9.144 mls/hr IV .Q24H [facility] Rx#: [id number] Output: Urine 800 Other: Voiding Method Toilet Toilet Urinal Urinal Weight 76.204 kg 76.204 kg Results 03/11/23 21:25 03/11/23 21:25 Cardiac Enzymes 03/11/23 03/11/23 Range/Units 21:25 21:25 AST 34 (17-59) U/L Troponin I 0.450 H* (0.000-0.034) ng/mL Coagulation 03/11/23 03/12/23 Range/Units 21:25 09:11 PT 11.1 (9.0-12.0) sec APTT 24.7 25.6 (22.0-30.0) sec CBC 03/11/23 Range/Units 21:25 WBC 8.3 (3.8-10.6) k/uL RBC 4.41 (4.30-5.90) m/uL Hgb 9.7 L (13.0-17.5) gm/dL Hct 33.8 L (39.0-53.0) % Plt Count 369 (150-450) k/uL Comprehensive Metabolic Panel 03/11/23 Range/Units 21:25 Sodium 137 (137-145) mmol/L Potassium 4.8 (3.5-5.1) mmol/L Chloride 106 (98-107) mmol/L Carbon Dioxide 22 (22-30) mmol/L BUN 28 H (9-20) mg/dL Creatinine 1.08 (0.66-1.25) mg/dL Glucose 103 H (74-99) mg/dL Calcium 9.2 (8.4-10.2) mg/dL AST 34 (17-59) U/L ALT 18 (4-49) U/L Alkaline Phosphatase 67 (38-126) U/L Total Protein 7.1 (6.3-8.2) g/dL Albumin 4.2 (3.5-5.0) g/dL Current Medications Generic Name Dose Route Start Last Admin Trade Name Freq PRN Reason Stop Dose Admin Heparin Sodium (Porcine) 0 unit 03/11/23 23:45 Heparin Sodium 1,000 Un/Ml (10ml Vl) IV PER PROTOCOL PRN Low PTT Protocol Heparin Sodium/Sodium Chloride 250 mls @ 9.144 mls/hr 03/11/23 23:45 03/12/23 10:45 25,000 unit/ Sodium Chloride IV 15 units/kg/hr .Q24H [facility] 11.431 mls/hr Titration Protocol 12 UNITS/KG/HR Morphine Sulfate 4 mg 03/11/23 23:03 Morphine Sulfate 4 Mg/Ml Syringe IV Q4HR PRN Severe Pain (Scale 7 to 10) Naloxone HCl 0.2 mg 03/11/23 23:03 Naloxone 0.4 Mg/Ml 1 Ml Vial IV Q2M PRN Opioid Reversal Intake and Output 03/11/23 03/12/23 03/12/23 22:59 06:59 14:59 Intake Total 97.688 Output Total 800 Balance -800 97.688 Intake: Intake, IV Titration 97.688 Amount Heparin Sod,Pork in 0.45% 97.688 NaCl 25,000 unit In 0.45 % NaCl 1 250ml.bag @ 12 UNITS/KG/HR 9.144 mls/hr IV .Q24H [facility] Rx#: [id number] Output: Urine 800 Other: Voiding Method Toilet Toilet Urinal Urinal Weight 76.204 kg 76.204 kg 03/11/23 21:25 03/11/23 21:25
[2023-03-12] MEDS: ASPIRIN 81 MG PO SCH (12:57)
[2023-03-12] MEDS: NITROGLYCERIN OINT 1 INCH/GM PACKET TOPICAL SCH ×3 (12:57→23:56)
[2023-03-12] MEDS: FUROSEMIDE 40 MG TAB PO SCH (13:00)
[2023-03-12] MEDS: carvediloL 12.5 MG TAB PO SCH (17:01)
[2023-03-12] MEDS ORDERED: carvediloL 12.5 MG TAB PO SCH (17:30)
[2023-03-12] MEDS: EZETIMIBE 10 MG TAB PO SCH (19:51)
[2023-03-12] MEDS: FERROUS SULFATE 325 MG TAB PO SCH (19:51)
--- NOTE | 2023-03-13 04:11 | P.HPIM ---
History of Present Illness H&P Date: 03/12/23 Chief Complaint: Chest Pain 87-year-old male with a past medical history including hypertension as well as previous cardiac stents presented to the emergency department for chest pressure via EMS. The patient was an overall poor historian but stated that the chest pressure was present throughout the day but cannot provide any exact time when it started. The patient stated that this pressure sensation is worse than any sensation that he has experienced before. The patient was otherwise resting in bed denying any shortness of breath as well as any lightheadedness or dizziness. Blood work completed in ED reveals--Hemoglobin 9.7, potassium 4.8, BUN 28, creatinine 1.08, troponin 0.450, NT proBNP 3780. Chest x-ray with mild congestion EKG: Atrial fibrillation, rate of 96, nonspecific ST-T wave changes, cannot exclude anterior wall myocardial infarction Review of Systems Constitutional: Denies chills, Denies fever Eyes: denies blurred vision, denies pain Ears, nose, mouth and throat: Denies headache, Denies sore throat Cardiovascular: Reports chest pain Respiratory: Denies cough Gastrointestinal: Denies abdominal pain, Denies diarrhea, Denies nausea, Denies vomiting Genitourinary: Denies dysuria, Denies hematuria Musculoskeletal: Denies myalgias Integumentary: Denies pruritus, Denies rash Neurological: Denies numbness, Denies weakness Psychiatric: Denies anxiety, Denies depression Endocrine: Denies fatigue, Denies weight change Past Medical History Past Medical History: Atrial Fibrillation, Cancer, CVA/TIA, Hyperlipidemia, Hypertension, Pneumonia, Thyroid Disorder Additional Past Medical History / Comment(s): Skin cancer with removal; atrial fibrillation is paroxysmal, currently on Xarelto for anticoagulation History of Any Multi-Drug Resistant Organisms: None Reported Past Surgical History: Appendectomy, Cholecystectomy, Heart Catheterization, Joint Replacement, Orthopedic Surgery Additional Past Surgical History / Comment(s): bilateral shoulder and hips re placed; aortic valve replacement 2019, left foot drop Past Anesthesia/Blood Transfusion Reactions: No Reported Reaction Date of Last Stent Placement:: 01/06/23 Past Psychological History: No Psychological Hx Reported Smoking Status: Former smoker - Past Family History Mother Family Medical History: CVA/TIA Medications and Allergies Home Medications Medication Instructions Recorded Confirmed Type Ezetimibe [Zetia] 10 mg PO HS 01/20/15 03/12/23 History Levothyroxine Sodium [Synthroid] 137 mcg PO SUTUWEFRSA@0600 01/20/15 03/12/23 History dilTIAZem HCL [Cardizem LA] 300 mg PO DAILY 02/07/23 03/12/23 History Cyanocobalamin [Vitamin B-12] 1,000 mcg PO DAILY tab 02/10/23 03/12/23 Rx Furosemide [Lasix] 40 mg PO BID@0600,1400 03/01/23 03/12/23 History Lactose-Reduced Food [Ensure Plus] 240 ml PO DAILY 03/01/23 03/12/23 History Levothyroxine Sodium [Synthroid] 150 mcg PO MOTH@0600 03/01/23 03/12/23 History carvediloL [Coreg] 6.25 mg PO BID 03/01/23 03/12/23 History Clopidogrel [Plavix] 75 mg PO DAILY 03/12/23 03/12/23 History Ferrous Sulfate [Feosol] 325 mg PO BID 03/12/23 03/12/23 History Rivaroxaban [Xarelto] 15 mg PO HS 03/12/23 03/12/23 History Allergies Allergy/AdvReac Type Severity Reaction Status Date / Time simvastatin [From Zocor] Allergy Unknown Verified 03/12/23 15:30 Physical Exam Vitals: Vital Signs Temp Pulse Pulse Pulse Resp BP BP 03/12/23 12:55 98 F 100 16 132/82 03/12/23 09:00 97.6 F 112 H 18 138/81 03/12/23 03:40 74 18 130/74 03/12/23 01:14 112 H 18 03/12/23 00:00 97.6 F 112 H 18 152/90 03/11/23 23:17 83 17 151/103 03/11/23 22:32 103 H 19 159/86 03/11/23 20:56 98.1 F 86 19 154/104 Pulse Ox 03/12/23 12:55 98 03/12/23 09:00 100 03/12/23 03:40 100 03/12/23 01:14 03/12/23 00:00 98 03/11/23 23:17 100 03/11/23 22:32 96 03/11/23 20:56 96 Intake and Output 03/11/23 03/12/2303/12/23 22:59 06:59 14:59 Intake Total 207.688 Output Total 800 240 Balance -800 -32.312 Intake: Intake, IV Titration 97.688 Amount Heparin Sod,Pork in 0.45% 97.688 NaCl 25,000 unit In 0.45 % NaCl 1 250ml.bag @ 12 UNITS/KG/HR 9.144 mls/hr IV .Q24H [facility] Rx#: [id number] Oral 110 Output: Urine 800 240 Other: Voiding Method Toilet Toilet Urinal Urinal Weight 76.204 kg 76.204 kg General appearance: alert, in distress (In mild distress 2/2 chest pain) Head exam: Present: atraumatic, normocephalic, normal inspection Eye exam: Present: normal appearance, PERRL Pupils: Present: normal accommodation ENT exam: Present: normal exam, normal oropharynx, mucous membranes moist Neck exam: Present: normal inspection, full ROM Respiratory exam: Present: normal lung sounds bilaterally Cardiovascular Exam: Present: regular rate, normal rhythm, normal heart sounds GI/Abdominal exam: Present: soft, normal bowel sounds Extremities exam: Present: normal inspection, full ROM Back exam: Present: normal inspection, full ROM Neurological exam: Present: alert, oriented X3, CN II-XII intact Psychiatric exam: Present: normal affect, normal mood Skin exam: Present: warm, dry Results CBC & Chem 7: 03/11/23 21:25 03/11/23 21:25 Labs: Abnormal Lab Results - Last 24 Hours (Table) 03/11/23 03/11/23 03/11/23 Range/Units 21:25 21:25 21:25 Hgb 9.7 L (13.0-17.5) gm/dL Hct 33.8 L (39.0-53.0) % MCV 76.7 L (80.0-100.0) fL MCH 21.9 L (25.0-35.0) pg MCHC 28.6 L (31.0-37.0) g/dL RDW 22.6 H (11.5-15.5) % BUN 28 H (9-20) mg/dL Glucose 103 H (74-99) mg/dL Troponin I 0.450 H* (0.000-0.034) ng/mL 03/12/23 Range/Units 11:38 Hgb (13.0-17.5) gm/dL Hct (39.0-53.0) % MCV (80.0-100.0) fL MCH (25.0-35.0) pg MCHC (31.0-37.0) g/dL RDW (11.5-15.5) % BUN (9-20) mg/dL Glucose (74-99) mg/dL Troponin I 0.282 H* (0.000-0.034) ng/mL Thrombosis Risk Factor Assmnt - Choose All That Apply Any of the Below Risk Factors Present?: Yes Each Factor Represents 1 point: Abnormal pulmonary function (COPD), Swollen legs (current) Each Risk Factor Represents 3 Points: Age 75 years or older Other congenital or acquired thrombophilia - If yes, enter type in comment: No Thrombosis Risk Factor Assessment Total Risk Factor Score: 5 Thrombosis Risk Factor Assessment Level: High Risk Assessment and Plan Assessment: 1. Chest discomfort with abnormal troponin/ NSTEMI in a patient with known history of CAD 2. Chronic atrial fibrillation 3. Status post TAVR 4. History of aortic aneurysm 5. History of hyperlipidemia Plan: 1. Increase beta saud 2. Continue IV heparin 3. Obtain an echocardiogram with Doppler 4. Add spironolactone 5. Proceed with cardiac catheterization, to be done tomorrow DVT Prophylaxis; SCDs/ Heparin CODE STATUS; full code
[2023-03-13] MEDS ORDERED: ATORVASTATIN 80 MG TAB PO ONE (06:00)
[2023-03-13] MEDS ORDERED: ASPIRIN 325 MG TAB PO ONE (06:00)
[2023-03-13 06:25] LABS: Glucose,Whole Blood 128 mg/dL (70-110)
[2023-03-13] MEDS: FUROSEMIDE 40 MG TAB PO SCH ×2 (06:25→14:02)
[2023-03-13] MEDS: carvediloL 12.5 MG TAB PO SCH ×2 (06:25→16:38)
[2023-03-13] MEDS: LEVOTHYROXINE 137 MCG TAB PO SCH (06:25)
[2023-03-13] MEDS ORDERED: HEPARIN SODIUM,PORCINE (1 ML) 2,500 UNIT in SODIUM CHLORIDE 0.9% 250 ML IRRIGATION PRN (07:00)
[2023-03-13] MEDS ORDERED: HEPARIN SODIUM,PORCINE 10,000 UNIT in SODIUM CHLORIDE 0.9% 1,000 ML IRRIGATION PRN (07:00)
[2023-03-13 08:10] LABS: Anisocytosis Moderate; Basophils # (A) 0.1 k/uL (0-0.2); Basophils % (A) 1 %; Eosinophils # (A) 0.5 k/uL (0-0.7); Eosinophils % (A) 7 %; HCT 32.8 % (39.0-53.0); HGB 9.2 gm/dL (13.0-17.5); Hypochromasia Marked; Lymphocytes # (A) 2.3 k/uL (1.0-4.8); Lymphocytes % (A) 28 %; MCH 21.9 pg (25.0-35.0); MCHC 28.2 g/dL (31.0-37.0); MCV 77.8 fL (80.0-100.0); Mean Platelet Volume 7.4; Microcytosis Moderate; Monocytes # (A) 0.6 k/uL (0-1.0); Monocytes % (A) 7 %; Neutrophils # (A) 4.5 k/uL (1.3-7.7); Neutrophils % (A) 56 %; Platelet Count 301 k/uL (150-450); Poikilocytosis Slight; RBC 4.21 m/uL (4.30-5.90); RDW 22.2 % (11.5-15.5); WBC 8.2 k/uL (3.8-10.6)
[2023-03-13] MEDS: ASPIRIN 81 MG PO SCH (08:21)
[2023-03-13] MEDS: ATORVASTATIN 40 MG TAB PO SCH (08:21)
[2023-03-13 08:32] LABS: African American GFR (CKD) 78 (>60 ml/min/1.73 sqM); Anion Gap 1 mmol/L; Blood Urea Nitrogen 24 mg/dL (9-20); Calcium 8.5 mg/dL (8.4-10.2); Carbon Dioxide 29 mmol/L (22-30); Chloride 106 mmol/L (98-107); Glucose 97 mg/dL (74-99); Non-African American GFR(CKD) 67 (>60 ml/min/1.73 sqM); Sodium 136 mmol/L (137-145)
[2023-03-13] MEDS: FERROUS SULFATE 325 MG TAB PO SCH ×2 (08:33→21:01)
[2023-03-13] MEDS: CYANOCOBALAMIN 500 MCG TAB PO SCH (08:33)
[2023-03-13] MEDS: NITROGLYCERIN OINT 1 INCH/GM PACKET TOPICAL SCH (08:33)
[2023-03-13] MEDS: HEPARIN SOD,PORK IN 0.45% NACL 25,000 UNIT in 0.45% NACL 1 250ML.BAG IV SCH (08:34)
[2023-03-13 09:39] VITALS: BMI 15.3
[2023-03-13] MEDS ORDERED: IV FLUID CONTINUATION 1,000 ML IV ONE (10:45)
[2023-03-13] MEDS ORDERED: HEPARIN SODIUM 1,000 UN/ML (10ML VL) ONE (10:47)
[2023-03-13] MEDS ORDERED: VERAPAMIL 2.5 MG/ML 2 ML AMP ONE (10:47)
[2023-03-13] MEDS ORDERED: LIDOCAINE 1% INJ 10MG/ML (5 ML VIAL-PF) SQ ONE (10:57)
[2023-03-13] MEDS ORDERED: MIDAZOLAM 2 MG/2 ML VIAL IVP ONE (10:57)
[2023-03-13] MEDS ORDERED: VERAPAMIL SYRINGE (5 MG/10 ML) INTRAARTER ONE (11:00)
[2023-03-13] MEDS ORDERED: HEPARIN SODIUM 1,000 UN/ML (10ML VL) IV ONE (11:04)
[2023-03-13] MEDS ORDERED: LIDOCAINE 1% INJ 10MG/ML (20 ML MDV) ONE (11:26)
[2023-03-13] MEDS ORDERED: fentaNYL (PF) 50 MCG/ML 2 ML AMP ONE (11:31)
[2023-03-13] MEDS ORDERED: fentaNYL (PF) 50 MCG/ML 2 ML AMP IVP ONE (11:32)
[2023-03-13] MEDS ORDERED: RX INFO: IV CONTRAST WAS GIVEN 1 EACH MISC MISCELLANE PRN (11:38)
--- NOTE | 2023-03-13 11:44 | P.PCN ---
Date of Procedure: 03/13/23 Operative Findings: CARDIAC CATHETERIZATION PERFORMING PHYSICIAN: Waqas Odom MD, RPVI PROCEDURE PERFORMED: 1. Selective right and left coronary angiogram 2. Left heart catheterization 3. Ultrasound guided access of the right radial art INDICATION: Acute non-ST elevation myocardial infarction COMPLICATION: None APPROACH: Right radial artery LEVEL OF SEDATION: Moderate with a sedation length of 37 minutes PROCEDURE DESCRIPTION: After obtaining an informed consent, the patient was brought to cardiac labor relations manager. Local anesthesia was performed using lidocaine subcutaneously. The right radial artery was cannulated using Seldinger technique, the guidewire passed easily, following that we advanced a 5-Swazi sheath dilator assembly, the wire and dilator were removed and sheath was flushed. Following that, 2 mg of verapamil along with 5000 unit heparin were given. Selective left coronary angiogram and nonselective right coronary angiogram performed using a 6-Swazi JR4 and JL 5 catheters. Following that we did left heart catheterization using 6-Swazi pigtail catheter. The procedure was completed there was no complication. SELECTIVE CORONARY ANGIOGRAM: The right coronary artery: Was not opacified. The RCA is known to be medium caliber vessel nondominant vessel Left main: Is angiographically normal. Bifurcates into an ulcer LAD: Large-caliber vessel. It has mild disease only. It gives rises into small diagonal branches that appeared to be angiographically normal. The left circumflex: Large-caliber vessel and a dominant vessel. The LCx has mild disease only. Gives rises into an OM1 which is a stented and the stent is patent. Distally bifurcates into PDA and PLV branches they appeared to be angiographically normal. HEMODYNAMICS: The LVEDP was 12 mmHg was no significant gradient across aortic valve CONCLUSION: 1. Patent stent in OM1 of the LCx which is a dominant vessel 2. Mild disease involving the left anterior descending artery 3. Normal left-sided filling pressure POSTPROCEDURE MANAGEMENT: Medical treatment
[2023-03-13] MEDS ORDERED: SODIUM CHLORIDE 0.9% 1,000 ML IV SCH (11:45)
[2023-03-13] MEDS ORDERED: IOPAMIDOL-370 200ML BTL INJ ONE (11:46)
[2023-03-13] MEDS: EZETIMIBE 10 MG TAB PO SCH (21:01)
[2023-03-13] MEDS: RIVAROXABAN 15 MG TAB PO SCH (21:01)
--- NOTE | 2023-03-14 04:57 | P.PN ---
Subjective Progress Note Date: 03/13/23 87-year-old male with a past medical history including hypertension as well as previous cardiac stents presented to the emergency department for chest pressure via EMS. The patient was an overall poor historian but stated that the chest pressure was present throughout the day but cannot provide any exact time when it started. The patient stated that this pressure sensation is worse than any sensation that he has experienced before. The patient was otherwise resting in bed denying any shortness of breath as well as any lightheadedness or dizziness. Blood work completed in ED reveals--Hemoglobin 9.7, potassium 4.8, BUN 28, creatinine 1.08, troponin 0.450, NT proBNP 3780. Chest x-ray with mild congestion EKG: Atrial fibrillation, rate of 96, nonspecific ST-T wave changes, cannot exclude anterior wall myocardial infarction 03/13/2023 Patient is seen in follow-up this morning being followed by cardiology recommending cardiac catheterization which is scheduled for today. Awaiting official report. Patient continues on cardiac medications and will be continued on telemetry monitoring. Patient is currently nothing by mouth and will resume diet after procedure. Patient is afebrile with no reported chest pain or shortness of breath. Patient denies any nausea or vomiting previously. Patient does have some weakness in case management following and will have PT/OT therapy evaluate patient to ensure he is safe going home. Review of systems: Constitutional: No reports of fatigue, fever, or chills Cardiovascular: No reports of chest pain or palpitations Respiratory: No reports of shortness of breath or cough GI: No reports of nausea, vomiting, or diarrhea : No reports of dysuria or retention Neurovascular: reports of generalized weakness All medications have been reviewed Physical exam: Gen: This is a 87-year-old male who is awake, alert and oriented 3, thin built, elderly appearing HEENT: Head is atraumatic, normocephalic. Pupils equal, round. Sclerae is anicteric. NECK: Supple. No JVD. No lymphadenopathy. No thyromegaly. LUNGS: Diminished breath sounds bilaterally with no wheezes or rhonchi. No intercostal retractions. HEART: S1, S2 are muffled ABDOMEN: Soft. Bowel sounds are present. No masses. No tenderness. EXTREMITIES: No pedal edema. No calf tenderness. NEUROLOGICAL: Patient is awake, alert and oriented x3. Cranial nerves 2 through 12 are grossly intact. Assessment: Chest pain with elevated troponins,NSTEMI status post cardiac catheterization with cardiology recommending maximizing medical management and previous stents are patent History of coronary artery disease with previous stenting, post TAVR previously History of chronic atrial fibrillation, currently rate controlled History of aortic aneurysm Hyperlipidemia Hypertension history History of CVA/TIA Moderate calorie malnutrition with BMI of 15.3 Former smoker GI prophylaxis DVT prophylaxis No code Plan: Patient underwent cardiac catheterization today with cardiology following noted to have patent stents with no plans for any restenting at this time and recommend maximizing medical management Patient continue on telemetry monitoring Medications reviewed and resumed as appropriate Patient with weakness in case management following will have PT/OT therapy evaluate the patient to ensure he is safe going home Patient has been cleared by cardiology for outpatient follow-up Probable discharge in 24 hours although will await PT/OT notes and discussing ECF if that is recommended Due to multiple complex medical issues, prognosis is guarded The impression and plan of care has been dictated by Kandy Will, Nurse Practitioner as directed. Dr. Jean MD I have performed a history and examination and MDM of this patient, discussed the same with the dictator, and agree with the dictator's assessment and plan as written ,documented as a scribe. Based on total visit time, I have performed more than 50% of the visit. Objective - Vital Signs Vital signs: Vital Signs Temp 98.1 F 03/13/23 15:41 Pulse 79 03/13/23 15:41 Resp 16 03/13/23 15:41 BP 131/58 03/13/23 15:41 Pulse Ox 98 03/13/23 15:41 FiO2 Intake & Output 03/12/23 03/13/23 03/13/23 18:59 06:59 18:59 Intake Total 317.688 762.312 Output Total 440 300 650 Balance -122.312 -300 112.312 Weight 48.5 kg 48.5 kg Intake: IV 150 Intake, IV Titration 97.688 152.312 Amount Heparin Sod,Pork in 0.45% 97.688 152.312 NaCl 25,000 unit In 0.45 % NaCl 1 250ml.bag @ 12 UNITS/KG/HR 9.144 mls/hr IV .Q24H [facility] Rx#: [id number] Oral 220 460 Output: Urine 440 300 650 Other: Voiding Method Toilet Toilet Toilet Urinal Urinal Urinal # Voids 1 2 1 # Bowel Movements 1 - Labs CBC & Chem 7: 03/13/23 07:39 03/13/23 07:39 Labs: Abnormal Lab Results - Last 24 Hours (Table) 03/12/23 03/13/23 03/13/23 Range/Units 22:32 06:23 07:39 RBC (4.30-5.90) m/uL Hgb (13.0-17.5) gm/dL Hct (39.0-53.0) % MCV (80.0-100.0) fL MCH (25.0-35.0) pg MCHC (31.0-37.0) g/dL RDW (11.5-15.5) % APTT 53.1 H (22.0-30.0) sec Sodium 136 L (137-145) mmol/L BUN 24 H (9-20) mg/dL POC Glucose (mg/dL) 128 H (70-110) mg/dL 03/13/23 03/13/23 Range/Units 07:39 07:39 RBC 4.21 L (4.30-5.90) m/uL Hgb 9.2 L (13.0-17.5) gm/dL Hct 32.8 L (39.0-53.0) % MCV 77.8 L (80.0-100.0) fL MCH 21.9 L (25.0-35.0) pg MCHC 28.2 L (31.0-37.0) g/dL RDW 22.2 H (11.5-15.5) % APTT 88.8 H (22.0-30.0) sec Sodium (137-145) mmol/L BUN (9-20) mg/dL POC Glucose (mg/dL) (70-110) mg/dL
[2023-03-14] MEDS: LEVOTHYROXINE 137 MCG TAB PO SCH (06:33)
[2023-03-14] MEDS: FUROSEMIDE 40 MG TAB PO SCH ×2 (06:33→15:59)
[2023-03-14] MEDS: carvediloL 12.5 MG TAB PO SCH ×2 (06:33→15:59)
[2023-03-14] MEDS: ATORVASTATIN 40 MG TAB PO SCH (07:59)
[2023-03-14] MEDS: FERROUS SULFATE 325 MG TAB PO SCH ×2 (07:59→20:35)
[2023-03-14] MEDS: CLOPIDOGREL 75 MG TAB PO SCH (07:59)
[2023-03-14] MEDS: CYANOCOBALAMIN 500 MCG TAB PO SCH (07:59)
[2023-03-14] MEDS: ASPIRIN 81 MG PO SCH (08:02)
--- NOTE | 2023-03-14 10:04 | CA ---
Transthoracic Echo Report Name: Jatinder Ware Age: 87 Gender: M : 1935 Exam Date: 03/13/2023 14:03 Exam Location: [place] [facility] Ht (in): 70 Wt (lb): 168 Ordering Physician: Beverly Jimenez MD ([id number]) Attending/Referring Phys: Digital Account Supervisor Keyla Smith [facility] Procedure CPT: Indications: tavr Cardiac Hx: Technical Quality: Fair Contrast 1: Total Dose (mL): Contrast 2: Total Dose (mL): MEASUREMENTS (Male / Female) Normal Values 2D ECHO LV Diastolic Diameter PLAX 5.7 cm 4.2 - 5.9 / 3.9 - 5.3 cm LV Systolic Diameter PLAX 4.2 cm IVS Diastolic Thickness 1.2 cm 0.6 - 1.0 / 0.6 - 0.9 cm LVPW Diastolic Thickness 1.1 cm 0.6 - 1.0 / 0.6 - 0.9 cm LV Relative Wall Thickness 0.4 LVOT Diameter 2.0 cm LV Diastolic Volume MOD BP 106.5 cm??? 67 - 155 / 56 - 104 cm??? LV Systolic Volume MOD BP 67.6 cm??? 22 - 58 / 19 - 49 cm??? LV Ejection Fraction MOD BP 36.5 % >= 55 % LV Cardiac Index MOD BP 1500.5 cm???/min???m??? LV Diastolic Volume MOD 4C 112.3 cm??? LV Systolic Volume MOD 4C 68.2 cm??? LV Ejection Fraction MOD 4C 39.2 % LV Cardiac Index MOD 4C 1699.5 cm???/min???m??? LV Diastolic Length 4C 8.2 cm LV Systolic Length 4C 7.2 cm LV Diastolic Volume MOD 2C 96.2 cm??? LV Systolic Volume MOD 2C 66.8 cm??? LV Ejection Fraction MOD 2C 30.6 % LV Cardiac Index MOD 2C 1133.1 cm???/min???m??? LV Diastolic Length 2C 7.8 cm LV Systolic Length 2C 7.3 cm Ascending Aorta Diameter 3.3 cm DOPPLER AV Peak Velocity 191.5 cm/s AV Peak Gradient 14.7 mmHg AV Mean Velocity 143.4 cm/s AV Mean Gradient 9.1 mmHg AV Velocity Time Integral 45.0 cm LVOT Peak Velocity 95.9 cm/s LVOT Peak Gradient 3.7 mmHg LVOT Velocity Time Integral 19.0 cm LVOT Stroke Volume 58.3 cm??? LVOT Stroke Volume Index 30.1 ml/m??? LVOT Cardiac Index 2246.6 cm???/min???m??? AV Area Cont Eq vti 1.3 cm??? AV Area Cont Eq pk 1.5 cm??? MV Peak Velocity 128.0 cm/s MV Peak Gradient 6.6 mmHg MV Mean Velocity 81.1 cm/s MV Mean Gradient 3.0 mmHg MV Velocity Time Integral 20.2 cm MR Peak Velocity 517.3 cm/s MR Peak Gradient 107.1 mmHg Mitral E Point Velocity 106.4 cm/s MV Deceleration Time 221.8 ms TR Peak Velocity 244.9 cm/s TR Peak Gradient 24.0 mmHg Right Atrial Pressure 8.0 mmHg Pulmonary Artery Systolic Pressu 32.0 mmHg Right Ventricular Systolic Press 32.0 mmHg FINDINGS Left Ventricle Mildly increased left ventricular wall thickness. Mildly increased left ventricular systolic volume. Moderately decreased left ventricular ejection fraction. Left ventricular cavity size at the upper limits of normal. Left ventricular ejection fraction is estimated at 35-40%. Mildly reduced global left ventricular systolic function. Right Ventricle Moderate right ventricular dilatation. Mild pulmonary hypertension. Right Atrium Severe right atrial dilatation. Left Atrium Severe left atrial dilatation. Mitral Valve Mitral valve thickened. Moderate mitral annular calcification. Severe mitral regurgitation. Aortic Valve Normally functioning bioprosthetic aortic valve without stenosis with a peak velocity of 1.91 m/s, peak gradient 14.66 mmHg, mean gradient 9.13 mmHg, and estimated aortic valve area of 1.29 cm???. Tricuspid Valve Structurally normal tricuspid valve. Mild tricuspid regurgitation. Pulmonic Valve Pulmonic valve not well visualized. [id number] pulmonic regurgitation. Pericardium Minimal pericardial effusion (normal variant). Aorta Normal size aortic root and proximal ascending aorta. CONCLUSIONS Moderately reduced global LV systolic function. LVEF estimated at 35-40% No obvious regional wall motion abnormality Severe biatrial dilatation Moderate right ventricular dilatation Bioprosthetic TAVR valve with Mean gradient 9 mmHg. Mild paravalvular leak appreciated Severe mitral regurgitation Moderate pulmonic regurgitation Previewed by: Dr Darius Flowers (Electronically Signed) Final Date: 14 March 2023 10:03
--- NOTE | 2023-03-14 11:03 | XR ---
EXAMINATION TYPE: XR chest 1V portable DATE OF EXAM: 03/14/2023 COMPARISON: 323 HISTORY: Shortness of breath TECHNIQUE: Single frontal view of the chest is obtained. FINDINGS: Small left effusion with large consolidation stable. Underlying COPD with mild central int erstitial prominence. Ectasia and atherosclerotic change. Suspect aneurysmal dilation of the aortic a rch measuring 4.5 cm. Hypertrophic and degenerative changes of the spine. Postop bilateral shoulders. Postsurgical changes suggestive of aortic valve surgery. IMPRESSION: 1. COPD with stable left lower lobe infiltrate and small effusion. Mild central venous congestion in the differential diagnosis.
--- NOTE | 2023-03-14 11:58 | P.PN ---
Subjective HISTORY OF PRESENT ILLNESS: Patient is status post cardiac catheterization with Dr. Odom revealing patent stent in OM1 of the left circumflex, mild disease involving LAD, and normal left-sided filling pressures. Medical management was recommended. Patient examined this morning at the bedside. Patient denies chest pain or pressure. He denies shortness of breath. Vital signs are stable. PHYSICAL EXAM: VITAL SIGNS: Reviewed. GENERAL: Well-developed in no acute distress. NECK: Supple. No JVD or thyromegaly LUNGS: Respirations even and unlabored. Lungs essentially clear to auscultation bilaterally. HEART: Irregular rate and rhythm. S1 and S2 heard. EXTREMITIES: Normal range of motion. No clubbing or cyanosis. Peripheral pulses intact. No lower extremity edema ASSESSMENT: Chest discomfort, status post cardiac catheterization as above Persistent atrial fibrillation History of aortic aneurysm Hyperlipidemia History of TAVR PLAN: Continue plavix and xarelto. Discontinue aspirin. Continue additional cardiac medications Patient is stable for discharge home today from a cardiac standpoint Nurse practitioner note has been reviewed by physician. Signing provider agrees with the documented findings, assessment, and plan of care. Objective - Vital Signs Vital signs: Vital Signs Temp 98.2 F 03/14/23 07:54 Pulse 80 03/14/23 08:00 Resp 16 03/14/23 08:00 BP 116/69 03/14/23 07:54 Pulse Ox 100 03/14/23 07:54 FiO2 Intake & Output 03/13/23 03/14/23 03/14/23 18:59 06:59 18:59 Intake Total 762.312 Output Total 650 480 450 Balance 112.312 -480 -450 Weight 48.5 kg 76.7 kg Intake: IV 150 Intake, IV Titration 152.312 Amount Heparin Sod,Pork in 0.45% 152.312 NaCl 25,000 unit In 0.45 % NaCl 1 250ml.bag @ 12 UNITS/KG/HR 9.144 mls/hr IV .Q24H [facility] Rx#: [id number] Oral 460 Output: Urine 650 480 450 Other: Voiding Method Toilet Urinal # Voids 1 # Bowel Movements 1 - Labs CBC & Chem 7: 03/13/23 07:39 03/13/23 07:39
--- NOTE | 2023-03-14 19:34 | PN ---
PROGRESS NOTE DATE OF SERVICE: 03/14/2023 SUBJECTIVE: This is an 87-year-old gentleman admitted with chest pain, underwent a cardiac catheterization, medical treatment was recommended. No fever. No cough. The chest x- ray showed some fluid overload. OBJECTIVE: VITAL SIGNS: Pulse is 74, blood pressure 114/70, respirations 16. CHEST: Few scattered rhonchi. ABDOMEN: Soft. NERVOUS SYSTEM: Nonfocal. LABORATORY DATA: Reviewed. ASSESSMENT: 1. Chest pain. Acute [id number] myocardial infarction, status post cardiac catheterization, for medical management. 2. History of coronary artery disease, stent, and transcatheter aortic valve replacement. 3. History of chronic atrial fibrillation. 4. History of aortic aneurysm. 5. Hyperlipidemia. 6. Hypertension. 7. Possible congestive heart failure. RECOMMENDATIONS: Recommend to continue current medications. Continue symptomatic treatment. Otherwise, continue with Lasix and recommend to repeat labs in the morning. Closely follow. Further recommendations to follow. MMODL / IJN: [id number] /
[2023-03-14] MEDS: RIVAROXABAN 15 MG TAB PO SCH (20:35)
[2023-03-14] MEDS: EZETIMIBE 10 MG TAB PO SCH (20:35)
[2023-03-15] MEDS: carvediloL 12.5 MG TAB PO SCH (05:47)
[2023-03-15] MEDS: FUROSEMIDE 40 MG TAB PO SCH ×2 (05:48→13:49)
[2023-03-15] MEDS ORDERED: LEVOTHYROXINE 75 MCG TAB PO SCH (06:00)
[2023-03-15 08:41] LABS: Anisocytosis Moderate; Basophils % (A) 0 %; Eosinophils # (A) 0.4 k/uL (0-0.7); Eosinophils % (A) 5 %; HCT 31.2 % (39.0-53.0); HGB 8.6 gm/dL (13.0-17.5); Hypochromasia Marked; Lymphocytes # (A) 1.8 k/uL (1.0-4.8); Lymphocytes % (A) 24 %; MCH 22.1 pg (25.0-35.0); MCHC 27.7 g/dL (31.0-37.0); MCV 79.6 fL (80.0-100.0); Mean Platelet Volume 8.2; Microcytosis Moderate; Monocytes # (A) 0.5 k/uL (0-1.0); Monocytes % (A) 7 %; Neutrophils # (A) 4.5 k/uL (1.3-7.7); Neutrophils % (A) 61 %; Platelet Count 266 k/uL (150-450); Poikilocytosis Slight; RBC 3.91 m/uL (4.30-5.90); RDW 21.3 % (11.5-15.5); WBC 7.3 k/uL (3.8-10.6)
[2023-03-15 09:03] VITALS: TEMP 97.6
[2023-03-15] MEDS: CYANOCOBALAMIN 500 MCG TAB PO SCH (09:03)
[2023-03-15] MEDS: FERROUS SULFATE 325 MG TAB PO SCH (09:03)
[2023-03-15] MEDS: ATORVASTATIN 40 MG TAB PO SCH (09:03)
[2023-03-15] MEDS: CLOPIDOGREL 75 MG TAB PO SCH (09:05)
[2023-03-15 09:26] LABS: African American GFR (CKD) 78 (>60 ml/min/1.73 sqM); Anion Gap 4 mmol/L; Blood Urea Nitrogen 22 mg/dL (9-20); Calcium 8.7 mg/dL (8.4-10.2); Carbon Dioxide 30 mmol/L (22-30); Chloride 103 mmol/L (98-107); Glucose 117 mg/dL (74-99); Non-African American GFR(CKD) 67 (>60 ml/min/1.73 sqM); Sodium 137 mmol/L (137-145)
[2023-03-15 11:37] VITALS: BP 132/68; PULSE 86; RESP 15
--- NOTE | 2023-03-15 12:18 | P.PN ---
Subjective HISTORY OF PRESENT ILLNESS: Patient is status post cardiac catheterization with Dr. Odom revealing patent stent in OM1 of the left circumflex, mild disease involving LAD, and normal left-sided filling pressures. Medical management was recommended. Patient examined this morning at the bedside. Patient denies chest pain or pressure. He denies shortness of breath. Vital signs are stable. 03/15/2023 Patient examined this morning at the bedside. Patient denies any chest pain or pressure. He denies shortness of breath. Vital signs are stable. Discharge planning is underway for patient to go to [facility]. PHYSICAL EXAM: VITAL SIGNS: Reviewed. GENERAL: Well-developed in no acute distress. NECK: Supple. No JVD or thyromegaly LUNGS: Respirations even and unlabored. Lungs essentially clear to auscultation bilaterally. HEART: Irregular rate and rhythm. S1 and S2 heard. EXTREMITIES: Normal range of motion. No clubbing or cyanosis. Peripheral pulses intact. No lower extremity edema ASSESSMENT: Chest discomfort, status post cardiac catheterization as above Persistent atrial fibrillation History of aortic aneurysm Hyperlipidemia History of TAVR PLAN: Continue cardiac medications Patient is stable for discharge today from a cardiac standpoint Discharge plan in place for [facility] today Nurse practitioner note has been reviewed by physician. Signing provider agrees with the documented findings, assessment, and plan of care. Objective - Vital Signs Vital signs: Vital Signs Temp 97.6 F 03/15/23 09:00 Pulse 69 03/15/23 09:00 Resp 17 03/15/23 09:00 BP 100/59 03/15/23 09:00 Pulse Ox 96 03/15/23 09:00 FiO2 Intake & Output 03/14/23 03/15/23 03/15/23 18:59 06:59 18:59 Intake Total 240 120 Output Total 650 1800 350 Balance -410 -1800 -230 Weight 74.4 kg Intake: Oral 240 120 Output: Urine 650 1800 350 Other: Voiding Method Toilet Urinal # Voids 1 # Bowel Movements 1 1 - Labs CBC & Chem 7: 03/15/23 07:47 03/15/23 07:47 Labs: Abnormal Lab Results - Last 24 Hours (Table) 03/15/23 03/15/23 Range/Units 07:47 07:47 RBC 3.91 L (4.30-5.90) m/uL Hgb 8.6 L (13.0-17.5) gm/dL Hct 31.2 L (39.0-53.0) % MCV 79.6 L (80.0-100.0) fL MCH 22.1 L (25.0-35.0) pg MCHC 27.7 L (31.0-37.0) g/dL RDW 21.3 H (11.5-15.5) % BUN 22 H (9-20) mg/dL Glucose 117 H (74-99) mg/dL
--- NOTE | 2023-03-15 12:58 | P.DS ---
Providers Date of admission: 03/11/23 23:03 Expected date of discharge: 03/13/23 Attending physician: Rubin Richey MD Consults: 03/11/23 23:03 Consult Physician Routine Consulting Provider: [facility] Consult Reason/Comments: NSTEMI, CHF exas Do you want consulting provider notified?: Yes, Notify in am Primary care physician: Waqas Odom Hospital Course: Final diagnosis Chest pain with elevated troponins,NSTEMI status post cardiac catheterization with cardiology recommending maximizing medical management and previous stents are patent History of coronary artery disease with previous stenting, post TAVR previously History of chronic atrial fibrillation, currently rate controlled History of aortic aneurysm Hyperlipidemia Hypertension history History of CVA/TIA Moderate calorie malnutrition with BMI of 15.3 Generalized weakness Former smoker GI prophylaxis DVT prophylaxis No code Discharge disposition Patient is being discharged in a stable condition with guarded prognosis to [facility] Patient will follow-up with Dr. Pimentel in the outpatient setting upon discharge. Patient is to continue with current medications as mentioned below and outpatient follow-up with cardiology as scheduled. Total time taken is greater than 35 minutes. Hospital course This is a 87-year-old male who was recently admitted with chest pain with elev ated troponins underwent cardiac catheterization with previous stents that were patent and TAVR history recommending maximizing medical management. Patient with generalized weakness was evaluated by physical therapy and will be going to [facility] for strength and mobility. Patient discussed that he had an upcoming colonoscopy that was scheduled and have instructed him to follow-up outpatient once discharged from [facility] to reschedule. Patient has been cleared by cardiology for discharge today. Please refer to cardiology note for further HPI. Currently no reports of chest pain, shortness of breath, or palpitations. Patient is afebrile. No reports of nausea or vomiting and patient is tolerating diet. Patient will be going to [facility] today. Guarded prognosis. Physical exam: Gen: This is a 87-year-old male who is awake, alert and oriented 3, then built, elderly appearing HEENT: Head is atraumatic, normocephalic. Pupils equal, round. Sclerae is anicteric. NECK: Supple. No JVD. No lymphadenopathy. No thyromegaly. LUNGS: Diminished breath sounds bilaterally with some scattered rhonchi. No intercostal retractions. HEART: S1, S2 are muffled ABDOMEN: Soft. Bowel sounds are present. No masses. No tenderness. EXTREMITIES: No pedal edema. No calf tenderness. NEUROLOGICAL: Patient is awake, alert and oriented x3. Cranial nerves 2 through 12 are grossly intact. Diffusely weak Please refer to medication reconciliation sheet for a list of medications. The impression and plan of care has been dictated by Kandy Will, Nurse Practitioner as directed. Dr. Jean MD I have performed a history and examination and MDM of this patient, discussed the same with the dictator, and agree with the dictator's assessment and plan as written ,documented as a scribe. Based on total visit time, I have performed more than 50% of the visit. Patient Condition at Discharge: Stable Plan - Discharge Summary Discharge Rx Participant: Yes New Discharge Prescriptions: New Aspirin 81 mg PO DAILY #30 tab carvediloL [Coreg*] 25 mg PO BID-W/MEALS 30 Days #120 tab Atorvastatin [Lipitor] 40 mg PO DAILY #30 tab Nitroglycerin Sl Tabs [Nitrostat] 0.4 mg SUBLINGUAL Q5M PRN #20 tab PRN Reason: Chest Pain Continue Levothyroxine Sodium [Synthroid] 137 mcg PO SUTUWEFRSA@0600 Ezetimibe [Zetia] 10 mg PO HS Lactose-Reduced Food [Ensure Plus] 240 ml PO DAILY Ferrous Sulfate [Iron (65 MG Elemental)] 325 mg PO BID Cyanocobalamin [Vitamin B-12] 1,000 mcg PO DAILY tab Levothyroxine Sodium [Synthroid] 150 mcg PO MOTH@0600 Furosemide [Lasix] 40 mg PO BID@0600,1400 Clopidogrel [Plavix] 75 mg PO DAILY Rivaroxaban [Xarelto] 15 mg PO HS Discontinued carvediloL [Coreg] 6.25 mg PO BID dilTIAZem HCL [Cardizem LA] 300 mg PO DAILY Discharge Medication List Ezetimibe [Zetia] 10 mg PO HS 01/20/15 [History] Levothyroxine Sodium [Synthroid] 137 mcg PO SUTUWEFRSA@0600 01/20/15 [History] Cyanocobalamin [Vitamin B-12] 1,000 mcg PO DAILY tab 02/10/23 [Rx] Furosemide [Lasix] 40 mg PO BID@0600,1400 03/01/23 [History] Lactose-Reduced Food [Ensure Plus] 240 ml PO DAILY 03/01/23 [History] Levothyroxine Sodium [Synthroid] 150 mcg PO MOTH@0600 03/01/23 [History] Clopidogrel [Plavix] 75 mg PO DAILY 03/12/23 [History] Ferrous Sulfate [Iron (65 MG Elemental)] 325 mg PO BID 03/12/23 [History] Rivaroxaban [Xarelto] 15 mg PO HS 03/12/23 [History] Aspirin 81 mg PO DAILY #30 tab 03/14/23 [Rx] Atorvastatin [Lipitor] 40 mg PO DAILY #30 tab 03/14/23 [Rx] Nitroglycerin Sl Tabs [Nitrostat] 0.4 mg SUBLINGUAL Q5M PRN #20 tab 03/14/23 [Rx] carvediloL [Coreg*] 25 mg PO BID-W/MEALS 30 Days #120 tab 03/14/23 [Rx] Follow up Appointment(s)/Referral(s): Virginia Pimentel MD [STAFF PHYSICIAN] - 1 Week Waqas Odom MD [Primary Care Provider] - 1-2 days Activity/Diet/Wound Care/Special Instructions: Activity as tolerated Follow-up with primary care provider and discharge Follow-up cardiology outpatient Continue taking medication as prescribed Continue heart healthy diet and ensure supplements Prescriptions were sent to [facility] pharmacy here at the hospital Discharge Disposition: TRANSFER TO SNF/ECF
--- NOTE | 2023-03-15 12:59 | P.DS ---
Providers Date of admission: 03/11/23 23:03 Expected date of discharge: 03/15/23 Attending physician: Rubin Richey MD Primary care physician: Waqas Odom Hospital Course: Final diagnosis Chest pain with elevated troponins,NSTEMI status post cardiac catheterization with cardiology recommending maximizing medical management and previous stents are patent History of coronary artery disease with previous stenting, post TAVR previously History of chronic atrial fibrillation, currently rate controlled History of aortic aneurysm Hyperlipidemia Hypertension history History of CVA/TIA Moderate calorie malnutrition with BMI of 15.3 Generalized weakness Former smoker GI prophylaxis DVT prophylaxis No code Discharge disposition Patient is being discharged in a stable condition with guarded prognosis to .[facility] Patient will follow-up with Dr. Pimentel in the outpatient setting upon discharge. Patient is to continue with current medications as mentioned below and outpatient follow-up with cardiology as scheduled. Total time taken is greater than 35 minutes. Hospital course This is a 87-year-old male who was recently admitted with chest pain with elevated troponins underwent cardiac catheterization with previous stents that were patent and TAVR history recommending maximizing medical management. Patient with generalized weakness was evaluated by physical therapy and will be going to [facility] for strength and mobility. Patient discussed that he had an upcoming colonoscopy that was scheduled and have instructed him to follow-up outpatient once discharged from [facility] to reschedule. Patient has been cleared by cardiology for discharge today. Please refer to cardiology note for further HPI. Currently no reports of chest pain, shortness of breath, or palpitations. Patient is afebrile. No reports of nausea or vomiting and patient is tolerating diet. Patient will be going to [facility] today. Guarded prognosis. Physical exam: Gen: This is a 87-year-old male who is awake, alert and oriented 3, then built, elderly appearing HEENT: Head is atraumatic, normocephalic. Pupils equal, round. Sclerae is anicteric. NECK: Supple. No JVD. No lymphadenopathy. No thyromegaly. LUNGS: Diminished breath sounds bilaterally with some scattered rhonchi. No intercostal retractions. HEART: S1, S2 are muffled ABDOMEN: Soft. Bowel sounds are present. No masses. No tenderness. EXTREMITIES: No pedal edema. No calf tenderness. NEUROLOGICAL: Patient is awake, alert and oriented x3. Cranial nerves 2 through 12 are grossly intact. Diffusely weak Please refer to medication reconciliation sheet for a list of medications. The impression and plan of care has been dictated by Kandy Will, Nurse Practitioner as directed. Dr. Jean MD I have performed a history and examination and MDM of this patient, discussed the same with the dictator, and agree with the dictator's assessment and plan as written ,documented as a scribe. Based on total visit time, I have performed more than 50% of the visit. Patient Condition at Discharge: Stable Plan - Discharge Summary Discharge Rx Participant: Yes New Discharge Prescriptions: New Aspirin 81 mg PO DAILY #30 tab carvediloL [Coreg*] 25 mg PO BID-W/MEALS 30 Days #120 tab Atorvastatin [Lipitor] 40 mg PO DAILY #30 tab Nitroglycerin Sl Tabs [Nitrostat] 0.4 mg SUBLINGUAL Q5M PRN #20 tab PRN Reason: Chest Pain Continue Levothyroxine Sodium [Synthroid] 137 mcg PO SUTUWEFRSA@0600 Ezetimibe [Zetia] 10 mg PO HS Lactose-Reduced Food [Ensure Plus] 240 ml PO DAILY Ferrous Sulfate [Iron (65 MG Elemental)] 325 mg PO BID Cyanocobalamin [Vitamin B-12] 1,000 mcg PO DAILY tab Levothyroxine Sodium [Synthroid] 150 mcg PO MOTH@0600 Furosemide [Lasix] 40 mg PO BID@0600,1400 Clopidogrel [Plavix] 75 mg PO DAILY Rivaroxaban [Xarelto] 15 mg PO HS Discontinued carvediloL [Coreg] 6.25 mg PO BID dilTIAZem HCL [Cardizem LA] 300 mg PO DAILY Discharge Medication List Ezetimibe [Zetia] 10 mg PO HS 01/20/15 [History] Levothyroxine Sodium [Synthroid] 137 mcg PO SUTUWEFRSA@0600 01/20/15 [History] Cyanocobalamin [Vitamin B-12] 1,000 mcg PO DAILY tab 02/10/23 [Rx] Furosemide [Lasix] 40 mg PO BID@0600,1400 03/01/23 [History] Lactose-Reduced Food [Ensure Plus] 240 ml PO DAILY 03/01/23 [History] Levothyroxine Sodium [Synthroid] 150 mcg PO MOTH@0600 03/01/23 [History] Clopidogrel [Plavix] 75 mg PO DAILY 03/12/23 [History] Ferrous Sulfate [Iron (65 MG Elemental)] 325 mg PO BID 03/12/23 [History] Rivaroxaban [Xarelto] 15 mg PO HS 03/12/23 [History] Aspirin 81 mg PO DAILY #30 tab 03/14/23 [Rx] Atorvastatin [Lipitor] 40 mg PO DAILY #30 tab 03/14/23 [Rx] Nitroglycerin Sl Tabs [Nitrostat] 0.4 mg SUBLINGUAL Q5M PRN #20 tab 03/14/23 [Rx] carvediloL [Coreg*] 25 mg PO BID-W/MEALS 30 Days #120 tab 03/14/23 [Rx] Follow up Appointment(s)/Referral(s): Virginia Pimentel MD [STAFF PHYSICIAN] - 1 Week Waqas Odom MD [Primary Care Provider] - 1-2 days Activity/Diet/Wound Care/Special Instructions: Activity as tolerated Follow-up with primary care provider and discharge Follow-up cardiology outpatient Continue taking medication as prescribed Continue heart healthy diet and ensure supplements Prescriptions were sent to [facility] pharmacy here at the hospital Discharge Disposition: TRANSFER TO SNF/ECF
--- NOTE | 2023-03-20 10:21 | CDI ---
Documentation Clarification Form Date: 03/20/2023 From: Radha Grissom Admit Date: 03/11/2023 11:03:00 PM Patient Name: Jatinder Ware Visit Number: [id number] Discharge Date: 03/15/2023 02:34:00 PM ATTENTION: The Clinical Documentation Specialists (CDI) and [facility] Coding Staff appreciate your assistance in clarifying documentation. Please respond to the clarification below the line at the bottom and electronically sign. The CDI & [facility] Coding staff will review the response and follow-up if needed. Please note: Queries are made part of the Legal Health Record. If you have any questions, please contact the author of this message via ITS. Dr. Harsh Pena Your patient has the documented diagnosis of CHF in the ED note and in the IM PN on 03/14. Additional information regarding the type and acuity of CHF is requested. History/Risk Factors: 87yo w/ a h/o HTN, CAD s/p stent, a-fib, HTN and s/p TAVR Clinical Indicators: Pt presented w/ chest pressure and NSTEMI. LHC noted the previous stent was patent, mild disease noted in the LAD, cardiology recommended med mgmt.. BNP 03/11: 3780 Trop: 03/11 0.450, 03/12 0.282-0.236 Echocardiogram Results 03/13: mod decreased LVEF 35-40%, mildly reduced global LVSF, min pericardial effusion, severe biatrial dilatation, mod RV dilatation, Chest X Ray 03/11: cardiomegaly w/ blunting of the costophrenic angles and pulmonary vascular congestion Treatment: Lasix IV x1 dose, Lasix 40mg po bid In your professional opinion, can you please clarify the type and acuity of CHF if known? [ ] Acute Systolic Heart Failure (reduced EF) [ ] Chronic Systolic Heart Failure (reduced EF) [x ] Acute on Chronic Systolic Heart Failure (reduced EF) [ ] Acute Diastolic Heart Failure (preserved EF) [ ] Chronic Diastolic Heart Failure (preserved EF) [ ] Acute on Chronic Diastolic Heart Failure (preserved EF) [ ] Acute Systolic & Diastolic Heart Failure [ ] Chronic Systolic & Diastolic Heart Failure [ ] Acute on Chronic Heart Failure Systolic & Diastolic Heart Failure MTDD
== END 2023-03-15 14:34 | DRG 280 ==
LOC: EC 20:54 → 3SCARD 23:03
PROVIDERS: ADMIT Internal Medicine; ATTEND Internal Medicine
PROC: B2111ZZ Fluoroscopy of Multiple Coronary Arteries using Low Osmolar Contrast (ICD-10-PCS; 2023-03-13)
PROC: 4A023N7 Measurement of Cardiac Sampling and Pressure, Left Heart, Percutaneous Approach (ICD-10-PCS; principal; 2023-03-13 14:00)
DX: I21.4 Non-ST elevation (NSTEMI) myocardial infarction (principal); I50.23 Acute on chronic systolic (congestive) heart failure; E44.0 Moderate protein-calorie malnutrition; Z68.1 Body mass index [BMI] 19.9 or less, adult; I48.19 Other persistent atrial fibrillation; I25.10 Atherosclerotic heart disease of native coronary artery without angina pectoris; E78.5 Hyperlipidemia, unspecified; I08.3 Combined rheumatic disorders of mitral, aortic and tricuspid valves; I11.0 Hypertensive heart disease with heart failure; Z96.612 Presence of left artificial shoulder joint; Z96.611 Presence of right artificial shoulder joint; Z96.643 Presence of artificial hip joint, bilateral; Z79.01 Long term (current) use of anticoagulants; Z79.02 Long term (current) use of antithrombotics/antiplatelets; Z79.890 Hormone replacement therapy; Z79.899 Other long term (current) drug therapy; Z85.828 Personal history of other malignant neoplasm of skin; Z86.73 Personal history of transient ischemic attack (TIA), and cerebral infarction without residual deficits; Z86.79 Personal history of other diseases of the circulatory system; Z95.2 Presence of prosthetic heart valve; Z95.5 Presence of coronary angioplasty implant and graft; Z88.8 Allergy status to other drugs, medicaments and biological substances; Z87.891 Personal history of nicotine dependence
CPT/HCPCS: 36415; 71045; 71046; 80048; 80053; 83690; 83735; 83880; 84484; 85025; 85610; 85730; 93005; 93306; 93458; 96374; 96375; 99285

== ENCOUNTER 2023-03-27 22:46 | Emergency (ER) | payer MEDICARE ==
[2023-03-27 22:54] VITALS: BP 110/92; TEMP 98.8
[2023-03-27] MEDS ORDERED: LIDOCAINE 2%-EPI 1:100,000 20 ML VIAL SQ STA (23:23)
--- NOTE | 2023-03-27 23:49 | CT ---
EXAM: CT Head Without Intravenous Contrast CLINICAL HISTORY: ITS.REASON CT Reason: fall TECHNIQUE: Axial computed tomography images of the head/brain without intravenous contrast. CTDI is 45.2 mGy and DLP is 1076 mGy-cm. This CT exam was performed using one or more of the following dose reduction techniques: automated exposure control, adjustment of the mA and/or kV according to patient size, and/or use of iterative reconstruction technique. COMPARISON: 02/07/2023. FINDINGS: Brain: Unremarkable. No hemorrhage. No significant white matter disease. No abnormal extra-axial collection is noted. Midline shift: Midline anatomy is unremarkable. Ventricles: Unremarkable. No ventriculomegaly. Bones/joints: Calvarium is within normal limits. No acute fracture. Soft tissues: A 3.7 x 2 cm scalp hematoma posteriorly at the midline occipital region. Sinuses: Mild chronic ethmoid sinusitis. Mastoid air cells: Mastoid air cells are well pneumatized. Other findings: Age-related changes. IMPRESSION: 1. Posterior occipital scalp hematoma. 2. Age-related changes. 3. No acute intracranial pathology. 4. If there is concern for etiology such as early acute lacunar infarcts, MRI imaging of the brain with diffusion-weighted sequences should be performed. EXAM: CT Cervical Spine Without Intravenous Contrast CLINICAL HISTORY: ITS.REASON CT Reason: fall TECHNIQUE: Axial computed tomography images of the cervical spine without intravenous contrast. CTDI is 11.9 mGy and DLP is 321.1 mGy-cm. This CT exam was performed using one or more of the following dose reduction techniques: automated exposure control, adjustment of the mA and/or kV according to patient size, and/or use of iterative reconstruction technique. COMPARISON: No previous studies. FINDINGS: Vertebrae: Levoscoliosis. There is straightening and reversal of the curvature of the cervical spine suggestive of muscle spasm. Spinous processes are unremarkable. There is a normal relationship of C1 and C2. Transaxial images of the cervical spine reveals multilevel posterior facet hypertrophy and disc osteophyte complexes. No acute fracture. Discs/spinal canal/neural foramina: Moderate to severe degenerative disc disease, most notably at the C5-6 and C6-7 levels. No spinal canal stenosis. Soft tissues: Paraspinal and regional soft tissues are unremarkable. Vasculature: Atherosclerotic disease. Lung apices: Minimal scarring near the lung apices. IMPRESSION: 1. Degenerative disc disease. 2. No acute injury to the cervical spine.
--- NOTE | 2023-03-27 23:52 | ED ---
General Adult HPI <PatcaritoConcepción - Last Filed: 03/28/23 01:25> - General Source: patient, EMS Mode of arrival: EMS <Hunter Alfonso - Last Filed: 03/28/23 01:58> - General Chief complaint: Fall Stated complaint: Fall, Head Lac Time Seen by Provider: 03/27/23 23:12 - History of Present Illness Initial comments: Dictation was produced using [employer] dictation software. please excuse any grammatical, word or spelling errors. Chief Complaint: 87-year-old male presents with head injury History of Present Illness: Patient is a 87-year-old male presents to the emergency department for head injury. this evening was walking to the bathroom when he tripped over something and fell backwards and struck the back of his head. Patient has any headache. No neck pain. She denies any symptoms similar paresthesias. Patient takes anticoagulation medications. He did notice some bleeding to the back of his head. The ROS documented in this emergency department record has been reviewed and confirmed by me. Those systems with pertinent positive or negative responses have been documented in the HPI. All other systems are other negative and/or noncontributory. (Hunter Alfonso) - Related Data Home Medications Medication Instructions Recorded Confirmed Ezetimibe [Zetia] 10 mg PO HS 01/20/15 03/12/23 Levothyroxine Sodium [Synthroid] 137 mcg PO SUTUWEFRSA@0600 01/20/15 03/12/23 Furosemide [Lasix] 40 mg PO BID@0600,1400 03/01/23 03/12/23 Lactose-Reduced Food [Ensure Plus] 240 ml PO DAILY 03/01/23 03/12/23 Levothyroxine Sodium [Synthroid] 150 mcg PO MOTH@0600 03/01/23 03/12/23 Clopidogrel [Plavix] 75 mg PO DAILY 03/12/23 03/12/23 Ferrous Sulfate [Iron (65 MG 325 mg PO BID 03/12/23 03/12/23 Elemental)] Rivaroxaban [Xarelto] 15 mg PO HS 03/12/23 03/12/23 Previous Rx's Medication Instructions Recorded Cyanocobalamin [Vitamin B-12] 1,000 mcg PO DAILY tab 08/05/23 Aspirin 81 mg PO DAILY #30 tab 03/14/23 Atorvastatin [Lipitor] 40 mg PO DAILY #30 tab 03/14/23 Nitroglycerin Sl Tabs [Nitrostat] 0.4 mg SUBLINGUAL Q5M PRN #20 tab 03/14/23 carvediloL [Coreg*] 25 mg PO BID-W/MEALS 30 Days #120 03/14/23 tab Allergies Allergy/AdvReac Type Severity Reaction Status Date / Time simvastatin [From Zocor] Allergy Unknown Verified 03/27/23 22:52 Review of Systems ROS Other: All systems not noted in ROS Statement are negative. <Concepción Way - Last Filed: 03/28/23 01:25> ROS Other: All systems not noted in ROS Statement are negative. <Hunter Alfonso - Last Filed: 03/28/23 01:58> ROS Statement: Those systems with pertinent positive or pertinent negative responses have been documented in the HPI. Past Medical History Past Medical History: Atrial Fibrillation, Cancer, CVA/TIA, Hyperlipidemia, Hypertension, Pneumonia, Thyroid Disorder Additional Past Medical History / Comment(s): Skin cancer with removal; atrial fibrillation is paroxysmal, currently on Xarelto for anticoagulation History of Any Multi-Drug Resistant Organisms: None Reported Past Surgical History: Appendectomy, Cholecystectomy, Heart Catheterization, Joint Replacement, Orthopedic Surgery Additional Past Surgical History / Comment(s): bilateral shoulder and hips replaced; aortic valve replacement 2019, left foot drop Past Anesthesia/Blood Transfusion Reactions: No Reported Reaction Date of Last Stent Placement:: 01/06/23 Past Psychological History: No Psychological Hx Reported Smoking Status: Former smoker - Past Family History Mother Family Medical History: CVA/TIA <Hunter Alfonso - Last Filed: 03/28/23 01:58> General Exam <Hunter Alfonso - Last Filed: 03/28/23 01:58> - General Exam Comments Initial Comments: PHYSICAL EXAM: General Impression: Alert and oriented x3, not in acute distress HEENT: Hematoma and laceration measuring 1 cm over the occiput, extra-ocular movements intact, pupils equal and reactive to light bilaterally, mucous membranes moist. Cardiovascular: Heart regular rate and rhythm Chest: Able to complete full sentences, no retractions, no tachypnea Abdomen: abdomen soft, non-tender, non-distended, no organomegaly Musculoskeletal: Pulses present and equal in all extremities, no peripheral edema Motor: no focal deficits noted Neurological: CN II-XII grossly intact, no focal motor or sensory deficits noted Skin: Intact with no visualized rashes Psych: Normal affect and mood (Hunter Alfonso) Course Vital Signs 03/27/23 03/27/23 22:47 23:04 Temperature 98.8 F Pulse Rate 139 H 101 H Respiratory 20 Rate Blood Pressure 110/92 O2 Sat by Pulse 97 Oximetry EKG Findings - EKG Comments: EKG Findings:: My EKG interpretation: Ventricular rate 103, A. fib, QRS 121, QTC 46. No MI prolongation, no QTC prolongation, no ST or T-wave changes noted. Overall, this EKG is unremarkable <Hunter Alfonso - Last Filed: 03/28/23 01:58> Procedures - Laceration Laceration #1 Consent Obtained: verbal consent Indication: laceration Site: scalp Description: irregular Anesthetic Used: lidocaine 2%, with epi Pre-repair: irrigated extensively Size of Sutures: other (marisol) Number of Sutures: 7 (marisol) Laceration #2 Consent Obtained: verbal consent Indication: laceration Site: scalp Description: irregular Size of Sutures: 5-0 Number of Sutures: 1 Technique: simple, interrupted <Concepción Way - Last Filed: 03/28/23 01:25> Medical Decision Making <Hunter Alfonso - Last Filed: 03/28/23 01:58> - Medical Decision Making Was pt. sent in by a medical professional or institution (Dr. PA, HIDE PASTER, urgent care, hospital, or group home...) When possible be specific @ -No Did you speak to anyone other than the patient for history (EMS, parent, family, police, friend...)? What history was obtained from this source @ -No Did you review nursing and triage notes (agree or disagree)? Why? @ -I reviewed and agree with nursing and triage notes Were old charts reviewed (outside hosp., previous admission, EMS record, old EKG, old radiological studies, urgent care reports/EKG's, group home records)? Report findings @ -No old charts were reviewed Differential Diagnosis (chest pain, altered mental status, abdominal pain women, abdominal pain men, vaginal bleeding, musculoskeletal, weakness, fever, dyspnea, syncope, headache, dizziness, GI bleed, back pain, seizure, CVA, palpatations, mental health)? @ -not applicable EKG interpreted by me (3pts min.). @ -As above X-rays interpreted by me (1pt min.). @ -None done CT interpreted by me (1pt min.). @ -Scan of the head and C-spine shows no acute processes. U/S interpreted by me (1pt. min.). @ -None done What testing was considered but not performed or refused? (CT, X-rays, U/S, labs)? Why? @ -None What meds were considered but not given or refused? Why? @ -None Did you discuss the management of the patient with other professionals (professionals i.e. , PA, HIDE PASTER, lab, RT, psych nurse, social media director, nurse anesthesia program director, teacher, evp and chief operating officer, telephonic nurse case manager)? Give summary @ -No Was smoking cessation discussed for >3mins.? @ -No Was critical care preformed (if so, how long)? @ -No Were there social determinants of health that impacted care today? How? (Homelessness, low income, unemployed, alcoholism, drug addiction, transportation, low edu. Level, literacy, decrease access to med. care, [facility], rehab)? @ -No Was there de-escalation of care discussed even if they declined (Discuss DNR or withdrawal of care, Hospice)? DNR status @ -No What co-morbidities impacted this encounter? (DM, HTN, Smoking, COPD, CAD, Cancer, CVA, ARF, Chemo, Hep., AIDS, mental health diagnosis, sleep apnea, morbid obesity)? @ -None Was patient admitted / discharged? Hospital course, mention meds given and route, prescriptions, significant lab abnormalities, going to OR and other pertinent info. @ -87 Year-old male with closed head injury after a mechanical fall. Laceration repaired with marisol. Computed tomography scan is negative. Patient observed in emergency department for 3 hours. I bedside at 157 found be with stable medical condition. Patient discharged. Undiagnosed new problem with uncertain prognosis? @ -No Drug Therapy requiring intensive monitoring for toxicity (Heparin, Nitro, Insulin, Cardizem)? @ -No Were any procedures done? @ -No Diagnosis/symptom? Acute, or Chronic, or Acute on Chronic? Uncomplicated (without systemic symptoms) or Complicated (systemic symptoms)? @ -Closed head injury, scalp laceration Side effects of treatment? @ -No Exacerbation, Progression, or Severe Exacerbation? @ -No Poses a threat to life or bodily function? How? (Chest pain, [place], [place], pneumonia, PE, COPD, DKA, ARF, appy, cholecystitis, CVA, Diverticulitis, Homicidal, Suicidal, threat to staff... and all critical care pts) @ -No (Hunter Alfonso) Disposition <Concepción Way - Last Filed: 03/28/23 01:25> Is patient prescribed a controlled substance at d/c from ED?: No Time of Disposition: 01:58 <Hunter Alfonso - Last Filed: 03/28/23 01:58> Clinical Impression: Fall Disposition: HOME SELF-CARE Condition: Fair Instructions (If sedation given, give patient instructions): Fall Prevention for Older Adults (ED) Additional Instructions: Staple removal in 7 days Referrals: Waqas Odom MD [Family Provider] - 1-2 days
[2023-03-28 03:30] VITALS: PULSE 100; RESP 19
== END 2023-03-28 03:30 | disposition home or self-care (01) ==
LOC: EC 22:46
DX: S01.01XA Laceration without foreign body of scalp, initial encounter (principal); E78.5 Hyperlipidemia, unspecified; I10 Essential (primary) hypertension; I48.0 Paroxysmal atrial fibrillation; Z86.73 Personal history of transient ischemic attack (TIA), and cerebral infarction without residual deficits; Z87.891 Personal history of nicotine dependence; Z79.02 Long term (current) use of antithrombotics/antiplatelets; Z95.2 Presence of prosthetic heart valve; Z88.8 Allergy status to other drugs, medicaments and biological substances; W01.0XXA Fall on same level from slipping, tripping and stumbling without subsequent striking against object, initial encounter; Y93.01 Activity, walking, marching and hiking
CPT/HCPCS: 12001; 70450; 72125; 99285

== ENCOUNTER 2023-05-03 20:02 | Inpatient (IN) | payer MEDICARE ==
[2023-05-03] MEDS ORDERED: ONDANSETRON 4 MG/2 ML VIAL IVP STA (20:20)
[2023-05-03] MEDS ORDERED: DILTIAZEM DRIP BOLUS FROM BAG 1 MG SOLN IV ONE (20:20)
[2023-05-03] MEDS ORDERED: MORPHINE SULFATE 4 MG/ML SYRINGE IVP STA (20:20)
[2023-05-03] MEDS ORDERED: SODIUM CHLORIDE 0.9% 500 ML 500 ML IV STA (20:20)
--- NOTE | 2023-05-03 20:36 | ED ---
Abdominal Pain HPI - General Chief Complaint: Abdominal Pain Stated Complaint: Prolapse Rectum Time Seen by Provider: 05/03/23 20:10 Source: patient, EMS, RN notes reviewed, old records reviewed Mode of arrival: EMS Limitations: no limitations - History of Present Illness Initial Comments: This is an 87-year-old male to the emergency department for evaluation for possibility of rectal prolapse. EMS brings patient in for evaluation. Patient does complain of some abdominal pain but is a mildly poor story secondary to extreme of age MD Complaint: abdominal pain -: days(s) Location: diffuse, epigastric, suprapubic Radiation: epigastric, suprapubic Migration to: periumbilical Severity: moderate Quality: cramping, aching Improves With: nothing Worsens With: nothing Associated Symptoms: nausea, constipation Treatments Prior to Arrival: other - Related Data Home Medications Medication Instructions Recorded Confirmed Ezetimibe [Zetia] 10 mg PO HS 01/20/15 05/03/23 Levothyroxine Sodium [Synthroid] 150 mcg PO DAILY 03/01/23 05/03/23 Clopidogrel [Plavix] 75 mg PO DAILY 03/12/23 05/03/23 Ferrous Sulfate [Iron (65 MG 325 mg PO BID 03/12/23 05/03/23 Elemental)] Rivaroxaban [Xarelto] 15 mg PO HS 03/12/23 05/03/23 Multivit-Min/FA/Lycopen/Lutein 1 tab PO DAILY 05/03/23 05/03/23 [Centrum Silver Tablet] Sennosides/Docusate Sodium [Senna 1 tab PO DAILY PRN 05/03/23 05/03/23 Plus 8.6-50 mg Tablet] Previous Rx's Medication Instructions Recorded Atorvastatin [Lipitor] 40 mg PO DAILY #30 tab 03/14/23 Nitroglycerin Sl Tabs [Nitrostat] 0.4 mg SUBLINGUAL Q5M PRN #20 tab 03/14/23 Dapagliflozin Propanediol [Farxiga] 5 mg PO DAILY tab 05/11/23 Darbepoetin Preston [Aranesp] 40 mcg SQ Q7D each 05/11/23 Furosemide [Lasix] 40 mg PO BID@0900,1600 tab 05/11/23 Lactulose [Cephulac] 30 gm PO BID ml 05/11/23 Metoprolol Tartrate [Lopressor] 25 mg PO BID tab 05/11/23 Pantoprazole [Protonix] 40 mg PO AC-BRKFST tab 05/11/23 Potassium Chloride ER [K-Dur 20] 20 meq PO DAILY tab 05/11/23 Tamsulosin [Flomax] 0.4 mg PO PC-BRKFST cap 05/11/23 Allergies Allergy/AdvReac Type Severity Reaction Status Date / Time simvastatin [From Zocor] Allergy Unknown Verified 05/03/23 22:32 Review of Systems ROS Statement: Those systems with pertinent positive or pertinent negative responses have been documented in the HPI. ROS Other: All systems not noted in ROS Statement are negative. Past Medical History Past Medical History: Atrial Fibrillation, Cancer, CVA/TIA, Hyperlipidemia, Hypertension, Pneumonia, Thyroid Disorder Additional Past Medical History / Comment(s): Skin cancer with removal; atrial fibrillation is paroxysmal, currently on Xarelto for anticoagulation History of Any Multi-Drug Resistant Organisms: None Reported Past Surgical History: Appendectomy, Cholecystectomy, Heart Catheterization, Joint Replacement, Orthopedic Surgery Additional Past Surgical History / Comment(s): bilateral shoulder and hips replaced; aortic valve replacement 2019, left foot drop Past Anesthesia/Blood Transfusion Reactions: No Reported Reaction Date of Last Stent Placement:: 01/06/23 Past Psychological History: No Psychological Hx Reported Smoking Status: Former smoker Past Alcohol Use History: Occasional Past Drug Use History: None Reported - Past Family History Mother Family Medical History: CVA/TIA General Exam Limitations: no limitations General appearance: alert, in no apparent distress Head exam: Present: atraumatic, normocephalic, normal inspection Eye exam: Present: normal appearance, PERRL, EOMI. Absent: scleral icterus, conjunctival injection, periorbital swelling ENT exam: Present: normal exam, mucous membranes moist Neck exam: Present: normal inspection. Absent: tenderness, meningismus, lymphadenopathy Respiratory exam: Present: normal lung sounds bilaterally. Absent: respiratory distress, wheezes, rales, rhonchi, stridor Cardiovascular Exam: Present: normal rhythm, tachycardia, normal heart sounds. Absent: systolic murmur, diastolic murmur, rubs, gallop, clicks GI/Abdominal exam: Present: soft, normal bowel sounds. Absent: distended, tenderness, guarding, rebound, rigid Extremities exam: Present: normal inspection, full ROM, normal capillary refill. Absent: tenderness, pedal edema, joint swelling, calf tenderness Back exam: Present: normal inspection Neurological exam: Present: alert, oriented X3, CN II-XII intact Psychiatric exam: Present: normal affect, normal mood Skin exam: Present: warm, dry, intact, normal color. Absent: rash Course Vital Signs 05/03/23 05/03/23 05/03/23 20:07 20:57 22:57 Pulse Rate 121 H 82 101 H Respiratory 18 20 17 Rate Blood Pressure 109/76 98/81 97/66 O2 Sat by Pulse 94 L Oximetry - Reevaluation(s) Reevaluation #1: 05/03/23 22:11 Medical record is reviewed Reevaluation #2: 05/03/23 22:11 Patient given enema here in the ER Reevaluation #3: 05/03/23 22:12 Patient informed results questions answered Reevaluation #4: 05/03/23 22:12 Was pt. sent in by a medical professional or institution (, PA, TEAM ASSISTANT, urgent care, hospital, or long term...) When possible be specific @ -no Did you speak to anyone other than the patient for history (EMS, parent, family, police, friend...)? What history was obtained from this source @ -no Did you review nursing and triage notes (agree or disagree)? Why? @ -agree Are old charts reviewed (outside hosp., previous admission, EMS record, old EKG, old radiological studies, urgent care reports/EKG's, long term records)? Report findings @ -yes Differential Diagnosis (chest pain, altered mental status, abdominal pain women, abdominal pain men, vaginal bleeding, weakness, fever, dyspnea, syncope, headache, dizziness, GI bleed, back pain, seizure, CVA, palpatations, mental health, musculoskeletal)? @ -prior EKG interpreted by me (3pts min.). @ -yes X-rays interpreted by me (1pt min.). @ -no CT interpreted by me (1pt min.). @ -yes U/S interpreted by me (1pt. min.). @ -no What testing was considered but not performed or refused? (CT, X-rays, U/S, labs)? Why? @ -none What meds were considered but not given or refused? Why? @ -none Did you discuss the management of the patient with other professionals (professionals i.e. DrEsa, PA, TEAM ASSISTANT, lab, RT, psych nurse, manager social services, cake wrapper, teacher, anti air warfare operations officer, casework supervisor)? Give summary @ -no Was smoking cessation discussed for >3mins.? @ -no Was critical care preformed (if so, how long)? @ -no Were there social determinants of health that impacted care today? How? (Homelessness, low income, unemployed, alcoholism, drug addiction, transportation, low edu. Level, literacy, decrease access to med. care, senior care, rehab)? @ -none Was there de-escalation of care discussed even if they declined (Discuss DNR or withdrawal of care, Hospice)? DNR status @ -no What co-morbidities impacted this encounter? (DM, HTN, Smoking, COPD, CAD, Cancer, CVA, ARF, Chemo, Hep., AIDS, mental health diagnosis, sleep apnea, morbid obesity)? @ -none Was patient admitted / discharged? Hospital course, mention meds given and route, prescriptions, significant lab abnormalities, going to OR and other pertinent info. @ - 87 male to the emergency department for evaluation will admit for bowel regimen, hydration. Evaluation, supportive care Admitted Undiagnosed new problem with uncertain prognosis? @ -no Drug Therapy requiring intensive monitoring for toxicity (Heparin, Nitro, Insulin, Cardizem)? @ -no Were any procedures done? @ -no Diagnosis/symptom? @ -Rectal impaction, dehydration Acute, or Chronic, or Acute on Chronic? @ -Acute Uncomplicated (without systemic symptoms) or Complicated (systemic symptoms)? @ -Complicated Side effects of treatment? @ -no Exacerbation, Progression, or Severe Exacerbation? @ -exacerbation Poses a threat to life or bodily function? How? (Chest pain, [place], [place], pneumonia, PE, COPD, DKA, ARF, appy, cholecystitis, CVA, Diverticulitis, Homicidal, Suic idal, threat to staff... and all critical care pts) @ -yes with inability to have a bowel movement - Consultations Consultation #1: Spoke with Dr. Julio who agrees to admit this patient Procedures - Rectal Disimpaction Consent Obtained: verbal consent Indication: fecal impaction Procedural Sedation: No Technique: manual disimpaction with gloved finger Result: significant stool output Complications: none, pain Patient Tolerated Procedure: well Medical Decision Making - Medical Decision Making 87 male to the emergency department for evaluation will admit for bowel regimen, hydration. Evaluation, supportive care - Lab Data Result diagrams: 05/10/23 06:55 05/11/23 04:36 Lab Results 05/03/23 05/03/23 05/04/23 Range/Units 20:28 20:28 01:07 WBC 10.5 (3.8-10.6) k/uL RBC 4.34 (4.30-5.90) m/uL Hgb 9.2 L (13.0-17.5) gm/dL Hct 33.3 L (39.0-53.0) % MCV 76.8 L (80.0-100.0) fL MCH 21.2 L (25.0-35.0) pg MCHC 27.6 L (31.0-37.0) g/dL RDW 18.0 H (11.5-15.5) % Plt Count 219 (150-450) k/uL MPV 9.1 Neutrophils % (Manual) 77 % Lymphocytes % (Manual) 15 % Monocytes % (Manual) 9 % Eosinophils % (Manual) % Neutrophils # (Manual) 8.09 H (1.3-7.7) k/uL Lymphocytes # (Manual) 1.58 (1.0-4.8) k/uL Monocytes # (Manual) 0.95 (0-1.0) k/uL Eosinophils # (Manual) (0-0.7) k/uL Nucleated RBCs 11 H (0-0) /100 WBC Manual Slide Review Performed Hypochromasia Marked Poikilocytosis Slight Poikilocytosis (manual Anisocytosis Slight Microcytosis Slight Crenated Cell Present Fragmented RBCs Present Sodium 133 L (137-145) mmol/L Potassium 5.2 H (3.5-5.1) mmol/L Chloride 98 (98-107) mmol/L Carbon Dioxide 16 L (22-30) mmol/L Anion Gap 19 mmol/L BUN 102 H* (9-20) mg/dL Creatinine 2.33 H (0.66-1.25) mg/dL Est GFR (CKD-EPI)AfAm 28 (>60 ml/min/1.73 sqM) Est GFR (CKD-EPI)NonAf 24 (>60 ml/min/1.73 sqM) Glucose 112 H (74-99) mg/dL Lactic Ac Sepsis Rflx Plasma Lactic Acid Sudhakar 2.4 H* (0.7-2.0) mmol/L Calcium 9.2 (8.4-10.2) mg/dL Phosphorus (2.5-4.5) mg/dL Magnesium (1.6-2.3) mg/dL Iron (65-175) UG/DL TIBC (228-460) UG/DL % Saturation (15.00-50.00) Transferrin (204.0-354.0) mg/dL Ferritin (22.0-322.0) ng/mL Total Bilirubin 4.2 H (0.2-1.3) mg/dL AST 732 H (17-59) U/L ALT 584 H (4-49) U/L Alkaline Phosphatase 170 H (38-126) U/L Ammonia <9 (<30) umol/L Total Protein 7.1 (6.3-8.2) g/dL Albumin 4.2 (3.5-5.0) g/dL Amylase 87 (30-110) U/L Lipase 425 H (23-300) U/L 05/04/23 05/04/23 05/04/23 Range/Units 01:57 04:24 04:24 WBC 11.4 H (3.8-10.6) k/uL RBC 3.89 L (4.30-5.90) m/uL Hgb 8.4 L (13.0-17.5) gm/dL Hct 30.2 L (39.0-53.0) % MCV 77.7 L (80.0-100.0) fL MCH 21.7 L (25.0-35.0) pg MCHC 28.0 L (31.0-37.0) g/dL RDW 17.9 H (11.5-15.5) % Plt Count 201 (150-450) k/uL MPV 9.0 Neutrophils % (Manual) 79 % Lymphocytes % (Manual) 17 % Monocytes % (Manual) 4 % Eosinophils % (Manual) 1 % Neutrophils # (Manual) 9.01 H (1.3-7.7) k/uL Lymphocytes # (Manual) 1.94 (1.0-4.8) k/uL Monocytes # (Manual) 0.46 (0-1.0) k/uL Eosinophils # (Manual) 0.11 (0-0.7) k/uL Nucleated RBCs 2 H (0-0) /100 WBC Manual Slide Review Performed Hypochromasia Marked Poikilocytosis Slight Poikilocytosis (manual Present Anisocytosis Slight Microcytosis Slight Crenated Cell Present Fragmented RBCs Present Sodium 131 L (137-145) mmol/L Potassium 4.9 (3.5-5.1) mmol/L Chloride 100 (98-107) mmol/L Carbon Dioxide 17 L (22-30) mmol/L Anion Gap 14 mmol/L BUN 103 H* (9-20) mg/dL Creatinine 2.45 H (0.66-1.25) mg/dL Est GFR (CKD-EPI)AfAm 26 (>60 ml/min/1.73 sqM) Est GFR (CKD-EPI)NonAf 23 (>60 ml/min/1.73 sqM) Glucose 129 H (74-99) mg/dL Lactic Ac Sepsis Rflx Y Plasma Lactic Acid Sudhakar (0.7-2.0) mmol/L Calcium 8.4 (8.4-10.2) mg/dL Phosphorus 5.4 H (2.5-4.5) mg/dL Magnesium 2.9 H (1.6-2.3) mg/dL Iron (65-175) UG/DL TIBC (228-460) UG/DL % Saturation (15.00-50.00) Transferrin (204.0-354.0) mg/dL Ferritin (22.0-322.0) ng/mL Total Bilirubin 3.5 H (0.2-1.3) mg/dL AST 553 H (17-59) U/L ALT 460 H (4-49) U/L Alkaline Phosphatase 123 (38-126) U/L Ammonia (<30) umol/L Total Protein 5.7 L (6.3-8.2) g/dL Albumin 3.2 L (3.5-5.0) g/dL Amylase (30-110) U/L Lipase (23-300) U/L 05/04/23 05/04/23 Range/Units 04:24 04:24 WBC (3.8-10.6) k/uL RBC (4.30-5.90) m/uL Hgb (13.0-17.5) gm/dL Hct (39.0-53.0) % MCV (80.0-100.0) fL MCH (25.0-35.0) pg MCHC (31.0-37.0) g/dL RDW (11.5-15.5) % Plt Count (150-450) k/uL MPV Neutrophils % (Manual) % Lymphocytes % (Manual) % Monocytes % (Manual) % Eosinophils % (Manual) % Neutrophils # (Manual) (1.3-7.7) k/uL Lymphocytes # (Manual) (1.0-4.8) k/uL Monocytes # (Manual) (0-1.0) k/uL Eosinophils # (Manual) (0-0.7) k/uL Nucleated RBCs (0-0) /100 WBC Manual Slide Review Hypochromasia Poikilocytosis Poikilocytosis (manual Anisocytosis Microcytosis Crenated Cell Fragmented RBCs Sodium (137-145) mmol/L Potassium (3.5-5.1) mmol/L Chloride (98-107) mmol/L Carbon Dioxide (22-30) mmol/L Anion Gap mmol/L BUN (9-20) mg/dL Creatinine (0.66-1.25) mg/dL Est GFR (CKD-EPI)AfAm (>60 ml/min/1.73 sqM) Est GFR (CKD-EPI)NonAf (>60 ml/min/1.73 sqM) Glucose (74-99) mg/dL Lactic Ac Sepsis Rflx Plasma Lactic Acid Sudhakar 1.8 (0.7-2.0) mmol/L Calcium (8.4-10.2) mg/dL Phosphorus (2.5-4.5) mg/dL Magnesium (1.6-2.3) mg/dL Iron 11 L (65-175) UG/DL TIBC 375 (228-460) UG/DL % Saturation 2.93 L (15.00-50.00) Transferrin 268.0 (204.0-354.0) mg/dL Ferritin 50.5 (22.0-322.0) ng/mL Total Bilirubin (0.2-1.3) mg/dL AST (17-59) U/L ALT (4-49) U/L Alkaline Phosphatase (38-126) U/L Ammonia (<30) umol/L Total Protein (6.3-8.2) g/dL Albumin (3.5-5.0) g/dL Amylase (30-110) U/L Lipase (23-300) U/L - EKG Data -: EKG Interpreted by Me (EKG shows afib 128 QRS 123 QTc 399) - Radiology Data Radiology results: report reviewed (CT abdomen and pelvis does show significant amount of stool), image reviewed Disposition Clinical Impression: Constipation, Abdominal pain, Uremia, Renal failure, Confusion Disposition: ADMITTED IP TO THIS [facility] Condition: Serious Is patient prescribed a controlled substance at d/c from ED?: No Time of Disposition: 22:15
[2023-05-03] MEDS ORDERED: DILTIAZEM 125 MG in SODIUM CHLORIDE 0.9% 100 ML IV SCH (21:00)
--- NOTE | 2023-05-03 21:36 | CT ---
EXAMINATION TYPE: CT abdomen pelvis wo con CT DLP: 571.9 mGycm, Automated exposure control for dose reduction was used. DATE OF EXAM: 05/03/2023 9:15 PM COMPARISON: CT abdomen pelvis most recent from CLINICAL INDICATION:Male, 87 years old with history of abdominal pain; rectal prolapse and abdominal pain. TECHNIQUE: Axial CT of the abdomen and pelvis. Sagittal and coronal reformats were created on a [employer] workstation. Contrast used: None Oral contrast used: without Oral Contrast FINDINGS: LOWER CHEST: Partially visualized trace right and [id number] left pleural effusion. ABDOMEN LIVER: Cirrhotic changes of the liver identified with a nodular contour. GALLBLADDER AND BILE DUCTS: Gallbladder surgically absent. No evidence of biliary duct dilation. PANCREAS: Unremarkable. SPLEEN: Unremarkable. ADRENAL GLANDS: Unremarkable. KIDNEYS AND URETERS: No evidence of hydronephrosis or renal calculus. The ureters are unremarkable. PELVIS: Limited evaluation secondary to streak artifact from the patient's hip prostheses. BLADDER: Unremarkable REPRODUCTIVE: Unremarkable. ABDOMEN & PELVIS STOMACH AND BOWEL: Stomach and duodenum are unremarkable. Fecaloma within the patient's rectum measur ing 6.6 cm. No evidence of rectal wall thickening. PERITONEUM/RETROPERITONEUM: No evidence of pneumoperitoneum. Small amount intra-abdominal ascites is identified. VASCULATURE: Moderate atherosclerotic calcifications are present throughout the abdominal aorta and i ts branches. No evidence of aortic aneurysm. MUSCULOSKELETAL: Bilateral hip prostheses. Moderate multilevel degenerative changes of the lumbar spi ne. LYMPH NODES: No gross evidence for lymphadenopathy. SOFT TISSUE/ABDOMINAL WALL: Soft tissue anasarca. IMPRESSION: 1. Fecaloma within the patient's rectum measuring 6.6 cm. 2. Cirrhotic changes of the liver with small amount of intra-abdominal ascites. 3. Soft tissue anasarca.
[2023-05-03 21:48] LABS: ALT 584 U/L (4-49); AST 732 U/L (17-59); African American GFR (CKD) 28 (>60 ml/min/1.73 sqM); Albumin 4.2 g/dL (3.5-5.0); Alkaline Phosphatase 170 U/L (38-126); Amylase 87 U/L (30-110); Anion Gap 19 mmol/L; Calcium 9.2 mg/dL (8.4-10.2); Carbon Dioxide 16 mmol/L (22-30); Chloride 98 mmol/L (98-107); Glucose 112 mg/dL (74-99); Lipase 425 U/L (23-300); Non-African American GFR(CKD) 24 (>60 ml/min/1.73 sqM); Potassium 5.2 mmol/L (3.5-5.1); Sodium 133 mmol/L (137-145); Total Bilirubin 4.2 mg/dL (0.2-1.3); Total Protein 7.1 g/dL (6.3-8.2)
[2023-05-03 21:49] LABS: Anisocytosis Slight; HCT 33.3 % (39.0-53.0); HGB 9.2 gm/dL (13.0-17.5); Hypochromasia Marked; MCH 21.2 pg (25.0-35.0); MCHC 27.6 g/dL (31.0-37.0); MCV 76.8 fL (80.0-100.0); Mean Platelet Volume 9.1; Microcytosis Slight; Platelet Count 219 k/uL (150-450); Poikilocytosis Slight; RBC 4.34 m/uL (4.30-5.90)
[2023-05-03 21:51] LABS: Blood Urea Nitrogen 102 mg/dL (9-20)
[2023-05-03 22:40] LABS: Lymphocytes # (M) 1.58 k/uL (1.0-4.8); Monocytes # (M) 0.95 k/uL (0-1.0); Neutrophils # (M) 8.09 k/uL (1.3-7.7); Neutrophils % (M) 77 %; Nucleated Red Blood Cells 11 /100 WBC (0-0); Total Cells Counted 200; WBC 10.5 k/uL (3.8-10.6)
[2023-05-03 22:41] LABS: Crenated RBC Present; RBC Fragments Present
[2023-05-03] MEDS ORDERED: ONDANSETRON 4 MG/2 ML VIAL IVP PRN (22:47)
[2023-05-03] MEDS ORDERED: MORPHINE SULFATE 4 MG/ML SYRINGE IV PRN (22:47)
[2023-05-03] MEDS ORDERED: NALOXONE 0.4 MG/ML 1 ML VIAL IV PRN (22:47)
[2023-05-03] MEDS ORDERED: SODIUM CHLORIDE 0.9% 500 ML 500 ML IV ONE (22:56)
[2023-05-03] MEDS ORDERED: SODIUM CHLORIDE 0.9% 1,000 ML IV SCH (23:00)
[2023-05-04 01:57] LABS: Lactic Acid, Venous 2.4 mmol/L (0.7-2.0)
[2023-05-04 05:23] LABS: Anisocytosis Slight; HCT 30.2 % (39.0-53.0); HGB 8.4 gm/dL (13.0-17.5); Hypochromasia Marked; MCH 21.7 pg (25.0-35.0); MCV 77.7 fL (80.0-100.0); Microcytosis Slight; Platelet Count 201 k/uL (150-450); Poikilocytosis Slight; RBC 3.89 m/uL (4.30-5.90); RDW 17.9 % (11.5-15.5)
[2023-05-04 05:32] LABS: ALT 460 U/L (4-49); AST 553 U/L (17-59); African American GFR (CKD) 26 (>60 ml/min/1.73 sqM); Albumin 3.2 g/dL (3.5-5.0); Alkaline Phosphatase 123 U/L (38-126); Anion Gap 14 mmol/L; Calcium 8.4 mg/dL (8.4-10.2); Carbon Dioxide 17 mmol/L (22-30); Chloride 100 mmol/L (98-107); Glucose 129 mg/dL (74-99); Magnesium 2.9 mg/dL (1.6-2.3); Non-African American GFR(CKD) 23 (>60 ml/min/1.73 sqM); Phosphorus 5.4 mg/dL (2.5-4.5); Potassium 4.9 mmol/L (3.5-5.1); Sodium 131 mmol/L (137-145); Total Bilirubin 3.5 mg/dL (0.2-1.3); Total Protein 5.7 g/dL (6.3-8.2)
[2023-05-04 05:34] LABS: Blood Urea Nitrogen 103 mg/dL (9-20)
[2023-05-04 07:13] LABS: Monocytes # (M) 0.46 k/uL (0-1.0); Neutrophils % (M) 79 %; Nucleated Red Blood Cells 2 /100 WBC (0-0); Total Cells Counted 200
[2023-05-04 07:14] LABS: Eosinophils # (M) 0.11 k/uL (0-0.7); Lymphocytes # (M) 1.94 k/uL (1.0-4.8); Neutrophils # (M) 9.01 k/uL (1.3-7.7); WBC 11.4 k/uL (3.8-10.6)
[2023-05-04 07:15] LABS: Crenated RBC Present; Poikilocytosis (M) Present; RBC Fragments Present
[2023-05-04] MEDS ORDERED: carvediloL 3.125 MG TAB PO SCH (09:00)
[2023-05-04] MEDS ORDERED: ATORVASTATIN 40 MG TAB PO SCH (09:00)
[2023-05-04] MEDS: CLOPIDOGREL 75 MG TAB PO SCH (09:31)
[2023-05-04] MEDS: carvediloL 6.25 MG TAB PO SCH ×2 (09:32→19:03)
--- NOTE | 2023-05-04 09:32 | P.NPCON ---
History of Present Illness - Reason for Consult acute renal failure - History of Present Illness Reason for consultation: Acute kidney injury History of present illness: Patient is a 87-year-old male seen in renal consultation for acute kidney injury. Patient's baseline creatinine is near 1 and has been in the range of 2.3-2.4 this admission. Patient is currently resting in bed and is not a very reliable historian. He denies any abdominal pain. He denies any chest pain or shortness of breath. He denies gross hematuria or dysuria. Denies history of diabetes. He does have history of coronary artery disease with 1 stent. It is noted in the chart the patient came to the hospital for evaluation of rectal prolapse. He did undergo CT of the abdomen and pelvis which showed fecaloma in the rectum measuring 6.6 cm and cirrhotic changes of the liver. No hydronephrosis was noted on kidney ultrasound. Blood pressure is stable in the systolic 90s. Patient is receiving IV fluids. Patient has edema in the lower extremity. Patient was noted to be in A. fib with RVR and was on Cardizem drip. He is now on Coreg. Vital signs are stable. General: No acute distress. HEENT: Head exam is unremarkable. LUNGS: No audible rhonchi wheezes. HEART: Irregular rate and rhythm. ABDOMEN: Nontender. EXTREMITITES: 2+ edema. Past Medical History Past Medical History: Atrial Fibrillation, Cancer, CVA/TIA, Hyperlipidemia, Hypertension, Pneumonia, Thyroid Disorder Additional Past Medical History / Comment(s): Skin cancer with removal; atrial fibrillation is paroxysmal, currently on Xarelto for anticoagulation History of Any Multi-Drug Resistant Organisms: None Reported Past Surgical History: Appendectomy, Cholecystectomy, Heart Catheterization, Joint Replacement, Orthopedic Surgery Additional Past Surgical History / Comment(s): bilateral shoulder and hips re placed; aortic valve replacement 2019, left foot drop Past Anesthesia/Blood Transfusion Reactions: No Reported Reaction Date of Last Stent Placement:: 01/06/23 Past Psychological History: No Psychological Hx Reported Smoking Status: Former smoker Past Alcohol Use History: Occasional Additional Past Alcohol Use History / Comment(s): Pt states he quit smoking in the 1969's, prior to that smoked approximately a pack a day since in his 20s Past Drug Use History: None Reported - Past Family History Mother Family Medical History: CVA/TIA Medications and Allergies Home Medications Medication Instructions Recorded Confirmed Type Ezetimibe [Zetia] 10 mg PO HS 01/20/15 05/03/23 History Levothyroxine Sodium [Synthroid] 150 mcg PO DAILY 03/01/23 05/03/23 History Clopidogrel [Plavix] 75 mg PO DAILY 03/12/23 05/03/23 History Ferrous Sulfate [Iron (65 MG 325 mg PO BID 03/12/23 05/03/23 History Elemental)] Rivaroxaban [Xarelto] 15 mg PO HS 03/12/23 05/03/23 History Atorvastatin [Lipitor] 40 mg PO DAILY #30 tab 03/14/23 05/03/23 Rx Nitroglycerin Sl Tabs [Nitrostat] 0.4 mg SUBLINGUAL Q5M PRN #20 tab 03/14/23 05/03/23 Rx Furosemide [Lasix] 40 mg PO BID 05/03/23 05/03/23 History Multivit-Min/FA/Lycopen/Lutein 1 tab PO DAILY 05/03/23 05/03/23 History [Centrum Silver Tablet] Sennosides/Docusate Sodium [Senna 1 tab PO DAILY PRN 05/03/23 05/03/23 History Plus 8.6-50 mg Tablet] carvediloL [Coreg] 3.125 mg PO BID 05/03/23 05/03/23 History Allergies Allergy/AdvReac Type Severity Reaction Status Date / Time simvastatin [From Zocor] Allergy Unknown Verified 05/03/23 22:32 Physical Exam Vitals: Vital Signs Temp Pulse Pulse Resp BP BP BP 05/04/23 08:00 98.1 F 73 16 92/60 05/04/23 05:06 79 96/63 05/04/23 04:05 70 99/62 05/04/23 03:05 67 95/56 05/04/23 02:15 97.5 F L 05/04/23 02:06 92 100/69 05/04/23 01:05 88 16 103/65 05/04/23 00:02 12 98/59 05/03/23 23:58 12 99/55 05/03/23 23:31 98.4 F 96 18 95/69 05/03/23 22:57 101 H 17 97/66 05/03/23 20:57 82 20 98/81 05/03/23 20:07 121 H 18 109/76 Pulse Ox 05/04/23 08:00 96 05/04/23 05:06 99 05/04/23 04:05 96 05/04/23 03:05 96 05/04/23 02:15 05/04/23 02:06 95 05/04/23 01:05 97 05/04/23 00:02 05/03/23 23:58 05/03/23 23:31 95 05/03/23 22:57 94 L 05/03/23 20:57 05/03/23 20:07 Intake and Output 05/03/23 05/04/23 05/04/23 22:59 06:59 14:59 Output Total 0 Balance 0 Output: Urine 0 Other: Weight 76.657 kg 76.657 kg Results - Lab Results Most recent lab results Calcium 8.4 mg/dL (8.4-10.2) 05/04/23 04:24 Phosphorus 5.4 mg/dL (2.5-4.5) H 05/04/23 04:24 Magnesium 2.9 mg/dL (1.6-2.3) H 05/04/23 04:24 05/04/23 04:24 05/04/23 04:24 Assessment and Plan Plan: Assessment: 1. Acute kidney injury secondary to ATN secondary to hemodynamic instability and cardiorenal syndrome. Creatinine 2.3-2.4 this admission. Baseline creatinine near 1. No hydronephrosis noted on CT. 2. A. fib with RVR maintained on Coreg. Cardiology following. Status post Cardizem drip. 3. Hypervolemic hyponatremia. 4. Volume overload. 5. Anemia. Rule out iron deficiency. 6. Acute on chronic systolic CHF ejection fraction of 35-40% with severe mitral regurgitation and mild to moderate pulmonary regurgitation. 7. Coronary artery disease with cardiac stenting. 8. Metabolic acidosis secondary to acute kidney injury. Plan: Check bladder scan to rule out urinary retention. Check renal ultrasound. Hep-Lock IV fluids. Add IV Lasix 40 mg twice daily. Check iron studies. Avoid nephrotoxins. Continue to monitor renal function and urine output. Add oral bicarb. Low-salt diet and 1500 mL fluid restriction. Thank you for the consultation. I will continue to follow the patient daily d uring his hospital stay.
[2023-05-04] MEDS: FUROSEMIDE 10 MG/ML 4 ML VIAL IV SCH ×2 (10:16→23:11)
[2023-05-04] MEDS: SODIUM BICARBONATE TAB 650 MG TAB PO SCH ×2 (10:17→20:15)
--- NOTE | 2023-05-04 10:30 | US ---
EXAMINATION TYPE: US kidneys/renal and bladder DATE OF EXAM: 05/04/2023 COMPARISON: NONE CLINICAL INDICATION: Male, 87 years old with history of montrell; MONTRELL EXAM MEASUREMENTS: Right Kidney: 10.3 x 3.7 x 4.0 cm Left Kidney: 9.8 x 5.0 x 4.0 cm Right Kidney: no evidence of hydronephrosis Left Kidney: lobulated contour, no evidence of hydronephrosis Bladder: wnl Bilateral Jets seen: no Free fluid noted RUQ and RLQ adjacent to bladder and liver There is no evidence for hydronephrosis at this point in time. No nephrolithiasis is seen. No ciro s are identified. The urinary bladder is anechoic. Bilateral ureteral jets are seen. IMPRESSION: 1. No evidence of hydronephrosis or shadowing renal stones. 2. Nodular contour to the liver is suggestive of cirrhosis with a moderate amount of ascites also see n throughout the abdomen which is only partially included.
--- NOTE | 2023-05-04 11:24 | P.HPIM ---
History of Present Illness H&P Date: 05/04/23 Chief Complaint: Weakness, acute renal failure This is an 87-year-old male patient who initially presented to the ER with concerns of possible rectal prolapse area according to patient he had a large painful p.m. yesterday. Patient appears to be a poor historian most history is obtained from medical record. Abdomen and pelvis CT completed showing fecaloma within the patient's rectum measuring 6.6 cm cirrhotic changes or small amount of intra-abdominal ascites soft tissue and anasarcLab testing revealed elevated creatinine 2.33 bun 102. Patient has past medical history of atrial fibrillation, CVA, hyperlipidemia, hypertension, pneumonia, thyroid disorder. At this time patient will be admitted nephrology cardiology and surgical services consulted patient currently lying in bed eating breakfast denies chest pain or shortness breath. Patient denies nausea vomiting or diarrhea. Patient denies any urinary burning or frequency Review of Systems Please refer to HPI otherwise unremarkable Past Medical History Past Medical History: Atrial Fibrillation, Cancer, CVA/TIA, Hyperlipidemia, Hypertension, Pneumonia, Thyroid Disorder Additional Past Medical History / Comment(s): Skin cancer with removal; atrial fibrillation is paroxysmal, currently on Xarelto for anticoagulation History of Any Multi-Drug Resistant Organisms: None Reported Past Surgical History: Appendectomy, Cholecystectomy, Heart Catheterization, Joint Replacement, Orthopedic Surgery Additional Past Surgical History / Comment(s): bilateral shoulder and hips replaced; aortic valve replacement 2019, left foot drop Past Anesthesia/Blood Transfusion Reactions: No Reported Reaction Date of Last Stent Placement:: 01/06/23 Past Psychological History: No Psychological Hx Reported Smoking Status: Former smoker Past Alcohol Use History: Occasional Additional Past Alcohol Use History / Comment(s): Pt states he quit smoking in the 1969's, prior to that smoked approximately a pack a day since in his 20s Past Drug Use History: None Reported - Past Family History Mother Family Medical History: CVA/TIA Medications and Allergies Home Medications Medication Instructions Recorded Confirmed Type RX: Ezetimibe [Zetia] 10 mg PO HS 01/20/15 05/03/23 History RX: Levothyroxine Sodium 150 mcg PO DAILY 03/01/23 05/03/23 History [Synthroid] RX: Clopidogrel [Plavix] 75 mg PO DAILY 03/12/23 05/03/23 History RX: Ferrous Sulfate [Iron (65 MG 325 mg PO BID 03/12/23 05/03/23 History Elemental)] RX: Rivaroxaban [Xarelto] 15 mg PO HS 03/12/23 05/03/23 History RX: Atorvastatin [Lipitor] 40 mg PO DAILY #30 tab 03/14/23 05/03/23 Rx RX: Nitroglycerin Sl Tabs 0.4 mg SUBLINGUAL Q5M PRN #20 tab 03/14/23 05/03/23 Rx [Nitrostat] Furosemide [Lasix] 40 mg PO BID 05/03/23 05/03/23 History Multivit-Min/FA/Lycopen/Lutein 1 tab PO DAILY 05/03/23 05/03/23 History [Centrum Silver Tablet] Sennosides/Docusate Sodium [Senna 1 tab PO DAILY PRN 05/03/23 05/03/23 History Plus 8.6-50 mg Tablet] carvediloL [Coreg] 3.125 mg PO BID 05/03/23 05/03/23 History Allergies Allergy/AdvReac Type Severity Reaction Status Date / Time simvastatin [From Zocor] Allergy Unknown Verified 05/03/23 22:32 Physical Exam Vitals: Vital Signs Temp Pulse Pulse Resp BP BP BP 05/04/23 08:00 98.1 F 73 16 92/60 05/04/23 05:06 79 96/63 05/04/23 04:05 70 99/62 05/04/23 03:05 67 95/56 05/04/23 02:15 97.5 F L 05/04/23 02:06 92 100/69 05/04/23 01:05 88 16 103/65 05/04/23 00:02 12 98/59 05/03/23 23:58 12 99/55 05/03/23 23:31 98.4 F 96 18 95/69 05/03/23 22:57 101 H 17 97/66 05/03/23 20:57 82 20 98/81 05/03/23 20:07 121 H 18 109/76 Pulse Ox 05/04/23 08:00 96 05/04/23 05:06 99 05/04/23 04:05 96 05/04/23 03:05 96 05/04/23 02:15 05/04/23 02:06 95 05/04/23 01:05 97 05/04/23 00:02 05/03/23 23:58 05/03/23 23:31 95 05/03/23 22:57 94 L 05/03/23 20:57 05/03/23 20:07 Intake and Output 05/03/23 05/04/23 05/04/23 22:59 06:59 14:59 Output Total 0 Balance 0 Output: Urine 0 Other: Weight 76.657 kg 76.657 kg Head normocephalic Neck supple Lungs clear to auscultation bilaterally no wheezing or crackles Heart regular rate and rhythm S1-S2, no rub or gallop Abdomen is soft nontender nondistended positive bowel sounds no hep atosplenomegaly Extremities no edema Neuro alert and orientated to 3 Results CBC & Chem 7: 05/04/23 04:24 05/04/23 04:24 Labs: Abnormal Lab Results - Last 24 Hours (Table) 05/03/23 05/03/23 05/04/23 Range/Units 20:28 20:28 01:07 WBC (3.8-10.6) k/uL RBC (4.30-5.90) m/uL Hgb 9.2 L (13.0-17.5) gm/dL Hct 33.3 L (39.0-53.0) % MCV 76.8 L (80.0-100.0) fL MCH 21.2 L (25.0-35.0) pg MCHC 27.6 L (31.0-37.0) g/dL RDW 18.0 H (11.5-15.5) % Neutrophils # (Manual) 8.09 H (1.3-7.7) k/uL Nucleated RBCs 11 H (0-0) /100 WBC Sodium 133 L (137-145) mmol/L Potassium 5.2 H (3.5-5.1) mmol/L Carbon Dioxide 16 L (22-30) mmol/L BUN 102 H* (9-20) mg/dL Creatinine 2.33 H (0.66-1.25) mg/dL Glucose 112 H (74-99) mg/dL Plasma Lactic Acid Sudhakar 2.4 H* (0.7-2.0) mmol/L Phosphorus (2.5-4.5) mg/dL Magnesium (1.6-2.3) mg/dL Total Bilirubin 4.2 H (0.2-1.3) mg/dL AST 732 H (17-59) U/L ALT 584 H (4-49) U/L Alkaline Phosphatase 170 H (38-126) U/L Total Protein (6.3-8.2) g/dL Albumin (3.5-5.0) g/dL Lipase 425 H (23-300) U/L 05/04/23 05/04/23 Range/Units 04:24 04:24 WBC 11.4 H (3.8-10.6) k/uL RBC 3.89 L (4.30-5.90) m/uL Hgb 8.4 L (13.0-17.5) gm/dL Hct 30.2 L (39.0-53.0) % MCV 77.7 L (80.0-100.0) fL MCH 21.7 L (25.0-35.0) pg MCHC 28.0 L (31.0-37.0) g/dL RDW 17.9 H (11.5-15.5) % Neutrophils # (Manual) 9.01 H (1.3-7.7) k/uL Nucleated RBCs 2 H (0-0) /100 WBC Sodium 131 L (137-145) mmol/L Potassium (3.5-5.1) mmol/L Carbon Dioxide 17 L (22-30) mmol/L BUN 103 H* (9-20) mg/dL Creatinine 2.45 H (0.66-1.25) mg/dL Glucose 129 H (74-99) mg/dL Plasma Lactic Acid Sudhakar (0.7-2.0) mmol/L Phosphorus 5.4 H (2.5-4.5) mg/dL Magnesium 2.9 H (1.6-2.3) mg/dL Total Bilirubin 3.5 H (0.2-1.3) mg/dL AST 553 H (17-59) U/L ALT 460 H (4-49) U/L Alkaline Phosphatase (38-126) U/L Total Protein 5.7 L (6.3-8.2) g/dL Albumin 3.2 L (3.5-5.0) g/dL Lipase (23-300) U/L Thrombosis Risk Factor Assmnt - Choose All That Apply Any of the Below Risk Factors Present?: No Other Risk Factors: Yes Each Risk Factor Represents 3 Points: Age 75 years or older Other congenital or acquired thrombophilia - If yes, enter type in comment: No Thrombosis Risk Factor Assessment Total Risk Factor Score: 3 Thrombosis Risk Factor Assessment Level: Moderate Risk Assessment and Plan Assessment: 1. Acute renal failure. Nephrology services consulted 2. A. fib with RVR. Cardiology service is consulted 3. 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 Surgical services consulted 4. Elevated liver enzymes ammonia level ordered 5. History of atrial fibrillation 6. History of hyperlipidemia 7. History of essential hypertension DVT prophylaxis Xarelto. GI prophylaxis Protonix Nephrology cardiology and surgical services consulted Repeat labs ordered Ammonia level ordered Time with Patient: Greater than 30 (Greater than 60% of the total time spent in counseling and coordination of care)
--- NOTE | 2023-05-04 11:55 | P.CRDCN ---
History of Present Illness History of present illness: HISTORY OF PRESENT ILLNESS: This is a 87-year-old male with a past medical history significant for coronary artery disease with previous stenting, valvular heart disease with previous TAVR, hypertension, hyperlipidemia, permanent atrial fibrillation, thoracic aortic aneurysm, and GI bleeding. Patient follows in the office with Dr. Odom. We have been asked to see the patient in consultation for A. fib with RVR. Patient examined at the bedside. According to ER documentation, the patient was brought into the hospital for evaluation of rectal prolapse. When questioning patient at the bedside, he is unsure of why he came to the hospital. At the time of examination, he denies chest pain or pressure. He denies shortness of breath. Patient was found to be in A. fib with RVR upon presentation to the hospital. He was started on IV Cardizem. His home medications were not resumed. This morning he remains on IV Cardizem at 5 mg an hour. Telemetry reveals atrial fibrillation with a heart rate in the 80s. Patient was also found to have acute renal failure and transaminitis. * EKG reveals A. fib with RVR * Most recent echocardiogram obtained in March 2023 revealed ejection fraction 35-40%, normally functioning bioprosthetic aortic valve, mild TR, mi ld to moderate pulmonic regurgitation, severe mitral regurgitation * Cardiac catheterization history: March 2023 revealing patent stent in the OM1 of left circumflex which is a dominant vessel. Mild disease involving the LAD. Normal left-sided filling pressures * Previous cardiac catheterization in November 2022 with PCI of the OM1 REVIEW OF SYSTEMS: At the time of my exam: CONSTITUTIONAL: Denies fever or chills. HEENT: Denies blurred vision, vision changes, or eye pain. Denies hemoptysis CARDIOVASCULAR: Denies chest pain. Denies orthopnea. Denies PND. Denies palpitations RESPIRATORY: Denies shortness of breath. GASTROINTESTINAL: Denies abdominal pain. Denies nausea or vomiting. HEMATOLOGIC: Denies bleeding disorders. GENITOURINARY: Denies any blood in urine. SKIN: Denies pruitis. Denies rash. PHYSICAL EXAM: VITAL SIGNS: Reviewed. GENERAL: Well-developed in no acute distress. HEENT: Head is normocephalic. Pupils are equal, round. Sclerae anicteric. Mucous membranes of the mouth are moist. Neck supple. No JVD or thyromegaly LUNGS: Respirations even and unlabored. Lungs essentially clear to auscultation bilaterally. HEART: Irregular rate and rhythm. S1 and S2 heard. Systolic murmur noted ABDOMEN: Soft. Nondistended. Nontender. EXTREMITIES: Normal range of motion. No clubbing or cyanosis. Peripheral pulses intact. No lower extremity edema NEUROLOGIC: Awake and alert. Oriented x 3. ASSESSMENT: Concerns of rectal prolapse, per ER documentation Permanent atrial fibrillation with RVR Acute renal failure Transaminitis Coronary artery disease with previous stenting, most recently OM in November 2022 Valvular heart disease with previous TAVR, 2019 Ischemic cardiomyopathy Hypertension Hyperlipidemia Thoracic aortic aneurysm History of GI bleeding PLAN: Discontinue IV Cardizem Resume carvedilol. Increase dosage to 6.25 mg twice a day Continue telemetry monitoring Hold statin therapy secondary to transaminitis Patient started on IV Lasix per nephrology. Monitor kidney function. Continue anticoagulation with Xarelto. Continue Plavix secondary to recent stenting Further recommendations pending patient's course Nurse practitioner note has been reviewed by physician. Signing provider agrees with the documented findings, assessment, and plan of care. Past Medical History Past Medical History: Atrial Fibrillation, Cancer, CVA/TIA, Hyperlipidemia, Hypertension, Pneumonia, Thyroid Disorder Additional Past Medical History / Comment(s): Skin cancer with removal; atrial fibrillation is paroxysmal, currently on Xarelto for anticoagulation History of Any Multi-Drug Resistant Organisms: None Reported Past Surgical History: Appendectomy, Cholecystectomy, Heart Catheterization, Joint Replacement, Orthopedic Surgery Additional Past Surgical History / Comment(s): bilateral shoulder and hips replaced; aortic valve replacement 2019, left foot drop Past Anesthesia/Blood Transfusion Reactions: No Reported Reaction Date of Last Stent Placement:: 01/06/23 Past Psychological History: No Psychological Hx Reported Smoking Status: Former smoker Past Alcohol Use History: Occasional Additional Past Alcohol Use History / Comment(s): Pt states he quit smoking in the 1970's, prior to that smoked approximately a pack a day since in his 20s Past Drug Use History: None Reported - Past Family History Mother Family Medical History: CVA/TIA Medications and Allergies Home Medications Medication Instructions Recorded Confirmed Type Ezetimibe [Zetia] 10 mg PO HS 01/20/15 05/03/23 History Levothyroxine Sodium [Synthroid] 150 mcg PO DAILY 03/01/23 05/03/23 History Clopidogrel [Plavix] 75 mg PO DAILY 03/12/23 05/03/23 History Ferrous Sulfate [Iron (65 MG 325 mg PO BID 03/12/23 05/03/23 History Elemental)] Rivaroxaban [Xarelto] 15 mg PO HS 03/12/23 05/03/23 History Atorvastatin [Lipitor] 40 mg PO DAILY #30 tab 03/14/23 05/03/23 Rx Nitroglycerin Sl Tabs [Nitrostat] 0.4 mg SUBLINGUAL Q5M PRN #20 tab 03/14/23 Rx Furosemide [Lasix] 40 mg PO BID 05/03/23 05/03/23 History Multivit-Min/FA/Lycopen/Lutein 1 tab PO DAILY 05/03/23 05/03/23 History [Centrum Silver Tablet] Sennosides/Docusate Sodium [Senna 1 tab PO DAILY PRN 05/03/23 05/03/23 History Plus 8.6-50 mg Tablet] carvediloL [Coreg] 3.125 mg PO BID 05/03/23 05/03/23 History Allergies Allergy/AdvReac Type Severity Reaction Status Date / Time simvastatin [From Zocor] Allergy Unknown Verified 05/03/23 22:32 Physical Exam Vitals: Vital Signs Temp Pulse Pulse Resp BP BP BP 05/04/23 08:00 98.1 F 73 16 92/60 05/04/23 05:06 79 96/63 05/04/23 04:05 70 99/62 05/04/23 03:05 67 95/56 05/04/23 02:15 97.5 F L 05/04/23 02:06 92 100/69 05/04/23 01:05 88 16 103/65 05/04/23 00:02 12 98/59 05/03/23 23:58 12 99/55 05/03/23 23:31 98.4 F 96 18 95/69 05/03/23 22:57 101 H 17 97/66 05/03/23 20:57 82 20 98/81 05/03/23 20:07 121 H 18 109/76 Pulse Ox 05/04/23 08:00 96 05/04/23 05:06 99 05/04/23 04:05 96 05/04/23 03:05 96 05/04/23 02:15 05/04/23 02:06 95 05/04/23 01:05 97 05/04/23 00:02 05/03/23 23:58 05/03/23 23:31 95 05/03/23 22:57 94 L 05/03/23 20:57 05/03/23 20:07 Intake and Output 05/03/23 05/04/23 05/04/23 22:59 06:59 14:59 Output Total 0 Balance 0 Output: Urine 0 Other: Weight 76.657 kg 76.657 kg Results 05/04/23 04:24 05/04/23 04:24 Cardiac Enzymes 05/03/23 05/04/23 Range/Units 20:28 04:24 AST 732 H 553 H (17-59) U/L CBC 05/03/23 05/04/23 Range/Units 20:28 04:24 WBC 10.5 11.4 H (3.8-10.6) k/uL RBC 4.34 3.89 L (4.30-5.90) m/uL Hgb 9.2 L 8.4 L (13.0-17.5) gm/dL Hct 33.3 L 30.2 L (39.0-53.0) % Plt Count 219 201 (150-450) k/uL Comprehensive Metabolic Panel 05/03/23 05/04/23 Range/Units 20:28 04:24 Sodium 133 L 131 L (137-145) mmol/L Potassium 5.2 H 4.9 (3.5-5.1) mmol/L Chloride 98 100 (98-107) mmol/L Carbon Dioxide 16 L 17 L (22-30) mmol/L BUN 102 H* 103 H* (9-20) mg/dL Creatinine 2.33 H 2.45 H (0.66-1.25) mg/dL Glucose 112 H 129 H (74-99) mg/dL Calcium 9.2 8.4 (8.4-10.2) mg/dL AST 732 H 553 H (17-59) U/L ALT 584 H 460 H (4-49) U/L Alkaline Phosphatase 170 H 123 (38-126) U/L Total Protein 7.1 5.7 L (6.3-8.2) g/dL Albumin 4.2 3.2 L (3.5-5.0) g/dL Current Medications Generic Name Dose Route Start Last Admin Trade Name Freq PRN Reason Stop Dose Admin Carvedilol 6.25 mg 05/04/23 09:15 05/04/23 09:32 Carvedilol 6.25 Mg Tab PO 6.25 mg BID-W/MEALS KATARINA Administration Clopidogrel Bisulfate 75 mg 05/04/23 09:00 05/04/23 09:31 Clopidogrel 75 Mg Tab PO 75 mg DAILY KATARINA Administration Ezetimibe 10 mg 05/04/23 21:00 Ezetimibe 10 Mg Tab PO HS [facility] Furosemide 40 mg 05/04/23 09:30 05/04/23 10:16 Furosemide 10 Mg/Ml 4 Ml Vial IV 40 mg Q12HR KATARINA Administration Morphine Sulfate 4 mg 05/03/23 22:47 Morphine Sulfate 4 Mg/Ml Syringe IV Q4HR PRN Severe Pain (Scale 7 to 10) Naloxone HCl 0.2 mg 05/03/23 22:47 Naloxone 0.4 Mg/Ml 1 Ml Vial IV Q2M PRN Opioid Reversal Ondansetron HCl 4 mg 05/03/23 22:47 Ondansetron 4 Mg/2 Ml Vial IVP Q8HR PRN Nausea And Vomiting Pantoprazole Sodium 40 mg 05/05/23 07:30 Pantoprazole 40 Mg Tablet PO AC-BRKFST [facility] Rivaroxaban 15 mg 05/04/23 21:00 Rivaroxaban 15 Mg Tab PO HS [facility] Protocol Sodium Bicarbonate 650 mg 05/04/23 09:30 05/04/23 10:17 Sodium Bicarbonate Tab 650 Mg Tab PO 650 mg BID [facility] Administration Intake and Output 05/03/23 05/04/23 05/04/23 22:59 06:59 14:59 Output Total 0 Balance 0 Output: Urine 0 Other: Weight 76.657 kg 76.657 kg 05/04/23 04:24 05/04/23 04:24
--- NOTE | 2023-05-04 15:02 | P.GSCN ---
History of Present Illness Consult date: 05/04/23 History of present illness: CHIEF COMPLAINT: Possible rectal prolapse HISTORY OF PRESENT ILLNESS: This is a 87-year-old male who was admitted to the hospital with weakness and acute kidney injury. Family did bring him in due to concerns for possible rectal prolapse. Patient had been straining to have a bowel movement yesterday and family reported a rectal prolapse was noted about 6 inches. The prolapse is currently reduced. Patient has no abdominal pain. No nausea or vomiting. Patient is a poor historian. History was obtained from chart, nursing staff and family. 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 Also evidence of cirrhotic changes of the liver. Surgical service consulted in regards to fecaloma. Patient does have a cardiac history which does include A. fib coronary artery disease with cardiac stents he is on Xarelto and Plavix. Also, history of TAVR. Family reports the patient has not been eating and drinking well. PAST MEDICAL HISTORY: See list. PAST SURGICAL HISTORY: See list. MEDICATIONS: See list. ALLERGIES: See list. SOCIAL HISTORY: No illicit drug use. REVIEW OF SYSTEMS: CONSTITUTIONAL: Denies fever or chills. HEENT: Denies blurred vision, vision changes, or eye pain. Denies hemoptysis ENDOCRINE: Denies heat or cold intolerance. CARDIOVASCULAR: Denies chest pain or pressure. RESPIRATORY: No shortness of breath. GASTROINTESTINAL: Denies abdominal pain. Denies nausea or vomiting. NEURO: Denies history of seizures. PSYCH: No depression or suicidal ideation HEMATOLOGIC: Denies bleeding disorders. LYMPHATIC: The patient denies any lumps and bumps around the neck. GENITOURINARY: Denies any blood in urine or increased urinary frequency. MUSCULOSKELETAL: Denies myalgias. Denies joint swelling. Denies decreased range of motion beyond patients baseline. SKIN: Denies pruitis. Denies rash. PHYSICAL EXAM: VITAL SIGNS: Reviewed GENERAL: Well-developed in no acute distress. HEENT: No sclera icterus. Extraocular movements grossly intact. Moist buccal mucosa. Head is atraumatic, normocephalic. Hears conversational speech. No nasal drainage. NECK: Supple without lymphadenopathy. CHEST: Non-labored respirations and equal bilateral excursions. CARDIOVASCULAR: Palpable 2+ radial pulses. ABDOMEN: Soft. Nondistended. Nontender. Rectal exam no prolapse noted. No fecal ball palpable. Air released during rectal exam with soft brown stool noted on glove. MUSCULOSKELETAL: No clubbing or cyanosis. NEUROLOGIC: No focal or lateralizing signs. Cranial nerves II through XII grossly intact. PSYCH: Confused SKIN: Well perfused. Good skin turgor. 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 Cirrhotic changes in the liver with small amount of intra-abdominal ascites. Soft tissue anasarca. ASSESSMENT: 1. 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 Possible rectal prolapse. Currently reduced 3. Constipation 4. Cirrhotic liver 5. Elevated LFTs 6. Acute kidney injury 7. History of atrial fibrillation 10. History of coronary artery disease with cardiac stent in November 2022 11. History of CVA PLAN: -Lactulose 30 mL twice a day ordered -We'll avoid enemas at this time due to patient being on blood thinners -No surgical intervention planned -Continue supportive care -Continue regular diet Physician [employer] Saw Operator note has been reviewed by physician. Signing provider agrees with the documented findings, assessment, and plan of care. Past Medical History Past Medical History: Atrial Fibrillation, Cancer, CVA/TIA, Hyperlipidemia, Hypertension, Pneumonia, Thyroid Disorder Additional Past Medical History / Comment(s): Skin cancer with removal; atrial fibrillation is paroxysmal, currently on Xarelto for anticoagulation History of Any Multi-Drug Resistant Organisms: None Reported Past Surgical History: Appendectomy, Cholecystectomy, Heart Catheterization, Joint Replacement, Orthopedic Surgery Additional Past Surgical History / Comment(s): bilateral shoulder and hips rep laced; aortic valve replacement 2019, left foot drop Past Anesthesia/Blood Transfusion Reactions: No Reported Reaction Date of Last Stent Placement:: 01/06/23 Past Psychological History: No Psychological Hx Reported Smoking Status: Former smoker Past Alcohol Use History: Occasional Additional Past Alcohol Use History / Comment(s): Pt states he quit smoking in the 1970's, prior to that smoked approximately a pack a day since in his 20s Past Drug Use History: None Reported - Past Family History Mother Family Medical History: CVA/TIA Medications and Allergies Home Medications Medication Instructions Recorded Confirmed Type Ezetimibe [Zetia] 10 mg PO HS 01/20/15 05/03/23 History Levothyroxine Sodium [Synthroid] 150 mcg PO DAILY 03/01/23 05/03/23 History Clopidogrel [Plavix] 75 mg PO DAILY 03/12/23 05/03/23 History Ferrous Sulfate [Iron (65 MG 325 mg PO BID 03/12/23 05/03/23 History Elemental)] Rivaroxaban [Xarelto] 15 mg PO HS 03/12/23 05/03/23 History Atorvastatin [Lipitor] 40 mg PO DAILY #30 tab 03/14/23 05/03/23 Rx Nitroglycerin Sl Tabs [Nitrostat] 0.4 mg SUBLINGUAL Q5M PRN #20 tab 03/14/23 05/03/23 Rx Furosemide [Lasix] 40 mg PO BID 05/03/23 05/03/23 History Multivit-Min/FA/Lycopen/Lutein 1 tab PO DAILY 05/03/23 05/03/23 History [Centrum Silver Tablet] Sennosides/Docusate Sodium [Senna 1 tab PO DAILY PRN 05/03/23 05/03/23 History Plus 8.6-50 mg Tablet] carvediloL [Coreg] 3.125 mg PO BID 05/03/23 05/03/23 History Allergies Allergy/AdvReac Type Severity Reaction Status Date / Time simvastatin [From Zocor] Allergy Unknown Verified 05/03/23 22:32 Surgical - Exam Vital Signs Pulse Resp BP 121 H 18 109/76 05/03/23 20:07 05/03/23 20:07 05/03/23 20:07 Results - Labs 05/04/23 04:24 05/04/23 04:24 Abnormal Lab Results - Last 24 Hours (Table) 05/03/23 05/03/23 05/04/23 Range/Units 20:28 20:28 01:07 WBC (3.8-10.6) k/uL RBC (4.30-5.90) m/uL Hgb 9.2 L (13.0-17.5) gm/dL Hct 33.3 L (39.0-53.0) % MCV 76.8 L (80.0-100.0) fL MCH 21.2 L (25.0-35.0) pg MCHC 27.6 L (31.0-37.0) g/dL RDW 18.0 H (11.5-15.5) % Neutrophils # (Manual) 8.09 H (1.3-7.7) k/uL Nucleated RBCs 11 H (0-0) /100 WBC Sodium 133 L (137-145) mmol/L Potassium 5.2 H (3.5-5.1) mmol/L Carbon Dioxide 16 L (22-30) mmol/L BUN 102 H* (9-20) mg/dL Creatinine 2.33 H (0.66-1.25) mg/dL Glucose 112 H (74-99) mg/dL Plasma Lactic Acid Sudhakar 2.4 H* (0.7-2.0) mmol/L Phosphorus (2.5-4.5) mg/dL Magnesium (1.6-2.3) mg/dL Total Bilirubin 4.2 H (0.2-1.3) mg/dL AST 732 H (17-59) U/L ALT 584 H (4-49) U/L Alkaline Phosphatase 170 H (38-126) U/L Total Protein (6.3-8.2) g/dL Albumin (3.5-5.0) g/dL Lipase 425 H (23-300) U/L 05/04/23 05/04/23 Range/Units 04:24 04:24 WBC 11.4 H (3.8-10.6) k/uL RBC 3.89 L (4.30-5.90) m/uL Hgb 8.4 L (13.0-17.5) gm/dL Hct 30.2 L (39.0-53.0) % MCV 77.7 L (80.0-100.0) fL MCH 21.7 L (25.0-35.0) pg MCHC 28.0 L (31.0-37.0) g/dL RDW 17.9 H (11.5-15.5) % Neutrophils # (Manual) 9.01 H (1.3-7.7) k/uL Nucleated RBCs 2 H (0-0) /100 WBC Sodium 131 L (137-145) mmol/L Potassium (3.5-5.1) mmol/L Carbon Dioxide 17 L (22-30) mmol/L BUN 103 H* (9-20) mg/dL Creatinine 2.45 H (0.66-1.25) mg/dL Glucose 129 H (74-99) mg/dL Plasma Lactic Acid Sudhakar (0.7-2.0) mmol/L Phosphorus 5.4 H (2.5-4.5) mg/dL Magnesium 2.9 H (1.6-2.3) mg/dL Total Bilirubin 3.5 H (0.2-1.3) mg/dL AST 553 H (17-59) U/L ALT 460 H (4-49) U/L Alkaline Phosphatase (38-126) U/L Total Protein 5.7 L (6.3-8.2) g/dL Albumin 3.2 L (3.5-5.0) g/dL Lipase (23-300) U/L Diabetes panel 05/03/23 05/04/23 Range/Units 20:28 04:24 Sodium 133 L 131 L (137-145) mmol/L Potassium 5.2 H 4.9 (3.5-5.1) mmol/L Chloride 98 100 (98-107) mmol/L Carbon Dioxide 16 L 17 L (22-30) mmol/L BUN 102 H* 103 H* (9-20) mg/dL Creatinine 2.33 H 2.45 H (0.66-1.25) mg/dL Glucose 112 H 129 H (74-99) mg/dL Calcium 9.2 8.4 (8.4-10.2) mg/dL AST 732 H 553 H (17-59) U/L ALT 584 H 460 H (4-49) U/L Alkaline Phosphatase 170 H 123 (38-126) U/L Total Protein 7.1 5.7 L (6.3-8.2) g/dL Albumin 4.2 3.2 L (3.5-5.0) g/dL Calcium panel 05/03/23 05/04/23 Range/Units 20:28 04:24 Calcium 9.2 8.4 (8.4-10.2) mg/dL Phosphorus 5.4 H (2.5-4.5) mg/dL Albumin 4.2 3.2 L (3.5-5.0) g/dL Pituitary panel 05/03/23 05/04/23 Range/Units 20:28 04:24 Sodium 133 L 131 L (137-145) mmol/L Potassium 5.2 H 4.9 (3.5-5.1) mmol/L Chloride 98 100 (98-107) mmol/L Carbon Dioxide 16 L 17 L (22-30) mmol/L BUN 102 H* 103 H* (9-20) mg/dL Creatinine 2.33 H 2.45 H (0.66-1.25) mg/dL Glucose 112 H 129 H (74-99) mg/dL Calcium 9.2 8.4 (8.4-10.2) mg/dL Adrenal panel 05/03/23 05/04/23 Range/Units 20:28 04:24 Sodium 133 L 131 L (137-145) mmol/L Potassium 5.2 H 4.9 (3.5-5.1) mmol/L Chloride 98 100 (98-107) mmol/L Carbon Dioxide 16 L 17 L (22-30) mmol/L BUN 102 H* 103 H* (9-20) mg/dL Creatinine 2.33 H 2.45 H (0.66-1.25) mg/dL Glucose 112 H 129 H (74-99) mg/dL Calcium 9.2 8.4 (8.4-10.2) mg/dL Total Bilirubin 4.2 H 3.5 H (0.2-1.3) mg/dL AST 732 H 553 H (17-59) U/L ALT 584 H 460 H (4-49) U/L Alkaline Phosphatase 170 H 123 (38-126) U/L Total Protein 7.1 5.7 L (6.3-8.2) g/dL Albumin 4.2 3.2 L (3.5-5.0) g/dL
[2023-05-04] MEDS ORDERED: FUROSEMIDE 10 MG/ML 10 ML VIAL IV STA (15:42)
[2023-05-04 17:33] LABS: % Iron Saturation 2.93 (15.00-50.00); Ferritin 50.5 ng/mL (22.0-322.0)
[2023-05-04] MEDS: RIVAROXABAN 15 MG TAB PO SCH (20:15)
[2023-05-04] MEDS: LACTULOSE 20 GM/30 ML CUP PO SCH (20:15)
[2023-05-04] MEDS: EZETIMIBE 10 MG TAB PO SCH (20:15)
[2023-05-04 20:42] LABS: Appearance,Urine Slightly Cloudy (Clear); Color,Urine YELLOW; Protein,Urine Trace (Negative)
[2023-05-04 20:43] LABS: Bilirubin,Urine Negative (Negative); Blood,Urine Negative (Negative); Glucose,Urine (UA) Negative (Negative); Ketones,Urine Negative (Negative); Leukocyte Esterase,Urine Negative (Negative); Nitrite,Urine Negative (Negative)
[2023-05-04 20:58] LABS: Bacteria,Urine Rare /hpf; Hyaline Casts,Urine 21 /lpf (0-2); Mucus,Urine Rare /hpf; RBC,Urine 1 /hpf (0-5); Squamous Epithelial Cell,Urine <1 /hpf (0-4); WBC,Urine 2 /hpf (0-5)
[2023-05-05] MEDS: PANTOPRAZOLE 40 MG TABLET PO SCH (06:23)
[2023-05-05] MEDS: carvediloL 6.25 MG TAB PO SCH ×2 (06:23→17:14)
[2023-05-05] MEDS: SODIUM BICARBONATE TAB 650 MG TAB PO SCH (09:30)
[2023-05-05] MEDS: FUROSEMIDE 10 MG/ML 4 ML VIAL IV SCH (09:30)
[2023-05-05] MEDS: LACTULOSE 20 GM/30 ML CUP PO SCH ×2 (09:30→19:46)
[2023-05-05] MEDS: CLOPIDOGREL 75 MG TAB PO SCH (09:30)
[2023-05-05 09:50] LABS: Magnesium 2.9 mg/dL (1.5-2.4)
[2023-05-05 11:03] LABS: BUN/Creat Ratio 32.19 Ratio (12.00-20.00); Calcium 8.6 mg/dL (8.7-10.3); Carbon Dioxide 17.8 mmol/L (21.6-31.8); Chloride 98 mmol/L (96-109); Glucose 112 mg/dL (70-110); Potassium 5.3 mmol/L (3.5-5.5); Sodium 133 mmol/L (135-145)
--- NOTE | 2023-05-05 12:44 | P.PN ---
Subjective Progress Note Date: 05/05/23 He is resting comfortably. No new issues. Recommend bowel regimen. Avoid enemas due to blood thinners. He did have an enema and had a bowel movement. Objective - Vital Signs Vital signs: Vital Signs Temp 97.6 F 05/05/23 07:54 Pulse 124 H 05/05/23 07:54 Resp 16 05/05/23 07:54 BP 94/65 05/05/23 07:54 Pulse Ox 98 05/05/23 07:54 FiO2 Intake & Output 05/04/23 05/05/23 05/05/23 18:59 06:59 18:59 Intake Total 680 Output Total 250 Balance -250 680 Intake: Oral 680 Output: Urine 250 Other: # Voids 0 # Bowel Movements 0 - Labs CBC & Chem 7: 05/04/23 04:24 05/05/23 05:46 Labs: Abnormal Lab Results - Last 24 Hours (Table) 05/04/23 05/04/23 05/05/23 Range/Units 04:24 18:15 05:46 Sodium 133 L (135-145) mmol/L Carbon Dioxide 17.8 L (21.6-31.8) mmol/L Anion Gap 17.20 H (4.00-12.00) mmol/L BUN 103.0 H* (9.0-27.0) mg/dL Creatinine 3.2 H (0.6-1.5) mg/dL Est GFR (CKD-EPI) 18 L (>=60) BUN/Creatinine Ratio 32.19 H (12.00-20.00) Ratio Glucose 112 H (70-110) mg/dL Calcium 8.6 L (8.7-10.3) mg/dL Magnesium 2.9 H (1.5-2.4) mg/dL Iron 11 L (65-175) UG/DL % Saturation 2.93 L (15.00-50.00) Urine Bacteria Rare H (None) /hpf Hyaline Casts 21 H (0-2) /lpf Urine Mucus Rare H (None) /hpf
--- NOTE | 2023-05-05 14:20 | P.PN ---
Subjective Progress Note Date: 05/05/23 Follow-up for acute kidney injury. Urine output of 250 ML's in the last 24 hours. Sleepy today. Objective - Vital Signs Vital signs: Vital Signs Temp 97.6 F 05/05/23 07:54 Pulse 124 H 05/05/23 07:54 Resp 16 05/05/23 07:54 BP 94/65 05/05/23 07:54 Pulse Ox 98 05/05/23 07:54 FiO2 Intake & Output 05/04/23 05/05/23 05/05/23 18:59 06:59 18:59 Intake Total 680 Output Total 250 Balance -250 680 Intake: Oral 680 Output: Urine 250 Other: # Voids 0 # Bowel Movements 0 - Exam No acute distress S1-S2 heard Decreased breath sounds Abdomen soft No edema - Labs CBC & Chem 7: 05/04/23 04:24 05/05/23 05:46 Labs: Abnormal Lab Results - Last 24 Hours (Table) 05/04/23 05/04/23 05/05/23 Range/Units 04:24 18:15 05:46 Sodium 133 L (135-145) mmol/L Carbon Dioxide 17.8 L (21.6-31.8) mmol/L Anion Gap 17.20 H (4.00-12.00) mmol/L BUN 103.0 H* (9.0-27.0) mg/dL Creatinine 3.2 H (0.6-1.5) mg/dL Est GFR (CKD-EPI) 18 L (>=60) BUN/Creatinine Ratio 32.19 H (12.00-20.00) Ratio Glucose 112 H (70-110) mg/dL Calcium 8.6 L (8.7-10.3) mg/dL Magnesium 2.9 H (1.5-2.4) mg/dL Iron 11 L (65-175) UG/DL % Saturation 2.93 L (15.00-50.00) Urine Bacteria Rare H (None) /hpf Hyaline Casts 21 H (0-2) /lpf Urine Mucus Rare H (None) /hpf Assessment and Plan Assessment: #1 acute kidney injury secondary to multifactorial causes. -Hemodynamic ATN with low blood pressures. -Cardiorenal is a differential. -Baseline creatinine around 1.2 MG per DL. -Urine analysis [place], hyaline cast -And renal ultrasound no hydronephrosis #2 CHF with systolic dysfunction #3 A. fib with RVR #4 hypotensive episodes #5 metabolic acidosis #6 hyponatremia, currently hypovolemic Plan: #1 renal function worsening. #2 stop Lasix, add bicarb drip. #3 maintain systolic around 120. #4 avoid nephrotoxic agents. #5 if renal function continues to worsen may need dialysis.
--- NOTE | 2023-05-05 15:45 | P.PN ---
Subjective Progress Note Date: 05/05/23 HISTORY OF PRESENT ILLNESS: This is a 87-year-old male with a past medical history significant for coronary artery disease with previous stenting, valvular heart disease with previous TAVR, hypertension, hyperlipidemia, permanent atrial fibrillation, thoracic aortic aneurysm, and GI bleeding. Patient follows in the office with Dr. Odom. We have been asked to see the patient in consultation for A. fib with RVR. Patient examined at the bedside. According to ER documentation, the patient was brought into the hospital for evaluation of rectal prolapse. When questioning patient at the bedside, he is unsure of why he came to the hospital. At the time of examination, he denies chest pain or pressure. He denies shortness of breath. Patient was found to be in A. fib with RVR upon presentation to the hospital. He was started on IV Cardizem. His home medications were not res umed. This morning he remains on IV Cardizem at 5 mg an hour. Telemetry reveals atrial fibrillation with a heart rate in the 80s. Patient was also found to have acute renal failure and transaminitis. * EKG reveals A. fib with RVR * Most recent echocardiogram obtained in March 2023 revealed ejection fraction 35-40%, normally functioning bioprosthetic aortic valve, mild TR, mild to moderate pulmonic regurgitation, severe mitral regurgitation * Cardiac catheterization history: March 2023 revealing patent stent in the OM1 of left circumflex which is a dominant vessel. Mild disease involving the LAD. Normal left-sided filling pressures * Previous cardiac catheterization in November 2022 with PCI of the OM1 05/05/2023 Creat increased to 3.2. Tele showing a-fib with HR 90-120. He is feeling ok, denies any pain or chest pain. No shortness of breath. PHYSICAL EXAM: VITAL SIGNS: Reviewed. GENERAL: Well-developed in no acute distress. HEENT: Head is normocephalic. Pupils are equal, round. Sclerae anicteric. Mucous membranes of the mouth are moist. Neck supple. No JVD or thyromegaly LUNGS: Respirations even and unlabored. Lungs essentially clear to auscultation bilaterally. HEART: Irregular rate and rhythm. S1 and S2 heard. Systolic murmur noted ABDOMEN: Soft. Nondistended. Nontender. EXTREMITIES: Normal range of motion. No clubbing or cyanosis. Peripheral pulses intact. 1+ extremity edema NEUROLOGIC: Awake and alert. Oriented x 3. ASSESSMENT: Concerns of rectal prolapse, no surgical intervention planned Permanent atrial fibrillation with RVR Acute renal failure Transaminitis Coronary artery disease with previous stenting, most recently OM in November 2022 Valvular heart disease with previous TAVR, 2019 Ischemic cardiomyopathy Hypertension Hyperlipidemia Thoracic aortic aneurysm History of GI bleeding PLAN: Pt with tachycardia on monitor 90-120's. Continue carvedilol 6.25 mg twice a day. Recommend IV fluids and holding diuretics, however will defer to nephrology. Consider cardizem drip if tachycardia persists. Continue telemetry monitoring Hold statin therapy secondary to transaminitis Nephrology following. Continue anticoagulation with Xarelto. Continue Plavix secondary to recent stenting Further recommendations pending patient's course Nurse practitioner note has been reviewed by physician. Signing provider agrees with the documented findings, assessment, and plan of care. Objective - Vital Signs Vital signs: Vital Signs Temp 97.6 F 05/05/23 07:54 Pulse 124 H 05/05/23 07:54 Resp 16 05/05/23 07:54 BP 94/65 05/05/23 07:54 Pulse Ox 98 05/05/23 07:54 FiO2 Intake & Output 05/04/23 05/05/23 05/05/23 18:59 06:59 18:59 Output Total 250 Balance -250 Output: Urine 250 Other: # Voids 0 # Bowel Movements 0 - Labs CBC & Chem 7: 05/04/23 04:24 05/05/23 05:46 Labs: Abnormal Lab Results - Last 24 Hours (Table) 05/04/23 05/04/23 05/05/23 Range/Units 04:24 18:15 05:46 Sodium 133 L (135-145) mmol/L Carbon Dioxide 17.8 L (21.6-31.8) mmol/L Anion Gap 17.20 H (4.00-12.00) mmol/L BUN 103.0 H* (9.0-27.0) mg/dL Creatinine 3.2 H (0.6-1.5) mg/dL Est GFR (CKD-EPI) 18 L (>=60) BUN/Creatinine Ratio 32.19 H (12.00-20.00) Ratio Glucose 112 H (70-110) mg/dL Calcium 8.6 L (8.7-10.3) mg/dL Magnesium 2.9 H (1.5-2.4) mg/dL Iron 11 L (65-175) UG/DL % Saturation 2.93 L (15.00-50.00) Urine Bacteria Rare H (None) /hpf Hyaline Casts 21 H (0-2) /lpf Urine Mucus Rare H (None) /hpf
--- NOTE | 2023-05-05 17:06 | P.PN ---
Subjective Progress Note Date: 05/05/23 Jatinder Ware, is an 87-year-old male patient who initially presented to the ER with concerns of possible rectal prolapse area according to patient he had a large painful p.m. yesterday. Patient appears to be a poor historian most history is obtained from medical record. 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 Patient has past medical history of atrial fibrillation, CVA, hyperlipidemia, hypertension, pneumonia, thyroid disorder. At this time patient will be admitted nephrology cardiology and surgical services consulted patient currently lying in bed eating breakfast denies chest pain or shortness breath. Patient denies nausea vomiting or diarrhea. Patient denies any urinary burning or frequency On 05/05 2023 patient was seen and examined on the medical floor he is alert and oriented 3 in no apparent distress, there is no fever or chills no headache or dizziness no chest pain no shortness of breath no cough no nausea or vomiting no abdominal pain no diarrhea and no urinary symptoms, vital exam reveals a temperature of 98.1 pulse 98 respiration 19 and blood pressure 99/65 pulse ox 99% on room air, sodium 133 potassium 5.3 chloride 98 CO2 17 BUN 103 creatinine 3.20 Objective - Vital Signs Vital signs: Vital Signs Temp 97.6 F 05/05/23 07:54 Pulse 124 H 05/05/23 07:54 Resp 16 05/05/23 07:54 BP 94/65 05/05/23 07:54 Pulse Ox 98 05/05/23 07:54 FiO2 Intake & Output 05/04/23 05/05/23 05/05/23 18:59 06:59 18:59 Output Total 250 Balance -250 Output: Urine 250 Other: # Voids 0 # Bowel Movements 0 - Exam In general patient is alert and oriented x 3 in no distress HEENT head normocephalic and atraumatic Neck is supple no JVD no goiter no lymphadenopathy no carotid bruit Chest examination is clear to auscultation no crackles no wheezing Cardiac exam reveals regular heart sounds S1 and S2 no gallops no murmurs Abdomen is soft nontender no organomegaly with normal bowel sounds Extremity exam reveals no edema no cyanosis or clubbing Neurological examination reveals no gross focal deficits - Labs CBC & Chem 7: 05/04/23 04:24 05/05/23 05:46 Labs: Abnormal Lab Results - Last 24 Hours (Table) 05/04/23 05/04/23 05/05/23 Range/Units 04:24 18:15 05:46 Magnesium 2.9 H (1.5-2.4) mg/dL Iron 11 L (65-175) UG/DL % Saturation 2.93 L (15.00-50.00) Urine Bacteria Rare H (None) /hpf Hyaline Casts 21 H (0-2) /lpf Urine Mucus Rare H (None) /hpf Assessment and Plan Assessment: 1. Acute renal failure. Nephrology services consulted 2. A. fib with RVR. Cardiology service is consulted 3. 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 Surgical services consulted 4. Elevated liver enzymes ammonia level ordered 5. History of atrial fibrillation 6. History of hyperlipidemia 7. History of essential hypertension DVT prophylaxis Xarelto. GI prophylaxis Protonix Nephrology cardiology and surgical services consulted Repeat labs ordered Ammonia level ordered
[2023-05-05] MEDS: DEXTROSE 5% IN WATER 1,000 ML with SODIUM BICARB (1 MEQ/ML) 150 ML IV SCH (17:14)
[2023-05-05] MEDS: RIVAROXABAN 15 MG TAB PO SCH (19:46)
[2023-05-05] MEDS: EZETIMIBE 10 MG TAB PO SCH (19:46)
[2023-05-06] MEDS: DEXTROSE 5% IN WATER 1,000 ML with SODIUM BICARB (1 MEQ/ML) 150 ML IV SCH ×2 (04:16→15:31)
[2023-05-06] MEDS: PANTOPRAZOLE 40 MG TABLET PO SCH (06:01)
[2023-05-06] MEDS: carvediloL 6.25 MG TAB PO SCH ×2 (06:01→18:10)
[2023-05-06] MEDS: CLOPIDOGREL 75 MG TAB PO SCH (09:26)
[2023-05-06] MEDS: LACTULOSE 20 GM/30 ML CUP PO SCH ×2 (09:28→20:20)
--- NOTE | 2023-05-06 10:19 | P.PN ---
Subjective Progress Note Date: 05/06/23 He is sitting up in bed and eating breakfast. He is awake and alert. He denies abdominal pain. Last bowel movement yesterday. Continue bowel regimen. Objective - Vital Signs Vital signs: Vital Signs Temp 97.6 F 05/06/23 07:42 Pulse 113 H 05/06/23 07:42 Resp 18 05/06/23 07:42 BP 93/62 05/06/23 07:42 Pulse Ox 99 05/06/23 07:42 FiO2 Intake & Output 05/05/23 05/06/23 05/06/23 18:59 06:59 18:59 Intake Total 860 Output Total 250 300 Balance 610 -300 Intake: Oral 860 Output: Urine 250 300 Other: Voiding Method Indwelling Catheter # Bowel Movements 1 - Labs CBC & Chem 7: 05/04/23 04:24 05/05/23 05:46 Labs: Abnormal Lab Results - Last 24 Hours (Table) 05/05/23 Range/Units 05:46 Sodium 133 L (135-145) mmol/L Carbon Dioxide 17.8 L (21.6-31.8) mmol/L Anion Gap 17.20 H (4.00-12.00) mmol/L BUN 103.0 H* (9.0-27.0) mg/dL Creatinine 3.2 H (0.6-1.5) mg/dL Est GFR (CKD-EPI) 18 L (>=60) BUN/Creatinine Ratio 32.19 H (12.00-20.00) Ratio Glucose 112 H (70-110) mg/dL Calcium 8.6 L (8.7-10.3) mg/dL
--- NOTE | 2023-05-06 10:53 | P.PN ---
Subjective Progress Note Date: 05/06/23 Jatinder Ware, is an 87-year-old male patient who initially presented to the ER with concerns of possible rectal prolapse area according to patient he had a large painful p.m. yesterday. Patient appears to be a poor historian most history is obtained from medical record. Abdomen and pelvis CT completed sh owing fecaloma within the patient's rectum measuring 6.6 cm cirrhotic changes or small amount of intra-abdominal ascites soft tissue and anasarca , Lab testing revealed elevated creatinine 2.33 bun 102. Patient has past medical history of atrial fibrillation, CVA, hyperlipidemia, hypertension, pneumonia, thyroid disorder. At this time patient will be admitted nephrology cardiology and surgical services consulted patient currently lying in bed eating breakfast denies chest pain or shortness breath. Patient denies nausea vomiting or diarrhea. Patient denies any urinary burning or frequency On 05/05 2023 patient was seen and examined on the medical floor he is alert and oriented 3 in no apparent distress, there is no fever or chills no headache or dizziness no chest pain no shortness of breath no cough no nausea or vomiting no abdominal pain no diarrhea and no urinary symptoms, vital exam reveals a temperature of 98.1 pulse 98 respiration 19 and blood pressure 99/65 pulse ox 99% on room air, sodium 133 potassium 5.3 chloride 98 CO2 17 BUN 103 creatinine 3.20 On 05/06/2023 patient's alert and oriented 3. Patient was started on bicarb drip per nephrology services. Awaiting lab work. Patient denies chest pain or shortness breath. Patient denies nausea vomiting or diarrhea. Patient denies any urinary burning or frequency Objective - Vital Signs Vital signs: Vital Signs Temp 97.6 F 05/06/23 07:42 Pulse 113 H 05/06/23 07:42 Resp 18 05/06/23 07:42 BP 93/62 05/06/23 07:42 Pulse Ox 99 05/06/23 07:42 FiO2 Intake & Output 05/05/23 05/06/23 05/06/23 18:59 06:59 18:59 Intake Total 860 Output Total 250 300 Balance 610 -300 Intake: Oral 860 Output: Urine 250 300 Other: Voiding Method Indwelling Catheter Indwelling Catheter # Bowel Movements 1 - Exam In general patient is alert and oriented x 3 in no distress HEENT head normocephalic and atraumatic Neck is supple no JVD no goiter no lymphadenopathy no carotid bruit Chest examination is clear to auscultation no crackles no wheezing Cardiac exam reveals regular heart sounds S1 and S2 no gallops no murmurs Abdomen is soft nontender no organomegaly with normal bowel sounds Extremity exam reveals no edema no cyanosis or clubbing Neurological examination reveals no gross focal deficits - Labs CBC & Chem 7: 05/04/23 04:24 05/05/23 05:46 Labs: Abnormal Lab Results - Last 24 Hours (Table) 05/05/23 Range/Units 05:46 Sodium 133 L (135-145) mmol/L Carbon Dioxide 17.8 L (21.6-31.8) mmol/L Anion Gap 17.20 H (4.00-12.00) mmol/L BUN 103.0 H* (9.0-27.0) mg/dL Creatinine 3.2 H (0.6-1.5) mg/dL Est GFR (CKD-EPI) 18 L (>=60) BUN/Creatinine Ratio 32.19 H (12.00-20.00) Ratio Glucose 112 H (70-110) mg/dL Calcium 8.6 L (8.7-10.3) mg/dL Assessment and Plan Assessment: 1. Acute renal failure. Nephrology services consulted 2. A. fib with RVR. Cardiology service is consulted 3. 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 Surgical services consulted 4. Elevated liver enzymes ammonia level ordered 5. History of atrial fibrillation 6. History of hyperlipidemia 7. History of essential hypertension DVT prophylaxis Xarelto. GI prophylaxis Protonix Nephrology cardiology and surgical services consulted Maintained on bicarb drip Repeat labs ordered Ammonia level ordered
[2023-05-06 12:04] LABS: Anisocytosis Slight; Basophils % (A) 0 %; Eosinophils # (A) 0.3 k/uL (0-0.7); Eosinophils % (A) 3 %; HCT 30.1 % (39.0-53.0); HGB 8.7 gm/dL (13.0-17.5); Hypochromasia Marked; Lymphocytes % (A) 18 %; MCV 75.8 fL (80.0-100.0); Mean Platelet Volume 9.8; Microcytosis Moderate; Monocytes # (A) 0.7 k/uL (0-1.0); Monocytes % (A) 6 %; Neutrophils # (A) 7.8 k/uL (1.3-7.7); Neutrophils % (A) 70 %; Platelet Count 219 k/uL (150-450); Poikilocytosis Slight; RBC 3.98 m/uL (4.30-5.90); RDW 18.7 % (11.5-15.5); WBC 11.1 k/uL (3.8-10.6)
--- NOTE | 2023-05-06 12:14 | P.PN ---
Subjective Progress Note Date: 05/06/23 HISTORY OF PRESENT ILLNESS: This is a 87-year-old male with a past medical history significant for coronary artery disease with previous stenting, valvular heart disease with previous TAVR, hypertension, hyperlipidemia, permanent atrial fibrillation, thoracic aortic aneurysm, and GI bleeding. Patient follows in the office with Dr. Odom. We have been asked to see the patient in consultation for A. fib with RVR. Patient examined at the bedside. According to ER documentation, the patient was brought into the hospital for evaluation of rectal prolapse. When questioning patient at the bedside, he is unsure of why he came to the hospital. At the time of examination, he denies chest pain or pressure. He denies shortness of breath. Patient was found to be in A. fib with RVR upon presentation to the hospital. He was started on IV Cardizem. His home medications were not res umed. This morning he remains on IV Cardizem at 5 mg an hour. Telemetry reveals atrial fibrillation with a heart rate in the 80s. Patient was also found to have acute renal failure and transaminitis. * EKG reveals A. fib with RVR * Most recent echocardiogram obtained in March 2023 revealed ejection fraction 35-40%, normally functioning bioprosthetic aortic valve, mild TR, mild to moderate pulmonic regurgitation, severe mitral regurgitation * Cardiac catheterization history: March 2023 revealing patent stent in the OM1 of left circumflex which is a dominant vessel. Mild disease involving the LAD. Normal left-sided filling pressures * Previous cardiac catheterization in November 2022 with PCI of the OM1 05/05/2023 Creat increased to 3.2. Tele showing a-fib with HR 90-120. He is feeling ok, denies any pain or chest pain. No shortness of breath. Pt sitting up in bed, reports not feeling well but is unable to explain why. Denies any pain. No shortness of breath. Heart rates are better controlled. Swelling is stable. PHYSICAL EXAM: VITAL SIGNS: Reviewed. GENERAL: Well-developed in no acute distress. HEENT: Head is normocephalic. Pupils are equal, round. Sclerae anicteric. Mucous membranes of the mouth are moist. No JVD LUNGS: Respirations even and unlabored. Lungs essentially clear to auscultation bilaterally. HEART: Irregular rate and rhythm. S1 and S2 heard. Systolic murmur noted ABDOMEN: Soft. Nondistended. Nontender. EXTREMITIES: Normal range of motion. No clubbing or cyanosis. Peripheral pulses intact. 1+ extremity edema NEUROLOGIC: Awake and alert, flat affect. ASSESSMENT: Concerns of rectal prolapse, no surgical intervention planned Permanent atrial fibrillation with RVR Acute renal failure Transaminitis Coronary artery disease with previous stenting, most recently OM in November 2022 Valvular heart disease with previous TAVR, 2019 Ischemic cardiomyopathy Hypertension Hyperlipidemia Thoracic aortic aneurysm History of GI bleeding PLAN: Heart rates are better controlled. Continue carvedilol 6.25 mg twice a day. Continue telemetry monitoring. Hold statin therapy secondary to transaminitis. MOnitor kidney function. Nephrology following. Continue anticoagulation with Xarelto. Continue Plavix secondary to recent stenting. Further recommendations pending patient's course. Nurse practitioner note has been reviewed by physician. Signing provider agrees with the documented findings, assessment, and plan of care. Objective - Vital Signs Vital signs: Vital Signs Temp 97.6 F 05/06/23 07:42 Pulse 113 H 05/06/23 07:42 Resp 18 05/06/23 07:42 BP 93/62 05/06/23 07:42 Pulse Ox 99 05/06/23 07:42 FiO2 Intake & Output 05/05/23 05/06/23 05/06/23 18:59 06:59 18:59 Intake Total 860 Output Total 250 300 Balance 610 -300 Intake: Oral 860 Output: Urine 250 300 Other: Voiding Method Indwelling Catheter # Bowel Movements 1 - Labs CBC & Chem 7: 05/04/23 04:24 05/05/23 05:46 Labs: Abnormal Lab Results - Last 24 Hours (Table) 05/05/23 Range/Units 05:46 Sodium 133 L (135-145) mmol/L Carbon Dioxide 17.8 L (21.6-31.8) mmol/L Anion Gap 17.20 H (4.00-12.00) mmol/L BUN 103.0 H* (9.0-27.0) mg/dL Creatinine 3.2 H (0.6-1.5) mg/dL Est GFR (CKD-EPI) 18 L (>=60) BUN/Creatinine Ratio 32.19 H (12.00-20.00) Ratio Glucose 112 H (70-110) mg/dL Calcium 8.6 L (8.7-10.3) mg/dL
[2023-05-06 12:22] LABS: African American GFR (CKD) 23 (>60 ml/min/1.73 sqM); Anion Gap 12 mmol/L; Calcium 7.9 mg/dL (8.4-10.2); Carbon Dioxide 22 mmol/L (22-30); Chloride 95 mmol/L (98-107); Glucose 141 mg/dL (74-99); Non-African American GFR(CKD) 20 (>60 ml/min/1.73 sqM); Potassium 4.4 mmol/L (3.5-5.1); Sodium 129 mmol/L (137-145)
[2023-05-06 12:23] LABS: Blood Urea Nitrogen 105 mg/dL (9-20)
--- NOTE | 2023-05-06 16:05 | P.PN ---
Subjective Progress Note Date: 05/06/23 Follow-up for acute kidney injury. Urine output of 550 ML's in the last 24 hours. Objective - Vital Signs Vital signs: Vital Signs Temp 97.9 F 05/06/23 14:00 Pulse 85 05/06/23 14:00 Resp 20 05/06/23 14:00 BP 99/66 05/06/23 14:00 Pulse Ox 98 05/06/23 14:00 FiO2 Intake & Output 05/05/23 05/06/23 05/06/23 18:59 06:59 18:59 Intake Total 860 180 Output Total 250 300 Balance 610 -300 180 Intake: Oral 860 180 Output: Urine 250 300 Other: Voiding Method Indwelling Catheter Indwelling Catheter # Bowel Movements 1 - Exam No acute distress S1-S2 heard Decreased breath sounds Abdomen soft No edema - Labs CBC & Chem 7: 05/06/23 11:23 05/06/23 11:23 Labs: Abnormal Lab Results - Last 24 Hours (Table) 05/06/23 05/06/23 Range/Units 11:23 11:23 WBC 11.1 H (3.8-10.6) k/uL RBC 3.98 L (4.30-5.90) m/uL Hgb 8.7 L (13.0-17.5) gm/dL Hct 30.1 L (39.0-53.0) % MCV 75.8 L (80.0-100.0) fL MCH 22.0 L (25.0-35.0) pg MCHC 29.0 L (31.0-37.0) g/dL RDW 18.7 H (11.5-15.5) % Neutrophils # 7.8 H (1.3-7.7) k/uL Sodium 129 L (137-145) mmol/L Chloride 95 L (98-107) mmol/L BUN 105 H* (9-20) mg/dL Creatinine 2.72 H (0.66-1.25) mg/dL Glucose 141 H (74-99) mg/dL Calcium 7.9 L (8.4-10.2) mg/dL Assessment and Plan Assessment: #1 acute kidney injury secondary to multifactorial causes. -Hemodynamic ATN with low blood pressures. -Cardiorenal is a differential. -Baseline creatinine around 1.2 MG per DL. -Urine analysis catarino Jacob cast -And renal ultrasound no hydronephrosis #2 CHF with systolic dysfunction #3 A. fib with RVR #4 hypotensive episodes #5 metabolic acidosis #6 hyponatremia, currently hypovolemic Plan: #1 renal function high per stable. #2 Lasix was stopped yesterday and bicarb drip was added. Continue with bicarb drip today. #3 maintain systolic around 120. #4 avoid nephrotoxic agents. #5 if renal function continues to worsen may need dialysis.
[2023-05-06] MEDS: EZETIMIBE 10 MG TAB PO SCH (20:20)
[2023-05-06] MEDS: RIVAROXABAN 15 MG TAB PO SCH (20:20)
[2023-05-07] MEDS: DEXTROSE 5% IN WATER 1,000 ML with SODIUM BICARB (1 MEQ/ML) 150 ML IV SCH ×3 (05:13→22:22)
[2023-05-07] MEDS: carvediloL 6.25 MG TAB PO SCH (06:15)
[2023-05-07] MEDS: PANTOPRAZOLE 40 MG TABLET PO SCH (06:15)
[2023-05-07] MEDS ORDERED: FUROSEMIDE 10 MG/ML 10 ML VIAL IV STA (08:40)
--- NOTE | 2023-05-07 08:41 | P.PN ---
Subjective Patient is seen in follow-up for acute kidney injury. Creatinine 2.72 yesterday. Urine output 200 mL so far this morning. On bicarb drip. Poor h istorian. Hemodynamically stable. Vital signs are stable. General: No acute distress. HEENT: Head exam is unremarkable. On nasal cannula. LUNGS: No audible rhonchi or wheezes. HEART: Rate and Rhythm are regular. ABDOMEN: Nontender. EXTREMITITES: 2+ edema. Objective - Vital Signs Vital signs: Vital Signs Temp 97.6 F 05/07/23 07:00 Pulse 92 05/07/23 07:00 Resp 14 05/07/23 07:00 BP 108/64 05/07/23 07:00 Pulse Ox 100 05/07/23 07:00 FiO2 Intake & Output 05/06/23 05/07/23 05/07/23 18:59 06:59 18:59 Intake Total 180 Output Total 350 400 Balance -170 -400 Intake: Oral 180 Output: Urine 350 400 Other: Voiding Method Indwelling Catheter Indwelling Catheter - Labs CBC & Chem 7: 05/06/23 11:23 05/06/23 11:23 Labs: Abnormal Lab Results - Last 24 Hours (Table) 05/06/23 05/06/23 05/06/23 Range/Units 11:23 11:23 22:51 WBC 11.1 H (3.8-10.6) k/uL RBC 3.98 L (4.30-5.90) m/uL Hgb 8.7 L (13.0-17.5) gm/dL Hct 30.1 L (39.0-53.0) % MCV 75.8 L (80.0-100.0) fL MCH 22.0 L (25.0-35.0) pg MCHC 29.0 L (31.0-37.0) g/dL RDW 18.7 H (11.5-15.5) % Neutrophils # 7.8 H (1.3-7.7) k/uL Sodium 129 L (137-145) mmol/L Chloride 95 L (98-107) mmol/L BUN 105 H* (9-20) mg/dL Creatinine 2.72 H (0.66-1.25) mg/dL Glucose 141 H (74-99) mg/dL Calcium 7.9 L (8.4-10.2) mg/dL Troponin I 0.054 H* (0.000-0.034) ng/mL 05/07/23 05/07/23 Range/Units 02:19 05:37 WBC (3.8-10.6) k/uL RBC (4.30-5.90) m/uL Hgb (13.0-17.5) gm/dL Hct (39.0-53.0) % MCV (80.0-100.0) fL MCH (25.0-35.0) pg MCHC (31.0-37.0) g/dL RDW (11.5-15.5) % Neutrophils # (1.3-7.7) k/uL Sodium (137-145) mmol/L Chloride (98-107) mmol/L BUN (9-20) mg/dL Creatinine (0.66-1.25) mg/dL Glucose (74-99) mg/dL Calcium (8.4-10.2) mg/dL Troponin I 0.051 H* 0.047 H* (0.000-0.034) ng/mL Assessment and Plan Plan: Assessment: 1. Acute kidney injury secondary to ATN secondary to hemodynamic instability and cardiorenal syndrome. Creatinine peaked at 3.2 this admission and was down to 2.72 yesterday. Baseline creatinine near 1. No hydronephrosis noted on CT/uls. 2. A. fib with RVR maintained on Coreg. Cardiology following. Status post Cardizem drip. 3. Hypervolemic hyponatremia. 4. Volume overload. 5. Anemia. Iron deficiency noted. 6. Acute on chronic systolic CHF ejection fraction of 35-40% with severe mitral regurgitation and mild to moderate pulmonary regurgitation. 7. Coronary artery disease with cardiac stenting. 8. Metabolic acidosis secondary to acute kidney injury. On bicarb drip. Improved. Plan: Decrease rate of bicarbonate drip to 50 mL an hour. Lasix 80 mg IV once today. Maintain Coe catheter. Add IV iron. Avoid nephrotoxins. Continue to monitor renal function and urine output. Low-salt diet and 1500 mL fluid restriction. Continue to assess daily for need for renal replacement therapy.
[2023-05-07 09:01] LABS: ALT 365 U/L (10-49); AST 242 U/L (14-35); Albumin 3.5 d/dL (3.8-4.9); Albumin/Globulin Ratio 1.59 Ratio (1.60-3.17); Alkaline Phosphatase 128 U/L (41-126); BUN/Creat Ratio 36.88 Ratio (12.00-20.00); Blood Urea Nitrogen 95.9 mg/dL (9.0-27.0); Calcium 8.1 mg/dL (8.7-10.3); Carbon Dioxide 24.6 mmol/L (21.6-31.8); Chloride 93 mmol/L (96-109); Globulin 2.2 d/dL (1.6-3.3); Glucose 119 mg/dL (70-110); Potassium 4.8 mmol/L (3.5-5.5); Sodium 131 mmol/L (135-145); Total Bilirubin 1.9 mg/dL (0.3-1.2); Total Protein 5.7 d/dL (6.2-8.2)
[2023-05-07] MEDS: CLOPIDOGREL 75 MG TAB PO SCH (09:01)
[2023-05-07] MEDS: LACTULOSE 20 GM/30 ML CUP PO SCH ×2 (09:02→21:20)
[2023-05-07] MEDS: METOPROLOL TARTRATE 25 MG TAB PO SCH ×2 (09:02→21:20)
[2023-05-07 09:11] LABS: Basophils # (A) 0.01 X 10*3/uL (0.00-0.10); Basophils % (A) 0.1 %; Eosinophils # (A) 0.23 X 10*3/uL (0.04-0.35); HCT 30.9 % (39.6-50.0); HGB 8.5 d/dL (13.0-17.0); Lymphocytes # (A) 2.06 X 10*3/uL (0.90-5.00); Lymphocytes % (A) 18.2 %; MCH 20.7 pg (27.0-32.0); MCHC 27.5 d/dL (32.0-37.0); MCV 75.2 FL (80.0-97.0); Mean Platelet Volume 11.4 FL (9.5-12.2); Monocytes # (A) 0.96 X 10*3/uL (0.20-1.00); Monocytes % (A) 8.5 %; NRBC Per 100 WBC 0.42 X 10*3/uL (0.00-0.01); Neutrophils % (A) 70.8 %; Platelet Count 227 X 10*3/uL (140-440); RBC 4.11 X 10*6/uL (4.40-5.60); RDW 20.1 % (11.5-14.5); WBC 11.31 X 10*3/uL (4.50-10.00)
[2023-05-07] MEDS: SODIUM FERRIC GLUCONAT-SUCROSE 125 MG in SODIUM CHLORIDE 0.9% 100 ML IVPB SCH (09:30)
--- NOTE | 2023-05-07 10:26 | P.PN ---
Subjective Progress Note Date: 05/07/23 HISTORY OF PRESENT ILLNESS: This is a 87-year-old male with a past medical history significant for coronary artery disease with previous stenting, valvular heart disease with previous TAVR, hypertension, hyperlipidemia, permanent atrial fibrillation, thoracic aortic aneurysm, and GI bleeding. Patient follows in the office with Dr. Odom. We have been asked to see the patient in consultation for A. fib with RVR. Patient examined at the bedside. According to ER documentation, the patient was brought into the hospital for evaluation of rectal prolapse. When questioning patient at the bedside, he is unsure of why he came to the hospital. At the time of examination, he denies chest pain or pressure. He denies shortness of breath. Patient was found to be in A. fib with RVR upon presentation to the hospital. He was started on IV Cardizem. His home medications were not re sumed. This morning he remains on IV Cardizem at 5 mg an hour. Telemetry reveals atrial fibrillation with a heart rate in the 80s. Patient was also found to have acute renal failure and transaminitis. * EKG reveals A. fib with RVR * Most recent echocardiogram obtained in March 2023 revealed ejection fraction 35-40%, normally functioning bioprosthetic aortic valve, mild TR, mild to moderate pulmonic regurgitation, severe mitral regurgitation * Cardiac catheterization history: March 2023 revealing patent stent in the OM1 of left circumflex which is a dominant vessel. Mild disease involving the LAD. Normal left-sided filling pressures * Previous cardiac catheterization in November 2022 with PCI of the OM1 05/05/2023 Creat increased to 3.2. Tele showing a-fib with HR 90-120. He is feeling ok, denies any pain or chest pain. No shortness of breath. Pt sitting up in bed, reports not feeling well but is unable to explain why. Denies any pain. No shortness of breath. Heart rates are better controlled. Swelling is stable. 05/07 Patient is seen today in follow-up. Patient states that his breathing is okay, no chest pain, no palpitations. Patient is maintained on bicarb drip yesterday and off Lasix. Renal function is slowly improving with BUN of 95 and creatinine 2.6. Blood pressure 107/69, heart rate in the 90s. Patient continues to have lower extremity edema. Noted elevated liver function test that are also improving with total bilirubin 1.9, AST 242, ALT 365, alkaline phosphatase 128. Troponins were 0.054, 0.051 and 0.047. Nephrology has ordered Ferrlecit. PHYSICAL EXAM: VITAL SIGNS: Reviewed. GENERAL: Well-developed in no acute distress. HEENT: Head is normocephalic. Pupils are equal, round. Sclerae anicteric. Mucous membranes of the mouth are moist. No JVD LUNGS: Respirations even and unlabored. Lungs essentially clear to auscultation bilaterally. HEART: Irregular rate and rhythm. S1 and S2 heard. Systolic murmur noted ABDOMEN: Soft. Nondistended. Nontender. EXTREMITIES: No clubbing or cyanosis. Peripheral pulses intact. 1+ extremity edema NEUROLOGIC: Awake and alert, flat affect. ASSESSMENT: Concerns of rectal prolapse, no surgical intervention planned Permanent atrial fibrillation with RVR Acute renal failure Transaminitis, improving Coronary artery disease with previous stenting, most recently OM in November 2022 Valvular heart disease with previous TAVR, 2019 Ischemic cardiomyopathy Hypertension Hyperlipidemia Thoracic aortic aneurysm History of GI bleeding Flat troponins not indicative of acute coronary syndrome PLAN: Heart rates are better controlled. Blood pressure readings were soft overnight and Coreg will be changed to Lopressor 25 mg twice daily. Continue telemetry monitoring. Hold statin therapy secondary to transaminitis. MOnitor kidney function. Nephrology following. Continue anticoagulation with Xarelto. Continue Plavix secondary to recent stenting. Further recommendations pending patient's course. Nurse practitioner note has been reviewed by physician. Signing provider agrees with the documented findings, assessment, and plan of care. Objective - Vital Signs Vital signs: Vital Signs Temp 97.4 F L 05/07/23 00:50 Pulse 80 05/07/23 00:50 Resp 16 05/07/23 00:50 BP 107/69 05/07/23 00:50 Pulse Ox 100 05/07/23 00:50 FiO2 Intake & Output 05/06/23 05/07/23 05/07/23 18:59 06:59 18:59 Intake Total 180 Output Total 350 400 Balance -170 -400 Intake: Oral 180 Output: Urine 350 400 Other: Voiding Method Indwelling Catheter Indwelling Catheter - Labs CBC & Chem 7: 05/07/23 02:19 05/07/23 02:19 Labs: Abnormal Lab Results - Last 24 Hours (Table) 05/06/23 05/06/23 05/06/23 Range/Units 11:23 11:23 22:51 WBC 11.1 H (3.8-10.6) k/uL RBC 3.98 L (4.30-5.90) m/uL Hgb 8.7 L (13.0-17.5) gm/dL Hct 30.1 L (39.0-53.0) % MCV 75.8 L (80.0-100.0) fL MCH 22.0 L (25.0-35.0) pg MCHC 29.0 L (31.0-37.0) g/dL RDW 18.7 H (11.5-15.5) % Neutrophils # 7.8 H (1.3-7.7) k/uL Sodium 129 L (137-145) mmol/L Chloride 95 L (98-107) mmol/L BUN 105 H* (9-20) mg/dL Creatinine 2.72 H (0.66-1.25) mg/dL Glucose 141 H (74-99) mg/dL Calcium 7.9 L (8.4-10.2) mg/dL Troponin I 0.054 H* (0.000-0.034) ng/mL 05/07/23 05/07/23 Range/Units 02:19 05:37 WBC (3.8-10.6) k/uL RBC (4.30-5.90) m/uL Hgb (13.0-17.5) gm/dL Hct (39.0-53.0) % MCV (80.0-100.0) fL MCH (25.0-35.0) pg MCHC (31.0-37.0) g/dL RDW (11.5-15.5) % Neutrophils # (1.3-7.7) k/uL Sodium (137-145) mmol/L Chloride (98-107) mmol/L BUN (9-20) mg/dL Creatinine (0.66-1.25) mg/dL Glucose (74-99) mg/dL Calcium (8.4-10.2) mg/dL Troponin I 0.051 H* 0.047 H* (0.000-0.034) ng/mL
--- NOTE | 2023-05-07 14:08 | P.PN ---
Subjective Progress Note Date: 05/07/23 CHIEF COMPLAINT: Constipation HISTORY OF PRESENT ILLNESS: Patient sitting up in bed. He is tolerating br eakfast this morning. Last bowel movement was on Sunday. Denies any abdominal pain. Currently on a renal diet. Per nursing staff patient is more awake today. Afebrile. WBC 11.3 Hgb 8.5 sodium 131 potassium 4.8 creatinine 2.6 PHYSICAL EXAM: VITAL SIGNS: Reviewed GENERAL: Well-developed in no acute distress. HEENT: No sclera icterus. Extraocular movements grossly intact. Moist buccal mucosa. Head is atraumatic, normocephalic. Hears conversational speech. No nasal drainage. NECK: Supple without lymphadenopathy. CHEST: Non-labored respirations and equal bilateral excursions. CARDIOVASCULAR: Palpable 2+ radial pulses. ABDOMEN: Soft. Nondistended. Nontender. MUSCULOSKELETAL: No clubbing or cyanosis. NEUROLOGIC: No focal or lateralizing signs. Cranial nerves II through XII grossly intact. PSYCH: Awake. Confused SKIN: Well perfused. Good skin turgor. ASSESSMENT: 1. 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 Possible rectal prolapse. Currently reduced 3. Constipation 4. Cirrhotic liver 5. Elevated LFTs trending down 6. Acute kidney injury 7. History of atrial fibrillation 10. History of coronary artery disease with cardiac stent in November 2022 11. History of CVA PLAN: -No surgical intervention planned -Continue lactulose -Increase activity level, if possible -Continue supportive care Physician [employer] Supervisor note has been reviewed by physician. Signing provider agrees with the documented findings, assessment, and plan of care. Objective - Vital Signs Vital signs: Vital Signs Temp 97.6 F 05/07/23 07:00 Pulse 92 05/07/23 07:00 Resp 14 05/07/23 07:00 BP 108/64 05/07/23 07:00 Pulse Ox 100 05/07/23 07:00 FiO2 Intake & Output 05/06/23 05/07/23 05/07/23 18:59 06:59 18:59 Intake Total 180 Output Total 350 400 Balance -170 -400 Intake: Oral 180 Output: Urine 350 400 Other: Voiding Method Indwelling Catheter Indwelling Catheter Indwelling Catheter - Labs CBC & Chem 7: 05/07/23 02:19 05/07/23 02:19 Labs: Abnormal Lab Results - Last 24 Hours (Table) 05/06/23 05/06/23 05/06/23 Range/Units 11:23 11:23 22:51 WBC 11.1 H (3.8-10.6) k/uL RBC 3.98 L (4.30-5.90) m/uL Hgb 8.7 L (13.0-17.5) gm/dL Hct 30.1 L (39.0-53.0) % MCV 75.8 L (80.0-100.0) fL MCH 22.0 L (25.0-35.0) pg MCHC 29.0 L (31.0-37.0) g/dL RDW 18.7 H (11.5-15.5) % Neutrophils # 7.8 H (1.3-7.7) k/uL NRBC/100 WBC Diff (0.00-0.01) X 10*3/uL Sodium 129 L (137-145) mmol/L Chloride 95 L (98-107) mmol/L Anion Gap (4.00-12.00) mmol/L BUN 105 H* (9-20) mg/dL Creatinine 2.72 H (0.66-1.25) mg/dL Est GFR (CKD-EPI) (>=60) BUN/Creatinine Ratio (12.00-20.00) Ratio Glucose 141 H (74-99) mg/dL Calcium 7.9 L (8.4-10.2) mg/dL Total Bilirubin (0.3-1.2) mg/dL AST (14-35) U/L ALT (10-49) U/L Alkaline Phosphatase (41-126) U/L Troponin I 0.054 H* (0.000-0.034) ng/mL Total Protein (6.2-8.2) d/dL Albumin (3.8-4.9) d/dL Albumin/Globulin Ratio (1.60-3.17) Ratio 05/07/23 05/07/23 05/07/23 Range/Units 02:19 02:19 02:19 WBC 11.31 H (3.8-10.6) k/uL RBC 4.11 L (4.30-5.90) m/uL Hgb 8.5 L (13.0-17.5) gm/dL Hct 30.9 L (39.0-53.0) % MCV 75.2 L (80.0-100.0) fL MCH 20.7 L (25.0-35.0) pg MCHC 27.5 L (31.0-37.0) g/dL RDW 20.1 H (11.5-15.5) % Neutrophils # 8.00 H (1.3-7.7) k/uL NRBC/100 WBC Diff 0.42 H (0.00-0.01) X 10*3/uL Sodium 131 L (137-145) mmol/L Chloride 93 L (98-107) mmol/L Anion Gap 13.40 H (4.00-12.00) mmol/L BUN 95.9 H (9-20) mg/dL Creatinine 2.6 H (0.66-1.25) mg/dL Est GFR (CKD-EPI) 23 L (>=60) BUN/Creatinine Ratio 36.88 H (12.00-20.00) Ratio Glucose 119 H (74-99) mg/dL Calcium 8.1 L (8.4-10.2) mg/dL Total Bilirubin 1.9 H (0.3-1.2) mg/dL AST 242 H (14-35) U/L ALT 365 H (10-49) U/L Alkaline Phosphatase 128 H (41-126) U/L Troponin I 0.051 H* (0.000-0.034) ng/mL Total Protein 5.7 L (6.2-8.2) d/dL Albumin 3.5 L (3.8-4.9) d/dL Albumin/Globulin Ratio 1.59 L (1.60-3.17) Ratio 05/07/23 Range/Units 05:37 WBC (3.8-10.6) k/uL RBC (4.30-5.90) m/uL Hgb (13.0-17.5) gm/dL Hct (39.0-53.0) % MCV (80.0-100.0) fL MCH (25.0-35.0) pg MCHC (31.0-37.0) g/dL RDW (11.5-15.5) % Neutrophils # (1.3-7.7) k/uL NRBC/100 WBC Diff (0.00-0.01) X 10*3/uL Sodium (137-145) mmol/L Chloride (98-107) mmol/L Anion Gap (4.00-12.00) mmol/L BUN (9-20) mg/dL Creatinine (0.66-1.25) mg/dL Est GFR (CKD-EPI) (>=60) BUN/Creatinine Ratio (12.00-20.00) Ratio Glucose (74-99) mg/dL Calcium (8.4-10.2) mg/dL Total Bilirubin (0.3-1.2) mg/dL AST (14-35) U/L ALT (10-49) U/L Alkaline Phosphatase (41-126) U/L Troponin I 0.047 H* (0.000-0.034) ng/mL Total Protein (6.2-8.2) d/dL Albumin (3.8-4.9) d/dL Albumin/Globulin Ratio (1.60-3.17) Ratio
--- NOTE | 2023-05-07 18:42 | P.PN ---
Subjective Progress Note Date: 05/07/23 Jatinder Ware, is an 87-year-old male patient who initially presented to the ER with concerns of possible rectal prolapse area according to patient he had a large painful p.m. yesterday. Patient appears to be a poor historian most history is obtained from medical record. 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 Patient has past medical history of atrial fibrillation, CVA, hyperlipidemia, hypertension, pneumonia, thyroid disorder. At this time patient will be admitted nephrology cardiology and surgical services consulted patient currently lying in bed eating breakfast denies chest pain or shortness breath. Patient denies nausea vomiting or diarrhea. Patient denies any urinary burning or frequency On 05/05 2023 patient was seen and examined on the medical floor he is alert and oriented 3 in no apparent distress, there is no fever or chills no headache or dizziness no chest pain no shortness of breath no cough no nausea or vomiting no abdominal pain no diarrhea and no urinary symptoms, vital exam reveals a temperature of 98.1 pulse 98 respiration 19 and blood pressure 99/65 pulse ox 99% on room air, sodium 133 potassium 5.3 chloride 98 CO2 17 BUN 103 creatinine 3.20 On 05/06/2023 patient's alert and oriented 3. Patient was started on bicarb drip per nephrology services. Awaiting lab work. Patient denies chest pain or shortness breath. Patient denies nausea vomiting or diarrhea. Patient denies any urinary burning or frequency On 05/07/2023 patient was seen and examined on the medical floor, he is alert slightly confused in no apparent distress, he denies any symptoms at this time vital exam reveals a temperature of 97.4 pulse 80 respiration 16 blood pressure 107/69 pulse ox 100% on 2 L nasal cannula Objective - Vital Signs Vital signs: Vital Signs Temp 97.6 F 05/07/23 07:00 Pulse 92 05/07/23 07:00 Resp 14 05/07/23 07:00 BP 108/64 05/07/23 07:00 Pulse Ox 100 05/07/23 07:00 FiO2 Intake & Output 05/06/23 05/07/23 05/07/23 18:59 06:59 18:59 Intake Total 180 Output Total 350 400 Balance -170 -400 Intake: Oral 180 Output: Urine 350 400 Other: Voiding Method Indwelling Catheter Indwelling Catheter - Exam In general patient is alert and oriented x 3 in no distress HEENT head normocephalic and atraumatic Neck is supple no JVD no goiter no lymphadenopathy no carotid bruit Chest examination is clear to auscultation no crackles no wheezing Cardiac exam reveals regular heart sounds S1 and S2 no gallops no murmurs Abdomen is soft nontender no organomegaly with normal bowel sounds Extremity exam reveals no edema no cyanosis or clubbing Neurological examination reveals no gross focal deficits - Labs CBC & Chem 7: 05/07/23 02:19 05/07/23 02:19 Labs: Abnormal Lab Results - Last 24 Hours (Table) 05/06/23 05/06/23 05/06/23 Range/Units 11:23 11:23 22:51 WBC 11.1 H (3.8-10.6) k/uL RBC 3.98 L (4.30-5.90) m/uL Hgb 8.7 L (13.0-17.5) gm/dL Hct 30.1 L (39.0-53.0) % MCV 75.8 L (80.0-100.0) fL MCH 22.0 L (25.0-35.0) pg MCHC 29.0 L (31.0-37.0) g/dL RDW 18.7 H (11.5-15.5) % Neutrophils # 7.8 H (1.3-7.7) k/uL NRBC/100 WBC Diff (0.00-0.01) X 10*3/uL Sodium 129 L (137-145) mmol/L Chloride 95 L (98-107) mmol/L Anion Gap (4.00-12.00) mmol/L BUN 105 H* (9-20) mg/dL Creatinine 2.72 H (0.66-1.25) mg/dL Est GFR (CKD-EPI) (>=60) BUN/Creatinine Ratio (12.00-20.00) Ratio Glucose 141 H (74-99) mg/dL Calcium 7.9 L (8.4-10.2) mg/dL Total Bilirubin (0.3-1.2) mg/dL AST (14-35) U/L ALT (10-49) U/L Alkaline Phosphatase (41-126) U/L Troponin I 0.054 H* (0.000-0.034) ng/mL Total Protein (6.2-8.2) d/dL Albumin (3.8-4.9) d/dL Albumin/Globulin Ratio (1.60-3.17) Ratio 05/07/23 05/07/23 05/07/23 Range/Units 02:19 02:19 02:19 WBC 11.31 H (3.8-10.6) k/uL RBC 4.11 L (4.30-5.90) m/uL Hgb 8.5 L (13.0-17.5) gm/dL Hct 30.9 L (39.0-53.0) % MCV 75.2 L (80.0-100.0) fL MCH 20.7 L (25.0-35.0) pg MCHC 27.5 L (31.0-37.0) g/dL RDW 20.1 H (11.5-15.5) % Neutrophils # 8.00 H (1.3-7.7) k/uL NRBC/100 WBC Diff 0.42 H (0.00-0.01) X 10*3/uL Sodium 131 L (137-145) mmol/L Chloride 93 L (98-107) mmol/L Anion Gap 13.40 H (4.00-12.00) mmol/L BUN 95.9 H (9-20) mg/dL Creatinine 2.6 H (0.66-1.25) mg/dL Est GFR (CKD-EPI) 23 L (>=60) BUN/Creatinine Ratio 36.88 H (12.00-20.00) Ratio Glucose 119 H (74-99) mg/dL Calcium 8.1 L (8.4-10.2) mg/dL Total Bilirubin 1.9 H (0.3-1.2) mg/dL AST 242 H (14-35) U/L ALT 365 H (10-49) U/L Alkaline Phosphatase 128 H (41-126) U/L Troponin I 0.051 H* (0.000-0.034) ng/mL Total Protein 5.7 L (6.2-8.2) d/dL Albumin 3.5 L (3.8-4.9) d/dL Albumin/Globulin Ratio 1.59 L (1.60-3.17) Ratio 05/07/23 Range/Units 05:37 WBC (3.8-10.6) k/uL RBC (4.30-5.90) m/uL Hgb (13.0-17.5) gm/dL Hct (39.0-53.0) % MCV (80.0-100.0) fL MCH (25.0-35.0) pg MCHC (31.0-37.0) g/dL RDW (11.5-15.5) % Neutrophils # (1.3-7.7) k/uL NRBC/100 WBC Diff (0.00-0.01) X 10*3/uL Sodium (137-145) mmol/L Chloride (98-107) mmol/L Anion Gap (4.00-12.00) mmol/L BUN (9-20) mg/dL Creatinine (0.66-1.25) mg/dL Est GFR (CKD-EPI) (>=60) BUN/Creatinine Ratio (12.00-20.00) Ratio Glucose (74-99) mg/dL Calcium (8.4-10.2) mg/dL Total Bilirubin (0.3-1.2) mg/dL AST (14-35) U/L ALT (10-49) U/L Alkaline Phosphatase (41-126) U/L Troponin I 0.047 H* (0.000-0.034) ng/mL Total Protein (6.2-8.2) d/dL Albumin (3.8-4.9) d/dL Albumin/Globulin Ratio (1.60-3.17) Ratio Assessment and Plan Assessment: 1. Acute renal failure. Nephrology services consulted 2. A. fib with RVR. Cardiology service is consulted 3. 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 Surgical services consulted 4. Elevated liver enzymes ammonia level ordered 5. History of atrial fibrillation 6. History of hyperlipidemia 7. History of essential hypertension DVT prophylaxis Xarelto. GI prophylaxis Protonix Nephrology cardiology and surgical services consulted Repeat labs ordered Ammonia level ordered
[2023-05-07] MEDS: RIVAROXABAN 15 MG TAB PO SCH (21:20)
[2023-05-07] MEDS: EZETIMIBE 10 MG TAB PO SCH (21:20)
[2023-05-08] MEDS: PANTOPRAZOLE 40 MG TABLET PO SCH (05:48)
[2023-05-08 06:42] LABS: ALT 301 U/L (4-49); AST 218 U/L (17-59); African American GFR (CKD) 35 (>60 ml/min/1.73 sqM); Albumin/Globulin Ratio 1.2; Alkaline Phosphatase 99 U/L (38-126); Anion Gap 9 mmol/L; Blood Urea Nitrogen 98 mg/dL (9-20); Calcium 8.1 mg/dL (8.4-10.2); Carbon Dioxide 26 mmol/L (22-30); Chloride 94 mmol/L (98-107); Globulin 2.5 g/dL; Glucose 96 mg/dL (74-99); Magnesium 2.6 mg/dL (1.6-2.3); Non-African American GFR(CKD) 31 (>60 ml/min/1.73 sqM); Sodium 129 mmol/L (137-145); Total Protein 5.5 g/dL (6.3-8.2)
[2023-05-08 06:53] LABS: Potassium 4.2 mmol/L (3.5-5.1)
[2023-05-08] MEDS: METOPROLOL TARTRATE 25 MG TAB PO SCH ×2 (08:43→20:17)
[2023-05-08] MEDS: LACTULOSE 20 GM/30 ML CUP PO SCH ×2 (08:43→20:17)
[2023-05-08] MEDS: CLOPIDOGREL 75 MG TAB PO SCH (08:43)
[2023-05-08] MEDS: SODIUM FERRIC GLUCONAT-SUCROSE 125 MG in SODIUM CHLORIDE 0.9% 100 ML IVPB SCH (08:43)
--- NOTE | 2023-05-08 09:03 | P.PN ---
Subjective Progress Note Date: 05/08/23 Jatinder Ware, is an 87-year-old male patient who initially presented to the ER with concerns of possible rectal prolapse area according to patient he had a large painful p.m. yesterday. Patient appears to be a poor historian most history is obtained from medical record. Abdomen and pelvis CT completed sh owing fecaloma within the patient's rectum measuring 6.6 cm cirrhotic changes or small amount of intra-abdominal ascites soft tissue and anasarca , Lab testing revealed elevated creatinine 2.33 bun 102. Patient has past medical history of atrial fibrillation, CVA, hyperlipidemia, hypertension, pneumonia, thyroid disorder. At this time patient will be admitted nephrology cardiology and surgical services consulted patient currently lying in bed eating breakfast denies chest pain or shortness breath. Patient denies nausea vomiting or diarrhea. Patient denies any urinary burning or frequency On 05/05 2023 patient was seen and examined on the medical floor he is alert and oriented 3 in no apparent distress, there is no fever or chills no headache or dizziness no chest pain no shortness of breath no cough no nausea or vomiting no abdominal pain no diarrhea and no urinary symptoms, vital exam reveals a temperature of 98.1 pulse 98 respiration 19 and blood pressure 99/65 pulse ox 99% on room air, sodium 133 potassium 5.3 chloride 98 CO2 17 BUN 103 creatinine 3.20 On 05/06/2023 patient's alert and oriented 3. Patient was started on bicarb drip per nephrology services. Awaiting lab work. Patient denies chest pain or shortness breath. Patient denies nausea vomiting or diarrhea. Patient denies any urinary burning or frequency On 05/07/2023 patient was seen and examined on the medical floor, he is alert slightly confused in no apparent distress, he denies any symptoms at this time vital exam reveals a temperature of 97.4 pulse 80 respiration 16 blood pressure 107/69 pulse ox 100% on 2 L nasal cannula on 05/08/2023 patient is alert and oriented confused at times. Patient denies any acute complaints. Patient remains on bicarb drip per nephrology services. creatinine this a.m. improving to 1.92 and bun 198. current vital signs temp 97.8, heart rate 84, respiratory rate 16, blood pressure 101/68 with a pulse ox of 100% on 2 L Objective - Vital Signs Vital signs: Vital Signs Temp 97.8 F 05/08/23 07:36 Pulse 84 05/08/23 07:36 Resp 16 05/08/23 07:36 BP 101/68 05/08/23 07:36 Pulse Ox 100 05/08/23 07:36 FiO2 Intake & Output 05/07/23 05/08/23 05/08/23 18:59 06:59 18:59 Output Total 1350 Balance -1350 Output: Urine 1350 Other: Voiding Method Indwelling Catheter Indwelling Catheter - Exam In general patient is alert and oriented x 3 in no distress HEENT head normocephalic and atraumatic Neck is supple no JVD no goiter no lymphadenopathy no carotid bruit Chest examination is clear to auscultation no crackles no wheezing Cardiac exam reveals regular heart sounds S1 and S2 no gallops no murmurs Abdomen is soft nontender no organomegaly with normal bowel sounds Extremity exam reveals no edema no cyanosis or clubbing Neurological examination reveals no gross focal deficits - Labs CBC & Chem 7: 05/07/23 02:19 05/08/23 05:51 Labs: Abnormal Lab Results - Last 24 Hours (Table) 05/07/23 05/07/23 05/08/23 Range/Units 02:19 02:19 05:51 WBC 11.31 H (4.50-10.00) X 10*3/uL RBC 4.11 L (4.40-5.60) X 10*6/uL Hgb 8.5 L (13.0-17.0) d/dL Hct 30.9 L (39.6-50.0) % MCV 75.2 L (80.0-97.0) FL MCH 20.7 L (27.0-32.0) pg MCHC 27.5 L (32.0-37.0) d/dL RDW 20.1 H (11.5-14.5) % Neutrophils # 8.00 H (1.80-7.70) X 10*3/uL NRBC/100 WBC Diff 0.42 H (0.00-0.01) X 10*3/uL Sodium 131 L 129 L (135-145) mmol/L Chloride 93 L 94 L (96-109) mmol/L Anion Gap 13.40 H (4.00-12.00) mmol/L BUN 95.9 H 98 H (9.0-27.0) mg/dL Creatinine 2.6 H 1.92 H (0.6-1.5) mg/dL Est GFR (CKD-EPI) 23 L (>=60) BUN/Creatinine Ratio 36.88 H (12.00-20.00) Ratio Glucose 119 H (70-110) mg/dL Calcium 8.1 L 8.1 L (8.7-10.3) mg/dL Magnesium 2.6 H (1.6-2.3) mg/dL Total Bilirubin 1.9 H 2.0 H (0.3-1.2) mg/dL AST 242 H 218 H (14-35) U/L ALT 365 H 301 H (10-49) U/L Alkaline Phosphatase 128 H (41-126) U/L Total Protein 5.7 L 5.5 L (6.2-8.2) d/dL Albumin 3.5 L 3.0 L (3.8-4.9) d/dL Albumin/Globulin Ratio 1.59 L (1.60-3.17) Ratio Assessment and Plan Assessment: 1. Acute renal failure. Nephrology services consulted 2. A. fib with RVR. Cardiology service is consulted 3. 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 surgical services signed off 4. Elevated liver enzymes ammonia level ordered 5. History of atrial fibrillation 6. History of hyperlipidemia 7. History of essential hypertension DVT prophylaxis Xarelto. GI prophylaxis Protonix Nephrology cardiology and surgical services consulted Maintained on bicarb drip Repeat labs ordered Ammonia level ordered
[2023-05-08] MEDS ORDERED: FUROSEMIDE 10 MG/ML 10 ML VIAL IV STA (09:38)
[2023-05-08 09:42] LABS: HCT 30.2 % (39.6-50.0); HGB 8.2 d/dL (13.0-17.0); MCH 20.3 pg (27.0-32.0); MCHC 27.2 d/dL (32.0-37.0); MCV 74.8 FL (80.0-97.0); Mean Platelet Volume 10.9 FL (9.5-12.2); NRBC Per 100 WBC 0.46 X 10*3/uL (0.00-0.01); Platelet Count 182 X 10*3/uL (140-440); RBC 4.04 X 10*6/uL (4.40-5.60); RDW 20.3 % (11.5-14.5); WBC 9.61 X 10*3/uL (4.50-10.00)
[2023-05-08] MEDS ORDERED: FUROSEMIDE 10 MG/ML 4 ML VIAL IV STA (09:45)
[2023-05-08 10:18] LABS: Acanthocytes 2+; Basophils # (A) 0.01 X 10*3/uL (0.00-0.10); Basophils % (A) 0.1 %; Elliptocytes 2+; Eosinophils # (A) 0.28 X 10*3/uL (0.04-0.35); Eosinophils % (A) 2.9 %; Lymphocytes # (A) 2.08 X 10*3/uL (0.90-5.00); Lymphocytes % (A) 21.6 %; Microcytosis (M) 2+; Monocytes # (A) 0.81 X 10*3/uL (0.20-1.00); Monocytes % (A) 8.4 %; Neutrophils % (A) 66.7 %; Schistocytes 1+
--- NOTE | 2023-05-08 10:34 | P.PN ---
Subjective Progress Note Date: 05/08/23 HISTORY OF PRESENT ILLNESS: This is a 87-year-old male with a past medical history significant for coronary artery disease with previous stenting, valvular heart disease with previous TAVR, hypertension, hyperlipidemia, permanent atrial fibrillation, thoracic aortic aneurysm, and GI bleeding. Patient follows in the office with Dr. Odom. We have been asked to see the patient in consultation for A. fib with RVR. Patient examined at the bedside. According to ER documentation, the patient was brought into the hospital for evaluation of rectal prolapse. When questioning patient at the bedside, he is unsure of why he came to the hospital. At the time of examination, he denies chest pain or pressure. He denies shortness of breath. Patient was found to be in A. fib with RVR upon presentation to the hospital. He was started on IV Cardizem. His home medications were not re sumed. This morning he remains on IV Cardizem at 5 mg an hour. Telemetry reveals atrial fibrillation with a heart rate in the 80s. Patient was also found to have acute renal failure and transaminitis. * EKG reveals A. fib with RVR * Most recent echocardiogram obtained in March 2023 revealed ejection fraction 35-40%, normally functioning bioprosthetic aortic valve, mild TR, mild to moderate pulmonic regurgitation, severe mitral regurgitation * Cardiac catheterization history: March 2023 revealing patent stent in the OM1 of left circumflex which is a dominant vessel. Mild disease involving the LAD. Normal left-sided filling pressures * Previous cardiac catheterization in November 2022 with PCI of the OM1 05/05/2023 Creat increased to 3.2. Tele showing a-fib with HR 90-120. He is feeling ok, denies any pain or chest pain. No shortness of breath. Pt sitting up in bed, reports not feeling well but is unable to explain why. Denies any pain. No shortness of breath. Heart rates are better controlled. Swelling is stable. 05/07 Patient is seen today in follow-up. Patient states that his breathing is okay, no chest pain, no palpitations. Patient is maintained on bicarb drip yesterday and off Lasix. Renal function is slowly improving with BUN of 95 and creatinine 2.6. Blood pressure 107/69, heart rate in the 90s. Patient continues to have lower extremity edema. Noted elevated liver function test that are also improving with total bilirubin 1.9, AST 242, ALT 365, alkaline phosphatase 128. Troponins were 0.054, 0.051 and 0.047. Nephrology has ordered Ferrlecit. 05/08 Patient states that his breathing is okay. He denies having any chest pain. No nausea or vomiting. He is followed closely bynephrology and currently off bicarb drip. He is showing improvement of his kidney function with BUN 98 creatinine 1.92. Note his sodium is 129. blood pressure is on the soft side 101/68, heart rate is in the 80s, pulse ox 100% on 2 L. Coreg was changed to lopressor yesterday. Telemetry is atrial fibrillation. PHYSICAL EXAM: VITAL SIGNS: Reviewed. GENERAL: Well-developed in no acute distress. HEENT: Head is normocephalic. Pupils are equal, round. Sclerae anicteric. Mucous membranes of the mouth are moist. No JVD LUNGS: Respirations even and unlabored. Lungs essentially clear to auscultation bilaterally. HEART: Irregular rate and rhythm. S1 and S2 heard. Systolic murmur noted ABDOMEN: Soft. Nondistended. Nontender. EXTREMITIES: No clubbing or cyanosis. Peripheral pulses intact. 1+ extremity edema NEUROLOGIC: Awake and alert, flat affect. ASSESSMENT: Concerns of rectal prolapse, no surgical intervention planned Permanent atrial fibrillation with RVR Acute renal failure Transaminitis, improving Coronary artery disease with previous stenting, most recently OM in November 2022 Valvular heart disease with previous TAVR, 2019 Ischemic cardiomyopathy Hypertension Hyperlipidemia Thoracic aortic aneurysm History of GI bleeding Flat troponins not indicative of acute coronary syndrome PLAN: Heart rates are better controlled. Continue Lopressor 25 mg twice daily. Continue telemetry monitoring. Hold statin therapy secondary to transaminitis. Monitor kidney function. Nephrology following. Continue anticoagulation with Xarelto. Continue Plavix secondary to recent stenting. Further recommendations pending patient's course. Nurse practitioner note has been reviewed by physician. Signing provider agrees with the documented findings, assessment, and plan of care. Objective - Vital Signs Vital signs: Vital Signs Temp 97.5 F L 05/08/23 02:10 Pulse 88 05/08/23 02:10 Resp 17 05/08/23 02:10 BP 100/69 05/08/23 02:10 Pulse Ox 98 05/08/23 02:10 FiO2 Intake & Output 05/07/23 05/08/23 05/08/23 18:59 06:59 18:59 Output Total 1350 Balance -1350 Output: Urine 1350 Other: Voiding Method Indwelling Catheter Indwelling Catheter - Labs CBC & Chem 7: 05/08/23 05:51 05/08/23 05:51 Labs: Abnormal Lab Results - Last 24 Hours (Table) 05/07/23 05/07/23 05/08/23 Range/Units 02:19 02:19 05:51 WBC 11.31 H (4.50-10.00) X 10*3/uL RBC 4.11 L (4.40-5.60) X 10*6/uL Hgb 8.5 L (13.0-17.0) d/dL Hct 30.9 L (39.6-50.0) % MCV 75.2 L (80.0-97.0) FL MCH 20.7 L (27.0-32.0) pg MCHC 27.5 L (32.0-37.0) d/dL RDW 20.1 H (11.5-14.5) % Neutrophils # 8.00 H (1.80-7.70) X 10*3/uL NRBC/100 WBC Diff 0.42 H (0.00-0.01) X 10*3/uL Sodium 131 L 129 L (135-145) mmol/L Chloride 93 L 94 L (96-109) mmol/L Anion Gap 13.40 H (4.00-12.00) mmol/L BUN 95.9 H 98 H (9.0-27.0) mg/dL Creatinine 2.6 H 1.92 H (0.6-1.5) mg/dL Est GFR (CKD-EPI) 23 L (>=60) BUN/Creatinine Ratio 36.88 H (12.00-20.00) Ratio Glucose 119 H (70-110) mg/dL Calcium 8.1 L 8.1 L (8.7-10.3) mg/dL Magnesium 2.6 H (1.6-2.3) mg/dL Total Bilirubin 1.9 H 2.0 H (0.3-1.2) mg/dL AST 242 H 218 H (14-35) U/L ALT 365 H 301 H (10-49) U/L Alkaline Phosphatase 128 H (41-126) U/L Total Protein 5.7 L 5.5 L (6.2-8.2) d/dL Albumin 3.5 L 3.0 L (3.8-4.9) d/dL Albumin/Globulin Ratio 1.59 L (1.60-3.17) Ratio
--- NOTE | 2023-05-08 12:00 | P.PN ---
Subjective Patient is seen in follow-up for acute kidney injury. Renal function improving. Nonoliguric. On bicarb drip. Acidosis resolved. Hemodynamically stable. Wants to go home. Vital signs are stable. General: No acute distress. HEENT: Head exam is unremarkable. On nasal cannula. LUNGS: No audible rhonchi or wheezes. HEART: Rate and Rhythm are regular. ABDOMEN: Nontender. EXTREMITITES: 2+ edema. Objective - Vital Signs Vital signs: Vital Signs Temp 97.8 F 05/08/23 07:36 Pulse 84 05/08/23 08:00 Resp 16 05/08/23 07:36 BP 101/68 05/08/23 07:36 Pulse Ox 100 05/08/23 07:36 FiO2 Intake & Output 05/07/23 05/08/23 05/08/23 18:59 06:59 18:59 Intake Total 180 Output Total 1350 Balance -1350 180 Intake: Oral 180 Output: Urine 1350 Other: Voiding Method Indwelling Catheter Indwelling Catheter Indwelling Catheter - Labs CBC & Chem 7: 05/08/23 05:51 05/08/23 05:51 Labs: Abnormal Lab Results - Last 24 Hours (Table) 05/08/23 05/08/23 Range/Units 05:51 05:51 RBC 4.04 L (4.40-5.60) X 10*6/uL Hgb 8.2 L (13.0-17.0) d/dL Hct 30.2 L (39.6-50.0) % MCV 74.8 L (80.0-97.0) FL MCH 20.3 L (27.0-32.0) pg MCHC 27.2 L (32.0-37.0) d/dL RDW 20.3 H (11.5-14.5) % NRBC/100 WBC Diff 0.46 H (0.00-0.01) X 10*3/uL Microcytosis (manual) 2+ A Elliptocytes 2+ A Acanthocytes (Spur) 2+ A Schistocytes 1+ A Sodium 129 L (137-145) mmol/L Chloride 94 L (98-107) mmol/L BUN 98 H (9-20) mg/dL Creatinine 1.92 H (0.66-1.25) mg/dL Calcium 8.1 L (8.4-10.2) mg/dL Magnesium 2.6 H (1.6-2.3) mg/dL Total Bilirubin 2.0 H (0.2-1.3) mg/dL AST 218 H (17-59) U/L ALT 301 H (4-49) U/L Total Protein 5.5 L (6.3-8.2) g/dL Albumin 3.0 L (3.5-5.0) g/dL Assessment and Plan Plan: Assessment: 1. Acute kidney injury secondary to ATN secondary to hemodynamic instability and cardiorenal syndrome. Creatinine peaked at 3.2 this admission - 1.92 today. Baseline creatinine near 1. No hydronephrosis noted on CT/uls. 2. A. fib with RVR maintained on Coreg. Cardiology following. Status post Cardizem drip. 3. Hypervolemic hyponatremia. 4. Volume overload. 5. Anemia. Iron deficiency noted. 6. Acute on chronic systolic CHF ejection fraction of 35-40% with severe mitral regurgitation and mild to moderate pulmonary regurgitation. 7. Coronary artery disease with cardiac stenting. 8. Metabolic acidosis secondary to acute kidney injury. On bicarb drip. Improved. Plan: Hep-Lock IV fluids. Repeat Lasix 80 mg IV once today, then start 40 mg IV twice daily. Maintain Coe catheter. Maintain IV iron. Avoid nephrotoxins. Continue to monitor renal function and urine output. Low-salt diet and 1500 mL fluid restriction. Continue to assess daily for need for renal replacement therapy. CODE STATUS discussed with patient. Does not want CPR. Discussed with patient' s nurse. 20 minutes spent.
[2023-05-08] MEDS ORDERED: DARBEPOETIN ALFA 40 MCG/0.4 ML SYRINGE SQ SCH (13:00)
[2023-05-08] MEDS: RIVAROXABAN 15 MG TAB PO SCH (20:17)
[2023-05-08] MEDS: EZETIMIBE 10 MG TAB PO SCH (20:17)
[2023-05-09] MEDS: PANTOPRAZOLE 40 MG TABLET PO SCH (05:54)
[2023-05-09] MEDS: LACTULOSE 20 GM/30 ML CUP PO SCH ×2 (08:43→21:33)
[2023-05-09] MEDS: SODIUM FERRIC GLUCONAT-SUCROSE 125 MG in SODIUM CHLORIDE 0.9% 100 ML IVPB SCH (08:43)
[2023-05-09] MEDS: CLOPIDOGREL 75 MG TAB PO SCH (08:44)
[2023-05-09] MEDS: METOPROLOL TARTRATE 25 MG TAB PO SCH ×2 (08:44→21:32)
[2023-05-09 09:16] LABS: ALT 262 U/L (10-49); AST 158 U/L (14-35); Albumin 3.2 d/dL (3.8-4.9); Albumin/Globulin Ratio 1.68 Ratio (1.60-3.17); Alkaline Phosphatase 109 U/L (41-126); BUN/Creat Ratio 36.81 Ratio (12.00-20.00); Blood Urea Nitrogen 77.3 mg/dL (9.0-27.0); Calcium 8.7 mg/dL (8.7-10.3); Chloride 92 mmol/L (96-109); Globulin 1.9 d/dL (1.6-3.3); Glucose 89 mg/dL (70-110); Magnesium 2.6 mg/dL (1.5-2.4); Potassium 3.9 mmol/L (3.5-5.5); Sodium 133 mmol/L (135-145); Total Bilirubin 1.7 mg/dL (0.3-1.2); Total Protein 5.1 d/dL (6.2-8.2)
[2023-05-09 09:18] LABS: Basophils # (A) 0.02 X 10*3/uL (0.00-0.10); Basophils % (A) 0.2 %; Eosinophils # (A) 0.28 X 10*3/uL (0.04-0.35); Eosinophils % (A) 2.5 %; HCT 29.3 % (39.6-50.0); Lymphocytes # (A) 2.64 X 10*3/uL (0.90-5.00); Lymphocytes % (A) 23.5 %; MCH 20.1 pg (27.0-32.0); MCHC 27.3 d/dL (32.0-37.0); MCV 73.4 FL (80.0-97.0); Mean Platelet Volume 10.7 FL (9.5-12.2); Monocytes # (A) 1.01 X 10*3/uL (0.20-1.00); Neutrophils # (A) 7.23 X 10*3/uL (1.80-7.70); Neutrophils % (A) 64.3 %; Platelet Count 204 X 10*3/uL (140-440); RBC 3.99 X 10*6/uL (4.40-5.60); RDW 20.3 % (11.5-14.5); WBC 11.24 X 10*3/uL (4.50-10.00)
--- NOTE | 2023-05-09 10:25 | P.PN ---
Subjective Progress Note Date: 05/09/23 HISTORY OF PRESENT ILLNESS: This is a 87-year-old male with a past medical history significant for coronary artery disease with previous stenting, valvular heart disease with previous TAVR, hypertension, hyperlipidemia, permanent atrial fibrillation, thoracic aortic aneurysm, and GI bleeding. Patient follows in the office with Dr. Odom. We have been asked to see the patient in consultation for A. fib with RVR. Patient examined at the bedside. According to ER documentation, the patient was brought into the hospital for evaluation of rectal prolapse. When questioning patient at the bedside, he is unsure of why he came to the hospital. At the time of examination, he denies chest pain or pressure. He denies shortness of breath. Patient was found to be in A. fib with RVR upon presentation to the hospital. He was started on IV Cardizem. His home medications were not re sumed. This morning he remains on IV Cardizem at 5 mg an hour. Telemetry reveals atrial fibrillation with a heart rate in the 80s. Patient was also found to have acute renal failure and transaminitis. * EKG reveals A. fib with RVR * Most recent echocardiogram obtained in March 2023 revealed ejection fraction 35-40%, normally functioning bioprosthetic aortic valve, mild TR, mild to moderate pulmonic regurgitation, severe mitral regurgitation * Cardiac catheterization history: March 2023 revealing patent stent in the OM1 of left circumflex which is a dominant vessel. Mild disease involving the LAD. Normal left-sided filling pressures * Previous cardiac catheterization in November 2022 with PCI of the OM1 05/05/2023 Creat increased to 3.2. Tele showing a-fib with HR 90-120. He is feeling ok, denies any pain or chest pain. No shortness of breath. Pt sitting up in bed, reports not feeling well but is unable to explain why. Denies any pain. No shortness of breath. Heart rates are better controlled. Swelling is stable. 05/07 Patient is seen today in follow-up. Patient states that his breathing is okay, no chest pain, no palpitations. Patient is maintained on bicarb drip yesterday and off Lasix. Renal function is slowly improving with BUN of 95 and creatinine 2.6. Blood pressure 107/69, heart rate in the 90s. Patient continues to have lower extremity edema. Noted elevated liver function test that are also improving with total bilirubin 1.9, AST 242, ALT 365, alkaline phosphatase 128. Troponins were 0.054, 0.051 and 0.047. Nephrology has ordered Ferrlecit. 05/08 Patient states that his breathing is okay. He denies having any chest pain. No nausea or vomiting. He is followed closely bynephrology and currently off bicarb drip. He is showing improvement of his kidney function with BUN 98 creatinine 1.92. Note his sodium is 129. blood pressure is on the soft side 101/68, heart rate is in the 80s, pulse ox 100% on 2 L. Coreg was changed to lopressor yesterday. Telemetry is atrial fibrillation. 05/09 The patient is seen today in follow-up. He states he had a rough night because he could not sleep. He states his breathing is okay. He denies any chest pain. No nausea or vomiting. He has lower extremity edema and nephrology did order a dose of IV Lasix yesterday 80 mg and plan to start him on 40 mg twice daily according to the note. Repeat blood work reveals WBC 11.2, hemoglobin 8, sodium 133, BUN 77 creatinine 2.1. Heart rate is running between 56 and 91, blood pressure 93/64, pulse ox 97% on 2 L nasal cannula. PHYSICAL EXAM: VITAL SIGNS: Reviewed. GENERAL: Well-developed in no acute distress. HEENT: Head is normocephalic. Pupils are equal, round. Sclerae anicteric. Mucous membranes of the mouth are moist. No JVD LUNGS: Respirations even and unlabored. Lungs essentially clear to auscultation bilaterally. HEART: Irregular rate and rhythm. S1 and S2 heard. Systolic murmur noted ABDOMEN: Soft. Nondistended. Nontender. EXTREMITIES: No clubbing or cyanosis. Peripheral pulses intact. 2+ extremity edema NEUROLOGIC: Awake and alert, flat affect. ASSESSMENT: Concerns of rectal prolapse, no surgical intervention planned Permanent atrial fibrillation with RVR Acute renal failure Transaminitis, improving Coronary artery disease with previous stenting, most recently OM in November 2022 Valvular heart disease with previous TAVR, 2019 Ischemic cardiomyopathy Hypertension Hyperlipidemia Thoracic aortic aneurysm History of GI bleeding Flat troponins not indicative of acute coronary syndrome PLAN: Continue Lopressor 25 mg twice daily. Continue telemetry monitoring. Hold statin therapy secondary to transaminitis. Monitor kidney function. Nephrology following. Continue anticoagulation with Xarelto. Continue Plavix secondary to recent stenting. Nephrology is managing diuretics Further recommendations pending patient's course. Nurse practitioner note has been reviewed by physician. Signing provider agrees with the documented findings, assessment, and plan of care. Objective - Vital Signs Vital signs: Vital Signs Temp 97.7 F 05/09/23 00:53 Pulse 56 L 05/09/23 00:53 Resp 16 05/09/23 00:53 BP 89/50 05/09/23 00:53 Pulse Ox 92 L 05/09/23 00:53 FiO2 Intake & Output 05/08/23 05/09/23 05/09/23 18:59 06:59 18:59 Intake Total 450 Output Total 1050 Balance 450 -1050 Intake: Oral 450 Output: Urine 1050 Other: Voiding Method Indwelling Catheter Indwelling Catheter # Voids 1 - Labs CBC & Chem 7: 05/09/23 05:30 05/09/23 05:30 Labs: Abnormal Lab Results - Last 24 Hours (Table) 05/08/23 Range/Units 05:51 RBC 4.04 L (4.40-5.60) X 10*6/uL Hgb 8.2 L (13.0-17.0) d/dL Hct 30.2 L (39.6-50.0) % MCV 74.8 L (80.0-97.0) FL MCH 20.3 L (27.0-32.0) pg MCHC 27.2 L (32.0-37.0) d/dL RDW 20.3 H (11.5-14.5) % NRBC/100 WBC Diff 0.46 H (0.00-0.01) X 10*3/uL Microcytosis (manual) 2+ A Elliptocytes 2+ A Acanthocytes (Spur) 2+ A Schistocytes 1+ A
--- NOTE | 2023-05-09 12:13 | P.PN ---
Subjective Patient is seen in follow-up for acute kidney injury. Renal function fairly stable. On IV Lasix. Nonoliguric. Hemodynamically stable. Wants to go home. Vital signs are stable. General: No acute distress. HEENT: Head exam is unremarkable. On nasal cannula. LUNGS: No audible rhonchi or wheezes. HEART: Rate and Rhythm are regular. ABDOMEN: Nontender. EXTREMITITES: 2+ edema. Objective - Vital Signs Vital signs: Vital Signs Temp 98.0 F 05/09/23 08:00 Pulse 89 05/09/23 08:00 Resp 16 05/09/23 08:00 BP 93/64 05/09/23 08:00 Pulse Ox 97 05/09/23 08:00 FiO2 Intake & Output 05/08/23 05/09/23 05/09/23 18:59 06:59 18:59 Intake Total 450 590 Output Total 1050 Balance 450 -1050 590 Intake: Oral 450 590 Output: Urine 1050 Other: Voiding Method Indwelling Catheter Indwelling Catheter Indwelling Catheter # Voids 1 - Labs CBC & Chem 7: 05/09/23 05:30 05/09/23 05:30 Labs: Abnormal Lab Results - Last 24 Hours (Table) 05/09/23 05/09/23 Range/Units 05:30 05:30 WBC 11.24 H (4.50-10.00) X 10*3/uL RBC 3.99 L (4.40-5.60) X 10*6/uL Hgb 8.0 L (13.0-17.0) d/dL Hct 29.3 L (39.6-50.0) % MCV 73.4 L (80.0-97.0) FL MCH 20.1 L (27.0-32.0) pg MCHC 27.3 L (32.0-37.0) d/dL RDW 20.3 H (11.5-14.5) % Monocytes # 1.01 H (0.20-1.00) X 10*3/uL NRBC/100 WBC Diff 0.30 H (0.00-0.01) X 10*3/uL Sodium 133 L (135-145) mmol/L Chloride 92 L (96-109) mmol/L Anion Gap 14.00 H (4.00-12.00) mmol/L BUN 77.3 H (9.0-27.0) mg/dL Creatinine 2.1 H (0.6-1.5) mg/dL Est GFR (CKD-EPI) 30 L (>=60) BUN/Creatinine Ratio 36.81 H (12.00-20.00) Ratio Magnesium 2.6 H (1.5-2.4) mg/dL Total Bilirubin 1.7 H (0.3-1.2) mg/dL AST 158 H (14-35) U/L ALT 262 H (10-49) U/L Total Protein 5.1 L (6.2-8.2) d/dL Albumin 3.2 L (3.8-4.9) d/dL Assessment and Plan Plan: Assessment: 1. Acute kidney injury secondary to ATN secondary to hemodynamic instability and cardiorenal syndrome. Creatinine peaked at 3.2 this admission - 2.1 today. Baseline creatinine near 1. No hydronephrosis noted on CT/uls. 2. A. fib with RVR maintained on Coreg. Cardiology following. Status post Cardizem drip. 3. Hypervolemic hyponatremia. Better. 4. Volume overload. Improving with diuresis 5. Anemia. Iron deficiency noted. Receiving IV iron. Also on Aranesp. 6. Acute on chronic systolic CHF ejection fraction of 35-40% with severe mitral regurgitation and mild to moderate pulmonary regurgitation. 7. Coronary artery disease with cardiac stenting. 8. Metabolic acidosis secondary to acute kidney injury. s/p bicarb drip. Improved. Plan: Maintain IV Lasix. Add [id number]. Maintain Coe catheter. Avoid nephrotoxins. Continue to monitor renal function and urine output. Low-salt diet and 1500 mL fluid restriction. Continue to assess daily for need for renal replacement therapy.
[2023-05-09] MEDS: DAPAGLIFLOZIN PROPANEDIOL 5 MG TABLET PO SCH (13:35)
[2023-05-09] MEDS: FUROSEMIDE 10 MG/ML 4 ML VIAL IV SCH ×2 (13:35→21:33)
--- NOTE | 2023-05-09 13:42 | P.PN ---
Subjective Progress Note Date: 05/09/23 Jatinder Ware, is an 87-year-old male patient who initially presented to the ER with concerns of possible rectal prolapse area according to patient he had a large painful p.m. yesterday. Patient appears to be a poor historian most history is obtained from medical record. 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 Patient has past medical history of atrial fibrillation, CVA, hyperlipidemia, hypertension, pneumonia, thyroid disorder. At this time patient will be admitted nephrology cardiology and surgical services consulted patient currently lying in bed eating breakfast denies chest pain or shortness breath. Patient denies nausea vomiting or diarrhea. Patient denies any urinary burning or frequency On 05/05 2023 patient was seen and examined on the medical floor he is alert and oriented 3 in no apparent distress, there is no fever or chills no headache or dizziness no chest pain no shortness of breath no cough no nausea or vomiting no abdominal pain no diarrhea and no urinary symptoms, vital exam reveals a temperature of 98.1 pulse 98 respiration 19 and blood pressure 99/65 pulse ox 99% on room air, sodium 133 potassium 5.3 chloride 98 CO2 17 BUN 103 creatinine 3.20 On 05/06/2023 patient's alert and oriented 3. Patient was started on bicarb drip per nephrology services. Awaiting lab work. Patient denies chest pain or shortness breath. Patient denies nausea vomiting or diarrhea. Patient denies any urinary burning or frequency On 05/07/2023 patient was seen and examined on the medical floor, he is alert slightly confused in no apparent distress, he denies any symptoms at this time vital exam reveals a temperature of 97.4 pulse 80 respiration 16 blood pressure 107/69 pulse ox 100% on 2 L nasal cannula. on 05/08/2023 patient is alert and oriented confused at times. Patient denies any acute complaints. Patient remains on bicarb drip per nephrology services. creatinine this a.m. improving to 1.92 and bun 198. current vital signs temp 97.8, heart rate 84, respiratory rate 16, blood pressure 101/68 with a pulse ox of 100% on 2 L On 05/09/2023 patient was seen and examined on the medical floor he is alert and oriented 3 in no apparent distress there is no fever or chills no headache or dizziness no chest pain no shortness of breath at rest no cough no nausea or vomiting no abdominal pain no diarrhea and no urinary symptoms. He is still maintained on oxygen 2 L via nasal cannula, he still has Coe catheter in, per nephrology continue with IV Lasix, will recheck in a.m.. Objective - Vital Signs Vital signs: Vital Signs Temp 98.0 F 05/09/23 08:00 Pulse 89 05/09/23 08:00 Resp 16 05/09/23 08:00 BP 93/64 05/09/23 08:00 Pulse Ox 97 05/09/23 08:00 FiO2 Intake & Output 05/08/23 05/09/23 05/09/23 18:59 06:59 18:59 Intake Total 450 Output Total 1050 Balance 450 -1050 Intake: Oral 450 Output: Urine 1050 Other: Voiding Method Indwelling Catheter Indwelling Catheter Indwelling Catheter # Voids 1 - Exam In general patient is alert and oriented x 3 in no distress HEENT head normocephalic and atraumatic Neck is supple no JVD no goiter no lymphadenopathy no carotid bruit Chest examination is clear to auscultation no crackles no wheezing Cardiac exam reveals regular heart sounds S1 and S2 no gallops no murmurs Abdomen is soft nontender no organomegaly with normal bowel sounds Extremity exam reveals no edema no cyanosis or clubbing Neurological examination reveals no gross focal deficits - Labs CBC & Chem 7: 05/09/23 05:30 05/09/23 05:30 Labs: Abnormal Lab Results - Last 24 Hours (Table) 05/08/23 05/09/23 05/09/23 Range/Units 05:51 05:30 05:30 WBC 11.24 H (4.50-10.00) X 10*3/uL RBC 3.99 L (4.40-5.60) X 10*6/uL Hgb 8.0 L (13.0-17.0) d/dL Hct 29.3 L (39.6-50.0) % MCV 73.4 L (80.0-97.0) FL MCH 20.1 L (27.0-32.0) pg MCHC 27.3 L (32.0-37.0) d/dL RDW 20.3 H (11.5-14.5) % Monocytes # 1.01 H (0.20-1.00) X 10*3/uL NRBC/100 WBC Diff 0.30 H (0.00-0.01) X 10*3/uL Microcytosis (manual) 2+ A Elliptocytes 2+ A Acanthocytes (Spur) 2+ A Schistocytes 1+ A Sodium 133 L (135-145) mmol/L Chloride 92 L (96-109) mmol/L Anion Gap 14.00 H (4.00-12.00) mmol/L BUN 77.3 H (9.0-27.0) mg/dL Creatinine 2.1 H (0.6-1.5) mg/dL Est GFR (CKD-EPI) 30 L (>=60) BUN/Creatinine Ratio 36.81 H (12.00-20.00) Ratio Magnesium 2.6 H (1.5-2.4) mg/dL Total Bilirubin 1.7 H (0.3-1.2) mg/dL AST 158 H (14-35) U/L ALT 262 H (10-49) U/L Total Protein 5.1 L (6.2-8.2) d/dL Albumin 3.2 L (3.8-4.9) d/dL Assessment and Plan Assessment: 1. Acute renal failure. Nephrology services consulted 2. A. fib with RVR. Cardiology service is consulted 3. 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 Surgical services consulted 4. Elevated liver enzymes ammonia level ordered 5. History of atrial fibrillation 6. History of hyperlipidemia 7. History of essential hypertension DVT prophylaxis Xarelto. GI prophylaxis Protonix Nephrology cardiology and surgical services consulted Repeat labs ordered Ammonia level ordered
[2023-05-09] MEDS: RIVAROXABAN 15 MG TAB PO SCH (21:32)
[2023-05-09] MEDS: EZETIMIBE 10 MG TAB PO SCH (21:32)
[2023-05-10] MEDS: PANTOPRAZOLE 40 MG TABLET PO SCH (06:05)
--- NOTE | 2023-05-10 09:13 | P.PN ---
Subjective Progress Note Date: 05/10/23 HISTORY OF PRESENT ILLNESS: This is a 87-year-old male with a past medical history significant for coronary artery disease with previous stenting, valvular heart disease with previous TAVR, hypertension, hyperlipidemia, permanent atrial fibrillation, thoracic aortic aneurysm, and GI bleeding. Patient follows in the office with Dr. Odom. We have been asked to see the patient in consultation for A. fib with RVR. Patient examined at the bedside. According to ER documentation, the patient was brought into the hospital for evaluation of rectal prolapse. When questioning patient at the bedside, he is unsure of why he came to the hospital. At the time of examination, he denies chest pain or pressure. He denies shortness of breath. Patient was found to be in A. fib with RVR upon presentation to the hospital. He was started on IV Cardizem. His home medications were not re sumed. This morning he remains on IV Cardizem at 5 mg an hour. Telemetry reveals atrial fibrillation with a heart rate in the 80s. Patient was also found to have acute renal failure and transaminitis. * EKG reveals A. fib with RVR * Most recent echocardiogram obtained in March 2023 revealed ejection fraction 35-40%, normally functioning bioprosthetic aortic valve, mild TR, mild to moderate pulmonic regurgitation, severe mitral regurgitation * Cardiac catheterization history: March 2023 revealing patent stent in the OM1 of left circumflex which is a dominant vessel. Mild disease involving the LAD. Normal left-sided filling pressures * Previous cardiac catheterization in November 2022 with PCI of the OM1 05/05/2023 Creat increased to 3.2. Tele showing a-fib with HR 90-120. He is feeling ok, denies any pain or chest pain. No shortness of breath. Pt sitting up in bed, reports not feeling well but is unable to explain why. Denies any pain. No shortness of breath. Heart rates are better controlled. Swelling is stable. 05/07 Patient is seen today in follow-up. Patient states that his breathing is okay, no chest pain, no palpitations. Patient is maintained on bicarb drip yesterday and off Lasix. Renal function is slowly improving with BUN of 95 and creatinine 2.6. Blood pressure 107/69, heart rate in the 90s. Patient continues to have lower extremity edema. Noted elevated liver function test that are also improving with total bilirubin 1.9, AST 242, ALT 365, alkaline phosphatase 128. Troponins were 0.054, 0.051 and 0.047. Nephrology has ordered Ferrlecit. 05/08 Patient states that his breathing is okay. He denies having any chest pain. No nausea or vomiting. He is followed closely bynephrology and currently off bicarb drip. He is showing improvement of his kidney function with BUN 98 creatinine 1.92. Note his sodium is 129. blood pressure is on the soft side 101/68, heart rate is in the 80s, pulse ox 100% on 2 L. Coreg was changed to lopressor yesterday. Telemetry is atrial fibrillation. 05/09 The patient is seen today in follow-up. He states he had a rough night because he could not sleep. He states his breathing is okay. He denies any chest pain. No nausea or vomiting. He has lower extremity edema and nephrology did order a dose of IV Lasix yesterday 80 mg and plan to start him on 40 mg twice daily according to the note. Repeat blood work reveals WBC 11.2, hemoglobin 8, sodium 133, BUN 77 creatinine 2.1. Heart rate is running between 56 and 91, blood pressure 93/64, pulse ox 97% on 2 L nasal cannula. 05/10 Repeat blood work is not available at the time of this dictation. Patient is currently maintained on IV Lasix 40 mg every 12 hours per nephrology. Heart rate has been in the 70s to 90s, blood pressure 109/64, pulse ox 100% on 2 L nasal cannula. Telemetry has rate controlled atrial fibrillation. Patient c ontinues to have lower extremity edema. PHYSICAL EXAM: VITAL SIGNS: Reviewed. GENERAL: Well-developed in no acute distress. HEENT: Head is normocephalic. Pupils are equal, round. Sclerae anicteric. Mucous membranes of the mouth are moist. No JVD LUNGS: Respirations even and unlabored. Lungs essentially clear to auscultation bilaterally. HEART: Irregular rate and rhythm. S1 and S2 heard. Systolic murmur noted ABDOMEN: Soft. Nondistended. Nontender. EXTREMITIES: No clubbing or cyanosis. Peripheral pulses intact. 2+ extremity edema NEUROLOGIC: Awake and alert, flat affect. ASSESSMENT: Concerns of rectal prolapse, no surgical intervention planned Permanent atrial fibrillation with RVR Acute renal failure Transaminitis, improving Coronary artery disease with previous stenting, most recently OM in November 2022 Valvular heart disease with previous TAVR, 2019 Ischemic cardiomyopathy Hypertension Hyperlipidemia Thoracic aortic aneurysm History of GI bleeding Flat troponins not indicative of acute coronary syndrome PLAN: Continue Lopressor 25 mg twice daily. Discontinue telemetry monitoring. Hold statin therapy secondary to transaminitis. Monitor kidney function. Nephrology following. Continue anticoagulation with Xarelto. Continue Plavix secondary to recent stenting. Nephrology is managing diuretics Cardiology will sign off this case and follow on an as-needed basis. Please reconsult for any new concerns. Patient may follow-up in the office in one to 2 weeks. Nurse practitioner note has been reviewed by physician. Signing provider agrees with the documented findings, assessment, and plan of care. Objective - Vital Signs Vital signs: Vital Signs Temp 97.8 F 05/10/23 02:23 Pulse 89 05/10/23 02:23 Resp 16 05/10/23 02:23 BP 116/77 05/10/23 02:23 Pulse Ox 96 05/10/23 02:23 FiO2 Intake & Output 05/09/23 05/10/23 05/10/23 18:59 06:59 18:59 Intake Total 590 Output Total 2000 Balance 590 -2000 Intake: Oral 590 Output: Urine 2000 Other: Voiding Method Indwelling Catheter Indwelling Catheter # Voids 500 - Labs CBC & Chem 7: 05/09/23 05:30 05/09/23 05:30 Labs: Abnormal Lab Results - Last 24 Hours (Table) 05/09/23 05/09/23 Range/Units 05:30 05:30 WBC 11.24 H (4.50-10.00) X 10*3/uL RBC 3.99 L (4.40-5.60) X 10*6/uL Hgb 8.0 L (13.0-17.0) d/dL Hct 29.3 L (39.6-50.0) % MCV 73.4 L (80.0-97.0) FL MCH 20.1 L (27.0-32.0) pg MCHC 27.3 L (32.0-37.0) d/dL RDW 20.3 H (11.5-14.5) % Monocytes # 1.01 H (0.20-1.00) X 10*3/uL NRBC/100 WBC Diff 0.30 H (0.00-0.01) X 10*3/uL Sodium 133 L (135-145) mmol/L Chloride 92 L (96-109) mmol/L Anion Gap 14.00 H (4.00-12.00) mmol/L BUN 77.3 H (9.0-27.0) mg/dL Creatinine 2.1 H (0.6-1.5) mg/dL Est GFR (CKD-EPI) 30 L (>=60) BUN/Creatinine Ratio 36.81 H (12.00-20.00) Ratio Magnesium 2.6 H (1.5-2.4) mg/dL Total Bilirubin 1.7 H (0.3-1.2) mg/dL AST 158 H (14-35) U/L ALT 262 H (10-49) U/L Total Protein 5.1 L (6.2-8.2) d/dL Albumin 3.2 L (3.8-4.9) d/dL
[2023-05-10] MEDS: FUROSEMIDE 10 MG/ML 4 ML VIAL IV SCH (09:36)
[2023-05-10] MEDS: LACTULOSE 20 GM/30 ML CUP PO SCH ×2 (09:36→22:12)
[2023-05-10] MEDS: DAPAGLIFLOZIN PROPANEDIOL 5 MG TABLET PO SCH (09:36)
[2023-05-10] MEDS: CLOPIDOGREL 75 MG TAB PO SCH (09:36)
[2023-05-10] MEDS: METOPROLOL TARTRATE 25 MG TAB PO SCH ×2 (09:37→22:12)
[2023-05-10] MEDS: SODIUM FERRIC GLUCONAT-SUCROSE 125 MG in SODIUM CHLORIDE 0.9% 100 ML IVPB SCH (09:37)
[2023-05-10] MEDS: TAMSULOSIN 0.4 MG CAP.ER.24H PO SCH (09:58)
[2023-05-10 11:07] LABS: Basophils # (A) 0.03 X 10*3/uL (0.00-0.10); Basophils % (A) 0.3 %; Eosinophils # (A) 0.23 X 10*3/uL (0.04-0.35); Eosinophils % (A) 2.3 %; HCT 30.2 % (39.6-50.0); HGB 8.2 d/dL (13.0-17.0); Lymphocytes # (A) 2.71 X 10*3/uL (0.90-5.00); Lymphocytes % (A) 26.8 %; MCH 20.4 pg (27.0-32.0); MCHC 27.2 d/dL (32.0-37.0); MCV 75.3 FL (80.0-97.0); Monocytes % (A) 7.9 %; NRBC Per 100 WBC 0.12 X 10*3/uL (0.00-0.01); Neutrophils # (A) 6.31 X 10*3/uL (1.80-7.70); Neutrophils % (A) 62.3 %; Platelet Count 191 X 10*3/uL (140-440); RBC 4.01 X 10*6/uL (4.40-5.60); RDW 20.6 % (11.5-14.5); WBC 10.12 X 10*3/uL (4.50-10.00)
[2023-05-10 11:15] LABS: ALT 225 U/L (10-49); AST 121 U/L (14-35); Albumin 3.1 d/dL (3.8-4.9); Albumin/Globulin Ratio 1.63 Ratio (1.60-3.17); Alkaline Phosphatase 103 U/L (41-126); BUN/Creat Ratio 42.13 Ratio (12.00-20.00); Blood Urea Nitrogen 63.2 mg/dL (9.0-27.0); Calcium 8.6 mg/dL (8.7-10.3); Carbon Dioxide 32.5 mmol/L (21.6-31.8); Chloride 96 mmol/L (96-109); Globulin 1.9 d/dL (1.6-3.3); Glucose 86 mg/dL (70-110); Potassium 3.1 mmol/L (3.5-5.5); Sodium 139 mmol/L (135-145); Total Bilirubin 1.5 mg/dL (0.3-1.2)
--- NOTE | 2023-05-10 12:07 | P.PN ---
Subjective Patient is seen in follow-up for acute kidney injury. Renal function better. On IV Lasix. Nonoliguric. Hemodynamically stable. No active complaints. Vital signs are stable. General: No acute distress. HEENT: Head exam is unremarkable. On nasal cannula. LUNGS: No audible rhonchi or wheezes. HEART: Rate and Rhythm are regular. ABDOMEN: Nontender. EXTREMITITES: 1+ edema. Objective - Vital Signs Vital signs: Vital Signs Temp 97.4 F L 05/10/23 08:00 Pulse 74 05/10/23 08:00 Resp 14 05/10/23 08:00 BP 109/64 05/10/23 08:00 Pulse Ox 100 05/10/23 08:00 FiO2 Intake & Output 05/09/23 05/10/23 05/10/23 18:59 06:59 18:59 Intake Total 590 418 Output Total 2000 600 Balance 590 -1999 -182 Intake: Oral 590 418 Output: Urine 1999 600 Other: Voiding Method Indwelling Catheter Indwelling Catheter Indwelling Catheter # Voids 500 - Labs CBC & Chem 7: 05/10/23 06:55 05/10/23 06:55 Labs: Abnormal Lab Results - Last 24 Hours (Table) 05/10/23 05/10/23 Range/Units 06:55 06:55 WBC 10.12 H (4.50-10.00) X 10*3/uL RBC 4.01 L (4.40-5.60) X 10*6/uL Hgb 8.2 L (13.0-17.0) d/dL Hct 30.2 L (39.6-50.0) % MCV 75.3 L (80.0-97.0) FL MCH 20.4 L (27.0-32.0) pg MCHC 27.2 L (32.0-37.0) d/dL RDW 20.6 H (11.5-14.5) % NRBC/100 WBC Diff 0.12 H (0.00-0.01) X 10*3/uL Potassium 3.1 L (3.5-5.5) mmol/L Carbon Dioxide 32.5 H (21.6-31.8) mmol/L BUN 63.2 H (9.0-27.0) mg/dL Est GFR (CKD-EPI) 45 L (>=60) BUN/Creatinine Ratio 42.13 H (12.00-20.00) Ratio Calcium 8.6 L (8.7-10.3) mg/dL Total Bilirubin 1.5 H (0.3-1.2) mg/dL AST 121 H (14-35) U/L ALT 225 H (10-49) U/L Total Protein 5.0 L (6.2-8.2) d/dL Albumin 3.1 L (3.8-4.9) d/dL Assessment and Plan Plan: Assessment: 1. Acute kidney injury secondary to ATN secondary to hemodynamic instability and cardiorenal syndrome. Creatinine peaked at 3.2 this admission - 1.5 today. Baseline creatinine near 1. No hydronephrosis noted on CT/uls. 2. A. fib with RVR maintained on Coreg. Cardiology following. Status post Cardizem drip. 3. Hypervolemic hyponatremia. Better. Improved. 4. Volume overload. Improving with diuresis 5. Anemia. Iron deficiency noted. s/p IV iron. Also on Aranesp. 6. Acute on chronic systolic CHF ejection fraction of 35-40% with severe mitral regurgitation and mild to moderate pulmonary regurgitation. 7. Coronary artery disease with cardiac stenting. 8. Metabolic acidosis secondary to acute kidney injury. s/p bicarb drip. Improved. Plan: Change Lasix to 40 mg orally twice daily. Maintain farxiga. Maintain Coe catheter. Avoid nephrotoxins. Continue to monitor renal function and urine output. Low-salt diet and 1500 mL fluid restriction. Add Flomax. Trial avoid in 3-4 days at ECF. No need for renal replacement therapy at this time. Repeat BMP and magnesium level to 3 days postdischarge. Follow up outpatient 1 week post discharge.
[2023-05-10] MEDS ORDERED: POTASSIUM CHLORIDE ER 20 MEQ TAB.ER PO STA (12:08)
[2023-05-10] MEDS: POTASSIUM CHLORIDE ER 20 MEQ TAB.ER PO SCH (13:22)
[2023-05-10 16:06] VITALS: BMI 24.2
--- NOTE | 2023-05-10 17:25 | P.PN ---
Subjective Progress Note Date: 05/10/23 Jatinder Ware, is an 87-year-old male patient who initially presented to the ER with concerns of possible rectal prolapse area according to patient he had a large painful p.m. yesterday. Patient appears to be a poor historian most history is obtained from medical record. 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 Patient has past medical history of atrial fibrillation, CVA, hyperlipidemia, hypertension, pneumonia, thyroid disorder. At this time patient will be admitted nephrology cardiology and surgical services consulted patient currently lying in bed eating breakfast denies chest pain or shortness breath. Patient denies nausea vomiting or diarrhea. Patient denies any urinary burning or frequency On 05/05 2023 patient was seen and examined on the medical floor he is alert and oriented 3 in no apparent distress, there is no fever or chills no headache or dizziness no chest pain no shortness of breath no cough no nausea or vomiting no abdominal pain no diarrhea and no urinary symptoms, vital exam reveals a temperature of 98.1 pulse 98 respiration 19 and blood pressure 99/65 pulse ox 99% on room air, sodium 133 potassium 5.3 chloride 98 CO2 17 BUN 103 creatinine 3.20 On 05/06/2023 patient's alert and oriented 3. Patient was started on bicarb drip per nephrology services. Awaiting lab work. Patient denies chest pain or shortness breath. Patient denies nausea vomiting or diarrhea. Patient denies any urinary burning or frequency On 05/07/2023 patient was seen and examined on the medical floor, he is alert slightly confused in no apparent distress, he denies any symptoms at this time vital exam reveals a temperature of 97.4 pulse 80 respiration 16 blood pressure 107/69 pulse ox 100% on 2 L nasal cannula. on 05/08/2023 patient is alert and oriented confused at times. Patient denies any acute complaints. Patient remains on bicarb drip per nephrology services. creatinine this a.m. improving to 1.92 and bun 198. current vital signs temp 97.8, heart rate 84, respiratory rate 16, blood pressure 101/68 with a pulse ox of 100% on 2 L On 05/09/2023 patient was seen and examined on the medical floor he is alert and oriented 3 in no apparent distress there is no fever or chills no headache or dizziness no chest pain no shortness of breath at rest no cough no nausea or vomiting no abdominal pain no diarrhea and no urinary symptoms. He is still maintained on oxygen 2 L via nasal cannula, he still has Coe catheter in, per nephrology continue with IV Lasix, will recheck in a.m.. On 05/10/2023 patient was seen and examined on the medical floor he is alert and oriented 3 in no apparent distress there is no fever or chills no headache or dizziness no chest pain no shortness of breath no cough no nausea or vomiting no abdominal pain no diarrhea and no urinary symptoms shouldn't is improving gradually possible discharge to home in the next 1-2 days Objective - Vital Signs Vital signs: Vital Signs Temp 97.9 F 05/10/23 14:00 Pulse 84 05/10/23 14:00 Resp 18 05/10/23 14:00 BP 101/62 05/10/23 14:00 Pulse Ox 100 05/10/23 14:00 FiO2 Intake & Output 05/09/23 05/10/23 05/10/23 18:59 06:59 18:59 Intake Total 590 418 Output Total 2000 600 Balance 590 -1999 -182 Weight 76.657 kg Intake: Oral 590 418 Output: Urine 2000 600 Other: Voiding Method Indwelling Catheter Indwelling Catheter Indwelling Catheter # Voids 500 - Exam In general patient is alert and oriented x 3 in no distress HEENT head normocephalic and atraumatic Neck is supple no JVD no goiter no lymphadenopathy no carotid bruit Chest examination is clear to auscultation no crackles no wheezing Cardiac exam reveals regular heart sounds S1 and S2 no gallops no murmurs Abdomen is soft nontender no organomegaly with normal bowel sounds Extremity exam reveals no edema no cyanosis or clubbing Neurological examination reveals no gross focal deficits - Labs CBC & Chem 7: 05/10/23 06:55 05/10/23 06:55 Labs: Abnormal Lab Results - Last 24 Hours (Table) 05/10/23 05/10/23 Range/Units 06:55 06:55 WBC 10.12 H (4.50-10.00) X 10*3/uL RBC 4.01 L (4.40-5.60) X 10*6/uL Hgb 8.2 L (13.0-17.0) d/dL Hct 30.2 L (39.6-50.0) % MCV 75.3 L (80.0-97.0) FL MCH 20.4 L (27.0-32.0) pg MCHC 27.2 L (32.0-37.0) d/dL RDW 20.6 H (11.5-14.5) % NRBC/100 WBC Diff 0.12 H (0.00-0.01) X 10*3/uL Potassium 3.1 L (3.5-5.5) mmol/L Carbon Dioxide 32.5 H (21.6-31.8) mmol/L BUN 63.2 H (9.0-27.0) mg/dL Est GFR (CKD-EPI) 45 L (>=60) BUN/Creatinine Ratio 42.13 H (12.00-20.00) Ratio Calcium 8.6 L (8.7-10.3) mg/dL Total Bilirubin 1.5 H (0.3-1.2) mg/dL AST 121 H (14-35) U/L ALT 225 H (10-49) U/L Total Protein 5.0 L (6.2-8.2) d/dL Albumin 3.1 L (3.8-4.9) d/dL Assessment and Plan Assessment: 1. Acute renal failure. Nephrology services consulted 2. A. fib with RVR. Cardiology service is consulted 3. 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 Surgical services consulted 4. Elevated liver enzymes ammonia level ordered 5. History of atrial fibrillation 6. History of hyperlipidemia 7. History of essential hypertension DVT prophylaxis Xarelto. GI prophylaxis Protonix Nephrology cardiology and surgical services consulted Repeat labs ordered Ammonia level ordered
[2023-05-10] MEDS: FUROSEMIDE 40 MG TAB PO SCH (17:44)
[2023-05-10] MEDS: RIVAROXABAN 15 MG TAB PO SCH (22:11)
[2023-05-10] MEDS: EZETIMIBE 10 MG TAB PO SCH (22:12)
[2023-05-10 22:29] VITALS: RESP 16
[2023-05-11] MEDS: PANTOPRAZOLE 40 MG TABLET PO SCH (06:46)
[2023-05-11 08:19] VITALS: BP 101/61; PULSE 82; TEMP 97.4
[2023-05-11] MEDS: DAPAGLIFLOZIN PROPANEDIOL 5 MG TABLET PO SCH (08:28)
[2023-05-11] MEDS: FUROSEMIDE 40 MG TAB PO SCH (08:28)
[2023-05-11] MEDS: METOPROLOL TARTRATE 25 MG TAB PO SCH (08:28)
[2023-05-11] MEDS: POTASSIUM CHLORIDE ER 20 MEQ TAB.ER PO SCH (08:28)
[2023-05-11] MEDS: TAMSULOSIN 0.4 MG CAP.ER.24H PO SCH (08:28)
[2023-05-11] MEDS: CLOPIDOGREL 75 MG TAB PO SCH (08:29)
[2023-05-11] MEDS: LACTULOSE 20 GM/30 ML CUP PO SCH (08:29)
[2023-05-11 08:46] LABS: Blood Urea Nitrogen 53.1 mg/dL (9.0-27.0); Calcium 8.5 mg/dL (8.7-10.3); Carbon Dioxide 32.2 mmol/L (21.6-31.8); Chloride 97 mmol/L (96-109); Glucose 90 mg/dL (70-110); Magnesium 2.2 mg/dL (1.5-2.4); Potassium 3.5 mmol/L (3.5-5.5); Sodium 139 mmol/L (135-145)
[2023-05-11] MEDS ORDERED: POTASSIUM CHLORIDE ER 20 MEQ TAB.ER PO STA (12:00)
--- NOTE | 2023-05-11 12:00 | P.PN ---
Subjective Patient is seen in follow-up for acute kidney injury. Renal function stable. On po Lasix. Nonoliguric. Hemodynamically stable. No active complaints. Vital signs are stable. General: No acute distress. HEENT: Head exam is unremarkable. On nasal cannula. LUNGS: No audible rhonchi or wheezes. HEART: Rate and Rhythm are regular. ABDOMEN: Nontender. EXTREMITITES: 1+ edema. Objective - Vital Signs Vital signs: Vital Signs Temp 97.4 F L 05/11/23 07:45 Pulse 82 05/11/23 07:45 Resp 16 05/11/23 07:45 BP 101/61 05/11/23 07:45 Pulse Ox 98 05/11/23 07:45 FiO2 Intake & Output 05/10/23 05/11/23 05/11/23 18:59 06:59 18:59 Intake Total 418 118 Output Total 1200 700 Balance -782 -700 118 Weight 76.657 kg Intake: Oral 418 118 Output: Urine 1200 700 Other: Voiding Method Indwelling Catheter Indwelling Catheter Indwelling Catheter - Labs CBC & Chem 7: 05/10/23 06:55 05/11/23 04:36 Labs: Abnormal Lab Results - Last 24 Hours (Table) 05/11/23 Range/Units 04:36 Carbon Dioxide 32.2 H (21.6-31.8) mmol/L BUN 53.1 H (9.0-27.0) mg/dL Est GFR (CKD-EPI) 45 L (>=60) BUN/Creatinine Ratio 35.40 H (12.00-20.00) Ratio Calcium 8.5 L (8.7-10.3) mg/dL Assessment and Plan Plan: Assessment: 1. Acute kidney injury secondary to ATN secondary to hemodynamic instability and cardiorenal syndrome. Creatinine peaked at 3.2 this admission - stable at 1.5 today. Baseline creatinine near 1. No hydronephrosis noted on CT/uls. 2. A. fib with RVR maintained on Coreg. Cardiology following. Status post Cardizem drip. 3. Hypervolemic hyponatremia. Better. Improved. 4. Volume overload. Improving with diuresis 5. Anemia. Iron deficiency noted. s/p IV iron. Also on Aranesp. 6. Acute on chronic systolic CHF ejection fraction of 35-40% with severe mitral regurgitation and mild to moderate pulmonary regurgitation. 7. Coronary artery disease with cardiac stenting. 8. Metabolic acidosis secondary to acute kidney injury. s/p bicarb drip. Improved. Plan: Maintain lasix 40 mg orally twice daily. Maintain farxiga. Maintain potassium supplementation. Maintain Coe catheter. Avoid nephrotoxins. Continue to monitor renal function and urine output. Low-salt diet and 1500 mL fluid restriction. Maintain Flomax. Trial avoid in 3-4 days at ECF. No need for renal replacement therapy at this time. Repeat BMP and magnesium level to 3 days postdischarge. Follow up outpatient 1 week post discharge.
--- NOTE | 2023-05-11 13:26 | P.DS ---
Providers Date of admission: 05/04/23 10:31 Expected date of discharge: 05/11/23 Attending physician: Dalia Julio Consults: 05/03/23 22:47 Consult Physician Routine Consulting Provider: Tamie Black Consult Reason/Comments: arf Do you want consulting provider notified?: Yes 05/04/23 03:26 Consult Physician Urgent Consulting Provider: Darius Flowers Consult Reason/Comments: Afib RVR Do you want consulting provider notified?: Yes, Notify in am Primary care physician: Dalia Nori [facility] Course: Diagnosis on discharge: 1. Acute renal failure. Nephrology services consulted 2. A. fib with RVR. Cardiology service is consulted 3. 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 Surgical services consulted 4. Elevated liver enzymes ammonia level ordered 5. History of atrial fibrillation 6. History of hyperlipidemia 7. History of essential hypertension Hospital course: Jatinder Ware, is an 87-year-old male patient who initially presented to the ER with concerns of possible rectal prolapse area according to patient he had a large painful p.m. yesterday. Patient appears to be a poor historian most history is obtained from medical record. 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 Patient has past medical history of atrial fibrillation, CVA, hyperlipidemia, hypertension, pneumonia, thyroid disorder. At this time patient will be admitted nephrology cardiology and surgical services consulted patient currently lying in bed eating breakfast denies chest pain or shortness breath. Patient denies nausea vomiting or diarrhea. Patient denies any urinary burning or frequency On 05/05 2023 patient was seen and examined on the medical floor he is alert and oriented 3 in no apparent distress, there is no fever or chills no headache or dizziness no chest pain no shortness of breath no cough no nausea or vomiting no abdominal pain no diarrhea and no urinary symptoms, vital exam reveals a temperature of 98.1 pulse 98 respiration 19 and blood pressure 99/65 pulse ox 99% on room air, sodium 133 potassium 5.3 chloride 98 CO2 17 BUN 103 creatinine 3.20 On 05/06/2023 patient's alert and oriented 3. Patient was started on bicarb drip per nephrology services. Awaiting lab work. Patient denies chest pain or shortness breath. Patient denies nausea vomiting or diarrhea. Patient denies any urinary burning or frequency On 05/07/2023 patient was seen and examined on the medical floor, he is alert slightly confused in no apparent distress, he denies any symptoms at this time vital exam reveals a temperature of 97.4 pulse 80 respiration 16 blood pressure 107/69 pulse ox 100% on 2 L nasal cannula. on 05/08/2023 patient is alert and oriented confused at times. Patient denies any acute complaints. Patient remains on bicarb drip per nephrology services. creatinine this a.m. improving to 1.92 and bun 198. current vital signs temp 97.8, heart rate 84, respiratory rate 16, blood pressure 101/68 with a pulse ox of 100% on 2 L On 05/09/2023 patient was seen and examined on the medical floor he is alert and oriented 3 in no apparent distress there is no fever or chills no headache or dizziness no chest pain no shortness of breath at rest no cough no nausea or vomiting no abdominal pain no diarrhea and no urinary symptoms. He is still maintained on oxygen 2 L via nasal cannula, he still has Coe catheter in, per nephrology continue with IV Lasix, will recheck in a.m.. On 05/10/2023 patient was seen and examined on the medical floor he is alert and oriented 3 in no apparent distress there is no fever or chills no headache or dizziness no chest pain no shortness of breath no cough no nausea or vomiting no abdominal pain no diarrhea and no urinary symptoms shouldn't is improving gradually possible discharge to home in the next 1-2 days On 05/11/2023 patient was seen and examined on the medical floor he is alert and oriented 3 in no apparent distress there is no fever or chills no headache or dizziness no chest pain no shortness of breath no cough no nausea or vomiting no abdominal pain no diarrhea and no urinary symptoms. It was cleared by nephrology for discharge recommendation is to keep Coe catheter in for 3-4 days after discharge. Patient is going to a snf for rehab. Patient Condition at Discharge: Serious Plan - Discharge Summary Discharge Rx Participant: No New Discharge Prescriptions: New Darbepoetin Preston [Aranesp] 40 mcg SQ Q7D each Lactulose [Cephulac] 30 gm PO BID ml Dapagliflozin Propanediol [Farxiga] 5 mg PO DAILY tab Tamsulosin [Flomax] 0.4 mg PO PC-BRKFST cap Potassium Chloride ER [K-Dur 20] 20 meq PO DAILY tab Pantoprazole [Protonix] 40 mg PO AC-BRKFST tab Furosemide [Lasix] 40 mg PO BID@0900,1600 tab Metoprolol Tartrate [Lopressor] 25 mg PO BID tab Continue Ezetimibe [Zetia] 10 mg PO HS Ferrous Sulfate [Iron (65 MG Elemental)] 325 mg PO BID Multivit-Min/FA/Lycopen/Lutein [Centrum Silver Tablet] 1 tab PO DAILY Levothyroxine Sodium [Synthroid] 150 mcg PO DAILY Clopidogrel [Plavix] 75 mg PO DAILY Rivaroxaban [Xarelto] 15 mg PO HS Atorvastatin [Lipitor] 40 mg PO DAILY #30 tab Nitroglycerin Sl Tabs [Nitrostat] 0.4 mg SUBLINGUAL Q5M PRN #20 tab PRN Reason: Chest Pain Sennosides/Docusate Sodium [Senna Plus 8.6-50 mg Tablet] 1 tab PO DAILY PRN PRN Reason: Constipation Discontinued Furosemide [Lasix] 40 mg PO BID carvediloL [Coreg] 3.125 mg PO BID Discharge Medication List Ezetimibe [Zetia] 10 mg PO HS 01/20/15 [History] Levothyroxine Sodium [Synthroid] 150 mcg PO DAILY 03/01/23 [History] Clopidogrel [Plavix] 75 mg PO DAILY 03/12/23 [History] Ferrous Sulfate [Iron (65 MG Elemental)] 325 mg PO BID 03/12/23 [History] Rivaroxaban [Xarelto] 15 mg PO HS 03/12/23 [History] Atorvastatin [Lipitor] 40 mg PO DAILY #30 tab 03/14/23 [Rx] Nitroglycerin Sl Tabs [Nitrostat] 0.4 mg SUBLINGUAL Q5M PRN #20 tab 03/14/23 [Rx] Multivit-Min/FA/Lycopen/Lutein [Centrum Silver Tablet] 1 tab PO DAILY 05/03/23 [History] Sennosides/Docusate Sodium [Senna Plus 8.6-50 mg Tablet] 1 tab PO DAILY PRN 05/03/23 [History] Dapagliflozin Propanediol [Farxiga] 5 mg PO DAILY tab 05/11/23 [Rx] Darbepoetin Preston [Aranesp] 40 mcg SQ Q7D each 05/11/23 [Rx] Furosemide [Lasix] 40 mg PO BID@0900,1600 tab 05/11/23 [Rx] Lactulose [Cephulac] 30 gm PO BID ml 05/11/23 [Rx] Metoprolol Tartrate [Lopressor] 25 mg PO BID tab 05/11/23 [Rx] Pantoprazole [Protonix] 40 mg PO AC-BRKFST tab 05/11/23 [Rx] Potassium Chloride ER [K-Dur 20] 20 meq PO DAILY tab 05/11/23 [Rx] Tamsulosin [Flomax] 0.4 mg PO PC-BRKFST cap 05/11/23 [Rx] Follow up Appointment(s)/Referral(s): Waqas Odom MD [STAFF PHYSICIAN] - 1 Week Dalia Julio MD [Primary Care Provider] - 1-2 days
== END 2023-05-11 16:08 | DRG 682 ==
LOC: EC 20:02 → 5NMEDONC 22:47 → 6NMEDSUR 05-04 01:22 → OBSVTOIN 05-04 10:31
PROVIDERS: ADMIT Internal Medicine; ATTEND Internal Medicine
DX: N17.0 Acute kidney failure with tubular necrosis (principal); I50.23 Acute on chronic systolic (congestive) heart failure; E87.1 Hypo-osmolality and hyponatremia; E87.20 Acidosis, unspecified; I13.0 Hypertensive heart and chronic kidney disease with heart failure and stage 1 through stage 4 chronic kidney disease, or unspecified chronic kidney disease; R18.8 Other ascites; I48.21 Permanent atrial fibrillation; I95.9 Hypotension, unspecified; I71.20 Thoracic aortic aneurysm, without rupture, unspecified; K74.60 Unspecified cirrhosis of liver; K56.41 Fecal impaction; Z66 Do not resuscitate; Z28.310 Unvaccinated for COVID-19; E86.1 Hypovolemia; N18.9 Chronic kidney disease, unspecified; E78.5 Hyperlipidemia, unspecified; I25.5 Ischemic cardiomyopathy; I34.0 Nonrheumatic mitral (valve) insufficiency; E87.6 Hypokalemia; I37.1 Nonrheumatic pulmonary valve insufficiency; I25.10 Atherosclerotic heart disease of native coronary artery without angina pectoris; D50.8 Other iron deficiency anemias; E07.9 Disorder of thyroid, unspecified; M21.372 Foot drop, left foot; R74.8 Abnormal levels of other serum enzymes; K62.3 Rectal prolapse; R77.8 Other specified abnormalities of plasma proteins; Z79.02 Long term (current) use of antithrombotics/antiplatelets; Z79.01 Long term (current) use of anticoagulants; Z79.890 Hormone replacement therapy; Z79.899 Other long term (current) drug therapy; Z95.5 Presence of coronary angioplasty implant and graft; Z95.3 Presence of xenogenic heart valve; Z85.828 Personal history of other malignant neoplasm of skin; Z86.73 Personal history of transient ischemic attack (TIA), and cerebral infarction without residual deficits; Z87.891 Personal history of nicotine dependence; Z88.8 Allergy status to other drugs, medicaments and biological substances
CPT/HCPCS: 36415; 74176; 76770; 80048; 80053; 81001; 82140; 82150; 82728; 83540; 83550; 83605; 83690; 83735; 84100; 84484; 85025; 93005; 96365; 96366; 96375; 99285